=== PATIENT | male | born 1950 | race American Indian/Alaskan Native ===

== ENCOUNTER 2017-09-11 07:57 | Inpatient (IN) | payer MEDICARE ==
--- NOTE | 2017-09-11 09:02 | Emergency Department Report ---
HPI - General Chief Complaint: Extremity Problem,Nontraumatic Time Seen by Provider: 09/11/17 08:41 - HPI HPI: This is a 66-year-old -Nepalese male presents to the emergency department with complaint of swelling to the right leg for the past day or so. The patient is noted to have a blackened and necrotic appearing right great toe. He says that it is been like this for the past couple weeks. He says he has been talking about seeing a physician regarding these symptoms but has not yet done so. He has a past medical history of prostate cancer and some chronic back pains. He has not taken anything for his symptoms prior presentation. He has a primary care physician to [facility]. No recent travel or sick contacts at home. ED Past Medical Hx - Past Medical History Previous Medical History?: Yes Hx of Cancer: Yes (prostate) Additional medical history: chronic back pain - Surgical History Past Surgical History?: No - Social History Smoking Status: Current Every Day Smoker Substance Use Type: Alcohol, Cocaine, Marijuana ED Review of Systems ROS: Stated complaint: RT LEG PAIN/SWOLLEN Other details as noted in HPI Comment: All other systems reviewed and negative Constitutional: denies: chills, fever Eyes: denies: eye pain, eye discharge, vision change ENT: denies: ear pain, throat pain Respiratory: denies: cough, shortness of breath, wheezing Cardiovascular: edema. denies: chest pain, palpitations Gastrointestinal: denies: abdominal pain, nausea, diarrhea Genitourinary: denies: urgency, dysuria Musculoskeletal: joint swelling, myalgia Skin: lesions, change in color Neurological: denies: headache, weakness, paresthesias Physical Exam - Physical Exam Vital Signs: Vital Signs 09/11/17 08:17 Temperature 98.4 F Pulse Rate 74 Respiratory 16 Rate Blood Pressure 110/58 Blood Pressure 110/58 [Left] O2 Sat by Pulse 100 Oximetry Physical Exam: GENERAL: The patient is well-developed well-nourished. HENT: Normocephalic. Atraumatic. Patient has moist mucous membranes. EYES: Extraocular motions are intact. Pupils equal reactive to light bilaterally. NECK: Supple. Trachea is midline. CHEST/LUNGS: Clear to auscultation. There is no respiratory distress noted. HEART/CARDIOVASCULAR: Regular. There is no tachycardia. There is no murmur. ABDOMEN: Abdomen is soft, nontender. Patient has normal bowel sounds. There is no abdominal distention. SKIN: The right lower extremity has some nonpitting edema from the mid tib-fib distally. It is slightly erythematous and warm to touch concerning for a cellulitis. The right great toe appears necrotic. There is a palpable dorsalis pedis pulse on this affected right leg. NEURO: The patient is awake, alert, and oriented. The patient is cooperative. The patient has no focal neurologic deficits. The patient has normal speech and gait. MUSCULOSKELETAL: There is some tenderness palpation to the distal right tib-fib and the foot. There is no evidence of acute injury. ED Course Vital Signs 09/11/17 08:17 Temperature 98.4 F Pulse Rate 74 Respiratory 16 Rate Blood Pressure 110/58 Blood Pressure 110/58 [Left] O2 Sat by Pulse 100 Oximetry ED Medical Decision Making - Lab Data Result diagrams: 09/11/17 09:29 09/11/17 09:29 - Radiology Data Radiology results: report reviewed RIGHT GREAT TOE THREE VIEWS: 09/11/17 07:57:00 CLINICAL: Right great toe necrosis. FINDINGS: Mild osteopenia. However, the great toe has a more coarse trabecular pattern than the rest of the bones. Soft tissue swelling of the great toe and mild soft tissue air in the distal great toe but no erosive changes in the bone. No periosteal reaction. No foreign body. No fracture or dislocation. The rest of the bones and joints are unremarkable. No soft tissue air or foreign body. IMPRESSION: Soft tissue edema and soft tissue air of the great toe. The trabecular changes in the great toe and the first metatarsal suggests possible chronic osteomyelitis. However, no findings of acute osteomyelitis. Transcribed By: REF Dictated By: BEKA OWENS MD Electronically Authenticated By: BEKA OWENS MD Signed Date/Time: 09/11/17 0959 Right lower extremity venous Doppler is negative for DVT. - Medical Decision Making Patient presents with complaint of some swelling to the right leg for a few days but was found to have a necrotic appearing right great toe as well. X-ray of the toe does not show any fracture and it was read by radiology as showing signs of chronic osteomyelitis. However the patient will be covered with some vancomycin for this and what appears to be a cellulitic right leg. The area is swollen, erythematous. Venous Doppler negative for DVT. Patient's labs show a hemoglobin of 6.7 and some thrombocytopenia. No signs of bleeding at this time. He was transfused with 2 units of packed red blood cells and will be admitted to the hospital for further evaluation and treatment. Accepted for admission by the hospitalist, Dr ram. - Differential Diagnosis osteomyelitis, cellulitis, iron deficitency, venous stasis Critical Care Time: No Critical care attestation.: If time is entered above; I have spent that time in minutes in the direct care of this critically ill patient, excluding procedure time. ED Disposition Clinical Impression: Osteomyelitis of toe of right foot, Thrombocytopenia Anemia Qualifiers: Anemia type: unspecified type Qualified Code(s): D64.9 - Anemia, unspecified Cellulitis of leg Qualifiers: Laterality: right Qualified Code(s): L03.115 - Cellulitis of right lower limb Disposition: OP ADMIT IP TO THIS HOSP Is pt being admited?: Yes Condition: Stable Time of Disposition: 15:05
[2017-09-11 09:44] LABS: Hematocrit 21.3 % (35.5-45.6); Hemoglobin 6.7 gm/dl (11.8-15.2); Mean Corpuscular HGB Conc 32 % (32-34); Mean Corpuscular Hemoglobin 30 pg (28-32); Mean Corpuscular Volume 96 fl (84-94); Red Blood Count 2.23 M/mm3 (3.65-5.03)
[2017-09-11 09:51] LABS: Platelet Count 83 K/mm3 (140-440); Red Cell Distribution Width 20.2 % (13.2-15.2)
--- NOTE | 2017-09-11 09:57 | XRay Report ---
RIGHT GREAT TOE THREE VIEWS: 09/11/17 07:57:00 CLINICAL: Right great toe necrosis. FINDINGS: Mild osteopenia. However, the great toe has a more coarse trabecular pattern than the rest of the bones. Soft tissue swelling of the great toe and mild soft tissue air in the distal great toe but no erosive changes in the bone. No periosteal reaction. No foreign body. No fracture or dislocation. The rest of the bones and joints are unremarkable. No soft tissue air or foreign body. IMPRESSION: Soft tissue edema and soft tissue air of the great toe. The trabecular changes in the great toe and the first metatarsal suggests possible chronic osteomyelitis. However, no findings of acute osteomyelitis.
[2017-09-11 09:59] LABS: BUN/Creatinine Ratio 26; Blood Urea Nitrogen 18 mg/dL (9-20); Calcium 8.7 mg/dL (8.4-10.2); Hemolysis Index 1
[2017-09-11] MEDS ORDERED: VANCOMYCIN/NS 1 GM/250 ML 1 GM/250 ML BAG IV SCH (10:00)
[2017-09-11 10:29] LABS: Basophils % (Manual) 0 % (0.0-1.8); Eosinophils % (Manual) 0 % (0.0-4.3); Total Cells Counted 100
[2017-09-11 10:32] LABS: Band Neutrophils # (Manual) 0.2 K/mm3; Myelocytes # (Manual) 0.1 K/mm3
[2017-09-11 10:33] LABS: Anisocytosis 2+; Tear Drop Cells 1+
[2017-09-11 10:34] LABS: Hypochromasia 2+; Macrocytosis 1+
[2017-09-11 10:35] LABS: Platelet Estimate Consistent w Auto
[2017-09-11] MEDS ORDERED: NACL 0.9% 500 ML 500 ML IV ONE (10:48)
[2017-09-11] MEDS ORDERED: NACL 0.9% 500 ML 500 ML IV NR (15:00)
--- NOTE | 2017-09-11 17:14 | History and Physical Report ---
History of Present Illness Date of examination: 09/11/17 Date of admission: 09/11/17 11:27 Chief complaint: Rt foot pain and blackened Great toe for 1 week History of present illness: HPI 66-year-old -Hungarian male with pmh of Prostate Cancer LBP and BPH presents to the emergency department with complaint of swelling to the right foot for the past week. The patient is noted to have a blackened and necrotic appearing right great toe. Dry eschar on Rt great Toe.No drainage. He says that it is been like this for the past couple weeks. He says he has been talking about seeing a physician regarding these symptoms but has not yet done so. He has a past medical history of prostate cancer and some chronic back pains. He has not taken anything for his symptoms prior presentation. He has a primary care physician at [facility]. No recent travel or sick contacts at home. Past Medical History Previous Medical History?: Yes Hx of Cancer: Yes (prostate) And BPH Additional medical history: chronic back pain Surgical History Past Surgical History?: No Social History Smoking Status: Current Every Day Smoker Substance Use Type: Alcohol, Cocaine, Marijuana Family History: Htn Review of Systems ROS: Stated complaint: RT LEG PAIN/SWOLLEN Other details as noted in HPI Comment: All other systems reviewed and negative Constitutional: denies: chills, fever Eyes: denies: eye pain, eye discharge, vision change ENT: denies: ear pain, throat pain Respiratory: denies: cough, shortness of breath, wheezing Cardiovascular: edema. denies: chest pain, palpitations Gastrointestinal: denies: abdominal pain, nausea, diarrhea Genitourinary: denies: urgency, dysuria Musculoskeletal: joint swelling, myalgia Skin: lesions, change in color Neurological: denies: headache, weakness, paresthesias Medications and Allergies Allergies Allergy/AdvReac Type Severity Reaction Status Date / Time No Known Allergies Allergy Unverified 09/11/17 08:29 Active Meds: Active Medications Vancomycin HCl (Vancomycin/Ns 1 Gm/250 Ml) 1 gm in 250 mls @ 167.007 mls/hr IV ONCE PIERCE PRN Reason: Protocol Sodium Chloride (Nacl 0.9% 500 Ml) 500 mls @ 0 mls/hr IV ONCE NR PRN Reason: As Directed Stop: 09/11/17 23:59 Last Admin: 09/11/17 14:45 Dose: 50 mls/hr Exam - Constitutional Vitals: Temp Pulse Resp BP Pulse Ox 99.4 F 72 18 137/70 99 09/11/17 16:57 09/11/17 16:57 09/11/17 16:57 09/11/17 16:57 09/11/17 16:57 General appearance: Present: no acute distress, well-nourished - EENT Eyes: Present: PERRL ENT: hearing intact, clear oral mucosa - Neck Neck: Present: supple, normal ROM - Respiratory Respiratory effort: normal Respiratory: bilateral: CTA - Cardiovascular Heart rate: 80 Rhythm: regular Heart Sounds: Present: S1 & S2. Absent: rub, click - Extremities Extremities: pulses intact, pulses symmetrical, No edema, abnormal (Rt Great toe Black in color especially around the nail bed) Extremity abnormal: edema, erythema, black (Great toe ), pulses diminished Peripheral Pulses: abnormal (Decreased dorsalis pedis) - Abdominal General gastrointestinal: Present: soft, non-tender, non-distended, normal bowel sounds Male genitourinary: Present: normal - Integumentary Integumentary: Present: clear, warm, dry - Musculoskeletal Musculoskeletal: gait normal, strength equal bilaterally - Psychiatric Psychiatric: appropriate mood/affect, intact judgment & insight - Neurologic Neurologic: CNII-XII intact, moves all extremities Results - Labs CBC & Chem 7: 09/11/17 09:29 09/11/17 09:29 Labs: Laboratory Last Values WBC 5.7 K/mm3 (4.5-11.0) 09/11/17 09:29 RBC 2.23 M/mm3 (3.65-5.03) L 09/11/17 09:29 Hgb 6.7 gm/dl (11.8-15.2) L 09/11/17 09:29 Hct 21.3 % (35.5-45.6) L 09/11/17 09:29 MCV 96 fl (84-94) H 09/11/17 09:29 MCH 30 pg (28-32) 09/11/17 09:29 MCHC 32 % (32-34) 09/11/17 09:29 RDW 20.2 % (13.2-15.2) H 09/11/17 09:29 Plt Count 83 K/mm3 (140-440) L 09/11/17 09:29 Add Manual Diff Complete 09/11/17 09:29 Total Counted 100 09/11/17 09:29 Seg Neuts % (Manual) 45.0 % (40.0-70.0) 09/11/17 09:29 Band Neutrophils % 3.0 % 09/11/17 09:29 Lymphocytes % (Manual) 44.0 % (13.4-35.0) H 09/11/17 09:29 Reactive Lymphs % (Man) 0 % 09/11/17 09:29 Monocytes % (Manual) 4.0 % (0.0-7.3) 09/11/17 09:29 Eosinophils % (Manual) 0 % (0.0-4.3) 09/11/17 09:29 Basophils % (Manual) 0 % (0.0-1.8) 09/11/17 09:29 Metamyelocytes % 3.0 % 09/11/17 09:29 Myelocytes % 1.0 % 09/11/17 09: Promyelocytes % 0 % 09/11/17 09:29 Blast Cells % 0 % 09/11/17 09:29 Nucleated RBC % 34.0 % (0.0-0.9) H 09/11/17 09:29 Seg Neutrophils # Man 2.6 K/mm3 (1.8-7.7) 09/11/17 09:29 Band Neutrophils # 0.2 K/mm3 09/11/17 09:29 Lymphocytes # (Manual) 2.5 K/mm3 (1.2-5.4) 09/11/17 09:29 Abs React Lymphs (Man) 0.0 K/mm3 09/11/17 09:29 Monocytes # (Manual) 0.2 K/mm3 (0.0-0.8) 09/11/17 09:29 Eosinophils # (Manual) 0.0 K/mm3 (0.0-0.4) 09/11/17 09:29 Basophils # (Manual) 0.0 K/mm3 (0.0-0.1) 09/11/17 09:29 Metamyelocytes # 0.2 K/mm3 09/11/17 09:29 Myelocytes # 0.1 K/mm3 09/11/17 09:29 Promyelocytes # 0.0 K/mm3 09/11/17 09:29 Blast Cells # 0.0 K/mm3 09/11/17 09:29 Pathologist Review Not Reportable 09/11/17 09:29 WBC Morphology Not Reportable 09/11/17 09:29 Hypersegmented Neuts Not Reportable 09/11/17 09:29 Hyposegmented Neuts Not Reportable 09/11/17 09:29 Hypogranular Neuts Not Reportable 09/11/17 09:29 Smudge Cells Not Reportable 09/11/17 09:29 Toxic Granulation Not Reportable 09/11/17 09:29 Toxic Vacuolation Not Reportable 09/11/17 09:29 Dohle Bodies Not Reportable 09/11/17 09:29 Pelger-Huet Anomaly Not Reportable 09/11/17 09:29 Jose Rods Not Reportable 09/11/17 09:29 Platelet Estimate Consistent w auto 09/11/17 09:29 Clumped Platelets Not Reportable 09/11/17 09:29 Plt Clumps, EDTA Not Reportable 09/11/17 09:29 Large Platelets Not Reportable 09/11/17 09:29 Giant Platelets Not Reportable 09/11/17 09:29 Platelet Satelliting Not Reportable 09/11/17 09:29 Plt Morphology Comment Not Reportable 09/11/17 09:29 RBC Morphology Not Reportable 09/11/17 09:29 Dimorphic RBCs Not Reportable 09/11/17 09:29 Polychromasia Few 09/11/17 09:29 Hypochromasia 2+ 09/11/17 09:29 Poikilocytosis Not Reportable 09/11/17 09:29 Anisocytosis 2+ 09/11/17 09:29 Microcytosis Not Reportable 09/11/17 09:29 Macrocytosis 1+ 09/11/17 09:29 Spherocytes Not Reportable 09/11/17 09:29 Pappenheimer Bodies Not Reportable 09/11/17 09:29 Sickle Cells Not Reportable 09/11/17 09:29 Target Cells Not Reportable 09/11/17 09:29 Tear Drop Cells 1+ 09/11/17 09:29 Ovalocytes Not Reportable 09/11/17 09:29 Helmet Cells Not Reportable 09/11/17 09:29 Li-Cucumber Bodies Not Reportable 09/11/17 09:29 [place] Rings Not Reportable 09/11/17 09:29 Jenae Cells Not Reportable 09/11/17 09:29 Bite Cells Not Reportable 09/11/17 09:29 Crenated Cell Not Reportable 09/11/17 09:29 Elliptocytes Not Reportable 09/11/17 09:29 Acanthocytes (Spur) Not Reportable 09/11/17 09:29 Rouleaux Not Reportable 09/11/17 09:29 Hemoglobin C Crystals Not Reportable 09/11/17 09:29 Schistocytes Not Reportable 09/11/17 09:29 Malaria parasites Not Reportable 09/11/17 09:29 Collins Bodies Not Reportable 09/11/17 09:29 Hem Pathologist Commnt No 09/11/17 09:29 Sodium 142 mmol/L (137-145) 09/11/17 09:29 Potassium 4.9 mmol/L (3.6-5.0) 09/11/17 09:29 Chloride 103.0 mmol/L (98-107) 09/11/17 09:29 Carbon Dioxide 25 mmol/L (22-30) 09/11/17 09:29 Anion Gap 19 mmol/L 09/11/17 09:29 BUN 18 mg/dL (9-20) 09/11/17 09:29 Creatinine 0.7 mg/dL (0.8-1.5) L 09/11/17 09:29 Estimated GFR > 60 ml/min 09/11/17 09:29 BUN/Creatinine Ratio 26 % 09/11/17 09:29 Glucose 90 mg/dL (75-100) 09/11/17 09:29 Lactic Acid 1.50 mmol/L (0.7-2.0) 09/11/17 09:29 Calcium 8.7 mg/dL (8.4-10.2) 09/11/17 09:29 Total Creatine Kinase 136 units/L (55-170) 09/11/17 09:29 Blood Type B POSITIVE 09/11/17 10:13 Antibody Screen Negative 09/11/17 10:13 Crossmatch See Detail 09/11/17 10:13 - Imaging and Cardiology Imaging and Cardiology: Rt great toe x ray -soft tissue edema of great toe.The trabecular changes in g\ reat toe and first metatarsal suggests possible chronic osteomyelitis.No acute osteomyelitis Assessment and Plan Advance Directives: Yes (Full code) VTE prophylaxis?: Chemical Plan of care discussed with patient/family: Yes - Patient Problems (1) Osteomyelitis of toe of right foot Current Visit: Yes Status: Chronic Plan to address problem: IV abx for now-Unasyn and vancomycin. w/u to r/o PAD Vascular and ID consult (2) Acute pure red cell anemia Current Visit: Yes Status: Acute Plan to address problem: probably secondary to prostate cancer. Transfuse 2 units of packed red blood cells. (3) BPH (benign prostatic hyperplasia) Current Visit: Yes Status: Chronic Qualifiers: Lower urinary tract symptom presence: symptoms present Plan to address problem: Continue Tamsulosin. (4) Chronic pain due to neoplasm Current Visit: Yes Status: Chronic Plan to address problem: continue his home medications. (5) PAD (peripheral artery disease) Current Visit: Yes Status: Chronic Plan to address problem: Strong possibility in view of his smoking.Arterial duplex scan ordered (6) Nicotine dependence Current Visit: Yes Status: Chronic Qualifiers: Nicotine product type: cigarettes Plan to address problem: Nicoderm patch ordered (7) DVT prophylaxis Current Visit: Yes Status: Acute Plan to address problem: Lovenox 30 mg subcutaneous daily
[2017-09-11] MEDS ORDERED: MORPHINE IV PRN (18:06)
[2017-09-11] MEDS ORDERED: TYLENOL PO PRN (18:12)
[2017-09-11] MEDS ORDERED: MILK OF MAGNESIA PO PRN (18:12)
[2017-09-11] MEDS ORDERED: DULCOLAX PR PRN (18:12)
[2017-09-11] MEDS ORDERED: ZOFRAN IV PRN (18:12)
[2017-09-11] MEDS ORDERED: UNASYN/NS 3 GM/100 ML 3 GM/100 ML BAG IV SCH (19:00)
[2017-09-11] MEDS ORDERED: D5NS 1,000 ML IV SCH (19:00)
[2017-09-11] MEDS ORDERED: VANCOMYCIN PHARMACY TO DOSE IV SCH (19:00)
[2017-09-11] MEDS: PERCOCET 5/325 PO PRN (19:03)
[2017-09-11] MEDS: HABITROL TD SCH (23:04)
[2017-09-11] MEDS: PEPCID PO SCH (23:04)
[2017-09-12] MEDS: DILAUDID IV PRN ×6 (00:11→23:28)
[2017-09-12] MEDS: UNASYN/NS 3 GM/100 ML 3 GM/100 ML BAG IV SCH ×3 (00:11→18:01)
[2017-09-12] MEDS ORDERED: VANCOMYCIN 1,500 MG in NACL 0.9% 500 ML 500 ML IV ONE (01:00)
[2017-09-12 01:51] LABS: % Iron Saturation 20.6 %
[2017-09-12 08:45] LABS: Mean Corpuscular HGB Conc 31 % (32-34); Mean Corpuscular Hemoglobin 29 pg (28-32); Mean Corpuscular Volume 94 fl (84-94); Red Blood Count 3.42 M/mm3 (3.65-5.03); Red Cell Distribution Width 18.7 % (13.2-15.2)
[2017-09-12 08:46] LABS: Platelet Count 65 K/mm3 (140-440)
[2017-09-12 08:50] LABS: Hematocrit 32.1 % (35.5-45.6)
[2017-09-12 09:05] LABS: Alanine Aminotransferase 8 units/L (7-56); Albumin 3.9 g/dL (3.9-5); BUN/Creatinine Ratio 18; Blood Urea Nitrogen 11 mg/dL (9-20); Calcium 8.7 mg/dL (8.4-10.2); Hemolysis Index 20
--- NOTE | 2017-09-12 09:35 | Consultation ---
History of Present Illness - Reason for Consult Consult date: 09/12/17 - History of Present Illness 66 year old male presenting with right great toe black discoloration for two weeks. He states that this has never occurred before, and prior to that he had never had issues with leg pain, PAD, or ambulation. He denies fever or chills. He also denies any cardiac history - specifically no atrial fibrillation or endocarditis. He also denies a history or hypercoagulability. He is not on blood thinners at home, per him. Medications and Allergies Allergies Allergy/AdvReac Type Severity Reaction Status Date / Time No Known Allergies Allergy Unverified 09/11/17 08:29 Active Meds: Active Medications Acetaminophen (Tylenol) 650 mg PO Q4H PRN PRN Reason: Pain MILD(1-3)/Fever >100.5/GARCIA Bisacodyl (Dulcolax) 10 mg RI QDAY PRN PRN Reason: Constipation unrelieved by [facility] Famotidine (Pepcid) 20 mg PO BID [facility] Last Admin: 09/11/17 23:04 Dose: 20 mg Hydromorphone HCl (Dilaudid) 1 mg IV Q3H PRN PRN Reason: Pain , Severe (7-10) Last Admin: 09/12/17 06:36 Dose: 1 mg Dextrose/Sodium Chloride (D5ns) 1,000 mls @ 100 mls/hr IV DIRECT [facility] Stop: 09/12/17 11:00 Last Admin: 09/12/17 07:06 Dose: 100 mls/hr Ampicillin Sodium/Sulbactam Sodium (Unasyn/Ns 3 Gm/100 Ml) 3 gm in 100 mls @ 100 mls/hr IV Q6HR [facility] PRN Reason: Protocol Last Admin: 09/12/17 06:31 Dose: 100 mls/hr Influenza Virus Vaccine Quadrival (Fluarix Quad [id number](36 Mos+) 0.5 ml IM .ONCE ONE Stop: 09/12/17 12:01 Magnesium Hydroxide (Milk Of Magnesia) 30 ml PO Q4H PRN PRN Reason: Constipation Nicotine (Habitrol) 21 mg TD QDAY [facility] Last Admin: 09/11/17 23:04 Dose: 21 mg Ondansetron HCl (Zofran) 4 mg IV Q8H PRN PRN Reason: N/V unrelieved by Reglan Oxycodone/Acetaminophen (Percocet 5/325) 1 tab PO Q6H PRN PRN Reason: Pain, Moderate (4-6) Last Admin: 09/11/17 19:03 Dose: 1 tab Pneumococcal Polyvalent Vaccine (Pneumovax 23) 0.5 ml IM .ONCE ONE Stop: 09/12/17 12:01 Vancomycin HCl (Vancomycin Pharmacy To Dose) 1 each IV PKCONSULT PIERCE PRN Reason: Protocol Zolpidem Tartrate (Ambien) 5 mg PO QHS PRN PRN Reason: Insomnia Exam - Constitutional Vitals: Temp Pulse Resp BP Pulse Ox 98.3 F 80 14 165/99 95 09/12/17 07:55 09/12/17 07:55 09/12/17 07:55 09/12/17 07:55 09/12/17 07:55 General appearance: Present: other (moderate distress) - EENT Eyes: Present: PERRL ENT: hearing intact, clear oral mucosa - Neck Neck: Present: supple, normal ROM - Respiratory Respiratory effort: normal - Extremities Extremities: abnormal (blackened, dry gangrene of rt great toe. cannot palpate right pulses due to severe tenderness. Left pedal pulses palpable) Results - Labs CBC & Chem 7: 09/12/17 08:32 09/12/17 08:32 Labs: Abnormal lab results 09/11/17 09/11/17 09/11/17 Range/Units 09:29 09:29 10:13 RBC 2.23 L (3.65-5.03) M/mm3 Hgb 6.7 L (11.8-15.2) gm/dl Hct 21.3 L (35.5-45.6) % MCV 96 H (84-94) fl MCHC (32-34) % RDW 20.2 H (13.2-15.2) % Plt Count 83 L (140-440) K/mm3 Lymphocytes % (Manual) 44.0 H (13.4-35.0) % Nucleated RBC % 34.0 H (0.0-0.9) % Creatinine 0.7 L (0.8-1.5) mg/dL Iron (49-181) ug/dL TIBC (250-450) mcg/dL Alkaline Phosphatase (35-129) units/L Crossmatch See Detail 09/11/17 09/12/17 09/12/17 Range/Units 23:47 08:32 08:32 RBC 3.42 L (3.65-5.03) M/mm3 Hgb 10.0 L D (11.8-15.2) gm/dl Hct 32.1 L D (35.5-45.6) % MCV (84-94) fl MCHC 31 L (32-34) % RDW 18.7 H (13.2-15.2) % Plt Count 65 L (140-440) K/mm3 Lymphocytes % (Manual) (13.4-35.0) % Nucleated RBC % (0.0-0.9) % Creatinine 0.6 L (0.8-1.5) mg/dL Iron 48 L (49-181) ug/dL TIBC 233 L (250-450) mcg/dL Alkaline Phosphatase 684 H (35-129) units/L Crossmatch - Imaging and Cardiology Venous US: pending Assessment and Plan Given the lack of cardiac history and relatively acute onset of symptoms, this could be an embolic/clotting event. However, the dry appearance of the toe along with a smoking history suggests a more chronic underlying process as well. I will have him get an arterial duplex this morning. However, it is almost certain that he will need an intervention given his level of pain. Depending on today's findings, further workup for an embolic source such as echo or CTA may be necessary. I will also recheck his coags.
[2017-09-12] MEDS: HABITROL TD SCH (09:41)
[2017-09-12] MEDS: PEPCID PO SCH ×2 (09:41→23:11)
[2017-09-12] MEDS ORDERED: LOVENOX SUB-Q SCH ×2 (10:00)
[2017-09-12 10:22] LABS: INR 0.94 (0.87-1.13)
[2017-09-12 11:04] LABS: Band Neutrophils # (Manual) 0.6 K/mm3; Basophils % (Manual) 0 % (0.0-1.8); Total Cells Counted 100
[2017-09-12 11:06] LABS: Anisocytosis 1+
[2017-09-12] MEDS ORDERED: PNEUMOVAX 23 IM ONE (12:00)
[2017-09-12] MEDS ORDERED: Fluarix Quad 2017-2018(36 MOS+ IM ONE (12:00)
[2017-09-12] MEDS ORDERED: HEPARIN/NS 5000 UNIT/500ML(CATH LAB) 500 ML IR ONE (12:03)
[2017-09-12] MEDS ORDERED: HEPARIN 10,000 UNITS/10 ML ONE (12:03)
[2017-09-12] MEDS ORDERED: NACL 0.9% 500 ML 500 ML ONE (12:04)
[2017-09-12] MEDS ORDERED: XYLOCAINE 2% INFILTRATI ONE (12:04)
[2017-09-12] MEDS ORDERED: ANCEF/STERILE WATER 2 GM/20 ML 0 GM/0 ML SYRINGE IV ONE (12:04)
[2017-09-12] MEDS: VERSED ONE ×2 (12:19→12:22)
[2017-09-12] MEDS: SUBLIMAZE ONE ×3 (12:19→13:42)
[2017-09-12] MEDS ORDERED: HEPARIN/NS 5000 UNIT/500ML(CATH LAB) 1,000 ML IR ONE (12:36)
[2017-09-12] MEDS ORDERED: VERSED ONE (12:52)
[2017-09-12] MEDS ORDERED: SUBLIMAZE ONE (12:52)
[2017-09-12] MEDS ORDERED: ANCEF/STERILE WATER 2 GM/20 ML 2 GM/20 ML SYRINGE IV ONE (13:07)
--- NOTE | 2017-09-12 14:40 | Consultation ---
History of Present Illness - Reason for Consult Consult date: 09/12/17 Right toe gangrene Requesting physician: INDIO ATKINSON - History of Present Illness 66-year-old -Sammarinese male with PHX of Prostate Cancer LBP and BPH presents to the emergency department with complaint of swelling to the right foot for the past week. The patient is noted to have a blackened and necrotic appearing right great toe. Dry eschar on Rt great toe with no drainage. He says that it is been like this for the past couple weeks. He has a past medical history of prostate cancer and some chronic back pains. He has not taken anything for his symptoms prior presentation. Initial temperature was 98.4, HR 74,, respiration 16, blood pressure 110/58, WBC 5.7, Hgb 6.7, Plt 83, Cr 0.7. Microbiology: Blood cultures: 09/11 ngtd Urine cultures: none Respiratory cultures: Current Antimicrobials: unasyn 08/16/ vacomycin 09/12 Previous Antimicrobials: ceftriaxone Medications and Allergies Allergies Allergy/AdvReac Type Severity Reaction Status Date / Time No Known Allergies Allergy Unverified 09/11/17 08:29 Active Meds: Active Medications Acetaminophen (Tylenol) 650 mg PO Q4H PRN PRN Reason: Pain MILD(1-3)/Fever >100.5/GARCIA Bisacodyl (Dulcolax) 10 mg PA QDAY PRN PRN Reason: Constipation unrelieved by MOM Famotidine (Pepcid) 20 mg PO BID [facility] Last Admin: 09/12/17 09:41 Dose: 20 mg Hydromorphone HCl (Dilaudid) 1 mg IV Q3H PRN PRN Reason: Pain , Severe (7-10) Last Admin: 09/12/17 09:41 Dose: 1 mg Ampicillin Sodium/Sulbactam Sodium (Unasyn/Ns 3 Gm/100 Ml) 3 gm in 100 mls @ 100 mls/hr IV Q6HR [facility] PRN Reason: Protocol Last Admin: 09/12/17 06:31 Dose: 100 mls/hr Vancomycin HCl (Vancomycin/Ns 1 Gm/250 Ml) 1 gm in 250 mls @ 166.667 mls/hr IV Q18H [facility] Magnesium Hydroxide (Milk Of Magnesia) 30 ml PO Q4H PRN PRN Reason: Constipation Nicotine (Habitrol) 21 mg TD QDAY [facility] Last Admin: 09/12/17 09:41 Dose: 21 mg Ondansetron HCl (Zofran) 4 mg IV Q8H PRN PRN Reason: N/V unrelieved by Reglan Oxycodone/Acetaminophen (Percocet 5/325) 1 tab PO Q6H PRN PRN Reason: Pain, Moderate (4-6) Last Admin: 09/11/17 19:03 Dose: 1 tab Vancomycin HCl (Vancomycin Pharmacy To Dose) 1 each IV PKCONSULT [facility] PRN Reason: Protocol Zolpidem Tartrate (Ambien) 5 mg PO QHS PRN PRN Reason: Insomnia Physical Examination - Physical Exam Narrative exam: General appearance: Alert in NAD, conversant Eyes: anicteric sclerae, moist conjunctivae; no lid-lag; PERRLA HENT: Atraumatic; oropharynx clear with moist mucous membranes and no mucosal ulcerations/no oral thrush; normal hard and soft palate. Normal external ears. Neck: Trachea midline; supple, no thyromegaly or lymphadenopathy Lungs: breath sounds diminished bilaterally CV: RRR, no murmurs Abdomen: Soft, non-tender; +BS x 4 Extremities: right great toe gangrene, right 2nd toe gangrene Skin: Normal temperature, warm dry and intact Psych: Appropriate affect, calm and cooperative Neuro: alert and oriented x 3. Moving all extermities Lines: No CVL / PICC - Constitutional Vitals: Vital Signs Temp Pulse Resp BP Pulse Ox 98.3 F 80 14 165/99 95 09/12/17 07:55 09/12/17 07:55 09/12/17 07:55 09/12/17 07:55 09/12/17 07:55 Temperature -Last 24 Hours Temperature 98.3 F Temperature 99.1 F Temperature 98.8 F Temperature 98.5 F Temperature 99.6 F Temperature 100.1 F Temperature 100.1 F Temperature 98.2 F Temperature 98.7 F Temperature 98.9 F Temperature 99.0 F Temperature 98.2 F Temperature 99.8 F Temperature 99.0 F Temperature 99.6 F Temperature 99.0 F Temperature 99.4 F Temperature 99.0 F Temperature 98.3 F Temperature 98.3 F Results - Labs CBC & Chem 7: 09/12/17 08:32 09/12/17 08:32 Labs: Abnormal lab results 09/11/17 09/11/17 09/12/17 Range/Units 10:13 23:47 08:32 RBC 3.42 L (3.65-5.03) M/mm3 Hgb 10.0 L D (11.8-15.2) gm/dl Hct 32.1 L D (35.5-45.6) % MCHC 31 L (32-34) % RDW 18.7 H (13.2-15.2) % Plt Count 65 L (140-440) K/mm3 Nucleated RBC % 4.0 H (0.0-0.9) % Creatinine (0.8-1.5) mg/dL Iron 48 L (49-181) ug/dL TIBC 233 L (250-450) mcg/dL Alkaline Phosphatase (35-129) units/L Crossmatch See Detail 09/12/17 Range/Units 08:32 RBC (3.65-5.03) M/mm3 Hgb (11.8-15.2) gm/dl Hct (35.5-45.6) % MCHC (32-34) % RDW (13.2-15.2) % Plt Count (140-440) K/mm3 Nucleated RBC % (0.0-0.9) % Creatinine 0.6 L (0.8-1.5) mg/dL Iron (49-181) ug/dL TIBC (250-450) mcg/dL Alkaline Phosphatase 684 H (35-129) units/L Crossmatch Assessment and Plan Assessment: 1) Sepsis not present on admission: manifested by fever, tachycardia, thrombocytopenia, and anemia. Etiology most likely gangrene of right toe 2) Right great toe ulcer/gangrene. Possible osteomyelitis 2) BPH Plan: -follow-up blood cultures -culture right great toe -obtain CRP -continue unasyn and vancomycin -f/u arterial doppler -obtain TTE, and CTI -vascular following Thank you Dr. Atkinson for your consult, will follow up Asael Ling NP-C for Dr. Hannah Ventura MD Infectious Diseases Specialist [facility] ([facility] M [phone] O [phone]
--- NOTE | 2017-09-12 15:33 | Progress Note ---
<MARILU RIVERA - Last Filed: 09/12/17 15:41> Assessment and Plan Assessment and plan: 66-year-old -[place] male with pmh of Prostate Cancer LBP and BPH presents to the emergency department with complaint of swelling to the right foot for the past week. The patient is noted to have a blackened and necrotic appearing right great toe. Dry eschar on Rt great Toe.No drainage. He says that it is been like this for the past couple weeks. He says he has been talking about seeing a physician regarding these symptoms but has not yet done so. He has a past medical history of prostate cancer and some chronic back pains. He has not taken anything for his symptoms prior presentation. Osteomyelitis of toe of right foot Continue IV abx for now-Unasyn and vancomycin. w/u to r/o PAD Duplex doppler LE showed OCCLUDED RT.POP ARTERY AND RT.DPA WITH THROMBUS NOTED.MULTIPHASIC WAVEFORMS THROUGHOUT VESSELS INTERROGATED EXCEPT FOR MONOPHASIC WAVEFORMS OBTAINED IN THE RT.[employer] AND RT.BRISA.BLE ARTERIAL DUPLEX Heparin Drip initiated Vascular and ID following Anemia Hgb 10.0 today probably secondary to prostate cancer. s/p Transfusion 2 units of packed red blood cells on 09/11. BPH (benign prostatic hyperplasia) Continue Tamsulosin. Chronic pain due to neoplasm continue his home medications. PAD (peripheral artery disease) Strong possibility in view of his smoking. Occluded R POP artery vascular following Nicotine dependence Pt counselled on cessation Nicoderm patch ordered DVT prophylaxis pt on Heparin History Interval history: Patient seen and examined. No new issues. Pt denies CP, SOB, NV. Labs and nursing notes reviewed. Hospitalist Physical - Constitutional Vitals: Temp Pulse Resp BP Pulse Ox 98.3 F 80 14 165/99 95 09/12/17 07:55 09/12/17 07:55 09/12/17 07:55 09/12/17 07:55 09/12/17 07:55 General appearance: Present: no acute distress, other - EENT Eyes: Present: PERRL, EOM intact ENT: hearing intact, clear oral mucosa - Neck Neck: Present: supple, normal ROM - Respiratory Respiratory effort: normal Respiratory: bilateral: diminished - Cardiovascular Rhythm: regular Heart Sounds: Present: S1 & S2 - Extremities Extremity abnormal: other (right great toe gangrene, right 2nd toe gangrene) - Abdominal General gastrointestinal: soft, non-tender, non-distended, normal bowel sounds - Integumentary Integumentary: Present: clear, warm, dry - Psychiatric Psychiatric: appropriate mood/affect, cooperative - Neurologic Neurologic: CNII-XII intact, moves all extremities - Allied Health Allied health notes reviewed: nursing Results - Labs CBC & Chem 7: 09/12/17 08:32 09/12/17 08:32 Labs: Laboratory Last Values WBC 6.2 K/mm3 (4.5-11.0) 09/12/17 08:32 RBC 3.42 M/mm3 (3.65-5.03) L 09/12/17 08:32 Hgb 10.0 gm/dl (11.8-15.2) L D 09/12/17 08:32 Hct 32.1 % (35.5-45.6) L D 09/12/17 08:32 MCV 94 fl (84-94) 09/12/17 08:32 MCH 29 pg (28-32) 09/12/17 08:32 MCHC 31 % (32-34) L 09/12/17 08:32 RDW 18.7 % (13.2-15.2) H 09/12/17 08:32 Plt Count 65 K/mm3 (140-440) L 09/12/17 08:32 Add Manual Diff Complete 09/12/17 08:32 Total Counted 100 09/12/17 08:32 Seg Neuts % (Manual) 50.0 % (40.0-70.0) 09/12/17 08:32 Band Neutrophils % 10.0 % 09/12/17 08:32 Lymphocytes % (Manual) 32.0 % (13.4-35.0) 09/12/17 08:32 Reactive Lymphs % (Man) 0 % 09/12/17 08:32 Monocytes % (Manual) 6.0 % (0.0-7.3) 09/12/17 08:32 Eosinophils % (Manual) 2.0 % (0.0-4.3) 09/12/17 08:32 Basophils % (Manual) 0 % (0.0-1.8) 09/12/17 08:32 Metamyelocytes % 0 % 09/12/17 08:32 Myelocytes % 0 % 09/12/17 08:32 Promyelocytes % 0 % 09/12/17 08:32 Blast Cells % 0 % 09/12/17 08:32 Nucleated RBC % 4.0 % (0.0-0.9) H 09/12/17 08:32 Seg Neutrophils # Man 3.1 K/mm3 (1.8-7.7) 09/12/17 08:32 Band Neutrophils # 0.6 K/mm3 09/12/17 08:32 Lymphocytes # (Manual) 2.0 K/mm3 (1.2-5.4) 09/12/17 08:32 Abs React Lymphs (Man) 0.0 K/mm3 09/12/17 08:32 Monocytes # (Manual) 0.4 K/mm3 (0.0-0.8) 09/12/17 08:32 Eosinophils # (Manual) 0.1 K/mm3 (0.0-0.4) 09/12/17 08:32 Basophils # (Manual) 0.0 K/mm3 (0.0-0.1) 09/12/17 08:32 Metamyelocytes # 0.0 K/mm3 09/12/17 08:32 Myelocytes # 0.0 K/mm3 09/12/17 08:32 Promyelocytes # 0.0 K/mm3 09/12/17 08:32 Blast Cells # 0.0 K/mm3 09/12/17 08:32 Pathologist Review Not Reportable 09/11/17 09:29 WBC Morphology Not Reportable 09/12/17 08:32 Hypersegmented Neuts Not Reportable 09/12/17 08:32 Hyposegmented Neuts Not Reportable 09/12/17 08:32 Hypogranular Neuts Not Reportable 09/12/17 08:32 Smudge Cells Not Reportable 09/12/17 08:32 Toxic Granulation Not Reportable 09/12/17 08:32 Toxic Vacuolation Not Reportable 09/12/17 08:32 Dohle Bodies Not Reportable 09/12/17 08:32 Pelger-Huet Anomaly Not Reportable 09/12/17 08:32 Jose Rods Not Reportable 09/12/17 08:32 Platelet Estimate Not Reportable 09/12/17 08:32 Clumped Platelets Not Reportable 09/12/17 08:32 Plt Clumps, EDTA Not Reportable 09/12/17 08:32 Large Platelets Not Reportable 09/12/17 08:32 Giant Platelets Not Reportable 09/12/17 08:32 Platelet Satelliting Not Reportable 09/12/17 08:32 Plt Morphology Comment Not Reportable 09/12/17 08:32 RBC Morphology Not Reportable 09/12/17 08:32 Dimorphic RBCs Not Reportable 09/12/17 08:32 Polychromasia Few 09/12/17 08:32 Hypochromasia Not Reportable 09/12/17 08:32 Poikilocytosis Not Reportable 09/12/17 08:32 Anisocytosis 1+ 09/12/17 08:32 Microcytosis Not Reportable 09/12/17 08:32 Macrocytosis Not Reportable 09/12/17 08:32 Spherocytes Not Reportable 09/12/17 08:32 Pappenheimer Bodies Not Reportable 09/12/17 08:32 Sickle Cells Not Reportable 09/12/17 08:32 Target Cells Not Reportable 09/12/17 08:32 Tear Drop Cells Not Reportable 09/12/17 08:32 Ovalocytes Not Reportable 09/12/17 08:32 Helmet Cells Not Reportable 09/12/17 08:32 Li-[place]isco[place] Bodies Not Reportable 09/12/17 08:32 [place] Rings Not Reportable 09/12/17 08:32 Jenae Cells Not Reportable 09/12/17 08:32 Bite Cells Not Reportable 09/12/17 08:32 Crenated Cell Not Reportable 09/12/17 08:32 Elliptocytes Not Reportable 09/12/17 08:32 Acanthocytes (Spur) Not Reportable 09/12/17 08:32 Rouleaux Not Reportable 09/12/17 08:32 Hemoglobin C Crystals Not Reportable 09/12/17 08:32 Schistocytes Not Reportable 09/12/17 08:32 Malaria parasites Not Reportable 09/12/17 08:32 Collins Bodies Not Reportable 09/12/17 08:32 Hem Pathologist Commnt No 09/12/17 08:32 PT 13.0 Sec. (12.2-14.9) 09/12/17 09:52 INR 0.94 (0.87-1.13) 09/12/17 09:52 Sodium 137 mmol/L (137-145) 09/12/17 08:32 Potassium 4.5 mmol/L (3.6-5.0) 09/12/17 08:32 Chloride 99.9 mmol/L (98-107) 09/12/17 08:32 Carbon Dioxide 23 mmol/L (22-30) 09/12/17 08:32 Anion Gap 19 mmol/L 09/12/17 08:32 BUN 11 mg/dL (9-20) 09/12/17 08:32 Creatinine 0.6 mg/dL (0.8-1.5) L 09/12/17 08:32 Estimated GFR > 60 ml/min 09/12/17 08:32 BUN/Creatinine Ratio 18 % 09/12/17 08:32 Glucose 77 mg/dL (75-100) 09/12/17 08:32 Hemoglobin A1c 5.4 % (4-6) 09/12/17 08:32 Lactic Acid 1.50 mmol/L (0.7-2.0) 09/11/17 09:29 Calcium 8.7 mg/dL (8.4-10.2) 09/12/17 08:32 Iron 48 ug/dL (49-181) L 09/11/17 23:47 TIBC 233 mcg/dL (250-450) L 09/11/17 23:47 % Saturation 20.60 % 09/11/17 23:47 Transferrin 194 mg/dl (180-329) 09/11/17 23:47 Total Bilirubin 0.60 mg/dL (0.1-1.2) 09/12/17 08:32 AST 17 units/L (5-40) 09/12/17 08:32 ALT 8 units/L (7-56) 09/12/17 08:32 Alkaline Phosphatase 684 units/L (35-129) H 09/12/17 08:32 Total Creatine Kinase 136 units/L (55-170) 09/11/17 09:29 Total Protein 7.2 g/dL (6.3-8.2) 09/12/17 08:32 Albumin 3.9 g/dL (3.9-5) 09/12/17 08:32 Albumin/Globulin Ratio 1.2 % 09/12/17 08:32 Blood Type B POSITIVE 01/28/18 10:13 Antibody Screen Negative 09/11/17 10:13 Crossmatch See Detail 09/11/17 10:13 <GERBER GAN E - Last Filed: 09/12/17 16:31> Assessment and Plan Assessment and plan: I saw and evaluated the patient. I agree with the findings and the plan of care as documented in the PA's~note, with the following corrections and additions. Hospitalist Physical - Constitutional Vitals: Temp Pulse Resp BP Pulse Ox 98.2 F 88 14 133/82 98 09/12/17 15:49 09/12/17 15:49 09/12/17 15:49 09/12/17 15:49 09/12/17 15:49 Results - Labs CBC & Chem 7: 09/12/17 08:32 09/12/17 08:32 Labs: Laboratory Last Values WBC 6.2 K/mm3 (4.5-11.0) 09/12/17 08:32 RBC 3.42 M/mm3 (3.65-5.03) L 09/12/17 08:32 Hgb 10.0 gm/dl (11.8-15.2) L D 09/12/17 08:32 Hct 32.1 % (35.5-45.6) L D 09/12/17 08:32 MCV 94 fl (84-94) 09/12/17 08:32 MCH 29 pg (28-32) 09/12/17 08:32 MCHC 31 % (32-34) L 09/12/17 08:32 RDW 18.7 % (13.2-15.2) H 09/12/17 08:32 Plt Count 65 K/mm3 (140-440) L 09/12/17 08:32 Add Manual Diff Complete 09/12/17 08:32 Total Counted 100 09/12/17 08:32 Seg Neuts % (Manual) 50.0 % (40.0-70.0) 09/12/17 08:32 Band Neutrophils % 10.0 % 09/12/17 08:32 Lymphocytes % (Manual) 32.0 % (13.4-35.0) 09/12/17 08:32 Reactive Lymphs % (Man) 0 % 09/12/17 08:32 Monocytes % (Manual) 6.0 % (0.0-7.3) 09/12/17 08:32 Eosinophils % (Manual) 2.0 % (0.0-4.3) 09/12/17 08:32 Basophils % (Manual) 0 % (0.0-1.8) 09/12/17 08:32 Metamyelocytes % 0 % 09/12/17 08:32 Myelocytes % 0 % 09/12/17 08:32 Promyelocytes % 0 % 09/12/17 08:32 Blast Cells % 0 % 09/12/17 08:32 Nucleated RBC % 4.0 % (0.0-0.9) H 09/12/17 08:32 Seg Neutrophils # Man 3.1 K/mm3 (1.8-7.7) 09/12/17 08:32 Band Neutrophils # 0.6 K/mm3 09/12/17 08:32 Lymphocytes # (Manual) 2.0 K/mm3 (1.2-5.4) 09/12/17 08:32 Abs React Lymphs (Man) 0.0 K/mm3 09/12/17 08:32 Monocytes # (Manual) 0.4 K/mm3 (0.0-0.8) 09/12/17 08:32 Eosinophils # (Manual) 0.1 K/mm3 (0.0-0.4) 09/12/17 08:32 Basophils # (Manual) 0.0 K/mm3 (0.0-0.1) 09/12/17 08:32 Metamyelocytes # 0.0 K/mm3 09/12/17 08:32 Myelocytes # 0.0 K/mm3 09/12/17 08:32 Promyelocytes # 0.0 K/mm3 09/12/17 08:32 Blast Cells # 0.0 K/mm3 09/12/17 08:32 Pathologist Review Not Reportable 09/11/17 09:29 WBC Morphology Not Reportable 09/12/17 08:32 Hypersegmented Neuts Not Reportable 09/12/17 08:32 Hyposegmented Neuts Not Reportable 09/12/17 08:32 Hypogranular Neuts Not Reportable 09/12/17 08:32 Smudge Cells Not Reportable 09/12/17 08:32 Toxic Granulation Not Reportable 09/12/17 08:32 Toxic Vacuolation Not Reportable 09/12/17 08:32 Dohle Bodies Not Reportable 09/12/17 08:32 Pelger-Huet Anomaly Not Reportable 09/12/17 08:32 Jose Rods Not Reportable 09/12/17 08:32 Platelet Estimate Not Reportable 09/12/17 08:32 Clumped Platelets Not Reportable 09/12/17 08:32 Plt Clumps, EDTA Not Reportable 09/12/17 08:32 Large Platelets Not Reportable 09/12/17 08:32 Giant Platelets Not Reportable 09/12/17 08:32 Platelet Satelliting Not Reportable 09/12/17 08:32 Plt Morphology Comment Not Reportable 09/12/17 08:32 RBC Morphology Not Reportable 09/12/17 08:32 Dimorphic RBCs Not Reportable 09/12/17 08:32 Polychromasia Few 09/12/17 08:32 Hypochromasia Not Reportable 09/12/17 08:32 Poikilocytosis Not Reportable 09/12/17 08:32 Anisocytosis 1+ 09/12/17 08:32 Microcytosis Not Reportable 09/12/17 08:32 Macrocytosis Not Reportable 09/12/17 08:32 Spherocytes Not Reportable 09/12/17 08:32 Pappenheimer Bodies Not Reportable 09/12/17 08:32 Sickle Cells Not Reportable 09/12/17 08:32 Target Cells Not Reportable 09/12/17 08:32 Tear Drop Cells Not Reportable 09/12/17 08:32 Ovalocytes Not Reportable 09/12/17 08:32 Helmet Cells Not Reportable 09/12/17 08:32 Li-Biscoe Bodies Not Reportable 09/12/17 08:32 [place] Rings Not Reportable 09/12/17 08:32 [place] Cells Not Reportable 09/12/17 08:32 Bite Cells Not Reportable 09/12/17 08:32 Crenated Cell Not Reportable 09/12/17 08:32 Elliptocytes Not Reportable 09/12/17 08:32 Acanthocytes (Spur) Not Reportable 09/12/17 08:32 Rouleaux Not Reportable 09/12/17 08:32 Hemoglobin C Crystals Not Reportable 09/12/17 08:32 Schistocytes Not Reportable 09/12/17 08:32 Malaria parasites Not Reportable 09/12/17 08:32 Collins Bodies Not Reportable 09/12/17 08:32 Hem Pathologist Commnt No 09/12/17 08:32 PT 13.0 Sec. (12.2-14.9) 09/12/17 09:52 INR 0.94 (0.87-1.13) 09/12/17 09:52 Sodium 137 mmol/L (137-145) 09/12/17 08:32 Potassium 4.5 mmol/L (3.6-5.0) 09/12/17 08:32 Chloride 99.9 mmol/L (98-107) 09/12/17 08:32 Carbon Dioxide 23 mmol/L (22-30) 09/12/17 08:32 Anion Gap 19 mmol/L 09/12/17 08:32 BUN 11 mg/dL (9-20) 09/12/17 08:32 Creatinine 0.6 mg/dL (0.8-1.5) L 09/12/17 08:32 Estimated GFR > 60 ml/min 09/12/17 08:32 BUN/Creatinine Ratio 18 % 09/12/17 08:32 Glucose 77 mg/dL (75-100) 09/12/17 08:32 Hemoglobin A1c 5.4 % (4-6) 09/12/17 08:32 Lactic Acid 1.50 mmol/L (0.7-2.0) 09/11/17 09:29 Calcium 8.7 mg/dL (8.4-10.2) 09/12/17 08:32 Iron 48 ug/dL (49-181) L 09/11/17 23:47 TIBC 233 mcg/dL (250-450) L 09/11/17 23:47 % Saturation 20.60 % 09/11/17 23:47 Transferrin 194 mg/dl (180-329) 09/11/17 23:47 Total Bilirubin 0.60 mg/dL (0.1-1.2) 09/12/17 08:32 AST 17 units/L (5-40) 09/12/17 08:32 ALT 8 units/L (7-56) 09/12/17 08:32 Alkaline Phosphatase 684 units/L (35-129) H 09/12/17 08:32 Total Creatine Kinase 136 units/L (55-170) 09/11/17 09:29 Total Protein 7.2 g/dL (6.3-8.2) 09/12/17 08:32 Albumin 3.9 g/dL (3.9-5) 09/12/17 08:32 Albumin/Globulin Ratio 1.2 % 09/12/17 08:32 Blood Type B POSITIVE 09/11/17 10:13 Antibody Screen Negative 09/11/17 10:13 Crossmatch See Detail 09/11/17 10:13
--- NOTE | 2017-09-12 15:46 | Operative Report ---
Operative Report Operative Report: Procedure: 1. Ultrasound-guided access of the left common femoral artery 2. Ultrasound-guided access of the right common femoral artery 3. Distal aortography and bilateral common iliac arteriography 4. Sequential right lower extremity arteriography, including infrapopliteal runoff and pedal vessels. Date of Procedure: 09/12/2017 History/Indication: This 66-year-old male with gangrene of the right great toe and pain. Arterial duplex demonstrated an occluded popliteal artery. Physician: Toribio Stark MD Technique/Procedural Details: The patient was placed in the supine position and prepped and draped in the usual sterile fashion. A timeout was performed. Local anesthetic was administered. Under direct ultrasound guidance, a 21-gauge needle was advanced into the right common femoral artery. The needle was exchanged over a mandrel wire for a 4 Sami exchange dilator. Through this, a J-wire was advanced, and a 5 Sami vascular sheath was placed. An Omni flush catheter was advanced over the J-wire to the aortic bifurcation and bilateral common iliac arteriography and aortography was performed. Due to significant tortuosity of the aortic bifurcation, retrograde access could not be achieved. The right groin was then prepped and draped in the usual sterile fashion. Local anesthetic was administered. Under continuous ultrasound guidance, the right common femoral artery was accessed in an antegrade fashion. Via a micropuncture technique, a short 6 Sami vascular sheath was placed. A vertebral catheter was advanced into the superficial femoral artery, and arteriography was performed. Arteriography was sequentially performed to the level of the pedal vessels. In anticipation of intervention, a 45 cm, 7 Sami Center Line destination sheath was placed, replacing the short 6 Sami sheath. However, after further discussion and review of the acquired images, the decision was made to conclude the procedure. Both sheaths were withdrawn and hemostasis was achieved with manual pressure. Discussion: The distal aorta and bilateral common iliac arteries, although tortuous, are normal. There is a complete occlusion of the level of the popliteal arteries with reconstitution of the posterior tibial artery. The peroneal artery reconstitutes as well, and eventually gives rise to the dorsalis pedis. 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 As such, before further intervention, cross-sectional imaging must be acquired to determine further management. A CT angiogram with runoff was ordered, and the primary physician was notified. Specimen: None EBL: <5 cc
[2017-09-12] MEDS ORDERED: HEPARIN 25,000 UNIT in D5W 497.5 ML IV SCH (17:00)
[2017-09-12] MEDS ORDERED: HEPARIN/ 0.45% NACL-25,000 UNIT/500 ML 25,000 UNIT/500 ML BAG IV SCH (17:00)
[2017-09-12 18:32] LABS: Hemoglobin 9.7 gm/dl (11.8-15.2)
[2017-09-12 18:47] LABS: INR 0.96 (0.87-1.13)
[2017-09-12 18:48] LABS: Partial Thromboplastin Time 26.4 Sec. (24.2-36.6)
--- NOTE | 2017-09-12 22:12 | Cat Scan Report ---
FINAL REPORT PROCEDURE: CT ANGIO ABD/FEMORAL ABD AORTA TECHNIQUE: Computerized axial tomographic angiography of the chest, abdomen, pelvis and aortoiliac system with bilateral lower extremity runoff was performed after the IV injection of nonionic iodinated contrast including image processing.The image data was postprocessed using 2-dimensional multiplanar reformatted (MPR) and 3-dimensional (MIP and/or volume rendered) techniques. HISTORY: arteriomegaly - concern for pop aneurysm COMPARISON: No prior studies are available for comparison. FINDINGS: Heart/pericardium: Normal. Aorta: Normal. Pulmonary vessels: Normal. Lungs: Normal. Abdominal and pelvic viscera: Normal. Hypervascular masses: None. Abdominal aorta: Atherosclerotic calcification is noted without significant stenosis Celiac artery: There is narrowing of the proximal celiac artery secondary to what appears to be diaphragmatic crux impression. Superior mesenteric artery: Normal. LEFT renal artery: Normal. RIGHT renal artery: Normal. Inferior mesenteric artery:Normal. Common iliac arteries: Bilateral common iliac arteries are dilated measuring 13 millimeters in diameter. External iliac arteries: Normal. RIGHT lower extremity: Femoral arteries: Normal. Popliteal arteries: There is complete occlusion of the right popliteal artery just above the knee joint with reconstitution anterior and posterior tibial arteries and peroneal artery in the proximal 3rd. There is no evidence of popliteal arterial aneurysm. Anterior tibial artery is demonstrate multiple closes segments throughout.. Posterior tibial and peroneal arteries are patent. Posterior tibial artery is extending into the foot. LEFT lower extremity: Femoral arteries: Normal. Popliteal arteries: Normal. Trifurcation vessels: Posterior and anterior tibial arteries are patent throughout. Peroneal artery demonstrates multiple moderate degree stenoses. Other: Gallbladder is not visualized consistent with cholecystectomy. Moderate degree residual stool is noted. Appendix is normal. There is diffusely increased density of the bony skeleton. IMPRESSION: Bilateral common iliac arteries are dilated and measure 13 millimeters in diameter. 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 Embolic occlusion cannot be excluded. Reconstitution of proximal tibial and peroneal arteries. Diffuse severe disease of the anterior tibial artery with multiple occlusions. Multiple moderate degree stenotic lesions of left peroneal artery.
[2017-09-12] MEDS: VANCOMYCIN/NS 1 GM/250 ML 1 GM/250 ML BAG IV SCH (23:11)
[2017-09-13] MEDS: UNASYN/NS 3 GM/100 ML 3 GM/100 ML BAG IV SCH ×6 (00:08→23:46)
[2017-09-13] MEDS: DILAUDID IV PRN ×2 (06:36→12:59)
[2017-09-13 10:00] LABS: BUN/Creatinine Ratio 17; Blood Urea Nitrogen 10 mg/dL (9-20); Calcium 9.3 mg/dL (8.4-10.2); Hemolysis Index 4
--- NOTE | 2017-09-13 10:41 | Progress Note ---
Assessment and Plan Assessment: 1) Sepsis not present on admission: Better, still thrombocytopenia and anemia. Etiology most likely gangrene of right toe -CRP = 15.70 -blood cultures 09/11 ngtd -CTA showed bilateral common iliac arteries are dilated and measure 133 mm in diameter 2) Right great toe ulcer/gangrene. Possible osteomyelitis 2) BPH Plan: -f/u right great toe culture -continue unasyn day 2 and vancomycin day 3 -f/u arterial doppler -f/u TTE, and CTI -vascular following Thank you Dr. Saavedra for your consult, will follow up SARAH Figueroa for Dr. Hannah Ventura MD Infectious Diseases Specialist [facility] [phone] O [phone] Subjective Date of service: 09/13/17 Principal diagnosis: right toe gangrene Interval history: I have not had anything to eat since midnight and I am hungry, no fever Microbiology: Blood cultures: 09/11 ngtd Urine cultures: none Respiratory cultures: Current Antimicrobials: unasyn 09/12 vacomycin 09/11 Previous Antimicrobials: ceftriaxone Objective - Exam Narrative Exam: General appearance: Alert in NAD, conversant Eyes: anicteric sclerae, moist conjunctivae; no lid-lag; PERRLA HENT: Atraumatic; oropharynx clear with moist mucous membranes and no mucosal ulcerations/no oral thrush; Neck: Trachea midline; supple, no thyromegaly or lymphadenopathy Lungs: breath sounds diminished bilaterally CV: RRR, no murmurs Abdomen: Soft, non-tender; +BS x 4 Extremities: right great toe gangrene, right 2nd toe gangrene Skin: Normal temperature, warm and dry Psych: Appropriate affect, calm and cooperative Neuro: alert and oriented x 3. Moving all extermities Lines: No CVL / PICC - Constitutional Vitals: Vital Signs Temp Pulse Resp BP Pulse Ox 98.1 F 87 18 149/81 99 09/13/17 07:48 09/13/17 07:48 09/13/17 10:00 09/13/17 07:48 09/13/17 07:48 Temperature -Last 24 Hours Temperature 98.1 F Temperature 98.7 F Temperature 98.2 F - Labs CBC & Chem 7: 09/12/17 18:07 09/13/17 09:29 Labs: Abnormal lab results 09/12/17 09/12/17 09/13/17 Range/Units 08:32 18:07 06:18 Hgb 9.7 L (11.8-15.2) gm/dl Hct 30.0 L (35.5-45.6) % Plt Count 62 L (140-440) K/mm3 Nucleated RBC % 4.0 H (0.0-0.9) % Heparin Anti-Xa Level < 0.10 L (0.3-0.7) U.I./ml Sodium (137-145) mmol/L Chloride (98-107) mmol/L Creatinine (0.8-1.5) mg/dL Glucose (75-100) mg/dL 09/13/17 Range/Units 09:29 Hgb (11.8-15.2) gm/dl Hct (35.5-45.6) % Plt Count (140-440) K/mm3 Nucleated RBC % (0.0-0.9) % Heparin Anti-Xa Level (0.3-0.7) U.I./ml Sodium 133 L (137-145) mmol/L Chloride 97.0 L (98-107) mmol/L Creatinine 0.6 L (0.8-1.5) mg/dL Glucose 103 H (75-100) mg/dL
[2017-09-13 12:00] LABS: Hematocrit 31.6 % (35.5-45.6); Hemoglobin 10.1 gm/dl (11.8-15.2); Mean Corpuscular HGB Conc 32 % (32-34); Mean Corpuscular Hemoglobin 30 pg (28-32); Mean Corpuscular Volume 93 fl (84-94); Red Cell Distribution Width 18.5 % (13.2-15.2)
[2017-09-13 12:10] LABS: Platelet Count 55 K/mm3 (140-440)
--- NOTE | 2017-09-13 12:32 | Progress Note ---
<MARILU RIVERA - Last Filed: 09/13/17 12:30> Assessment and Plan Assessment and plan: 66-year-old -[place] male with pmh of Prostate Cancer LBP and BPH presents to the emergency department with complaint of swelling to the right foot for the past week. The patient is noted to have a blackened and necrotic appearing right great toe. Dry eschar on Rt great Toe.No drainage. He says that it is been like this for the past couple weeks. He says he has been talking about seeing a physician regarding these symptoms but has not yet done so. He has a past medical history of prostate cancer and some chronic back pains. He has not taken anything for his symptoms prior presentation. Osteomyelitis of toe of right foot Continue IV abx for now-Unasyn and vancomycin. w/u to r/o PAD Duplex doppler LE showed OCCLUDED RT.POP ARTERY AND RT.DPA WITH THROMBUS NOTED.MULTIPHASIC WAVEFORMS THROUGHOUT VESSELS INTERROGATED EXCEPT FOR MONOPHASIC WAVEFORMS OBTAINED IN THE RT.WELCOME HOSTESS AND RT.BRISA.BLE ARTERIAL DUPLEX Heparin Drip initiated Vascular and ID following Anemia Hgb 10.0 today probably secondary to prostate cancer. s/p Transfusion 2 units of packed red blood cells on 09/11. BPH (benign prostatic hyperplasia) Continue Tamsulosin. Chronic pain due to neoplasm continue his home medications. PAD (peripheral artery disease) Strong possibility in view of his smoking. Occluded R POP artery vascular following Nicotine dependence Pt counselled on cessation Nicoderm patch ordered DVT prophylaxis pt on Heparin History Interval history: Patient seen and examined. No new issues. Pt denies CP, SOB, NV. Labs and nursing notes reviewed. Hospitalist Physical - Constitutional Vitals: Temp Pulse Resp BP Pulse Ox 98.6 F 87 18 153/89 100 09/13/17 10:54 09/13/17 10:54 09/13/17 10:54 09/13/17 10:54 09/13/17 10:54 General appearance: Present: no acute distress, other - EENT Eyes: Present: PERRL, EOM intact ENT: hearing intact, clear oral mucosa - Neck Neck: Present: supple, normal ROM - Respiratory Respiratory effort: normal Results - Labs CBC & Chem 7: 09/13/17 11:41 09/13/17 09:29 Labs: Laboratory Last Values WBC 5.0 K/mm3 (4.5-11.0) 09/13/17 11:41 RBC 3.40 M/mm3 (3.65-5.03) L 09/13/17 11:41 Hgb 10.1 gm/dl (11.8-15.2) L 09/13/17 11:41 Hct 31.6 % (35.5-45.6) L 09/13/17 11:41 MCV 93 fl (84-94) 09/13/17 11:41 MCH 30 pg (28-32) 09/13/17 11:41 MCHC 32 % (32-34) 09/13/17 11:41 RDW 18.5 % (13.2-15.2) H 09/13/17 11:41 Plt Count 55 K/mm3 (140-440) L 09/13/17 11:41 Add Manual Diff Complete 09/12/17 08:32 Total Counted 100 09/12/17 08:32 Seg Neuts % (Manual) 50.0 % (40.0-70.0) 09/12/17 08:32 Band Neutrophils % 10.0 % 09/12/17 08:32 Lymphocytes % (Manual) 32.0 % (13.4-35.0) 09/12/17 08:32 Reactive Lymphs % (Man) 0 % 09/12/17 08:32 Monocytes % (Manual) 6.0 % (0.0-7.3) 09/12/17 08:32 Eosinophils % (Manual) 2.0 % (0.0-4.3) 09/12/17 08:32 Basophils % (Manual) 0 % (0.0-1.8) 09/12/17 08:32 Metamyelocytes % 0 % 09/12/17 08:32 Myelocytes % 0 % 09/12/17 08:32 Promyelocytes % 0 % 09/12/17 08:32 Blast Cells % 0 % 09/12/17 08:32 Nucleated RBC % 4.0 % (0.0-0.9) H 09/12/17 08:32 Seg Neutrophils # Man 3.1 K/mm3 (1.8-7.7) 09/12/17 08:32 Band Neutrophils # 0.6 K/mm3 09/12/17 08:32 Lymphocytes # (Manual) 2.0 K/mm3 (1.2-5.4) 09/12/17 08:32 Abs React Lymphs (Man) 0.0 K/mm3 09/12/17 08:32 Monocytes # (Manual) 0.4 K/mm3 (0.0-0.8) 09/12/17 08:32 Eosinophils # (Manual) 0.1 K/mm3 (0.0-0.4) 09/12/17 08:32 Basophils # (Manual) 0.0 K/mm3 (0.0-0.1) 09/12/17 08:32 Metamyelocytes # 0.0 K/mm3 09/12/17 08:32 Myelocytes # 0.0 K/mm3 09/12/17 08:32 Promyelocytes # 0.0 K/mm3 09/12/17 08:32 Blast Cells # 0.0 K/mm3 09/12/17 08:32 Pathologist Review Not Reportable 09/11/17 09:29 WBC Morphology Not Reportable 09/12/17 08:32 Hypersegmented Neuts Not Reportable 09/12/17 08:32 Hyposegmented Neuts Not Reportable 09/12/17 08:32 Hypogranular Neuts Not Reportable 09/12/17 08:32 Smudge Cells Not Reportable 09/12/17 08:32 Toxic Granulation Not Reportable 09/12/17 08:32 Toxic Vacuolation Not Reportable 09/12/17 08:32 Dohle Bodies Not Reportable 09/12/17 08:32 Pelger-Huet Anomaly Not Reportable 09/12/17 08:32 Jose Rods Not Reportable 09/12/17 08:32 Platelet Estimate Not Reportable 09/12/17 08:32 Clumped Platelets Not Reportable 09/12/17 08:32 Plt Clumps, EDTA Not Reportable 09/12/17 08:32 Large Platelets Not Reportable 09/12/17 08:32 Giant Platelets Not Reportable 09/12/17 08:32 Platelet Satelliting Not Reportable 09/12/17 08:32 Plt Morphology Comment Not Reportable 09/12/17 08:32 RBC Morphology Not Reportable 09/12/17 08:32 Dimorphic RBCs Not Reportable 09/12/17 08:32 Polychromasia Few 09/12/17 08:32 Hypochromasia Not Reportable 09/12/17 08:32 Poikilocytosis Not Reportable 09/12/17 08:32 Anisocytosis 1+ 09/12/17 08:32 Microcytosis Not Reportable 09/12/17 08:32 Macrocytosis Not Reportable 09/12/17 08:32 Spherocytes Not Reportable 09/12/17 08:32 Pappenheimer Bodies Not Reportable 09/12/17 08:32 Sickle Cells Not Reportable 09/12/17 08:32 Target Cells Not Reportable 09/12/17 08:32 Tear Drop Cells Not Reportable 09/12/17 08:32 Ovalocytes Not Reportable 09/12/17 08:32 Helmet Cells Not Reportable 09/12/17 08:32 Li-Belva Bodies Not Reportable 09/12/17 08:32 [place] Rings Not Reportable 09/12/17 08:32 Jenae Cells Not Reportable 09/12/17 08:32 Bite Cells Not Reportable 09/12/17 08:32 Crenated Cell Not Reportable 09/12/17 08:32 Elliptocytes Not Reportable 09/12/17 08:32 Acanthocytes (Spur) Not Reportable 09/12/17 08:32 Rouleaux Not Reportable 09/12/17 08:32 Hemoglobin C Crystals Not Reportable 09/12/17 08:32 Schistocytes Not Reportable 09/12/17 08:32 Malaria parasites Not Reportable 09/12/17 08:32 Collins Bodies Not Reportable 09/12/17 08:32 Hem Pathologist Commnt No 09/12/17 08:32 PT 13.3 Sec. (12.2-14.9) 09/12/17 18:07 INR 0.96 (0.87-1.13) 09/12/17 18:07 APTT 26.4 Sec. (24.2-36.6) 09/12/17 18:07 Heparin Anti-Xa Level < 0.10 U.I./ml (0.3-0.7) L 09/13/17 06:18 Sodium 133 mmol/L (137-145) L 09/13/17 09:29 Potassium 4.4 mmol/L (3.6-5.0) 09/13/17 09:29 Chloride 97.0 mmol/L (98-107) L 09/13/17 09:29 Carbon Dioxide 22 mmol/L (22-30) 09/13/17 09:29 Anion Gap 18 mmol/L 09/13/17 09:29 BUN 10 mg/dL (9-20) 09/13/17 09:29 Creatinine 0.6 mg/dL (0.8-1.5) L 09/13/17 09:29 Estimated GFR > 60 ml/min 09/13/17 09:29 BUN/Creatinine Ratio 17 % 09/13/17 09:29 Glucose 103 mg/dL (75-100) H 09/13/17 09:29 Hemoglobin A1c 5.4 % (4-6) 09/12/17 08:32 Lactic Acid 1.50 mmol/L (0.7-2.0) 09/11/17 09:29 Calcium 9.3 mg/dL (8.4-10.2) 09/13/17 09:29 Iron 48 ug/dL (49-181) L 09/11/17 23:47 TIBC 233 mcg/dL (250-450) L 09/11/17 23:47 % Saturation 20.60 % 09/11/17 23:47 Transferrin 194 mg/dl (180-329) 09/11/17 23:47 Total Bilirubin 0.60 mg/dL (0.1-1.2) 09/12/17 08:32 AST 17 units/L (5-40) 09/12/17 08:32 ALT 8 units/L (7-56) 09/12/17 08:32 Alkaline Phosphatase 684 units/L (35-129) H 09/12/17 08:32 Total Creatine Kinase 136 units/L (55-170) 09/11/17 09:29 C-Reactive Protein 15.70 mg/dL (0.00-1.30) H 09/13/17 09:29 Total Protein 7.2 g/dL (6.3-8.2) 09/12/17 08:32 Albumin 3.9 g/dL (3.9-5) 09/12/17 08:32 Albumin/Globulin Ratio 1.2 % 09/12/17 08:32 Blood Type B POSITIVE 09/11/17 10:13 Antibody Screen Negative 09/11/17 10:13 Crossmatch See Detail 09/11/17 10:13 <GERBER GAN - Last Filed: 09/13/17 14:08> Assessment and Plan Assessment and plan: I saw and evaluated the patient. I agree with the findings and the plan of care as documented in the PA's~note, with the following corrections and additions. Hematology consult Thrombocytopenia-EVAL FOR HIT Hospitalist Physical - Constitutional Vitals: Temp Pulse Resp BP Pulse Ox 98.6 F 87 18 153/89 100 09/13/17 10:54 09/13/17 10:54 09/13/17 10:54 09/13/17 10:54 09/13/17 10:54 Results - Labs CBC & Chem 7: 09/13/17 11:41 09/13/17 09:29 Labs: Laboratory Last Values WBC 5.0 K/mm3 (4.5-11.0) 09/13/17 11:41 RBC 3.40 M/mm3 (3.65-5.03) L 09/13/17 11:41 Hgb 10.1 gm/dl (11.8-15.2) L 09/13/17 11:41 Hct 31.6 % (35.5-45.6) L 09/13/17 11:41 MCV 93 fl (84-94) 09/13/17 11:41 MCH 30 pg (28-32) 09/13/17 11:41 MCHC 32 % (32-34) 09/13/17 11:41 RDW 18.5 % (13.2-15.2) H 09/13/17 11:41 Plt Count 55 K/mm3 (140-440) L 09/13/17 11:41 Add Manual Diff Complete 09/12/17 08:32 Total Counted 100 09/12/17 08:32 Seg Neuts % (Manual) 50.0 % (40.0-70.0) 09/12/17 08:32 Band Neutrophils % 10.0 % 09/12/17 08:32 Lymphocytes % (Manual) 32.0 % (13.4-35.0) 09/12/17 08:32 Reactive Lymphs % (Man) 0 % 09/12/17 08:32 Monocytes % (Manual) 6.0 % (0.0-7.3) 09/12/17 08:32 Eosinophils % (Manual) 2.0 % (0.0-4.3) 09/12/17 08:32 Basophils % (Manual) 0 % (0.0-1.8) 09/12/17 08:32 Metamyelocytes % 0 % 09/12/17 08:32 Myelocytes % 0 % 09/12/17 08:32 Promyelocytes % 0 % 09/12/17 08:32 Blast Cells % 0 % 09/12/17 08:32 Nucleated RBC % 4.0 % (0.0-0.9) H 09/12/17 08:32 Seg Neutrophils # Man 3.1 K/mm3 (1.8-7.7) 09/12/17 08:32 Band Neutrophils # 0.6 K/mm3 09/12/17 08:32 Lymphocytes # (Manual) 2.0 K/mm3 (1.2-5.4) 09/12/17 08:32 Abs React Lymphs (Man) 0.0 K/mm3 09/12/17 08:32 Monocytes # (Manual) 0.4 K/mm3 (0.0-0.8) 09/12/17 08:32 Eosinophils # (Manual) 0.1 K/mm3 (0.0-0.4) 09/12/17 08:32 Basophils # (Manual) 0.0 K/mm3 (0.0-0.1) 09/12/17 08:32 Metamyelocytes # 0.0 K/mm3 09/12/17 08:32 Myelocytes # 0.0 K/mm3 09/12/17 08:32 Promyelocytes # 0.0 K/mm3 09/12/17 08:32 Blast Cells # 0.0 K/mm3 09/12/17 08:32 Pathologist Review Not Reportable 09/11/17 09:29 WBC Morphology Not Reportable 09/12/17 08:32 Hypersegmented Neuts Not Reportable 09/12/17 08:32 Hyposegmented Neuts Not Reportable 09/12/17 08:32 Hypogranular Neuts Not Reportable 09/12/17 08:32 Smudge Cells Not Reportable 09/12/17 08:32 Toxic Granulation Not Reportable 09/12/17 08:32 Toxic Vacuolation Not Reportable 09/12/17 08:32 Dohle Bodies Not Reportable 09/12/17 08:32 Pelger-Huet Anomaly Not Reportable 09/12/17 08:32 Jose Rods Not Reportable 09/12/17 08:32 Platelet Estimate Not Reportable 09/12/17 08:32 Clumped Platelets Not Reportable 09/12/17 08:32 Plt Clumps, EDTA Not Reportable 09/12/17 08:32 Large Platelets Not Reportable 09/12/17 08:32 Giant Platelets Not Reportable 09/12/17 08:32 Platelet Satelliting Not Reportable 09/12/17 08:32 Plt Morphology Comment Not Reportable 09/12/17 08:32 RBC Morphology Not Reportable 09/12/17 08:32 Dimorphic RBCs Not Reportable 09/12/17 08:32 Polychromasia Few 09/12/17 08:32 Hypochromasia Not Reportable 09/12/17 08:32 Poikilocytosis Not Reportable 09/12/17 08:32 Anisocytosis 1+ 09/12/17 08:32 Microcytosis Not Reportable 09/12/17 08:32 Macrocytosis Not Reportable 09/12/17 08:32 Spherocytes Not Reportable 09/12/17 08:32 Pappenheimer Bodies Not Reportable 09/12/17 08:32 Sickle Cells Not Reportable 09/12/17 08:32 Target Cells Not Reportable 09/12/17 08:32 Tear Drop Cells Not Reportable 09/12/17 08:32 Ovalocytes Not Reportable 09/12/17 08:32 Helmet Cells Not Reportable 09/12/17 08:32 Li-Belva Bodies Not Reportable 09/12/17 08:32 [place] Rings Not Reportable 09/12/17 08:32 [place] Cells Not Reportable 09/12/17 08:32 Bite Cells Not Reportable 09/12/17 08:32 Crenated Cell Not Reportable 09/12/17 08:32 Elliptocytes Not Reportable 09/12/17 08:32 Acanthocytes (Spur) Not Reportable 09/12/17 08:32 Rouleaux Not Reportable 09/12/17 08:32 Hemoglobin C Crystals Not Reportable 09/12/17 08:32 Schistocytes Not Reportable 09/12/17 08:32 Malaria parasites Not Reportable 09/12/17 08:32 Collins Bodies Not Reportable 09/12/17 08:32 Hem Pathologist Commnt No 09/12/17 08:32 PT 13.3 Sec. (12.2-14.9) 09/12/17 18:07 INR 0.96 (0.87-1.13) 09/12/17 18:07 APTT 26.4 Sec. (24.2-36.6) 09/12/17 18:07 Heparin Anti-Xa Level < 0.10 U.I./ml (0.3-0.7) L 09/13/17 06:18 Sodium 133 mmol/L (137-145) L 09/13/17 09:29 Potassium 4.4 mmol/L (3.6-5.0) 09/13/17 09:29 Chloride 97.0 mmol/L (98-107) L 09/13/17 09:29 Carbon Dioxide 22 mmol/L (22-30) 09/13/17 09:29 Anion Gap 18 mmol/L 09/13/17 09:29 BUN 10 mg/dL (9-20) 09/13/17 09:29 Creatinine 0.6 mg/dL (0.8-1.5) L 09/13/17 09:29 Estimated GFR > 60 ml/min 09/13/17 09:29 BUN/Creatinine Ratio 17 % 09/13/17 09:29 Glucose 103 mg/dL (75-100) H 09/13/17 09:29 Hemoglobin A1c 5.4 % (4-6) 09/12/17 08:32 Lactic Acid 1.50 mmol/L (0.7-2.0) 09/11/17 09:29 Calcium 9.3 mg/dL (8.4-10.2) 09/13/17 09:29 Iron 48 ug/dL (49-181) L 09/11/17 23:47 TIBC 233 mcg/dL (250-450) L 09/11/17 23:47 % Saturation 20.60 % 09/11/17 23:47 Transferrin 194 mg/dl (180-329) 09/11/17 23:47 Total Bilirubin 0.60 mg/dL (0.1-1.2) 09/12/17 08:32 AST 17 units/L (5-40) 09/12/17 08:32 ALT 8 units/L (7-56) 09/12/17 08:32 Alkaline Phosphatase 684 units/L (35-129) H 09/12/17 08:32 Total Creatine Kinase 136 units/L (55-170) 09/11/17 09:29 C-Reactive Protein 15.70 mg/dL (0.00-1.30) H 09/13/17 09:29 Total Protein 7.2 g/dL (6.3-8.2) 09/12/17 08:32 Albumin 3.9 g/dL (3.9-5) 09/12/17 08:32 Albumin/Globulin Ratio 1.2 % 09/12/17 08:32 Blood Type B POSITIVE 09/11/17 10:13 Antibody Screen Negative 09/11/17 10:13 Crossmatch See Detail 09/11/17 10:13
[2017-09-13] MEDS ORDERED: DILAUDID IV ONE (12:43)
[2017-09-13] MEDS ORDERED: DILAUDID ONE (12:46)
--- NOTE | 2017-09-13 12:47 | Event Note ---
Date: 09/13/17 The patient's platelets are 55 today, falling from 62 yesterday, and 80 the day before. In light of his thrombotic occlusion, low hemoglobin on presentation, and current heparin drip, today's procedure needs to be postponed. I would recommend at least acquiring a HIT panel and a hematology consult. Performing pharmacologic catheter directed thrombolysis with mechanical thrombectomy without first assessing any underlying coagulation/platelet disorders could result in severe complications. This was conveyed to both the patient and the primary physician.
--- NOTE | 2017-09-13 14:39 | Progress Note ---
History Interval history: Patient seen and examined. No new issues. Pt denies CP, SOB, NV. Labs and nursing notes reviewed. Hospitalist Physical - Constitutional Vitals: Temp Pulse Resp BP Pulse Ox 98.6 F 87 18 153/89 100 09/13/17 10:54 09/13/17 10:54 09/13/17 10:54 09/13/17 10:54 09/13/17 10:54 General appearance: Present: no acute distress, other - EENT Eyes: Present: PERRL, EOM intact ENT: hearing intact, clear oral mucosa - Neck Neck: Present: supple, normal ROM - Respiratory Respiratory effort: normal Respiratory: bilateral: CTA - Cardiovascular Rhythm: regular Heart Sounds: Present: S1 & S2 - Extremities Extremities: No edema, Full ROM - Abdominal General gastrointestinal: soft, non-tender (canceled procedure but today and Dr. GOMEZ for him to stop the heparin drip) Results - Labs CBC & Chem 7: 09/13/17 11:41 09/13/17 09:29 Labs: Laboratory Last Values WBC 5.0 K/mm3 (4.5-11.0) 09/13/17 11:41 RBC 3.40 M/mm3 (3.65-5.03) L 09/13/17 11:41 Hgb 10.1 gm/dl (11.8-15.2) L 09/13/17 11:41 Hct 31.6 % (35.5-45.6) L 09/13/17 11:41 MCV 93 fl (84-94) 09/13/17 11:41 MCH 30 pg (28-32) 09/13/17 11:41 MCHC 32 % (32-34) 09/13/17 11:41 RDW 18.5 % (13.2-15.2) H 09/13/17 11:41 Plt Count 55 K/mm3 (140-440) L 09/13/17 11:41 Add Manual Diff Complete 09/12/17 08:32 Total Counted 100 09/12/17 08:32 Seg Neuts % (Manual) 50.0 % (40.0-70.0) 09/12/17 08:32 Band Neutrophils % 10.0 % 09/12/17 08:32 Lymphocytes % (Manual) 32.0 % (13.4-35.0) 09/12/17 08:32 Reactive Lymphs % (Man) 0 % 09/12/17 08:32 Monocytes % (Manual) 6.0 % (0.0-7.3) 09/12/17 08:32 Eosinophils % (Manual) 2.0 % (0.0-4.3) 09/12/17 08:32 Basophils % (Manual) 0 % (0.0-1.8) 09/12/17 08:32 Metamyelocytes % 0 % 09/12/17 08:32 Myelocytes % 0 % 09/12/17 08:32 Promyelocytes % 0 % 09/12/17 08:32 Blast Cells % 0 % 09/12/17 08:32 Nucleated RBC % 4.0 % (0.0-0.9) H 09/12/17 08:32 Seg Neutrophils # Man 3.1 K/mm3 (1.8-7.7) 09/12/17 08:32 Band Neutrophils # 0.6 K/mm3 09/12/17 08:32 Lymphocytes # (Manual) 2.0 K/mm3 (1.2-5.4) 09/12/17 08:32 Abs React Lymphs (Man) 0.0 K/mm3 09/12/17 08:32 Monocytes # (Manual) 0.4 K/mm3 (0.0-0.8) 09/12/17 08:32 Eosinophils # (Manual) 0.1 K/mm3 (0.0-0.4) 09/12/17 08:32 Basophils # (Manual) 0.0 K/mm3 (0.0-0.1) 09/12/17 08:32 Metamyelocytes # 0.0 K/mm3 09/12/17 08:32 Myelocytes # 0.0 K/mm3 09/12/17 08:32 Promyelocytes # 0.0 K/mm3 09/12/17 08:32 Blast Cells # 0.0 K/mm3 09/12/17 08:32 Pathologist Review Not Reportable 09/11/17 09:29 WBC Morphology Not Reportable 09/12/17 08:32 Hypersegmented Neuts Not Reportable 09/12/17 08:32 Hyposegmented Neuts Not Reportable 09/12/17 08:32 Hypogranular Neuts Not Reportable 09/12/17 08:32 Smudge Cells Not Reportable 09/12/17 08:32 Toxic Granulation Not Reportable 09/12/17 08:32 Toxic Vacuolation Not Reportable 09/12/17 08:32 Dohle Bodies Not Reportable 09/12/17 08:32 Pelger-Huet Anomaly Not Reportable 09/12/17 08:32 Jose Rods Not Reportable 09/12/17 08:32 Platelet Estimate Not Reportable 09/12/17 08:32 Clumped Platelets Not Reportable 09/12/17 08:32 Plt Clumps, EDTA Not Reportable 09/12/17 08:32 Large Platelets Not Reportable 09/12/17 08:32 Giant Platelets Not Reportable 09/12/17 08:32 Platelet Satelliting Not Reportable 09/12/17 08:32 Plt Morphology Comment Not Reportable 09/12/17 08:32 RBC Morphology Not Reportable 09/12/17 08:32 Dimorphic RBCs Not Reportable 09/12/17 08:32 Polychromasia Few 09/12/17 08:32 Hypochromasia Not Reportable 09/12/17 08:32 Poikilocytosis Not Reportable 09/12/17 08:32 Anisocytosis 1+ 09/12/17 08:32 Microcytosis Not Reportable 09/12/17 08:32 Macrocytosis Not Reportable 09/12/17 08:32 Spherocytes Not Reportable 09/12/17 08:32 Pappenheimer Bodies Not Reportable 09/12/17 08:32 Sickle Cells Not Reportable 09/12/17 08:32 Target Cells Not Reportable 09/12/17 08:32 Tear Drop Cells Not Reportable 09/12/17 08:32 Ovalocytes Not Reportable 09/12/17 08:32 Helmet Cells Not Reportable 09/12/17 08:32 Li-[place] Bodies Not Reportable 09/12/17 08:32 [place] Rings Not Reportable 09/12/17 08:32 Jenae Cells Not Reportable 09/12/17 08:32 Bite Cells Not Reportable 09/12/17 08:32 Crenated Cell Not Reportable 09/12/17 08:32 Elliptocytes Not Reportable 09/12/17 08:32 Acanthocytes (Spur) Not Reportable 09/12/17 08:32 Rouleaux Not Reportable 09/12/17 08:32 Hemoglobin C Crystals Not Reportable 09/12/17 08:32 Schistocytes Not Reportable 09/12/17 08:32 Malaria parasites Not Reportable 09/12/17 08:32 Collins Bodies Not Reportable 09/12/17 08:32 Hem Pathologist Commnt No 09/12/17 08:32 PT 13.3 Sec. (12.2-14.9) 09/12/17 18:07 INR 0.96 (0.87-1.13) 09/12/17 18:07 APTT 26.4 Sec. (24.2-36.6) 09/12/17 18:07 Heparin Anti-Xa Level < 0.10 U.I./ml (0.3-0.7) L 09/13/17 06:18 Sodium 133 mmol/L (137-145) L 09/13/17 09:29 Potassium 4.4 mmol/L (3.6-5.0) 09/13/17 09:29 Chloride 97.0 mmol/L (98-107) L 09/13/17 09:29 Carbon Dioxide 22 mmol/L (22-30) 09/13/17 09:29 Anion Gap 18 mmol/L 09/13/17 09:29 BUN 10 mg/dL (9-20) 09/13/17 09:29 Creatinine 0.6 mg/dL (0.8-1.5) L 09/13/17 09:29 Estimated GFR > 60 ml/min 09/13/17 09:29 BUN/Creatinine Ratio 17 % 09/13/17 09:29 Glucose 103 mg/dL (75-100) H 09/13/17 09:29 Hemoglobin A1c 5.4 % (4-6) 09/12/17 08:32 Lactic Acid 1.50 mmol/L (0.7-2.0) 09/11/17 09:29 Calcium 9.3 mg/dL (8.4-10.2) 09/13/17 09:29 Iron 48 ug/dL (49-181) L 09/11/17 23:47 TIBC 233 mcg/dL (250-450) L 09/11/17 23:47 % Saturation 20.60 % 09/11/17 23:47 Transferrin 194 mg/dl (180-329) 09/11/17 23:47 Total Bilirubin 0.60 mg/dL (0.1-1.2) 09/12/17 08:32 AST 17 units/L (5-40) 09/12/17 08:32 ALT 8 units/L (7-56) 09/12/17 08:32 Alkaline Phosphatase 684 units/L (35-129) H 09/12/17 08:32 Total Creatine Kinase 136 units/L (55-170) 09/11/17 09:29 C-Reactive Protein 15.70 mg/dL (0.00-1.30) H 09/13/17 09:29 Total Protein 7.2 g/dL (6.3-8.2) 09/12/17 08:32 Albumin 3.9 g/dL (3.9-5) 09/12/17 08:32 Albumin/Globulin Ratio 1.2 % 09/12/17 08:32 Blood Type B POSITIVE 09/11/17 10:13 Antibody Screen Negative 09/11/17 10:13 Crossmatch See Detail 09/11/17 10:13
[2017-09-13] MEDS: PEPCID PO SCH ×2 (15:00→22:49)
[2017-09-13] MEDS: HABITROL TD SCH (15:00)
[2017-09-13] MEDS: PERCOCET 5/325 PO PRN ×2 (16:35→22:49)
[2017-09-13] MEDS: VANCOMYCIN/NS 1 GM/250 ML 1 GM/250 ML BAG IV SCH (16:37)
[2017-09-13] MEDS: ARGATROBAN 250 MG in NACL 0.9% 250ML 247.5 ML IV SCH (22:10)
[2017-09-13] MEDS: AMBIEN PO PRN (22:49)
[2017-09-13 23:59] LABS: Heparin anti-factor XA 0.1 U.I./ml (0.3-0.7)
[2017-09-14 01:15] LABS: Partial Thromboplastin Time 81.5 Sec. (24.2-36.6)
[2017-09-14] MEDS: UNASYN/NS 3 GM/100 ML 3 GM/100 ML BAG IV SCH ×3 (06:11→12:01)
[2017-09-14 06:29] LABS: Hematocrit 29.2 % (35.5-45.6); Hemoglobin 9.8 gm/dl (11.8-15.2); Mean Corpuscular HGB Conc 34 % (32-34); Mean Corpuscular Hemoglobin 31 pg (28-32); Mean Corpuscular Volume 91 fl (84-94); Red Cell Distribution Width 17.6 % (13.2-15.2)
[2017-09-14 06:33] LABS: Platelet Count 61 K/mm3 (140-440)
[2017-09-14 08:56] LABS: Basophils % (Manual) 0 % (0.0-1.8); Eosinophils % (Manual) 0 % (0.0-4.3); Total Cells Counted 100
[2017-09-14 08:57] LABS: Anisocytosis 1+; Platelet Estimate Consistent w Auto; Poikilocytosis Few
[2017-09-14] MEDS: HABITROL TD SCH (09:29)
[2017-09-14] MEDS: PEPCID PO SCH ×2 (09:30→21:57)
[2017-09-14] MEDS: VANCOMYCIN/NS 1 GM/250 ML 1 GM/250 ML BAG IV SCH (09:43)
--- NOTE | 2017-09-14 09:44 | Hem/Onc Consultation ---
History of Present Illness - Reason for Consult Consult date: 09/14/17 thrombocytopenia - History of Present Illness Patient is a 66-year-old male with multiple medical problems including metastatic prostate cancer for which he is on treatment at [facility]. He does not know the names of the medications that he is taking for prostate cancer. He also has history of tobacco abuse, drug abuse, alcohol abuse and presented to the hospital with discoloration off his right big toe. He was found to have thrombocytopenia. His platelet count dropped from 80,000-55,000 in 2 days. Patient also had been started on heparin for the ischemic right big toe which has been stopped yesterday. Heparin-induced thrombocytopenia assay has also been sent. Patient has been started on argatroban. Past History Past Medical History: cancer (state cancer) Social history: smoking, alcohol abuse, other (marijuana and cocaine) Medications and Allergies Allergies Allergy/AdvReac Type Severity Reaction Status Date / Time No Known Allergies Allergy Unverified 09/11/17 08:29 Active Meds: Active Medications Acetaminophen (Tylenol) 650 mg PO Q4H PRN PRN Reason: Pain MILD(1-3)/Fever >100.5/GARCIA Bisacodyl (Dulcolax) 10 mg ID QDAY PRN PRN Reason: Constipation unrelieved by MOM Famotidine (Pepcid) 20 mg PO BID [facility] Last Admin: 09/14/17 09:30 Dose: 20 mg Hydromorphone HCl (Dilaudid) 1 mg IV Q3H PRN PRN Reason: Pain , Severe (7-10) Last Admin: 09/13/17 12:59 Dose: 1 mg Ampicillin Sodium/Sulbactam Sodium (Unasyn/Ns 3 Gm/100 Ml) 3 gm in 100 mls @ 100 mls/hr IV Q6HR PIERCE PRN Reason: Protocol Last Admin: 09/14/17 06:11 Dose: 100 mls/hr Vancomycin HCl (Vancomycin/Ns 1 Gm/250 Ml) 1 gm in 250 mls @ 166.667 mls/hr IV Q18H PIERCE Last Admin: 09/13/17 16:37 Dose: 166.667 mls/hr Argatroban 250 mg/ Sodium (Chloride) 250 mls @ 6.25 mls/hr IV TITR PIERCE; 2 MCG/ KG/MIN PRN Reason: Protocol Last Admin: 09/13/17 22:10 Dose: 2 mcg/kg/min, 6.25 mls/hr Magnesium Hydroxide (Milk Of Magnesia) 30 ml PO Q4H PRN PRN Reason: Constipation Nicotine (Habitrol) 21 mg TD QDAY [facility] Last Admin: 09/14/17 09:29 Dose: 21 mg Ondansetron HCl (Zofran) 4 mg IV Q8H PRN PRN Reason: N/V unrelieved by Reglan Oxycodone/Acetaminophen (Percocet 5/325) 1 tab PO Q6H PRN PRN Reason: Pain, Moderate (4-6) Last Admin: 09/13/17 22:49 Dose: 1 tab Vancomycin HCl (Vancomycin Pharmacy To Dose) 1 each IV PKCONSULT [facility] PRN Reason: Protocol Zolpidem Tartrate (Ambien) 5 mg PO QHS PRN PRN Reason: Insomnia Last Admin: 09/13/17 22:49 Dose: 5 mg Review of Systems Constitutional: weight loss, fatigue, weakness Exam - Constitutional Vitals: Last Vital Signs Temp 98.4 F 09/14/17 07:51 Pulse 84 09/14/17 07:51 Resp 18 09/14/17 07:51 BP 144/87 09/14/17 07:51 Pulse Ox 100 09/14/17 07:51 General appearance: mild distress Performance status: 3-limited selfcare - Neck Neck: supple - Respiratory Respiratory effort: Positive: normal Respiratory: bilateral: diminished - Cardiovascular Rhythm: regular Extremities: abnormal (ischemic right big toe) - Gastrointestinal General gastrointestinal: Present: soft Results - Labs lab Results: Laboratory Results - last 24 hr 09/13/17 09/13/17 09/13/17 09:29 09:29 11:41 WBC 5.0 RBC 3.40 L Hgb 10.1 L Hct 31.6 L MCV 93 MCH 30 MCHC 32 RDW 18.5 H Plt Count 55 L Add Manual Diff Total Counted Seg Neuts % (Manual) Band Neutrophils % Lymphocytes % (Manual) Reactive Lymphs % (Man) Monocytes % (Manual) Eosinophils % (Manual) Basophils % (Manual) Metamyelocytes % Myelocytes % Promyelocytes % Blast Cells % Nucleated RBC % Seg Neutrophils # Man Band Neutrophils # Lymphocytes # (Manual) Abs React Lymphs (Man) Monocytes # (Manual) Eosinophils # (Manual) Basophils # (Manual) Metamyelocytes # Myelocytes # Promyelocytes # Blast Cells # WBC Morphology Hypersegmented Neuts Hyposegmented Neuts Hypogranular Neuts Smudge Cells Toxic Granulation Toxic Vacuolation Dohle Bodies Pelger-Huet Anomaly Jose Rods Platelet Estimate Clumped Platelets Plt Clumps, EDTA Large Platelets Giant Platelets Platelet Satelliting Plt Morphology Comment RBC Morphology Dimorphic RBCs Polychromasia Hypochromasia Poikilocytosis Anisocytosis Microcytosis Macrocytosis Spherocytes Pappenheimer Bodies Sickle Cells Target Cells Tear Drop Cells Ovalocytes Helmet Cells Li-Kress Bodies [place] Jenae Cells Bite Cells Crenated Cell Elliptocytes Acanthocytes (Spur) Rouleaux Hemoglobin C Crystals Schistocytes Malaria parasites Collins Bodies Hem Pathologist Commnt APTT Heparin Anti-Xa Level Sodium 133 L Potassium 4.4 Chloride 97.0 L Carbon Dioxide 22 Anion Gap 18 BUN 10 Creatinine 0.6 L Estimated GFR > 60 BUN/Creatinine Ratio 17 Glucose 103 H POC Glucose Calcium 9.3 C-Reactive Protein 15.70 H 09/13/17 09/13/17 09/14/17 19:34 23:25 05:24 WBC 4.6 RBC 3.20 L Hgb 9.8 L Hct 29.2 L MCV 91 MCH 31 MCHC 34 RDW 17.6 H Plt Count 61 L Add Manual Diff Complete Total Counted 100 Seg Neuts % (Manual) 80.0 H Band Neutrophils % 1.0 Lymphocytes % (Manual) 14.0 Reactive Lymphs % (Man) 1.0 Monocytes % (Manual) 4.0 Eosinophils % (Manual) 0 Basophils % (Manual) 0 Metamyelocytes % 0 Myelocytes % 0 Promyelocytes % 0 Blast Cells % 0 Nucleated RBC % 1.0 H Seg Neutrophils # Man 3.7 Band Neutrophils # 0.0 Lymphocytes # (Manual) 0.6 L Abs React Lymphs (Man) 0.0 Monocytes # (Manual) 0.2 Eosinophils # (Manual) 0.0 Basophils # (Manual) 0.0 Metamyelocytes # 0.0 Myelocytes # 0.0 Promyelocytes # 0.0 Blast Cells # 0.0 WBC Morphology Not Reportable Hypersegmented Neuts Not Reportable Hyposegmented Neuts Not Reportable Hypogranular Neuts Not Reportable Smudge Cells Not Reportable Toxic Granulation Not Reportable Toxic Vacuolation Not Reportable Dohle Bodies Not Reportable Pelger-Huet Anomaly Not Reportable Jose Rods Not Reportable Platelet Estimate Consistent w auto Clumped Platelets Not Reportable Plt Clumps, EDTA Not Reportable Large Platelets Not Reportable Giant Platelets Not Reportable Platelet Satelliting Not Reportable Plt Morphology Comment Not Reportable RBC Morphology Not Reportable Dimorphic RBCs Not Reportable Polychromasia 1+ Hypochromasia Not Reportable Poikilocytosis Few Anisocytosis 1+ Microcytosis Not Reportable Macrocytosis Not Reportable Spherocytes Not Reportable Pappenheimer Bodies Not Reportable Sickle Cells Not Reportable Target Cells Not Reportable Tear Drop Cells Not Reportable Ovalocytes Not Reportable Helmet Cells Not Reportable Li-Kress Bodies Not Reportable [place] Rings Not Reportable Jenae Cells Not Reportable Bite Cells Not Reportable Crenated Cell Not Reportable Elliptocytes Not Reportable Acanthocytes (Spur) Not Reportable Rouleaux Not Reportable Hemoglobin C Crystals Not Reportable Schistocytes Not Reportable Malaria parasites Not Reportable Collins Bodies Not Reportable Hem Pathologist Commnt No APTT 34.3 81.5 H* Heparin Anti-Xa Level 0.10 L Sodium Potassium Chloride Carbon Dioxide Anion Gap BUN Creatinine Estimated GFR BUN/Creatinine Ratio Glucose POC Glucose Calcium C-Reactive Protein 09/14/17 09/14/17 05:24 06:43 WBC RBC Hgb Hct MCV MCH MCHC RDW Plt Count Add Manual Diff Total Counted Seg Neuts % (Manual) Band Neutrophils % Lymphocytes % (Manual) Reactive Lymphs % (Man) Monocytes % (Manual) Eosinophils % (Manual) Basophils % (Manual) Metamyelocytes % Myelocytes % Promyelocytes % Blast Cells % Nucleated RBC % Seg Neutrophils # Man Band Neutrophils # Lymphocytes # (Manual) Abs React Lymphs (Man) Monocytes # (Manual) Eosinophils # (Manual) Basophils # (Manual) Metamyelocytes # Myelocytes # Promyelocytes # Blast Cells # WBC Morphology Hypersegmented Neuts Hyposegmented Neuts Hypogranular Neuts Smudge Cells Toxic Granulation Toxic Vacuolation Dohle Bodies Pelger-Huet Anomaly Jose Rods Platelet Estimate Clumped Platelets Plt Clumps, EDTA Large Platelets Giant Platelets Platelet Satelliting Plt Morphology Comment RBC Morphology Dimorphic RBCs Polychromasia Hypochromasia Poikilocytosis Anisocytosis Microcytosis Macrocytosis Spherocytes Pappenheimer Bodies Sickle Cells Target Cells Tear Drop Cells Ovalocytes Helmet Cells Li-Kress Bodies [place] Cells Bite Cells Crenated Cell Elliptocytes Acanthocytes (Spur) Rouleaux Hemoglobin C Crystals Schistocytes Malaria parasites Collins Bodies Hem Pathologist Commnt APTT 58.5 H Heparin Anti-Xa Level Sodium Potassium Chloride Carbon Dioxide Anion Gap BUN Creatinine Estimated GFR BUN/Creatinine Ratio Glucose POC Glucose 102 Calcium C-Reactive Protein Assessment and Plan - Patient Problems (1) Prostate CA Current Visit: Yes Status: Acute Plan to address problem: Patient has active metastatic prostate cancer. He has an elevated alkaline phosphatase. This could was him to have thrombocytopenia and anemia. We will check his PSA. (2) Anemia Current Visit: Yes Status: Acute Qualifiers: Anemia type: unspecified type Qualified Code(s): D64.9 - Anemia, unspecified Plan to address problem: Will do anemia workup. This also could be related to active infection along with metastatic prostate cancer. (3) Thrombocytopenia Current Visit: Yes Status: Acute Plan to address problem: Heparin-induced thrombus cytopenia assay has been sent. Because of the patient' s history of drug abuse, we will also order hepatitis panel. Agree with argatroban and monitor platelets. May need to transfuse if platelets go below 20,000 or if he starts having bleeding. Would also like to see old records to see if his thrombocytopenia is chronic.
--- NOTE | 2017-09-14 11:27 | Progress Note ---
Assessment and Plan Assessment: 1) Sepsis: Better. Etiology most likely gangrene of right toe? prostate cancer with metastasis? -CRP = 15.70 -blood cultures 09/11 ngtd -CTA showed bilateral common iliac arteries are dilated and measure 133 mm in diameter -Duplex doppler LE showed OCCLUDED RT.POP ARTERY AND RT.DPA WITH THROMBUS NOTED.MULTIPHASIC WAVEFORMS THROUGHOUT VESSELS INTERROGATED EXCEPT FOR MONOPHASIC WAVEFORMS OBTAINED IN THE RT.PAPIER MACHE' MOLDER AND RT.BRISA.BLE ARTERIAL DUPLEX 2) Right great toe ulcer/gangrene. Possible osteomyelitis right great toe culture negative 3) Prostate CA with metastasis 4) BPH 5) Thrombocytopenia and anemia Plan: -continue unasyn day 3 and vancomycin day 4 -vascular following planning pharmacologic catheter directed thrombolysis with mechanical thrombectomy when platelets are better -Hem/onc following Thank you Dr. Saavedra for your consult, will follow up SARAH Figueroa for Dr. Hannah Ventura MD Infectious Diseases Specialist [facility], [place], [facility] ([facility]) M [phone] O [phone] Subjective Date of service: 09/14/17 Principal diagnosis: right toe gangrene Interval history: I feel fine today, no fever Microbiology: Blood cultures: 09/11 ngtd Urine cultures: none Respiratory cultures: Current Antimicrobials: unasyn 09/12 vacomycin 09/11 Previous Antimicrobials: ceftriaxone Objective - Exam Narrative Exam: General appearance: Alert in NAD, conversant Eyes: anicteric sclerae, moist conjunctivae; no lid-lag; PERRLA HENT: Atraumatic; oropharynx clear with moist mucous membranes and no mucosal ulcerations/no oral thrush; Neck: Trachea midline; supple, no thyromegaly or lymphadenopathy Lungs: breath sounds diminished bilaterally CV: RRR, no murmurs Abdomen: Soft, non-tender; +BS x 4 Extremities: right great toe gangrene, right 2nd toe gangrene Skin: Normal temperature, warm and dry Psych: Appropriate affect, calm and cooperative Neuro: alert and oriented x 3. Moving all extermities Lines: No CVL / PICC - Constitutional Vitals: Vital Signs Temp Pulse Resp BP Pulse Ox 98.4 F 84 18 144/87 100 09/14/17 07:51 09/14/17 07:51 09/14/17 07:51 09/14/17 07:51 09/14/17 07:51 Temperature -Last 24 Hours Temperature 98.4 F Temperature 97.8 F Temperature 97.9 F - Labs CBC & Chem 7: 09/14/17 05:24 09/13/17 09:29 Labs: Abnormal lab results 09/13/17 09/13/17 09/14/17 Range/Units 11:41 23:25 05:24 RBC 3.40 L 3.20 L (3.65-5.03) M/mm3 Hgb 10.1 L 9.8 L (11.8-15.2) gm/dl Hct 31.6 L 29.2 L (35.5-45.6) % RDW 18.5 H 17.6 H (13.2-15.2) % Plt Count 55 L 61 L (140-440) K/mm3 Seg Neuts % (Manual) 80.0 H (40.0-70.0) % Nucleated RBC % 1.0 H (0.0-0.9) % Lymphocytes # (Manual) 0.6 L (1.2-5.4) K/mm3 APTT 81.5 H* (24.2-36.6) Sec. Heparin Anti-Xa Level 0.10 L (0.3-0.7) U.I./ml 09/14/17 Range/Units 05:24 RBC (3.65-5.03) M/mm3 Hgb (11.8-15.2) gm/dl Hct (35.5-45.6) % RDW (13.2-15.2) % Plt Count (140-440) K/mm3 Seg Neuts % (Manual) (40.0-70.0) % Nucleated RBC % (0.0-0.9) % Lymphocytes # (Manual) (1.2-5.4) K/mm3 APTT 58.5 H (24.2-36.6) Sec. Heparin Anti-Xa Level (0.3-0.7) U.I./ml
[2017-09-14] MEDS: DILAUDID IV PRN (11:36)
[2017-09-14 12:07] LABS: Hepatitis C Virus Antibody Non-Reactive (NonReactive)
[2017-09-14] MEDS: PERCOCET 5/325 PO PRN ×2 (15:25→21:56)
--- NOTE | 2017-09-14 16:52 | Progress Note ---
Assessment and Plan Assessment and plan: 66-year-old -Ivorian male with pmh of Prostate Cancer LBP and BPH presents to the emergency department with complaint of swelling to the right foot for the past week. The patient is noted to have a blackened and necrotic appearing right great toe. Dry eschar on Rt great Toe.No drainage. He says that it is been like this for the past couple weeks. He says he has been talking about seeing a physician regarding these symptoms but has not yet done so. He has a past medical history of prostate cancer and some chronic back pains. He has not taken anything for his symptoms prior presentation. Osteomyelitis of toe of right foot Continue IV abx for now-Unasyn and vancomycin. w/u to r/o PAD Duplex doppler LE showed OCCLUDED RT.POP ARTERY AND RT.DPA WITH THROMBUS NOTED. 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 Anemia Hgb 10.0 today probably secondary to prostate cancer. s/p Transfusion 2 units of packed red blood cells on 09/11. BPH (benign prostatic hyperplasia) Continue Tamsulosin. Chronic pain due to neoplasm continue his home medications. PAD (peripheral artery disease) Strong possibility in view of his smoking. Occluded R POP artery vascular following Nicotine dependence Pt counselled on cessation Nicoderm patch ordered DVT/GI prophy History Interval history: Patient seen and examined in no acute distress. Reports improvement in the leg. Hospitalist Physical - Physical exam Narrative exam: - EENT Eyes: Present: PERRL, EOM intact ENT: hearing intact, clear oral mucosa - Neck Neck: Present: supple, normal ROM - Respiratory Respiratory effort: normal Respiratory: bilateral: diminished - Cardiovascular Rhythm: regular Heart Sounds: Present: S1 & S2 - Extremities Extremity abnormal: other (right great toe gangrene, right 2nd toe gangrene) - Abdominal General gastrointestinal: soft, non-tender, non-distended, normal bowel sounds - Integumentary Integumentary: Present: clear, warm, dry - Psychiatric Psychiatric: appropriate mood/affect, cooperative - Neurologic Neurologic: CNII-XII intact, moves all extremities - Allied Health Allied health notes reviewed: nursing - Constitutional Vitals: Temp Pulse Resp BP Pulse Ox 98.4 F 84 18 144/87 100 09/14/17 07:51 09/14/17 07:51 09/14/17 15:25 09/14/17 07:51 09/14/17 07:51 General appearance: Present: no acute distress, other Results - Labs CBC & Chem 7: 09/14/17 05:24 09/13/17 09:29 Labs: Laboratory Last Values WBC 4.6 K/mm3 (4.5-11.0) 09/14/17 05:24 RBC 3.20 M/mm3 (3.65-5.03) L 09/14/17 05:24 Hgb 9.8 gm/dl (11.8-15.2) L 09/14/17 05:24 Hct 29.2 % (35.5-45.6) L 09/14/17 05:24 MCV 91 fl (84-94) 09/14/17 05:24 MCH 31 pg (28-32) 09/14/17 05:24 MCHC 34 % (32-34) 09/14/17 05:24 RDW 17.6 % (13.2-15.2) H 09/14/17 05:24 Plt Count 61 K/mm3 (140-440) L 09/14/17 05:24 Add Manual Diff Complete 09/14/17 05:24 Total Counted 100 09/14/17 05:24 Seg Neuts % (Manual) 80.0 % (40.0-70.0) H 09/14/17 05:24 Band Neutrophils % 1.0 % 09/14/17 05:24 Lymphocytes % (Manual) 14.0 % (13.4-35.0) 09/14/17 05:24 Reactive Lymphs % (Man) 1.0 % 09/14/17 05:24 Monocytes % (Manual) 4.0 % (0.0-7.3) 09/14/17 05:24 Eosinophils % (Manual) 0 % (0.0-4.3) 09/14/17 05:24 Basophils % (Manual) 0 % (0.0-1.8) 09/14/17 05:24 Metamyelocytes % 0 % 09/14/17 05:24 Myelocytes % 0 % 09/14/17 05:24 Promyelocytes % 0 % 09/14/17 05:24 Blast Cells % 0 % 09/14/17 05:24 Nucleated RBC % 1.0 % (0.0-0.9) H 09/14/17 05:24 Seg Neutrophils # Man 3.7 K/mm3 (1.8-7.7) 09/14/17 05:24 Band Neutrophils # 0.0 K/mm3 09/14/17 05:24 Lymphocytes # (Manual) 0.6 K/mm3 (1.2-5.4) L 09/14/17 05:24 Abs React Lymphs (Man) 0.0 K/mm3 09/14/17 05:24 Monocytes # (Manual) 0.2 K/mm3 (0.0-0.8) 09/14/17 05:24 Eosinophils # (Manual) 0.0 K/mm3 (0.0-0.4) 09/14/17 05:24 Basophils # (Manual) 0.0 K/mm3 (0.0-0.1) 09/14/17 05:24 Metamyelocytes # 0.0 K/mm3 09/14/17 05:24 Myelocytes # 0.0 K/mm3 09/14/17 05:24 Promyelocytes # 0.0 K/mm3 09/14/17 05:24 Blast Cells # 0.0 K/mm3 09/14/17 05:24 Pathologist Review Not Reportable 09/11/17 09:29 WBC Morphology Not Reportable 09/14/17 05:24 Hypersegmented Neuts Not Reportable 09/14/17 05:24 Hyposegmented Neuts Not Reportable 09/14/17 05:24 Hypogranular Neuts Not Reportable 09/14/17 05:24 Smudge Cells Not Reportable 09/14/17 05:24 Toxic Granulation Not Reportable 09/14/17 05:24 Toxic Vacuolation Not Reportable 09/14/17 05:24 Dohle Bodies Not Reportable 09/14/17 05:24 Pelger-Huet Anomaly Not Reportable 09/14/17 05:24 Jose Rods Not Reportable 09/14/17 05:24 Platelet Estimate Consistent w auto 09/14/17 05:24 Clumped Platelets Not Reportable 09/14/17 05:24 Plt Clumps, EDTA Not Reportable 09/14/17 05:24 Large Platelets Not Reportable 09/14/17 05:24 Giant Platelets Not Reportable 09/14/17 05:24 Platelet Satelliting Not Reportable 09/14/17 05:24 Plt Morphology Comment Not Reportable 09/14/17 05:24 RBC Morphology Not Reportable 09/14/17 05:24 Dimorphic RBCs Not Reportable 09/14/17 05:24 Polychromasia 1+ 09/14/17 05:24 Hypochromasia Not Reportable 09/14/17 05:24 Poikilocytosis Few 09/14/17 05:24 Anisocytosis 1+ 09/14/17 05:24 Microcytosis Not Reportable 09/14/17 05:24 Macrocytosis Not Reportable 09/14/17 05:24 Spherocytes Not Reportable 09/14/17 05:24 Pappenheimer Bodies Not Reportable 09/14/17 05:24 Sickle Cells Not Reportable 09/14/17 05:24 Target Cells Not Reportable 09/14/17 05:24 Tear Drop Cells Not Reportable 09/14/17 05:24 Ovalocytes Not Reportable 09/14/17 05:24 Helmet Cells Not Reportable 09/14/17 05:24 Li-Armstrong Bodies Not Reportable 09/14/17 05:24 [place] Rings Not Reportable 09/14/17 05:24 [place] Cells Not Reportable 09/14/17 05:24 Bite Cells Not Reportable 09/14/17 05:24 Crenated Cell Not Reportable 09/14/17 05:24 Elliptocytes Not Reportable 09/14/17 05:24 Acanthocytes (Spur) Not Reportable 09/14/17 05:24 Rouleaux Not Reportable 09/14/17 05:24 Hemoglobin C Crystals Not Reportable 09/14/17 05:24 Schistocytes Not Reportable 09/14/17 05:24 Malaria parasites Not Reportable 09/14/17 05:24 Percent Retic 3.68 % (0.78-2.58) H 09/14/17 10:46 Collins Bodies Not Reportable 09/14/17 05:24 Hem Pathologist Commnt No 09/14/17 05:24 PT 13.3 Sec. (12.2-14.9) 09/12/17 18:07 INR 0.96 (0.87-1.13) 09/12/17 18:07 APTT 56.0 Sec. (24.2-36.6) H 09/14/17 10:46 Heparin Anti-Xa Level 0.10 U.I./ml (0.3-0.7) L 09/13/17 23:25 Sodium 133 mmol/L (137-145) L 09/13/17 09:29 Potassium 4.4 mmol/L (3.6-5.0) 09/13/17 09:29 Chloride 97.0 mmol/L (98-107) L 09/13/17 09:29 Carbon Dioxide 22 mmol/L (22-30) 09/13/17 09:29 Anion Gap 18 mmol/L 09/13/17 09:29 BUN 10 mg/dL (9-20) 09/13/17 09:29 Creatinine 0.6 mg/dL (0.8-1.5) L 09/13/17 09:29 Estimated GFR > 60 ml/min 09/13/17 09:29 BUN/Creatinine Ratio 17 % 09/13/17 09:29 Glucose 103 mg/dL (75-100) H 09/13/17 09:29 POC Glucose 102 (70-105) 09/14/17 06:43 Hemoglobin A1c 5.4 % (4-6) 09/12/17 08:32 Lactic Acid 1.50 mmol/L (0.7-2.0) 09/11/17 09:29 Calcium 9.3 mg/dL (8.4-10.2) 09/13/17 09:29 Iron 48 ug/dL (49-181) L 09/11/17 23:47 TIBC 233 mcg/dL (250-450) L 09/11/17 23:47 % Saturation 20.60 % 09/11/17 23:47 Transferrin 194 mg/dl (180-329) 09/11/17 23:47 Ferritin 1023.0 ng/mL (13.0-400.0) H 09/14/17 10:46 Total Bilirubin 0.60 mg/dL (0.1-1.2) 09/12/17 08:32 AST 17 units/L (5-40) 09/12/17 08:32 ALT 8 units/L (7-56) 09/12/17 08:32 Alkaline Phosphatase 684 units/L (35-129) H 09/12/17 08:32 Total Creatine Kinase 136 units/L (55-170) 09/11/17 09:29 C-Reactive Protein 15.70 mg/dL (0.00-1.30) H 09/13/17 09:29 Total Protein 7.2 g/dL (6.3-8.2) 09/12/17 08:32 Albumin 3.9 g/dL (3.9-5) 09/12/17 08:32 Albumin/Globulin Ratio 1.2 % 09/12/17 08:32 Prostate Specific Ag 1721.00 ng/mL (0.00-4.00) H 09/14/17 10:46 Vitamin B12 206.4 pg/mL (211-911) L 09/14/17 10:46 Folate 19.92 ng/mL (7.3-26.0) 09/14/17 10:46 Vancomycin Trough 7.5 ug/mL (5.0-20.0) 09/14/17 08:46 Hep Bs Antigen Non-reactive (Negative) 09/14/17 10:46 Hepatitis C Antibody Non-reactive (NonReactive) 09/14/17 10:46 Blood Type B POSITIVE 09/11/17 10:13 Antibody Screen Negative 09/11/17 10:13 Crossmatch See Detail 09/11/17 10:13
[2017-09-14] MEDS: AMBIEN PO PRN (21:57)
[2017-09-14] MEDS: VANCOMYCIN 1,250 MG in NACL 0.9% 250ML 250 ML IV SCH (22:09)
[2017-09-15] MEDS: UNASYN/NS 3 GM/100 ML 3 GM/100 ML BAG IV SCH ×5 (00:30→20:28)
[2017-09-15] MEDS: DILAUDID IV PRN ×4 (02:00→21:58)
[2017-09-15 03:54] LABS: Hematocrit 27.3 % (35.5-45.6); Hemoglobin 8.9 gm/dl (11.8-15.2); Mean Corpuscular HGB Conc 33 % (32-34); Mean Corpuscular Hemoglobin 30 pg (28-32); Mean Corpuscular Volume 92 fl (84-94); Red Blood Count 2.97 M/mm3 (3.65-5.03); Red Cell Distribution Width 17.6 % (13.2-15.2)
[2017-09-15 04:00] LABS: Platelet Count 50 K/mm3 (140-440)
[2017-09-15 04:59] LABS: BUN/Creatinine Ratio 23; Blood Urea Nitrogen 14 mg/dL (9-20); Calcium 8.7 mg/dL (8.4-10.2); Hemolysis Index 7
[2017-09-15 06:52] LABS: Acanthocytes Rare; Anisocytosis 1+; Band Neutrophils # (Manual) 0.4 K/mm3; Basophils % (Manual) 0 % (0.0-1.8); Eosinophils % (Manual) 0 % (0.0-4.3); Hypochromasia 1+; Platelet Estimate Consistent w Auto; Total Cells Counted 100
--- NOTE | 2017-09-15 08:27 | Progress Note ---
Assessment and Plan Assessment and plan: 66-year-old -[place] male with pmh of Prostate Cancer LBP and BPH presents to the emergency department with complaint of swelling to the right foot for the past week. The patient is noted to have a blackened and necrotic appearing right great toe. Dry eschar on Rt great Toe.No drainage. He says that it is been like this for the past couple weeks. He says he has been talking about seeing a physician regarding these symptoms but has not yet done so. He has a past medical history of prostate cancer and some chronic back pains. He has not taken anything for his symptoms prior presentation. Osteomyelitis of toe of right foot Continue IV abx for now-Unasyn and vancomycin. w/u to r/o PAD Duplex doppler LE showed OCCLUDED RT.POP ARTERY AND RT.DPA WITH THROMBUS NOTED. 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 Hem onc input noted Thrombocytopenia- Monitor for any bleeding and transfuse if plt below 20,000 per Hematology recommendation Anemia-Monitor. likely secondary to to prostate cancer. s/p Transfusion 2 units of packed red blood cells on 09/11. BPH (benign prostatic hyperplasia) Continue Tamsulosin. Chronic pain due to neoplasm continue his home medications. PAD (peripheral artery disease) Strong possibility in view of his smoking. Occluded R POP artery vascular following Nicotine dependence Pt counselled on cessation Nicoderm patch ordered DVT/GI prophy History Interval history: Patient seen and examined in no acute distress. Reports improvement in the leg. Hospitalist Physical - Physical exam Narrative exam: - EENT Eyes: Present: PERRL, EOM intact ENT: hearing intact, clear oral mucosa - Neck Neck: Present: supple, normal ROM - Respiratory Respiratory effort: normal Respiratory: bilateral: diminished - Cardiovascular Rhythm: regular Heart Sounds: Present: S1 & S2 - Extremities Extremity abnormal: other (right great toe gangrene, right 2nd toe gangrene) - Abdominal General gastrointestinal: soft, non-tender, non-distended, normal bowel sounds - Integumentary Integumentary: Present: clear, warm, dry - Psychiatric Psychiatric: appropriate mood/affect, cooperative - Neurologic Neurologic: CNII-XII intact, moves all extremities - Allied Health Allied health notes reviewed: nursing - Constitutional Vitals: Temp Pulse Resp BP Pulse Ox 99.4 F 91 H 20 151/94 98 09/15/17 07:51 09/15/17 07:51 09/15/17 07:51 09/15/17 07:51 09/15/17 07:51 General appearance: Present: no acute distress, other Results - Labs CBC & Chem 7: 09/15/17 02:53 09/15/17 02:53 Labs: Laboratory Last Values WBC 4.8 K/mm3 (4.5-11.0) 09/15/17 02:53 RBC 2.97 M/mm3 (3.65-5.03) L 09/15/17 02:53 Hgb 8.9 gm/dl (11.8-15.2) L 09/15/17 02:53 Hct 27.3 % (35.5-45.6) L 09/15/17 02:53 MCV 92 fl (84-94) 09/15/17 02:53 MCH 30 pg (28-32) 09/15/17 02:53 MCHC 33 % (32-34) 09/15/17 02:53 RDW 17.6 % (13.2-15.2) H 09/15/17 02:53 Plt Count 50 K/mm3 (140-440) L 09/15/17 02:53 Add Manual Diff Complete 09/15/17 02:53 Total Counted 100 09/15/17 02:53 Seg Neuts % (Manual) 71.0 % (40.0-70.0) H 09/15/17 02:53 Band Neutrophils % 9.0 % 09/15/17 02:53 Lymphocytes % (Manual) 12.0 % (13.4-35.0) L 09/15/17 02:53 Reactive Lymphs % (Man) 0 % 09/15/17 02:53 Monocytes % (Manual) 6.0 % (0.0-7.3) 09/15/17 02:53 Eosinophils % (Manual) 0 % (0.0-4.3) 09/15/17 02:53 Basophils % (Manual) 0 % (0.0-1.8) 09/15/17 02:53 Metamyelocytes % 2.0 % 09/15/17 02:53 Myelocytes % 0 % 09/15/17 02:53 Promyelocytes % 0 % 09/15/17 02:53 Blast Cells % 0 % 09/15/17 02:53 Nucleated RBC % 2.0 % (0.0-0.9) H 09/15/17 02:53 Seg Neutrophils # Man 3.4 K/mm3 (1.8-7.7) 09/15/17 02:53 Band Neutrophils # 0.4 K/mm3 09/15/17 02:53 Lymphocytes # (Manual) 0.6 K/mm3 (1.2-5.4) L 09/15/17 02:53 Abs React Lymphs (Man) 0.0 K/mm3 09/15/17 02:53 Monocytes # (Manual) 0.3 K/mm3 (0.0-0.8) 09/15/17 02:53 Eosinophils # (Manual) 0.0 K/mm3 (0.0-0.4) 09/15/17 02:53 Basophils # (Manual) 0.0 K/mm3 (0.0-0.1) 09/15/17 02:53 Metamyelocytes # 0.1 K/mm3 09/15/17 02:53 Myelocytes # 0.0 K/mm3 09/15/17 02:53 Promyelocytes # 0.0 K/mm3 09/15/17 02:53 Blast Cells # 0.0 K/mm3 09/15/17 02:53 Pathologist Review Not Reportable 09/11/17 09:29 WBC Morphology Not Reportable 09/15/17 02:53 Hypersegmented Neuts Not Reportable 09/15/17 02:53 Hyposegmented Neuts Not Reportable 09/15/17 02:53 Hypogranular Neuts Not Reportable 09/15/17 02:53 Smudge Cells Not Reportable 09/15/17 02:53 Toxic Granulation Not Reportable 09/15/17 02:53 Toxic Vacuolation Not Reportable 09/15/17 02:53 Dohle Bodies Not Reportable 09/15/17 02:53 Pelger-Huet Anomaly Not Reportable 09/15/17 02:53 Jose Rods Not Reportable 09/15/17 02:53 Platelet Estimate Consistent w auto 09/15/17 02:53 Clumped Platelets Not Reportable 09/15/17 02:53 Plt Clumps, EDTA Not Reportable 09/15/17 02:53 Large Platelets Not Reportable 09/15/17 02:53 Giant Platelets Not Reportable 09/15/17 02:53 Platelet Satelliting Not Reportable 09/15/17 02:53 Plt Morphology Comment Not Reportable 09/15/17 02:53 RBC Morphology Not Reportable 09/15/17 02:53 Dimorphic RBCs Not Reportable 09/15/17 02:53 Polychromasia Few 09/15/17 02:53 Hypochromasia 1+ 09/15/17 02:53 Poikilocytosis Not Reportable 09/15/17 02:53 Anisocytosis 1+ 09/15/17 02:53 Microcytosis Not Reportable 09/15/17 02:53 Macrocytosis Not Reportable 09/15/17 02:53 Spherocytes Not Reportable 09/15/17 02:53 Pappenheimer Bodies Not Reportable 09/15/17 02:53 Sickle Cells Not Reportable 09/15/17 02:53 Target Cells Not Reportable 09/15/17 02:53 Tear Drop Cells Not Reportable 09/15/17 02:53 Ovalocytes Not Reportable 09/15/17 02:53 Helmet Cells Not Reportable 09/15/17 02:53 Li-[place] Bodies Not Reportable 09/15/17 02:53 [place] Rings Not Reportable 09/15/17 02:53 [place] Cells Not Reportable 09/15/17 02:53 Bite Cells Not Reportable 09/15/17 02:53 Crenated Cell Not Reportable 09/15/17 02:53 Elliptocytes Not Reportable 09/15/17 02:53 Acanthocytes (Spur) Rare 09/15/17 02:53 Rouleaux Not Reportable 09/15/17 02:53 Hemoglobin C Crystals Not Reportable 09/15/17 02:53 Schistocytes Not Reportable 09/15/17 02:53 Malaria parasites Not Reportable 09/15/17 02:53 Percent Retic 3.68 % (0.78-2.58) H 09/14/17 10:46 Collins Bodies Not Reportable 09/15/17 02:53 Hem Pathologist Commnt No 09/15/17 02:53 PT 13.3 Sec. (12.2-14.9) 09/12/17 18:07 INR 0.96 (0.87-1.13) 09/12/17 18:07 APTT 87.0 Sec. (24.2-36.6) H* 09/15/17 05:22 Heparin Anti-Xa Level 0.10 U.I./ml (0.3-0.7) L 09/13/17 23:25 Sodium 132 mmol/L (137-145) L 09/15/17 02:53 Potassium 3.8 mmol/L (3.6-5.0) 09/15/17 02:53 Chloride 95.2 mmol/L (98-107) L 09/15/17 02:53 Carbon Dioxide 20 mmol/L (22-30) L 09/15/17 02:53 Anion Gap 21 mmol/L 09/15/17 02:53 BUN 14 mg/dL (9-20) 09/15/17 02:53 Creatinine 0.6 mg/dL (0.8-1.5) L 09/15/17 02:53 Estimated GFR > 60 ml/min 09/15/17 02:53 BUN/Creatinine Ratio 23 % 09/15/17 02:53 Glucose 102 mg/dL (75-100) H 09/15/17 02:53 POC Glucose 102 (70-105) 09/14/17 06:43 Hemoglobin A1c 5.4 % (4-6) 09/12/17 08:32 Lactic Acid 1.50 mmol/L (0.7-2.0) 09/11/17 09:29 Calcium 8.7 mg/dL (8.4-10.2) 09/15/17 02:53 Iron 48 ug/dL (49-181) L 09/11/17 23:47 TIBC 233 mcg/dL (250-450) L 09/11/17 23:47 % Saturation 20.60 % 09/11/17 23:47 Transferrin 194 mg/dl (180-329) 09/11/17 23:47 Ferritin 1023.0 ng/mL (13.0-400.0) H 09/14/17 10:46 Total Bilirubin 0.60 mg/dL (0.1-1.2) 09/12/17 08:32 AST 17 units/L (5-40) 09/12/17 08:32 ALT 8 units/L (7-56) 09/12/17 08:32 Alkaline Phosphatase 684 units/L (35-129) H 09/12/17 08:32 Total Creatine Kinase 136 units/L (55-170) 09/11/17 09:29 C-Reactive Protein 15.70 mg/dL (0.00-1.30) H 09/13/17 09:29 Total Protein 7.2 g/dL (6.3-8.2) 09/12/17 08:32 Albumin 3.9 g/dL (3.9-5) 09/12/17 08:32 Albumin/Globulin Ratio 1.2 % 09/12/17 08:32 Prostate Specific Ag 1721.00 ng/mL (0.00-4.00) H 09/14/17 10:46 Vitamin B12 206.4 pg/mL (211-911) L 09/14/17 10:46 Folate 19.92 ng/mL (7.3-26.0) 09/14/17 10:46 Vancomycin Trough 7.5 ug/mL (5.0-20.0) 09/14/17 08:46 Hep Bs Antigen Non-reactive (Negative) 09/14/17 10:46 Hepatitis C Antibody Non-reactive (NonReactive) 09/14/17 10:46 Blood Type B POSITIVE 09/11/17 10:13 Antibody Screen Negative 09/11/17 10:13 Crossmatch See Detail 09/11/17 10:13
--- NOTE | 2017-09-15 11:13 | Progress Note ---
Assessment and Plan Assessment: 1) Sepsis: Better. Etiology most likely gangrene of right toe? prostate cancer with metastasis? -CRP = 15.70 -blood cultures 09/11 ngtd -CTA showed bilateral common iliac arteries are dilated and measure 133 mm in diameter -Duplex doppler LE showed OCCLUDED RT.POP ARTERY AND RT.DPA WITH THROMBUS NOTED.MULTIPHASIC WAVEFORMS THROUGHOUT VESSELS INTERROGATED EXCEPT FOR MONOPHASIC WAVEFORMS OBTAINED IN THE RT.TOLL OPERATOR AND RT.BRISA.BLE ARTERIAL DUPLEX 2) Right great toe ulcer/gangrene. Possible osteomyelitis right great toe culture negative 3) Prostate CA with metastasis 4) BPH 5) Thrombocytopenia and anemia Plan: -continue unasyn day 4 and vancomycin day 5 -vascular following planning pharmacologic catheter directed thrombolysis with mechanical thrombectomy when platelets are better -Hem/onc following Thank you Dr. Saavedra for your consult, will follow up SARAH Figueroa for Dr. Hannah Ventura MD Infectious Diseases Specialist [facility] ([facility]) M [phone] O [phone] Subjective Date of service: 09/15/17 Principal diagnosis: right toe gangrene Interval history: I feel fine today, no fever Microbiology: Blood cultures: 09/11 ngtd Urine cultures: none Respiratory cultures: Current Antimicrobials: unasyn 09/12 vacomycin 09/11 Previous Antimicrobials: ceftriaxone Objective - Exam Narrative Exam: General appearance: Alert in NAD, conversant Eyes: anicteric sclerae, moist conjunctivae; no lid-lag; PERRLA HENT: Atraumatic; oropharynx clear with moist mucous membranes and no mucosal ulcerations/no oral thrush; Neck: Trachea midline; supple, no thyromegaly or lymphadenopathy Lungs: breath sounds diminished bilaterally, c/o chest pain CV: RRR, no murmurs Abdomen: Soft, non-tender; +BS x 4 Extremities: right great toe gangrene, right 2nd toe gangrene Skin: Normal temperature, warm and dry Psych: Appropriate affect, calm and cooperative Neuro: alert and oriented x 3. Moving all extermities Lines: No CVL / PICC - Constitutional Vitals: Vital Signs Temp Pulse Resp BP Pulse Ox 99.4 F 91 H 20 151/94 98 09/15/17 07:51 09/15/17 07:51 09/15/17 07:51 09/15/17 07:51 09/15/17 07:51 Temperature -Last 24 Hours Temperature 99.4 F Temperature 97.8 F Temperature 98.3 F - Labs CBC & Chem 7: 09/15/17 02:53 09/15/17 02:53 Labs: Abnormal lab results 09/14/17 09/14/17 09/14/17 Range/Units 10:46 10:46 10:46 RBC (3.65-5.03) M/mm3 Hgb (11.8-15.2) gm/dl Hct (35.5-45.6) % RDW (13.2-15.2) % Plt Count (140-440) K/mm3 Seg Neuts % (Manual) (40.0-70.0) % Lymphocytes % (Manual) (13.4-35.0) % Nucleated RBC % (0.0-0.9) % Lymphocytes # (Manual) (1.2-5.4) K/mm3 Percent Retic 3.68 H (0.78-2.58) % APTT 56.0 H (24.2-36.6) Sec. Sodium (137-145) mmol/L Chloride (98-107) mmol/L Carbon Dioxide (22-30) mmol/L Creatinine (0.8-1.5) mg/dL Glucose (75-100) mg/dL Ferritin 1023.0 H (13.0-400.0) ng/mL Prostate Specific Ag (0.00-4.00) ng/mL Vitamin B12 (211-911) pg/mL 09/14/17 09/14/17 09/14/17 Range/Units 10:46 10:46 23:04 RBC (3.65-5.03) M/mm3 Hgb (11.8-15.2) gm/dl Hct (35.5-45.6) % RDW (13.2-15.2) % Plt Count (140-440) K/mm3 Seg Neuts % (Manual) (40.0-70.0) % Lymphocytes % (Manual) (13.4-35.0) % Nucleated RBC % (0.0-0.9) % Lymphocytes # (Manual) (1.2-5.4) K/mm3 Percent Retic (0.78-2.58) % APTT 89.4 H* (24.2-36.6) Sec. Sodium (137-145) mmol/L Chloride (98-107) mmol/L Carbon Dioxide (22-30) mmol/L Creatinine (0.8-1.5) mg/dL Glucose (75-100) mg/dL Ferritin (13.0-400.0) ng/mL Prostate Specific Ag 1721.00 H (0.00-4.00) ng/mL Vitamin B12 206.4 L (211-911) pg/mL 09/15/17 09/15/17 09/15/17 Range/Units 02:53 02:53 05:22 RBC 2.97 L (3.65-5.03) M/mm3 Hgb 8.9 L (11.8-15.2) gm/dl Hct 27.3 L (35.5-45.6) % RDW 17.6 H (13.2-15.2) % Plt Count 50 L (140-440) K/mm3 Seg Neuts % (Manual) 71.0 H (40.0-70.0) % Lymphocytes % (Manual) 12.0 L (13.4-35.0) % Nucleated RBC % 2.0 H (0.0-0.9) % Lymphocytes # (Manual) 0.6 L (1.2-5.4) K/mm3 Percent Retic (0.78-2.58) % APTT 87.0 H* (24.2-36.6) Sec. Sodium 132 L (137-145) mmol/L Chloride 95.2 L (98-107) mmol/L Carbon Dioxide 20 L (22-30) mmol/L Creatinine 0.6 L (0.8-1.5) mg/dL Glucose 102 H (75-100) mg/dL Ferritin (13.0-400.0) ng/mL Prostate Specific Ag (0.00-4.00) ng/mL Vitamin B12 (211-911) pg/mL
[2017-09-15] MEDS: ARGATROBAN 250 MG in NACL 0.9% 250ML 247.5 ML IV SCH (11:21)
[2017-09-15] MEDS: PEPCID PO SCH ×2 (11:22→21:59)
[2017-09-15] MEDS: HABITROL TD SCH (11:22)
[2017-09-15] MEDS: VANCOMYCIN 1,250 MG in NACL 0.9% 250ML 250 ML IV SCH ×2 (11:23→21:59)
--- NOTE | 2017-09-15 12:40 | Hem/Onc Progress Note ---
Assessment and Plan - Patient Problems (1) Prostate CA Current Visit: Yes Status: Acute Plan to address problem: Patient has active metastatic prostate cancer. He has an elevated alkaline phosphatase. This could was him to have thrombocytopenia and anemia. PSA extremely high consistent with metastatic disease. He will follow-up with his oncologist at [place] for that upon discharge (2) Anemia Current Visit: Yes Status: Acute Qualifiers: Anemia type: unspecified type Qualified Code(s): D64.9 - Anemia, unspecified Plan to address problem: B12 low. We will start him on B12 and folic acid. (3) Thrombocytopenia Current Visit: Yes Status: Acute Plan to address problem: Heparin-induced thrombus cytopenia assay has been sent. Agree with argatroban and monitor platelets. May need to transfuse if platelets go below 20,000 or if he starts having bleeding. Would also like to see old records to see if his thrombocytopenia is chronic. Subjective Date of service: 09/15/17 Interval history: Patient states he feels a little better. Lab work shows his PSA to be >1000. Patient also has a low B12 level. Objective - Constitutional Vitals: Last Vital Signs Temp 99.4 F 09/15/17 07:51 Pulse 91 H 09/15/17 07:51 Resp 20 09/15/17 07:51 BP 151/94 09/15/17 07:51 Pulse Ox 98 09/15/17 07:51 General appearance: mild distress Performance status: 3-limited selfcare - Neck Neck: supple - Respiratory Respiratory effort: Positive: normal Respiratory: bilateral: diminished - Cardiovascular Rhythm: regular Extremities: abnormal (right toe ischemia) - Gastrointestinal General gastrointestinal: Present: soft - Labs Lab Results: Laboratory Results - last 24 hr 09/14/17 09/14/17 09/14/17 10:46 10:46 23:04 WBC RBC Hgb Hct MCV MCH MCHC RDW Plt Count Add Manual Diff Total Counted Seg Neuts % (Manual) Band Neutrophils % Lymphocytes % (Manual) Reactive Lymphs % (Man) Monocytes % (Manual) Eosinophils % (Manual) Basophils % (Manual) Metamyelocytes % Myelocytes % Promyelocytes % Blast Cells % Nucleated RBC % Seg Neutrophils # Man Band Neutrophils # Lymphocytes # (Manual) Abs React Lymphs (Man) Monocytes # (Manual) Eosinophils # (Manual) Basophils # (Manual) Metamyelocytes # Myelocytes # Promyelocytes # Blast Cells # WBC Morphology Hypersegmented Neuts Hyposegmented Neuts Hypogranular Neuts Smudge Cells Toxic Granulation Toxic Vacuolation Dohle Bodies Pelger-Huet Anomaly Jose Rods Platelet Estimate Clumped Platelets Plt Clumps, EDTA Large Platelets Giant Platelets Platelet Satelliting Plt Morphology Comment RBC Morphology Dimorphic RBCs Polychromasia Hypochromasia Poikilocytosis Anisocytosis Microcytosis Macrocytosis Spherocytes Pappenheimer Bodies Sickle Cells Target Cells Tear Drop Cells Ovalocytes Helmet Cells Li-Dubach Bodies [place] Rings [place] Cells Bite Cells Crenated Cell Elliptocytes Acanthocytes (Spur) Rouleaux Hemoglobin C Crystals Schistocytes Malaria parasites Collins Bodies Hem Pathologist Commnt APTT 89.4 H* Sodium Potassium Chloride Carbon Dioxide Anion Gap BUN Creatinine Estimated GFR BUN/Creatinine Ratio Glucose Calcium Troponin T Prostate Specific Ag 1721.00 H Folate 19.92 09/15/17 09/15/17 09/15/17 02:53 02:53 05:22 WBC 4.8 RBC 2.97 L Hgb 8.9 L Hct 27.3 L MCV 92 MCH 30 MCHC 33 RDW 17.6 H Plt Count 50 L Add Manual Diff Complete Total Counted 100 Seg Neuts % (Manual) 71.0 H Band Neutrophils % 9.0 Lymphocytes % (Manual) 12.0 L Reactive Lymphs % (Man) 0 Monocytes % (Manual) 6.0 Eosinophils % (Manual) 0 Basophils % (Manual) 0 Metamyelocytes % 2.0 Myelocytes % 0 Promyelocytes % 0 Blast Cells % 0 Nucleated RBC % 2.0 H Seg Neutrophils # Man 3.4 Band Neutrophils # 0.4 Lymphocytes # (Manual) 0.6 L Abs React Lymphs (Man) 0.0 Monocytes # (Manual) 0.3 Eosinophils # (Manual) 0.0 Basophils # (Manual) 0.0 Metamyelocytes # 0.1 Myelocytes # 0.0 Promyelocytes # 0.0 Blast Cells # 0.0 WBC Morphology Not Reportable Hypersegmented Neuts Not Reportable Hyposegmented Neuts Not Reportable Hypogranular Neuts Not Reportable Smudge Cells Not Reportable Toxic Granulation Not Reportable Toxic Vacuolation Not Reportable Dohle Bodies Not Reportable Pelger-Huet Anomaly Not Reportable Jose Rods Not Reportable Platelet Estimate Consistent w auto Clumped Platelets Not Reportable Plt Clumps, EDTA Not Reportable Large Platelets Not Reportable Giant Platelets Not Reportable Platelet Satelliting Not Reportable Plt Morphology Comment Not Reportable RBC Morphology Not Reportable Dimorphic RBCs Not Reportable Polychromasia Few Hypochromasia 1+ Poikilocytosis Not Reportable Anisocytosis 1+ Microcytosis Not Reportable Macrocytosis Not Reportable Spherocytes Not Reportable Pappenheimer Bodies Not Reportable Sickle Cells Not Reportable Target Cells Not Reportable Tear Drop Cells Not Reportable Ovalocytes Not Reportable Helmet Cells Not Reportable Li-[place] Bodies Not Reportable [place] Rings Not Reportable Jenae Cells Not Reportable Bite Cells Not Reportable Crenated Cell Not Reportable Elliptocytes Not Reportable Acanthocytes (Spur) Rare Rouleaux Not Reportable Hemoglobin C Crystals Not Reportable Schistocytes Not Reportable Malaria parasites Not Reportable Collins Bodies Not Reportable Hem Pathologist Commnt No APTT 87.0 H* Sodium 132 L Potassium 3.8 Chloride 95.2 L Carbon Dioxide 20 L Anion Gap 21 BUN 14 Creatinine 0.6 L Estimated GFR > 60 BUN/Creatinine Ratio 23 Glucose 102 H Calcium 8.7 Troponin T Prostate Specific Ag Folate 09/15/17 09/15/17 10:43 11:33 WBC RBC Hgb Hct MCV MCH MCHC RDW Plt Count Add Manual Diff Total Counted Seg Neuts % (Manual) Band Neutrophils % Lymphocytes % (Manual) Reactive Lymphs % (Man) Monocytes % (Manual) Eosinophils % (Manual) Basophils % (Manual) Metamyelocytes % Myelocytes % Promyelocytes % Blast Cells % Nucleated RBC % Seg Neutrophils # Man Band Neutrophils # Lymphocytes # (Manual) Abs React Lymphs (Man) Monocytes # (Manual) Eosinophils # (Manual) Basophils # (Manual) Metamyelocytes # Myelocytes # Promyelocytes # Blast Cells # WBC Morphology Hypersegmented Neuts Hyposegmented Neuts Hypogranular Neuts Smudge Cells Toxic Granulation Toxic Vacuolation Dohle Bodies Pelger-Huet Anomaly Jose Rods Platelet Estimate Clumped Platelets Plt Clumps, EDTA Large Platelets Giant Platelets Platelet Satelliting Plt Morphology Comment RBC Morphology Dimorphic RBCs Polychromasia Hypochromasia Poikilocytosis Anisocytosis Microcytosis Macrocytosis Spherocytes Pappenheimer Bodies Sickle Cells Target Cells Tear Drop Cells Ovalocytes Helmet Cells Li-Dubach Bodies [place] Rings [place] Cells Bite Cells Crenated Cell Elliptocytes Acanthocytes (Spur) Rouleaux Hemoglobin C Crystals Schistocytes Malaria parasites Collins Bodies Hem Pathologist Commnt APTT 80.0 H* Sodium Potassium Chloride Carbon Dioxide Anion Gap BUN Creatinine Estimated GFR BUN/Creatinine Ratio Glucose Calcium Troponin T < 0.010 Prostate Specific Ag Folate
[2017-09-15] MEDS ORDERED: VITAMIN B-12 IM ONE (14:00)
[2017-09-15] MEDS: FOLVITE PO SCH (14:01)
[2017-09-15] MEDS ORDERED: NON-FORMULARY (Flomax 0.4 MG) PO SCH (17:45)
--- NOTE | 2017-09-15 18:37 | Progress Note ---
Assessment and Plan Pt presented with gangrene to E. Arteriogram complicated anatomy with pop arterial thrombosis. Unfortunately, he is thrombocytopenic. Heme consulted. Restarted Flomax, due to complaints of difficulty with urination. If this does not improve, consider consult. Will make the pt npo for possible intervention tomorrow. 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 C/o difficulty urinating. Objective - Constitutional Vitals: Vital Signs - 12hr 09/15/17 09/15/17 09/15/17 07:51 09:51 15:32 Temperature 99.4 F 99.4 F 99.3 F Pulse Rate 91 H 98 H Respiratory 20 20 20 Rate Blood Pressure 151/94 156/96 164/98 O2 Sat by Pulse 98 100 99 Oximetry General appearance: Present: mild distress - EENT Eyes: EOM intact ENT: hearing intact - Respiratory Respiratory effort: normal Extremities: normal temperature Extremity abnormal: black (right great toe), pulses diminished - Neurologic Neurologic: no focal deficits - Psychiatric Psychiatric: appropriate mood/affect, intact judgment & insight, cooperative - Labs CBC & Chem 7: 09/15/17 02:53 09/15/17 02:53 Labs: Abnormal lab results 09/14/17 09/15/17 09/15/17 Range/Units 23:04 02:53 02:53 RBC 2.97 L (3.65-5.03) M/mm3 Hgb 8.9 L (11.8-15.2) gm/dl Hct 27.3 L (35.5-45.6) % RDW 17.6 H (13.2-15.2) % Plt Count 50 L (140-440) K/mm3 Seg Neuts % (Manual) 71.0 H (40.0-70.0) % Lymphocytes % (Manual) 12.0 L (13.4-35.0) % Nucleated RBC % 2.0 H (0.0-0.9) % Lymphocytes # (Manual) 0.6 L (1.2-5.4) K/mm3 APTT 89.4 H* (24.2-36.6) Sec. Sodium 132 L (137-145) mmol/L Chloride 95.2 L (98-107) mmol/L Carbon Dioxide 20 L (22-30) mmol/L Creatinine 0.6 L (0.8-1.5) mg/dL Glucose 102 H (75-100) mg/dL 09/15/17 09/15/17 Range/Units 05:22 11:33 RBC (3.65-5.03) M/mm3 Hgb (11.8-15.2) gm/dl Hct (35.5-45.6) % RDW (13.2-15.2) % Plt Count (140-440) K/mm3 Seg Neuts % (Manual) (40.0-70.0) % Lymphocytes % (Manual) (13.4-35.0) % Nucleated RBC % (0.0-0.9) % Lymphocytes # (Manual) (1.2-5.4) K/mm3 APTT 87.0 H* 80.0 H* (24.2-36.6) Sec. Sodium (137-145) mmol/L Chloride (98-107) mmol/L Carbon Dioxide (22-30) mmol/L Creatinine (0.8-1.5) mg/dL Glucose (75-100) mg/dL
[2017-09-15] MEDS: FLOMAX PO SCH (19:02)
[2017-09-15] MEDS: AMBIEN PO PRN (21:58)
[2017-09-16] MEDS: ARGATROBAN 250 MG in NACL 0.9% 250ML 247.5 ML IV SCH (00:31)
[2017-09-16] MEDS: PERCOCET 5/325 PO PRN ×2 (00:46→22:34)
[2017-09-16] MEDS: UNASYN/NS 3 GM/100 ML 3 GM/100 ML BAG IV SCH ×4 (00:54→17:52)
[2017-09-16] MEDS: DILAUDID IV PRN ×2 (06:35→20:02)
[2017-09-16 07:40] LABS: Hematocrit 27.1 % (35.5-45.6); Hemoglobin 8.9 gm/dl (11.8-15.2); Mean Corpuscular HGB Conc 33 % (32-34); Mean Corpuscular Hemoglobin 30 pg (28-32); Mean Corpuscular Volume 91 fl (84-94); Red Blood Count 2.97 M/mm3 (3.65-5.03); Red Cell Distribution Width 17.4 % (13.2-15.2)
[2017-09-16 07:50] LABS: Platelet Count 53 K/mm3 (140-440)
[2017-09-16 08:52] LABS: Anisocytosis 1+; Band Neutrophils # (Manual) 0.1 K/mm3; Eosinophils % (Manual) 0 % (0.0-4.3); Macrocytosis 1+; Platelet Estimate Consistent w Auto; Tear Drop Cells Few; Total Cells Counted 100
[2017-09-16] MEDS: VANCOMYCIN 1,250 MG in NACL 0.9% 250ML 250 ML IV SCH ×3 (09:13→22:36)
--- NOTE | 2017-09-16 09:42 | Vascular Lab Report ---
LOWER EXTREMITY ARTERIAL DUPLEX: REASON FOR EXAM: Gangrene of the right toe. COMMENTS ON THE RIGHT: Triphasic waveforms are seen proximally. Monophasic waveforms are seen distally. The popliteal artery appears to be completely occluded. Scattered plaque is seen throughout. Findings are consistent with abnormal perfusion. Findings are not consistent with the ability to heal distal wounds. COMMENTS ON THE LEFT: Triphasic waveforms are seen proximally. Biphasic waveforms are seen distally. No significant velocity gradients are identified. Eccentric calcified plaque is seen in the common femoral artery and scattered plaque is seen throughout. Findings are consistent with normal perfusion. Findings are consistent with the ability to heal distal wounds. IMPRESSION: RIGHT: The popliteal artery appears to be completely occluded. Flow is inadequate distally for healing of wounds.. LEFT:Adequate perfusion is maintained distally by a highly calcified eccentric plaque is noted in the common femoral artery.
--- NOTE | 2017-09-16 09:44 | Hem/Onc Progress Note ---
Assessment and Plan - Patient Problems (1) Prostate CA Current Visit: Yes Status: Acute Plan to address problem: Patient has active metastatic prostate cancer. He has an elevated alkaline phosphatase. This could was him to have thrombocytopenia and anemia. PSA extremely high consistent with metastatic disease. He will follow-up with his oncologist at [facility] for that upon discharge (2) Anemia Current Visit: Yes Status: Acute Qualifiers: Anemia type: unspecified type Qualified Code(s): D64.9 - Anemia, unspecified Plan to address problem: B12 low. We will continue B12 and give him another dose today (3) Thrombocytopenia Current Visit: Yes Status: Acute Plan to address problem: Heparin-induced thrombus cytopenia assay has been sent. Results are not back. May need to transfuse if platelets go below 20,000 or if he starts having bleeding. Would also like to see old records to see if his thrombocytopenia is chronic. Subjective Date of service: 09/16/17 Interval history: Patient states he feels a little better. Sleepy today. No active bleeding Objective - Constitutional Vitals: Last Vital Signs Temp 98.1 F 09/16/17 05:17 Pulse 100 H 09/16/17 05:17 Resp 16 09/16/17 05:17 BP 121/76 09/16/17 05:17 Pulse Ox 100 09/16/17 05:17 Pain Intensity (0-10): denies any pain General appearance: no acute distress Performance status: 4-completely disabled - Neck Neck: supple - Respiratory Respiratory effort: Positive: normal Respiratory: bilateral: CTA - Cardiovascular Rhythm: regular Extremities: abnormal - Gastrointestinal General gastrointestinal: Present: soft - Labs Lab Results: Laboratory Results - last 24 hr 09/15/17 09/15/17 09/15/17 10:43 11:33 23:15 WBC RBC Hgb Hct MCV MCH MCHC RDW Plt Count Add Manual Diff Total Counted Seg Neuts % (Manual) Band Neutrophils % Lymphocytes % (Manual) Reactive Lymphs % (Man) Monocytes % (Manual) Eosinophils % (Manual) Basophils % (Manual) Metamyelocytes % Myelocytes % Promyelocytes % Blast Cells % Nucleated RBC % Seg Neutrophils # Man Band Neutrophils # Lymphocytes # (Manual) Abs React Lymphs (Man) Monocytes # (Manual) Eosinophils # (Manual) Basophils # (Manual) Metamyelocytes # Myelocytes # Promyelocytes # Blast Cells # WBC Morphology Hypersegmented Neuts Hyposegmented Neuts Hypogranular Neuts Smudge Cells Toxic Granulation Toxic Vacuolation Dohle Bodies Pelger-Huet Anomaly Jose Rods Platelet Estimate Clumped Platelets Plt Clumps, EDTA Large Platelets Giant Platelets Platelet Satelliting Plt Morphology Comment RBC Morphology Dimorphic RBCs Polychromasia Hypochromasia Poikilocytosis Anisocytosis Microcytosis Macrocytosis Spherocytes Pappenheimer Bodies Sickle Cells Target Cells Tear Drop Cells Ovalocytes Helmet Cells Li-[place] Bodies Curtiss Rings [place] Cells Bite Cells Crenated Cell Elliptocytes Acanthocytes (Spur) Rouleaux Hemoglobin C Crystals Schistocytes Malaria parasites Collins Bodies Hem Pathologist Commnt APTT 80.0 H* Troponin T < 0.010 < 0.010 09/15/17 09/16/17 09/16/17 23:15 07:11 07:12 WBC 4.0 L RBC 2.97 L Hgb 8.9 L Hct 27.1 L MCV 91 MCH 30 MCHC 33 RDW 17.4 H Plt Count 53 L Add Manual Diff Complete Total Counted 100 Seg Neuts % (Manual) 64.0 Band Neutrophils % 2.0 Lymphocytes % (Manual) 25.0 Reactive Lymphs % (Man) 0 Monocytes % (Manual) 7.0 Eosinophils % (Manual) 0 Basophils % (Manual) 1.0 Metamyelocytes % 1.0 Myelocytes % 0 Promyelocytes % 0 Blast Cells % 0 Nucleated RBC % Not Reportable Seg Neutrophils # Man 2.6 Band Neutrophils # 0.1 Lymphocytes # (Manual) 1.0 L Abs React Lymphs (Man) 0.0 Monocytes # (Manual) 0.3 Eosinophils # (Manual) 0.0 Basophils # (Manual) 0.0 Metamyelocytes # 0.0 Myelocytes # 0.0 Promyelocytes # 0.0 Blast Cells # 0.0 WBC Morphology Not Reportable Hypersegmented Neuts Not Reportable Hyposegmented Neuts Not Reportable Hypogranular Neuts Not Reportable Smudge Cells Not Reportable Toxic Granulation Not Reportable Toxic Vacuolation Not Reportable Dohle Bodies Not Reportable Pelger-Huet Anomaly Not Reportable Jose Rods Not Reportable Platelet Estimate Consistent w auto Clumped Platelets Not Reportable Plt Clumps, EDTA Not Reportable Large Platelets Not Reportable Giant Platelets Not Reportable Platelet Satelliting Not Reportable Plt Morphology Comment Not Reportable RBC Morphology Not Reportable Dimorphic RBCs Not Reportable Polychromasia Not Reportable Hypochromasia Not Reportable Poikilocytosis Not Reportable Anisocytosis 1+ Microcytosis Not Reportable Macrocytosis 1+ Spherocytes Not Reportable Pappenheimer Bodies Not Reportable Sickle Cells Not Reportable Target Cells Not Reportable Tear Drop Cells Few Ovalocytes Not Reportable Helmet Cells Not Reportable Li-[place] Bodies Not Reportable Curtiss Rings Not Reportable Jenae Cells Not Reportable Bite Cells Not Reportable Crenated Cell Not Reportable Elliptocytes Not Reportable Acanthocytes (Spur) Not Reportable Rouleaux Not Reportable Hemoglobin C Crystals Not Reportable Schistocytes Not Reportable Malaria parasites Not Reportable Collins Bodies Not Reportable Hem Pathologist Commnt No APTT 101.0 H* 48.7 H Troponin T
--- NOTE | 2017-09-16 10:57 | Progress Note ---
Assessment and Plan Assessment: 1) Sepsis: Better. Etiology most likely gangrene of right toe? prostate cancer with metastasis? -CRP = 15.70 -blood cultures 09/11 ngtd -CTA showed bilateral common iliac arteries are dilated and measure 133 mm in diameter -Duplex doppler LE showed OCCLUDED RT.POP ARTERY AND RT.DPA WITH THROMBUS NOTED.MULTIPHASIC WAVEFORMS THROUGHOUT VESSELS INTERROGATED EXCEPT FOR MONOPHASIC WAVEFORMS OBTAINED IN THE RT.SUPERVISOR DRAWING AND RT.BRISA.BLE ARTERIAL DUPLEX 2) Right great toe ulcer/gangrene. Possible osteomyelitis right great toe culture negative 3) Prostate CA with metastasis 4) BPH 5) Thrombocytopenia and anemia, stable Plan: -continue unasyn day 5 -stop vancomycin -Per vascular, NPO for possible pharmacologic catheter directed thrombolysis with mechanical thrombectomy -Hem/onc following Will see patient on Tuesday Thank you Dr. Saavedra for your consult, will follow up Asael Ling NP-C for Dr. Hannah Ventura MD Infectious Diseases Specialist [facility] ([facility]) M [phone] O [phone] Subjective Date of service: 09/16/17 Principal diagnosis: right toe gangrene Interval history: I have not eaten since last night and I am hungry, no fever Microbiology: Blood cultures: 09/11 ngtd Urine cultures: none Respiratory cultures: Current Antimicrobials: unasyn 09/12 vacomycin 09/11 Previous Antimicrobials: ceftriaxone Objective - Exam Narrative Exam: General appearance: Alert in NAD, conversant Eyes: anicteric sclerae, moist conjunctivae; no lid-lag; PERRLA HENT: Atraumatic; oropharynx clear with moist mucous membranes and no mucosal ulcerations/no oral thrush; Neck: Trachea midline; supple, no thyromegaly or lymphadenopathy Lungs: breath sounds diminished bilaterally, c/o chest pain CV: RRR, no murmurs Abdomen: Soft, non-tender; +BS x 4 Extremities: right great toe gangrene, right 2nd toe gangrene Skin: Normal temperature, warm and dry Psych: Appropriate affect, calm and cooperative Neuro: alert and oriented x 3. Moving all extermities Lines: No CVL / PICC - Constitutional Vitals: Vital Signs Temp Pulse Resp BP Pulse Ox 98.1 F 100 H 16 121/76 100 09/16/17 05:17 09/16/17 05:17 09/16/17 05:17 09/16/17 05:17 09/16/17 05:17 Temperature -Last 24 Hours Temperature 98.1 F Temperature 98.5 F Temperature 99.3 F - Labs CBC & Chem 7: 09/16/17 07:12 09/15/17 02:53 Labs: Abnormal lab results 09/15/17 09/15/17 09/16/17 Range/Units 11:33 23:15 07:11 WBC (4.5-11.0) K/mm3 RBC (3.65-5.03) M/mm3 Hgb (11.8-15.2) gm/dl Hct (35.5-45.6) % RDW (13.2-15.2) % Plt Count (140-440) K/mm3 Lymphocytes # (Manual) (1.2-5.4) K/mm3 APTT 80.0 H* 101.0 H* 48.7 H (24.2-36.6) Sec. 09/16/17 Range/Units 07:12 WBC 4.0 L (4.5-11.0) K/mm3 RBC 2.97 L (3.65-5.03) M/mm3 Hgb 8.9 L (11.8-15.2) gm/dl Hct 27.1 L (35.5-45.6) % RDW 17.4 H (13.2-15.2) % Plt Count 53 L (140-440) K/mm3 Lymphocytes # (Manual) 1.0 L (1.2-5.4) K/mm3 APTT (24.2-36.6) Sec.
[2017-09-16] MEDS ORDERED: VITAMIN B-12 SUB-Q ONE (11:00)
[2017-09-16] MEDS: PEPCID PO SCH ×2 (15:35→22:36)
[2017-09-16] MEDS: FLOMAX PO SCH (15:35)
[2017-09-16] MEDS: HABITROL TD SCH (15:35)
[2017-09-16] MEDS: FOLVITE PO SCH (15:36)
--- NOTE | 2017-09-16 15:53 | Progress Note ---
Assessment and Plan We'll plan on revascularization on Tuesday. Subjective Date of service: 09/16/17 Principal diagnosis: right toe gangrene Interval history: Appreciate consultants input. The patient will need revascularization of his right popliteal artery and proximal tibial arteries. This will be scheduled for Tuesday. Patient currently is not complaining of any pain. He has been ambulating with assistance. Objective - Constitutional Vitals: Vital Signs - 12hr 09/16/17 09/16/17 05:17 07:40 Temperature 98.1 F 99.5 F Pulse Rate 100 H 93 H Respiratory 16 20 Rate Blood Pressure 121/76 115/75 O2 Sat by Pulse 100 99 Oximetry General appearance: Present: no acute distress - EENT Eyes: PERRL ENT: hearing intact - Neck Neck: supple - Respiratory Respiratory effort: normal - Breasts Breasts: deferred Extremities: abnormal - Gastrointestinal General gastrointestinal: Present: deferred - Genitourinary Male genitourinary: deferred - Psychiatric Psychiatric: appropriate mood/affect, cooperative - Labs CBC & Chem 7: 09/16/17 07:12 09/15/17 02:53 Labs: Abnormal lab results 09/15/17 09/16/17 09/16/17 Range/Units 23:15 07:11 07:12 WBC 4.0 L (4.5-11.0) K/mm3 RBC 2.97 L (3.65-5.03) M/mm3 Hgb 8.9 L (11.8-15.2) gm/dl Hct 27.1 L (35.5-45.6) % RDW 17.4 H (13.2-15.2) % Plt Count 53 L (140-440) K/mm3 Lymphocytes # (Manual) 1.0 L (1.2-5.4) K/mm3 APTT 101.0 H* 48.7 H (24.2-36.6) Sec. 09/16/17 Range/Units 13:07 WBC (4.5-11.0) K/mm3 RBC (3.65-5.03) M/mm3 Hgb (11.8-15.2) gm/dl Hct (35.5-45.6) % RDW (13.2-15.2) % Plt Count (140-440) K/mm3 Lymphocytes # (Manual) (1.2-5.4) K/mm3 APTT 61.7 H* (24.2-36.6) Sec.
[2017-09-16 15:55] LABS: Heparin-Induced Platelet Antib Negative (Negative); Unfractionated Heparin Negative (Negative)
--- NOTE | 2017-09-16 17:11 | Progress Note ---
Assessment and Plan Assessment and Plan Assessment and plan: 66-year-old -[place] male with pmh of Prostate Cancer LBP and BPH presents to the emergency department with complaint of swelling to the right foot for the past week. The patient is noted to have a blackened and necrotic appearing right great toe. Dry eschar on Rt great Toe.No drainage. He says that it is been like this for the past couple weeks. He says he has been talking about seeing a physician regarding these symptoms but has not yet done so. He has a past medical history of prostate cancer and some chronic back pains. He has not taken anything for his symptoms prior presentation. Osteomyelitis of toe of right foot Continue IV abx for now-Unasyn and vancomycin. w/u to r/o PAD Duplex doppler LE showed OCCLUDED RT.POP ARTERY AND RT.DPA WITH THROMBUS NOTED. 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 Hem onc input noted Thrombocytopenia- Monitor for any bleeding and transfuse if plt below 20,000 per Hematology recommendation Anemia-Monitor. likely secondary to to prostate cancer. s/p Transfusion 2 units of packed red blood cells on 09/11. BPH (benign prostatic hyperplasia) Continue Tamsulosin. Chronic pain due to neoplasm continue his home medications. PAD (peripheral artery disease) Strong possibility in view of his smoking. Occluded R POP artery vascular following Nicotine dependence Pt counselled on cessation Nicoderm patch ordered DVT/GI prophy Subjective Date of service: 09/16/17 Principal diagnosis: right toe gangrene Interval history: No complaints Objective - Constitutional Vitals: Vital Signs - 12hr 09/16/17 09/16/17 05:17 07:40 Temperature 98.1 F 99.5 F Pulse Rate 100 H 93 H Respiratory 16 20 Rate Blood Pressure 121/76 115/75 O2 Sat by Pulse 100 99 Oximetry General appearance: Present: no acute distress, well-nourished - EENT Eyes: PERRL, EOM intact ENT: hearing intact, clear oral mucosa Ears: bilateral: normal - Neck Neck: supple, normal ROM - Respiratory Respiratory effort: normal Respiratory: bilateral: CTA - Breasts Breasts: normal - Cardiovascular Rhythm: regular Heart Sounds: Present: S1 & S2. Absent: gallop, rub Extremities: pulses intact, No edema, normal color, Full ROM - Gastrointestinal General gastrointestinal: Present: soft, non-tender, non-distended, normal bowel sounds - Genitourinary Male genitourinary: normal - Integumentary Integumentary: clear, warm, dry - Musculoskeletal Musculoskeletal: 1, strength equal bilaterally - Neurologic Neurologic: moves all extremities - Psychiatric Psychiatric: memory intact, appropriate mood/affect, intact judgment & insight - Labs CBC & Chem 7: 09/18/17 05:31 09/18/17 05:31 Labs: Abnormal lab results 09/15/17 09/16/17 09/16/17 Range/Units 23:15 07:11 07:12 WBC 4.0 L (4.5-11.0) K/mm3 RBC 2.97 L (3.65-5.03) M/mm3 Hgb 8.9 L (11.8-15.2) gm/dl Hct 27.1 L (35.5-45.6) % RDW 17.4 H (13.2-15.2) % Plt Count 53 L (140-440) K/mm3 Lymphocytes # (Manual) 1.0 L (1.2-5.4) K/mm3 APTT 101.0 H* 48.7 H (24.2-36.6) Sec. 09/16/17 Range/Units 13:07 WBC (4.5-11.0) K/mm3 RBC (3.65-5.03) M/mm3 Hgb (11.8-15.2) gm/dl Hct (35.5-45.6) % RDW (13.2-15.2) % Plt Count (140-440) K/mm3 Lymphocytes # (Manual) (1.2-5.4) K/mm3 APTT 61.7 H* (24.2-36.6) Sec.
[2017-09-16] MEDS: AMBIEN PO PRN (22:35)
[2017-09-17] MEDS: UNASYN/NS 3 GM/100 ML 3 GM/100 ML BAG IV SCH ×4 (00:32→19:14)
[2017-09-17] MEDS: DILAUDID IV PRN ×5 (05:38→20:08)
[2017-09-17] MEDS: FLOMAX PO SCH (09:58)
[2017-09-17] MEDS: HABITROL TD SCH (09:58)
[2017-09-17] MEDS: PEPCID PO SCH ×2 (09:59→22:11)
[2017-09-17] MEDS: FOLVITE PO SCH (09:59)
--- NOTE | 2017-09-17 10:26 | Hem/Onc Progress Note ---
Assessment and Plan - Patient Problems (1) Prostate CA Current Visit: Yes Status: Acute Plan to address problem: Will follow clinically. (2) Thrombocytopenia Current Visit: Yes Status: Acute Plan to address problem: Is chronic and longstanding. HIT results pending. Subjective Date of service: 09/17/17 Interval history: No new complains. No bleeding. Objective - Constitutional Vitals: Last Vital Signs Temp 98.5 F 09/17/17 07:31 Pulse 93 H 09/17/17 07:31 Resp 18 09/17/17 07:31 BP 109/72 09/17/17 07:31 Pulse Ox 98 09/17/17 07:31 - EENT ENT: hearing intact Lymph node exam: negative cervical - Neck Neck: supple - Labs Lab Results: Laboratory Results - last 24 hr 09/14/17 09/16/17 09/17/17 08:46 13:07 04:23 APTT 61.7 H* 60.3 H* Heparin Anti-Xa, Unfract Negative Heparin-induced Plt Ab Negative UF Heparin High Dose 0 ELENA UFH Low Dose 0.1 0 ELENA UFH Low Dose 0.5 0
--- NOTE | 2017-09-17 16:08 | Progress Note ---
Assessment and Plan Assessment and Plan Assessment and plan: 66-year-old -Fil[place] male with pmh of Prostate Cancer LBP and BPH presents to the emergency department with complaint of swelling to the right foot for the past week. The patient is noted to have a blackened and necrotic appearing right great toe. Dry eschar on Rt great Toe.No drainage. He says that it is been like this for the past couple weeks. He says he has been talking about seeing a physician regarding these symptoms but has not yet done so. He has a past medical history of prostate cancer and some chronic back pains. He has not taken anything for his symptoms prior presentation. Osteomyelitis of toe of right foot Continue IV abx for now-Unasyn and vancomycin. w/u to r/o PAD Duplex doppler LE showed OCCLUDED RT.POP ARTERY AND RT.DPA WITH THROMBUS NOTED. MULTIPHASIC WAVEFORMS THROUGHOUT VESSELS INTERROGATED EXCEPT FOR MONOPHASIC WAVEFORMS OBTAINED IN THE RT.HEADSTART TEACHER AND RT.BRISA.BLE ARTERIAL DUPLEX Vascular and ID following Patient will be scheduled for revascularization of his right lower extremity Tuesday. Nothing to eat or drink after midnight of Tuesday. 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 Hem onc input noted Thrombocytopenia- Monitor for any bleeding and transfuse if plt below 20,000 per Hematology recommendation Anemia-Monitor. likely secondary to to prostate cancer. s/p Transfusion 2 units of packed red blood cells on 09/11. BPH (benign prostatic hyperplasia) Continue Tamsulosin. Chronic pain due to neoplasm continue his home medications. PAD (peripheral artery disease) Strong possibility in view of his smoking. Occluded R POP artery vascular following Nicotine dependence Pt counselled on cessation Nicoderm patch ordered DVT/GI prophy Subjective Date of service: 09/17/17 Principal diagnosis: right toe gangrene Interval history: No complaints Objective - Constitutional Vitals: Vital Signs - 12hr 09/17/17 07:31 Temperature 98.5 F Pulse Rate 93 H Respiratory 18 Rate Blood Pressure 109/72 O2 Sat by Pulse 98 Oximetry General appearance: Present: no acute distress, well-nourished - EENT Eyes: PERRL, EOM intact ENT: hearing intact, clear oral mucosa Ears: bilateral: normal - Neck Neck: supple, normal ROM - Respiratory Respiratory effort: normal Respiratory: bilateral: CTA - Breasts Breasts: normal - Cardiovascular Rhythm: regular Heart Sounds: Present: S1 & S2. Absent: gallop, rub Extremities: pulses intact, No edema, normal color, Full ROM - Gastrointestinal General gastrointestinal: Present: soft, non-tender, non-distended, normal bowel sounds - Genitourinary Male genitourinary: normal - Integumentary Integumentary: clear, warm, dry - Musculoskeletal Musculoskeletal: 1, strength equal bilaterally - Neurologic Neurologic: moves all extremities - Psychiatric Psychiatric: memory intact, appropriate mood/affect, intact judgment & insight - Labs CBC & Chem 7: 09/18/17 05:31 09/18/17 05:31 Labs: Abnormal lab results 09/17/17 Range/Units 04:23 APTT 60.3 H* (24.2-36.6) Sec.
[2017-09-17] MEDS: PERCOCET 5/325 PO PRN (22:10)
[2017-09-17] MEDS: AMBIEN PO PRN (22:11)
[2017-09-18] MEDS: UNASYN/NS 3 GM/100 ML 3 GM/100 ML BAG IV SCH ×4 (00:36→17:07)
[2017-09-18] MEDS: DILAUDID IV PRN ×5 (06:19→20:50)
[2017-09-18 06:25] LABS: Basophils % (Auto) 0.8 % (0.0-1.8); Eosinophils # (Auto) 0.1 K/mm3 (0.0-0.4); Eosinophils % (Auto) 1.4 % (0.0-4.3); Hematocrit 23.9 % (35.5-45.6); Hemoglobin 7.9 gm/dl (11.8-15.2); Lymphocytes # (Auto) 0.9 K/mm3 (1.2-5.4); Lymphocytes % (Auto) 22.4 % (13.4-35.0); Mean Corpuscular HGB Conc 33 % (32-34); Mean Corpuscular Hemoglobin 30 pg (28-32); Mean Corpuscular Volume 90 fl (84-94); Monocytes # (Auto) 0.3 K/mm3 (0.0-0.8); Monocytes % (Auto) 7.7 % (0.0-7.3); Red Blood Count 2.66 M/mm3 (3.65-5.03); Red Cell Distribution Width 17.3 % (13.2-15.2)
[2017-09-18 06:31] LABS: Platelet Count 75 K/mm3 (140-440)
[2017-09-18 06:45] LABS: BUN/Creatinine Ratio 16; Blood Urea Nitrogen 8 mg/dL (9-20); Calcium 8.4 mg/dL (8.4-10.2); Hemolysis Index 2
[2017-09-18] MEDS: HABITROL TD SCH (09:37)
[2017-09-18] MEDS: FLOMAX PO SCH (09:38)
[2017-09-18] MEDS: PEPCID PO SCH ×2 (09:38→22:55)
[2017-09-18] MEDS: FOLVITE PO SCH (09:38)
--- NOTE | 2017-09-18 10:15 | Progress Note ---
Assessment and Plan Patient will be scheduled for revascularization of his right lower extremity tomorrow. Nothing to eat or drink after midnight. Subjective Date of service: 09/18/17 Principal diagnosis: right toe gangrene Interval history: Patient doing well. No complaints of significant pain. Right digital gangrene. Objective - Constitutional Vitals: Vital Signs - 12hr 09/17/17 09/17/17 09/18/17 22:17 22:21 08:31 Temperature 97.8 F 98.0 F Pulse Rate 93 H 104 H Respiratory 18 20 Rate Blood Pressure 132/79 86/65 O2 Sat by Pulse 85 Oximetry 09/18/17 08:52 Temperature Pulse Rate Respiratory Rate Blood Pressure 114/76 O2 Sat by Pulse Oximetry General appearance: Present: no acute distress - EENT Eyes: PERRL ENT: hearing intact - Neck Neck: supple, normal ROM - Respiratory Respiratory effort: normal - Breasts Breasts: deferred Extremities: abnormal Extremity abnormal: pulses diminished - Gastrointestinal General gastrointestinal: Present: deferred Rectal Exam: deferred - Genitourinary Male genitourinary: deferred - Integumentary Integumentary: clear - Neurologic Neurologic: no focal deficits - Psychiatric Psychiatric: appropriate mood/affect, cooperative - Labs CBC & Chem 7: 09/18/17 05:31 09/18/17 05:31 Labs: Abnormal lab results 09/17/17 09/18/17 09/18/17 Range/Units 17:23 05:31 05:31 WBC 4.2 L (4.5-11.0) K/mm3 RBC 2.66 L (3.65-5.03) M/mm3 Hgb 7.9 L (11.8-15.2) gm/dl Hct 23.9 L (35.5-45.6) % RDW 17.3 H (13.2-15.2) % Plt Count 75 L (140-440) K/mm3 [place] % (Auto) 7.7 H (0.0-7.3) % Lymph # 0.9 L (1.2-5.4) K/mm3 APTT 57.9 H (24.2-36.6) Sec. Sodium 132 L (137-145) mmol/L Potassium 3.1 L (3.6-5.0) mmol/L Chloride 94.4 L (98-107) mmol/L BUN 8 L (9-20) mg/dL Creatinine 0.5 L (0.8-1.5) mg/dL Glucose 127 H (75-100) mg/dL 09/18/17 Range/Units 05:31 WBC (4.5-11.0) K/mm3 RBC (3.65-5.03) M/mm3 Hgb (11.8-15.2) gm/dl Hct (35.5-45.6) % RDW (13.2-15.2) % Plt Count (140-440) K/mm3 [place] % (Auto) (0.0-7.3) % Lymph # (1.2-5.4) K/mm3 APTT 61.5 H* (24.2-36.6) Sec. Sodium (137-145) mmol/L Potassium (3.6-5.0) mmol/L Chloride (98-107) mmol/L BUN (9-20) mg/dL Creatinine (0.8-1.5) mg/dL Glucose (75-100) mg/dL
[2017-09-18] MEDS: PERCOCET 5/325 PO PRN (12:25)
--- NOTE | 2017-09-18 12:32 | Hem/Onc Progress Note ---
Assessment and Plan - Patient Problems (1) Prostate CA Current Visit: Yes Status: Acute Plan to address problem: Monitor PSA, outpatient follow up (2) Thrombocytopenia Current Visit: Yes Status: Acute Plan to address problem: Improved. Secondary to infection, gangrene, prostate cancer. Subjective Date of service: 09/18/17 Interval history: No new complains. Pain stable Objective - Constitutional Vitals: Last Vital Signs Temp 98.0 F 09/18/17 08:31 Pulse 104 H 09/18/17 08:31 Resp 20 09/18/17 08:31 BP 114/76 09/18/17 08:52 Pulse Ox 85 09/18/17 08:31 - EENT ENT: hearing intact Lymph node exam: negative cervical - Neck Neck: supple - Respiratory Respiratory effort: Positive: normal - Labs Lab Results: Laboratory Results - last 24 hr 09/17/17 09/18/17 09/18/17 17:23 05:31 05:31 WBC 4.2 L RBC 2.66 L Hgb 7.9 L Hct 23.9 L MCV 90 MCH 30 MCHC 33 RDW 17.3 H Plt Count 75 L Lymph % (Auto) 22.4 [place] % (Auto) 7.7 H Eos % (Auto) 1.4 Baso % (Auto) 0.8 Lymph # 0.9 L [place] # 0.3 Eos # 0.1 Baso # 0.0 Seg Neutrophils % 67.7 Seg Neutrophils # 2.8 APTT 57.9 H Sodium 132 L Potassium 3.1 L Chloride 94.4 L Carbon Dioxide 22 Anion Gap 19 BUN 8 L Creatinine 0.5 L Estimated GFR > 60 BUN/Creatinine Ratio 16 Glucose 127 H Calcium 8.4 09/18/17 05:31 WBC RBC Hgb Hct MCV MCH MCHC RDW Plt Count Lymph % (Auto) [place] % (Auto) Eos % (Auto) Baso % (Auto) Lymph # [place] # Eos # Baso # Seg Neutrophils % Seg Neutrophils # APTT 61.5 H* Sodium Potassium Chloride Carbon Dioxide Anion Gap BUN Creatinine Estimated GFR BUN/Creatinine Ratio Glucose Calcium
[2017-09-18] MEDS: ARGATROBAN 250 MG in NACL 0.9% 250ML 247.5 ML IV SCH (15:03)
--- NOTE | 2017-09-18 18:18 | Progress Note ---
Assessment and Plan Assessment and Plan Assessment and plan: 66-year-old -[place] Islander male with pmh of Prostate Cancer LBP and BPH presents to the emergency department with complaint of swelling to the right foot for the past week. The patient is noted to have a blackened and necrotic appearing right great toe. Dry eschar on Rt great Toe.No drainage. He says that it is been like this for the past couple weeks. He says he has been talking about seeing a physician regarding these symptoms but has not yet done so. He has a past medical history of prostate cancer and some chronic back pains. He has not taken anything for his symptoms prior presentation. Osteomyelitis of toe of right foot Continue IV abx for now-Unasyn and vancomycin. w/u to r/o PAD Duplex doppler LE showed OCCLUDED RT.POP ARTERY AND RT.DPA WITH THROMBUS NOTED. MULTIPHASIC WAVEFORMS THROUGHOUT VESSELS INTERROGATED EXCEPT FOR MONOPHASIC WAVEFORMS OBTAINED IN THE RT.EXPORT MANAGER AND RT.BRISA.BLE ARTERIAL DUPLEX Vascular and ID following Patient will be scheduled for revascularization of his right lower extremity tomorrow. Nothing to eat or drink after midnight. 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 Hem onc input noted Thrombocytopenia- Monitor for any bleeding and transfuse if plt below 20,000 per Hematology recommendation Anemia-Monitor. likely secondary to to prostate cancer. s/p Transfusion 2 units of packed red blood cells on 09/11. BPH (benign prostatic hyperplasia) Continue Tamsulosin. Chronic pain due to neoplasm continue his home medications. PAD (peripheral artery disease) Strong possibility in view of his smoking. Occluded R POP artery vascular following Nicotine dependence Pt counselled on cessation Nicoderm patch ordered DVT/GI prophy Subjective Date of service: 09/18/17 Principal diagnosis: right toe gangrene Interval history: No complaints Objective - Constitutional Vitals: Vital Signs - 12hr 09/18/17 09/18/17 09/18/17 08:31 08:52 16:15 Temperature 98.0 F 99.0 F Pulse Rate 104 H Respiratory 20 18 Rate Blood Pressure 86/65 114/76 102/56 O2 Sat by Pulse 85 Oximetry - Labs CBC & Chem 7: 09/18/17 05:31 09/18/17 05:31 Labs: Abnormal lab results 09/17/17 09/18/17 09/18/17 Range/Units 17:23 05:31 05:31 WBC 4.2 L (4.5-11.0) K/mm3 RBC 2.66 L (3.65-5.03) M/mm3 Hgb 7.9 L (11.8-15.2) gm/dl Hct 23.9 L (35.5-45.6) % RDW 17.3 H (13.2-15.2) % Plt Count 75 L (140-440) K/mm3 [place] % (Auto) 7.7 H (0.0-7.3) % Lymph # 0.9 L (1.2-5.4) K/mm3 APTT 57.9 H (24.2-36.6) Sec. Sodium 132 L (137-145) mmol/L Potassium 3.1 L (3.6-5.0) mmol/L Chloride 94.4 L (98-107) mmol/L BUN 8 L (9-20) mg/dL Creatinine 0.5 L (0.8-1.5) mg/dL Glucose 127 H (75-100) mg/dL 09/18/17 09/18/17 Range/Units 05:31 17:35 WBC (4.5-11.0) K/mm3 RBC (3.65-5.03) M/mm3 Hgb (11.8-15.2) gm/dl Hct (35.5-45.6) % RDW (13.2-15.2) % Plt Count (140-440) K/mm3 [place] % (Auto) (0.0-7.3) % Lymph # (1.2-5.4) K/mm3 APTT 61.5 H* 60.1 H* (24.2-36.6) Sec. Sodium (137-145) mmol/L Potassium (3.6-5.0) mmol/L Chloride (98-107) mmol/L BUN (9-20) mg/dL Creatinine (0.8-1.5) mg/dL Glucose (75-100) mg/dL
[2017-09-19] MEDS: PERCOCET 5/325 PO PRN (00:06)
[2017-09-19] MEDS: AMBIEN PO PRN (00:06)
[2017-09-19] MEDS: UNASYN/NS 3 GM/100 ML 3 GM/100 ML BAG IV SCH ×5 (01:30→23:35)
[2017-09-19] MEDS: DILAUDID IV PRN ×4 (07:17→23:38)
--- NOTE | 2017-09-19 08:16 | Progress Note ---
Assessment and Plan 66-year-old -[place] male with pmh of Prostate Cancer LBP and BPH presents to the emergency department with complaint of swelling to the right foot for the past week. The patient is noted to have a blackened and necrotic appearing right great toe. Dry eschar on Rt great Toe.No drainage. He says that it is been like this for the past couple weeks. He says he has been talking about seeing a physician regarding these symptoms but has not yet done so. He has a past medical history of prostate cancer and some chronic back pains. He has not taken anything for his symptoms prior presentation. Osteomyelitis of toe of right foot Continue IV abx for now-Unasyn and vancomycin. CRP 15.7 w/u to r/o PAD Duplex doppler LE showed OCCLUDED RT.POP ARTERY AND RT.DPA WITH THROMBUS NOTED. MULTIPHASIC WAVEFORMS THROUGHOUT VESSELS INTERROGATED EXCEPT FOR MONOPHASIC WAVEFORMS OBTAINED IN THE RT.CHIMNEY CONSTRUCTION SUPERVISOR AND RT.BRISA.BLE ARTERIAL DUPLEX Vascular and ID following Sepsis - imporving continue with Unasyn. ID following PAD Patient will be scheduled for revascularization of his right Popliteal artery per Vascular. 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 Hem onc input noted Thrombocytopenia- Monitor for any bleeding and transfuse if plt below 20,000 per Hematology recommendation Anemia-Monitor. likely secondary to to prostate cancer. s/p Transfusion 2 units of packed red blood cells on 09/11. BPH (benign prostatic hyperplasia) Continue Tamsulosin. Chronic pain due to neoplasm continue his home medications. Prostate cancer with mets Hermatologist following Nicotine dependence Pt counselled on cessation Nicoderm patch ordered DVT/GI prophy Subjective Date of service: 09/19/17 Principal diagnosis: right toe gangrene,prostate cnacer Interval history: No new complaint. still having right leg pain. No fever Objective - Constitutional Vitals: Vital Signs - 12hr 09/18/17 23:37 Temperature 99.9 F H Pulse Rate 96 H Respiratory 18 Rate Blood Pressure 106/56 O2 Sat by Pulse 96 Oximetry General appearance: Present: no acute distress, well-nourished - EENT Eyes: PERRL, EOM intact - Neck Neck: supple, normal ROM - Respiratory Respiratory effort: normal Respiratory: bilateral: diminished - Cardiovascular Rhythm: regular Heart Sounds: Present: S1 & S2. Absent: gallop, rub Extremities: pulses intact, No edema, normal color, Full ROM - Gastrointestinal General gastrointestinal: Present: soft, non-tender, normal bowel sounds - Integumentary Integumentary: clear, warm, dry - Musculoskeletal Musculoskeletal: 1, strength equal bilaterally - Neurologic Neurologic: moves all extremities - Psychiatric Psychiatric: memory intact, appropriate mood/affect, intact judgment & insight - Labs CBC & Chem 7: 09/18/17 05:31 09/18/17 05:31 Labs: Abnormal lab results 09/18/17 09/19/17 Range/Units 17:35 06:30 APTT 60.1 H* 67.8 H* (24.2-36.6) Sec.
--- NOTE | 2017-09-19 09:24 | Hem/Onc Progress Note ---
Assessment and Plan awaiting labs continue supportive care f/u with aidee onc upon d/c - Patient Problems (1) Prostate CA Current Visit: Yes Status: Acute (2) Anemia Current Visit: Yes Status: Acute Qualifiers: Anemia type: unspecified type Qualified Code(s): D64.9 - Anemia, unspecified (3) Thrombocytopenia Current Visit: Yes Status: Acute Subjective Date of service: 09/19/17 Interval history: Patient states he feels a little better. Sleepy today. No active bleeding. for revascularization today Objective - Constitutional Vitals: Last Vital Signs Temp 98.6 F 09/19/17 08:04 Pulse 95 H 09/19/17 08:04 Resp 20 09/19/17 08:04 BP 111/71 09/19/17 08:04 Pulse Ox 98 09/19/17 08:04 General appearance: no acute distress - Neck Neck: supple - Respiratory Respiratory effort: Positive: normal Respiratory: bilateral: CTA - Cardiovascular Rhythm: regular Extremities: abnormal (R foot ischemic changes) - Gastrointestinal General gastrointestinal: Present: soft - Labs Lab Results: Laboratory Results - last 24 hr 09/18/17 09/19/17 17:35 06:30 APTT 60.1 H* 67.8 H*
[2017-09-19] MEDS: FLOMAX PO SCH (10:37)
[2017-09-19] MEDS: FOLVITE PO SCH (10:38)
[2017-09-19] MEDS: PEPCID PO SCH ×2 (10:38→22:28)
[2017-09-19] MEDS: HABITROL TD SCH (10:38)
--- NOTE | 2017-09-19 11:05 | Progress Note ---
<ASAEL LING - Last Filed: 09/19/17 13:53> Assessment and Plan Assessment: 1) Sepsis: Better. Etiology most likely gangrene of right toe? prostate cancer with metastasis? -CRP = 15.70 -blood cultures 09/11 ngtd -CTA showed bilateral common iliac arteries are dilated and measure 133 mm in diameter -Duplex doppler LE showed OCCLUDED RT.POP ARTERY AND RT.DPA WITH THROMBUS NOTED.MULTIPHASIC WAVEFORMS THROUGHOUT VESSELS INTERROGATED EXCEPT FOR MONOPHASIC WAVEFORMS OBTAINED IN THE RT.DIRECTOR CALL CENTER SALES AND RT.BRISA.BLE ARTERIAL DUPLEX 2) Right great toe ulcer/gangrene. Possible osteomyelitis right great toe culture negative -BLE VEIN MAPPING PRELIMINARY REPORT showed LT.GSV APPEARS THROMBOSED FROM TAKE-OFF UP TO THE MEDIAL MALLEOLUS AND BOTH LSV'S APPEAR THROMBOSED TOO 3) Prostate CA with metastasis 4) BPH 5) Thrombocytopenia and anemia, stable Plan: -continue unasyn day 8 -Hem/onc following Thank you Dr. Saavedra for your consult, will follow up Asael Ling NP-C for Dr. Hnanah Ventura MD Infectious Diseases Specialist [facility] ([facility]) M [phone] O [phone] Subjective Date of service: 09/19/17 Principal diagnosis: right toe gangrene Interval history: I feel fine today, no fever Microbiology: Blood cultures: 09/11 ngtd Urine cultures: none Respiratory cultures: Current Antimicrobials: unasyn 09/12 vacomycin 09/11 Previous Antimicrobials: ceftriaxone Objective - Exam Narrative Exam: General appearance: Alert in NAD, conversant Eyes: anicteric sclerae, moist conjunctivae; no lid-lag; PERRLA HENT: Atraumatic; oropharynx clear with moist mucous membranes and no mucosal ulcerations/no oral thrush; Neck: Trachea midline; supple, no thyromegaly or lymphadenopathy Lungs: breath sounds diminished bilaterally, c/o chest pain CV: RRR, no murmurs Abdomen: Soft, non-tender; +BS x 4 Extremities: right great toe gangrene, right 2nd toe gangrene Skin: Normal temperature, warm and dry Psych: Appropriate affect, calm and cooperative Neuro: alert and oriented x 3. Moving all extermities Lines: No CVL / PICC - Constitutional Vitals: Vital Signs Temp Pulse Resp BP Pulse Ox 98.6 F 95 H 20 111/71 98 09/19/17 08:04 09/19/17 08:04 09/19/17 08:04 09/19/17 08:04 09/19/17 08:04 Temperature -Last 24 Hours Temperature 98.6 F Temperature 99.9 F Temperature 99.0 F - Labs CBC & Chem 7: 09/18/17 05:31 09/18/17 05:31 Labs: Abnormal lab results 09/18/17 09/19/17 Range/Units 17:35 06:30 APTT 60.1 H* 67.8 H* (24.2-36.6) Sec. <HANNAH JACKSON - Last Filed: 09/19/17 16:26> Assessment and Plan I have personally interviewed and examined patient and agree with HISTORICAL RECORDS ADMINISTRATOR Nballu report. Scheduled for revascularization today. Hannah Meeks MD Objective - Constitutional Vitals: Vital Signs Temp Pulse Resp BP Pulse Ox 98.6 F 95 H 20 111/71 98 09/19/17 08:04 09/19/17 08:04 09/19/17 08:04 09/19/17 08:04 09/19/17 08:04 Temperature -Last 24 Hours Temperature 98.6 F Temperature 99.9 F - Labs CBC & Chem 7: 09/18/17 05:31 09/18/17 05:31 Labs: Abnormal lab results 09/18/17 09/19/17 Range/Units 17:35 06:30 APTT 60.1 H* 67.8 H* (24.2-36.6) Sec.
[2017-09-20] MEDS: UNASYN/NS 3 GM/100 ML 3 GM/100 ML BAG IV SCH ×3 (05:33→19:38)
[2017-09-20] MEDS: ARGATROBAN 250 MG in NACL 0.9% 250ML 247.5 ML IV SCH (05:33)
[2017-09-20] MEDS: DILAUDID IV PRN ×4 (05:41→19:07)
[2017-09-20 05:48] LABS: Hematocrit 23.4 % (35.5-45.6); Hemoglobin 7.7 gm/dl (11.8-15.2)
[2017-09-20 06:26] LABS: Albumin 3.4 g/dL (3.9-5); BUN/Creatinine Ratio 18; Blood Urea Nitrogen 9 mg/dL (9-20); Calcium 8.4 mg/dL (8.4-10.2); Hemolysis Index 2
[2017-09-20 06:27] LABS: Alanine Aminotransferase < 5 units/L (7-56)
--- NOTE | 2017-09-20 09:23 | Hem/Onc Progress Note ---
Assessment and Plan Hemoglobin and platelets stable. continue supportive care f/u with aidee onc upon d/c for his prostate cancer. - Patient Problems (1) Prostate CA Current Visit: Yes Status: Acute (2) Anemia Current Visit: Yes Status: Acute Qualifiers: Anemia type: unspecified type Qualified Code(s): D64.9 - Anemia, unspecified (3) Thrombocytopenia Current Visit: Yes Status: Acute Subjective Date of service: 09/20/17 Interval history: Patient states he feels a little better. Sleepy today. No active bleeding. Wants to go home. Objective - Constitutional Vitals: Last Vital Signs Temp 98.8 F 09/20/17 08:03 Pulse 94 H 09/20/17 08:03 Resp 20 09/20/17 08:50 BP 121/79 09/20/17 08:03 Pulse Ox 98 09/20/17 08:50 Pain Intensity (0-10): denies any pain General appearance: no acute distress Performance status: 2- selfcare, ambulatory - Neck Neck: supple - Respiratory Respiratory effort: Positive: normal - Cardiovascular Rhythm: regular - Gastrointestinal General gastrointestinal: Present: soft - Labs Lab Results: Laboratory Results - last 24 hr 09/19/17 09/20/17 09/20/17 17:43 05:23 05:23 Hgb 7.7 L Hct 23.4 L Plt Count 98 L APTT 60.9 H* Sodium 134 L Potassium 3.4 L Chloride 97.3 L Carbon Dioxide 22 Anion Gap 18 BUN 9 Creatinine 0.5 L Estimated GFR > 60 BUN/Creatinine Ratio 18 Glucose 107 H Calcium 8.4 Total Bilirubin 0.40 AST 18 ALT < 5 L Alkaline Phosphatase 542 H Total Protein 5.7 L Albumin 3.4 L Albumin/Globulin Ratio 1.5 09/20/17 05:23 Hgb Hct Plt Count APTT 63.2 H* Sodium Potassium Chloride Carbon Dioxide Anion Gap BUN Creatinine Estimated GFR BUN/Creatinine Ratio Glucose Calcium Total Bilirubin AST ALT Alkaline Phosphatase Total Protein Albumin Albumin/Globulin Ratio
[2017-09-20] MEDS: HABITROL TD SCH (10:00)
[2017-09-20] MEDS: FLOMAX PO SCH (10:00)
[2017-09-20] MEDS: PEPCID PO SCH ×2 (10:00→21:41)
[2017-09-20] MEDS: FOLVITE PO SCH (10:00)
[2017-09-20] MEDS ORDERED: HEPARIN/NS 5000 UNIT/500ML(CATH LAB) 1,000 ML IR ONE (10:33)
[2017-09-20] MEDS ORDERED: NACL 0.9% 500 ML 500 ML ONE (10:33)
[2017-09-20] MEDS ORDERED: XYLOCAINE 2% INFILTRATI ONE (10:33)
[2017-09-20] MEDS ORDERED: ANCEF/STERILE WATER 2 GM/20 ML 0 GM/0 ML SYRINGE IV ONE (10:34)
[2017-09-20] MEDS: SUBLIMAZE ONE ×4 (10:48→12:01)
[2017-09-20] MEDS: VERSED ONE ×4 (10:48→12:01)
[2017-09-20] MEDS: HEPARIN 10,000 UNITS/10 ML ONE ×2 (11:17→12:00)
[2017-09-20] MEDS ORDERED: CATHFLO ONE ×2 (11:25→12:52)
--- NOTE | 2017-09-20 11:29 | Progress Note ---
Assessment and Plan Assessment: 1) Sepsis: Better. Etiology most likely gangrene of right toe? prostate cancer with metastasis? -CRP = 15.70 -blood cultures 09/11 ngtd -CTA showed bilateral common iliac arteries are dilated and measure 133 mm in diameter -Duplex doppler LE showed OCCLUDED RT.POP ARTERY AND RT.DPA WITH THROMBUS NOTED.MULTIPHASIC WAVEFORMS THROUGHOUT VESSELS INTERROGATED EXCEPT FOR MONOPHASIC WAVEFORMS OBTAINED IN THE RT.VIDEO GAME SCRIPT WRITER AND RT.BRISA.BLE ARTERIAL DUPLEX 2) Right great toe ulcer/gangrene. Possible osteomyelitis right great toe culture negative -BLE VEIN MAPPING PRELIMINARY REPORT showed LT.GSV APPEARS THROMBOSED FROM TAKE-OFF UP TO THE MEDIAL MALLEOLUS AND BOTH LSV'S APPEAR THROMBOSED TOO 3) Prostate CA with metastasis 4) BPH 5) Thrombocytopenia and anemia, stable Plan: -continue unasyn day 9 -Hem/onc following -vascular to do procedure tomorrow will see patient back on 09/[address] Saavedra for your consult, will follow up SARAH Figueroa for Dr. Hannah Ventura MD Infectious Diseases Specialist [facility] ([facility]) M [phone] O [phone] Subjective Date of service: 09/20/17 Principal diagnosis: right toe gangrene,prostate cnacer Interval history: I feel fine today, no fever Microbiology: Blood cultures: 09/11 ngtd Urine cultures: none Respiratory cultures: Current Antimicrobials: unasyn 09/12 vacomycin 09/11 Previous Antimicrobials: ceftriaxone Objective - Exam Narrative Exam: General appearance: Alert in NAD, conversant Eyes: anicteric sclerae, moist conjunctivae; no lid-lag; PERRLA HENT: Atraumatic; oropharynx clear with moist mucous membranes and no mucosal ulcerations/no oral thrush; Neck: Trachea midline; supple, no thyromegaly or lymphadenopathy Lungs: breath sounds diminished bilaterally, c/o chest pain CV: RRR, no murmurs Abdomen: Soft, non-tender; +BS x 4 Extremities: right great toe gangrene, right 2nd toe gangrene Skin: Normal temperature, warm and dry Psych: Appropriate affect, calm and cooperative Neuro: alert and oriented x 3. Moving all extermities Lines: No CVL / PICC - Constitutional Vitals: Vital Signs Temp Pulse Resp BP Pulse Ox 98.8 F 94 H 20 121/79 98 09/20/17 08:03 09/20/17 08:03 09/20/17 08:50 09/20/17 08:03 09/20/17 08:50 Temperature -Last 24 Hours Temperature 98.8 F Temperature 98.5 F Temperature 97.4 F - Labs CBC & Chem 7: 09/20/17 05:23 09/20/17 05:23 Labs: Abnormal lab results 09/19/17 09/20/17 09/20/17 Range/Units 17:43 05:23 05:23 Hgb 7.7 L (11.8-15.2) gm/dl Hct 23.4 L (35.5-45.6) % Plt Count 98 L (140-440) K/mm3 APTT 60.9 H* (24.2-36.6) Sec. Sodium 134 L (137-145) mmol/L Potassium 3.4 L (3.6-5.0) mmol/L Chloride 97.3 L (98-107) mmol/L Creatinine 0.5 L (0.8-1.5) mg/dL Glucose 107 H (75-100) mg/dL ALT < 5 L (7-56) units/L Alkaline Phosphatase 542 H (35-129) units/L Total Protein 5.7 L (6.3-8.2) g/dL Albumin 3.4 L (3.9-5) g/dL 09/20/17 Range/Units 05:23 Hgb (11.8-15.2) gm/dl Hct (35.5-45.6) % Plt Count (140-440) K/mm3 APTT 63.2 H* (24.2-36.6) Sec. Sodium (137-145) mmol/L Potassium (3.6-5.0) mmol/L Chloride (98-107) mmol/L Creatinine (0.8-1.5) mg/dL Glucose (75-100) mg/dL ALT (7-56) units/L Alkaline Phosphatase (35-129) units/L Total Protein (6.3-8.2) g/dL Albumin (3.9-5) g/dL
[2017-09-20] MEDS ORDERED: NACL 0.9% 1000 ML 1,000 ML ONE ×3 (11:45→16:05)
[2017-09-20] MEDS ORDERED: VITAMIN B-12 SUB-Q ONE (12:00)
[2017-09-20] MEDS ORDERED: DILAUDID ONE ×3 (12:09→19:05)
[2017-09-20] MEDS ORDERED: BENADRYL ONE (12:16)
[2017-09-20] MEDS ORDERED: VERSED ONE (12:20)
[2017-09-20] MEDS ORDERED: SUBLIMAZE ONE (12:21)
[2017-09-20] MEDS ORDERED: HEPARIN/ 0.45% NACL-25,000 UNIT/500 ML 25,000 UNIT/500 ML BAG ONE (13:14)
[2017-09-20] MEDS ORDERED: NACL 0.9% 1000 ML 1,000 ML EKOSCLUMEN SCH (14:00)
[2017-09-20] MEDS ORDERED: NACL 0.9% 1000 ML 1,000 ML IV SCH (14:00)
[2017-09-20] MEDS ORDERED: NACL 0.9% 1000 ML 1,000 ML SHEATH SCH (14:00)
[2017-09-20] MEDS ORDERED: CATHFLO 20 MG in NACL 0.9% 500 ML 500 ML EKOSDLUMEN SCH (14:00)
[2017-09-20 14:14] LABS: BUN/Creatinine Ratio 16; Blood Urea Nitrogen 8 mg/dL (9-20); Calcium 8.5 mg/dL (8.4-10.2); Hemolysis Index 1
[2017-09-20 14:20] LABS: Hematocrit 22.2 % (35.5-45.6); Hemoglobin 7.2 gm/dl (11.8-15.2); Mean Corpuscular HGB Conc 33 % (32-34); Mean Corpuscular Hemoglobin 30 pg (28-32); Mean Corpuscular Volume 91 fl (84-94); Red Blood Count 2.43 M/mm3 (3.65-5.03); Red Cell Distribution Width 17.3 % (13.2-15.2)
[2017-09-20 14:22] LABS: Platelet Count 93 K/mm3 (140-440)
[2017-09-20 14:27] LABS: INR 1.38 (0.87-1.13)
[2017-09-20 14:39] LABS: Partial Thromboplastin Time 130.6 Sec. (24.2-36.6)
--- NOTE | 2017-09-20 15:01 | Operative Report ---
Operative Report Operative Report: Procedure: 1. Ultrasound-guided access of the right common femoral artery in an antegrade direction 2. Right common and superficial femoral arteriography. 3. Right popliteal arteriography 4. Selective arteriography of the right peroneal artery 5. Selective arteriography of the right posterior tibial artery 6. Pharmacologic thrombectomy of the right popliteal artery 7. Suction thrombectomy of the right popliteal artery 8. Orbital atherectomy of the popliteal artery with a Jetstream orbital atherectomy device 9. Placement of an Ekos catheter and the popliteal and right posterior tibial arteries. Date of Procedure: 09/20/2017 History/Indication: 66-year-old male with distal right lower extremity gangrene and an occluded popliteal artery Physician: Toribio Stark MD Technique/Procedural Details: The patient was placed in the supine position and prepped and draped in the usual sterile fashion. A timeout was performed. Local anesthetic was administered. Under continuous ultrasound guidance, a 21-gauge needle was advanced in an antegrade fashion into the right common femoral artery. Via a micropuncture technique, the needle was exchanged for a 5 [place] vascular sheath. Arteriography of the common and superficial femoral arteries was performed. A 4 [place] vertebral catheter and a V18 wire were used to traverse the popliteal artery occlusion and carefully maneuver into the patent portion of the right peroneal artery. A Touhy adapter was placed on the vertebral catheter , and 12 mg of TPA was infused throughout the occluded portion of the right popliteal artery and tibial peroneal trunk. This was allowed to dwell for approximately 10 minutes. A 45 cm, 7 [place] destination sheath was advanced to the distal superficial femoral artery. Thereafter, a 6 [place] guide catheter was introduced, and vigorous suction thrombectomy was performed. Repeat arteriography was then performed. The V18 wire was removed via the 4 [place]ese vertebral catheter, and a spider wire embolic protection device was placed at the expected level of the tibioperoneal trunk. From this position orbital/suction atherectomy with a JetStream 2.1/3.0 from the occluded portion of the popliteal artery to the distal tibial peroneal trunk. After re-imaging, the best course of action was thought to be placement of an Ekos lytic catheter. This catheter was placed through the 7 [place] sheath, spanning the distal superficial femoral artery to the mid posterior tibial artery. The appropriate amounts of TPA and heparin were infused into the catheters. The catheters were secured to the skin with 2-0 Ethibond suture and Steri-Strips. Pressure dressings were applied to both groins due to common femoral access one week ago. Discussion: As seen previously, there is complete occlusion of the popliteal artery on the right. The anterior tibial artery is occluded approximately at its midpoint. The peroneal artery and posterior tibial artery are reconstituted via collateral vessels. The peroneal artery provides an anterior communicating branch to the dorsalis pedis. Despite mechanical and suction thrombectomy and orbital atherectomy, there was not a significant difference in appearance of the popliteal/tibioperoneal trunk occlusion. As such the decision was made to place a lytic catheter and reimage the patient tomorrow. Specimen: None EBL: <5 cc
[2017-09-20 15:22] LABS: Basophils % (Manual) 0 % (0.0-1.8); Myelocytes # (Manual) 0.2 K/mm3; Total Cells Counted 100
[2017-09-20 15:24] LABS: Anisocytosis 1+; Platelet Estimate Appears Decreased; Poikilocytosis Few; Tear Drop Cells Few
--- NOTE | 2017-09-20 16:35 | Progress Note ---
Assessment and Plan Assessment and plan: 66-year-old -German male with pmh of Prostate Cancer LBP and BPH presents to the emergency department with complaint of swelling to the right foot for the past week. The patient is noted to have a blackened and necrotic appearing right great toe. Dry eschar on Rt great Toe.No drainage. He says that it is been like this for the past couple weeks. He says he has been talking about seeing a physician regarding these symptoms but has not yet done so. He has a past medical history of prostate cancer and some chronic back pains. He has not taken anything for his symptoms prior presentation. Osteomyelitis of toe of right foot Continue IV abx for now-Unasyn w/u to r/o PAD Duplex doppler LE showed OCCLUDED RT.POP ARTERY AND RT.DPA WITH THROMBUS NOTED. 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 Hem onc input noted Thrombocytopenia- Monitor for any bleeding and transfuse if plt below 20,000 per Hematology recommendation Anemia-Monitor. likely secondary to to prostate cancer. s/p Transfusion 2 units of packed red blood cells on 09/11. monitor BPH (benign prostatic hyperplasia) Continue Tamsulosin. Chronic pain due to neoplasm continue his home medications. PAD (peripheral artery disease) Strong possibility in view of his smoking. Occluded R POP artery vascular following Nicotine dependence Pt counselled on cessation Nicoderm patch ordered DVT/GI prophy History Interval history: Patient seen and examined in no acute distress. PATIENT HAD THROMBECTOMY ATTEMPT TODAY Hospitalist Physical - Physical exam Narrative exam: - EENT Eyes: Present: PERRL, EOM intact ENT: hearing intact, clear oral mucosa - Neck Neck: Present: supple, normal ROM - Respiratory Respiratory effort: normal Respiratory: bilateral: diminished - Cardiovascular Rhythm: regular Heart Sounds: Present: S1 & S2 - Extremities Extremity abnormal: other (right great toe gangrene, right 2nd toe gangrene) - Abdominal General gastrointestinal: soft, non-tender, non-distended, normal bowel sounds - Integumentary Integumentary: Present: clear, warm, edema right - Psychiatric Psychiatric: appropriate mood/affect, cooperative - Neurologic Neurologic: CNII-XII intact, moves all extremities, although limited in lower ext - Constitutional Vitals: Temp Pulse Resp BP Pulse Ox 97.6 F 96 H 14 119/73 99 09/20/17 14:15 09/20/17 16:00 09/20/17 16:00 09/20/17 16:00 09/20/17 16:00 General appearance: Present: no acute distress, well-nourished Results - Labs CBC & Chem 7: 09/21/17 06:49 09/21/17 03:59 Labs: Laboratory Last Values WBC 5.0 K/mm3 (4.5-11.0) 09/20/17 13:40 RBC 2.43 M/mm3 (3.65-5.03) L 09/20/17 13:40 Hgb 7.2 gm/dl (11.8-15.2) L 09/20/17 13:40 Hct 22.2 % (35.5-45.6) L 09/20/17 13:40 MCV 91 fl (84-94) 09/20/17 13:40 MCH 30 pg (28-32) 09/20/17 13:40 MCHC 33 % (32-34) 09/20/17 13:40 RDW 17.3 % (13.2-15.2) H 09/20/17 13:40 Plt Count 93 K/mm3 (140-440) L 09/20/17 13:40 Lymph % (Auto) 22.4 % (13.4-35.0) 09/18/17 05:31 Wheeler % (Auto) 7.7 % (0.0-7.3) H 09/18/17 05:31 Eos % (Auto) 1.4 % (0.0-4.3) 09/18/17 05:31 Baso % (Auto) 0.8 % (0.0-1.8) 09/18/17 05:31 Lymph # 0.9 K/mm3 (1.2-5.4) L 09/18/17 05:31 Wheeler # 0.3 K/mm3 (0.0-0.8) 09/18/17 05:31 Eos # 0.1 K/mm3 (0.0-0.4) 09/18/17 05:31 Baso # 0.0 K/mm3 (0.0-0.1) 09/18/17 05:31 Add Manual Diff Complete 09/20/17 13:40 Total Counted 100 09/20/17 13:40 Seg Neutrophils % 67.7 % (40.0-70.0) 09/18/17 05:31 Seg Neuts % (Manual) 67.0 % (40.0-70.0) 09/20/17 13:40 Band Neutrophils % 0 % 09/20/17 13:40 Lymphocytes % (Manual) 23.0 % (13.4-35.0) 09/20/17 13:40 Reactive Lymphs % (Man) 0 % 09/20/17 13:40 Monocytes % (Manual) 4.0 % (0.0-7.3) 09/20/17 13:40 Eosinophils % (Manual) 2.0 % (0.0-4.3) 09/20/17 13:40 Basophils % (Manual) 0 % (0.0-1.8) 09/20/17 13:40 Metamyelocytes % 1.0 % 09/20/17 13:40 Myelocytes % 3.0 % 09/20/17 13:40 Promyelocytes % 0 % 09/20/17 13:40 Blast Cells % 0 % 09/20/17 13:40 Nucleated RBC % 2.0 % (0.0-0.9) H 09/20/17 13:40 Seg Neutrophils # 2.8 K/mm3 (1.8-7.7) 09/18/17 05:31 Seg Neutrophils # Man 3.4 K/mm3 (1.8-7.7) 09/20/17 13:40 Band Neutrophils # 0.0 K/mm3 09/20/17 13:40 Lymphocytes # (Manual) 1.2 K/mm3 (1.2-5.4) 09/20/17 13:40 Abs React Lymphs (Man) 0.0 K/mm3 09/20/17 13:40 Monocytes # (Manual) 0.2 K/mm3 (0.0-0.8) 09/20/17 13:40 Eosinophils # (Manual) 0.1 K/mm3 (0.0-0.4) 09/20/17 13:40 Basophils # (Manual) 0.0 K/mm3 (0.0-0.1) 09/20/17 13:40 Metamyelocytes # 0.1 K/mm3 09/20/17 13:40 Myelocytes # 0.2 K/mm3 09/20/17 13:40 Promyelocytes # 0.0 K/mm3 09/20/17 13:40 Blast Cells # 0.0 K/mm3 09/20/17 13:40 Pathologist Review Not Reportable 09/11/17 09:29 WBC Morphology Not Reportable 09/20/17 13:40 Hypersegmented Neuts Not Reportable 09/20/17 13:40 Hyposegmented Neuts Not Reportable 09/20/17 13:40 Hypogranular Neuts Not Reportable 09/20/17 13:40 Smudge Cells Not Reportable 09/20/17 13:40 Toxic Granulation Not Reportable 09/20/17 13:40 Toxic Vacuolation Not Reportable 09/20/17 13:40 Dohle Bodies Not Reportable 09/20/17 13:40 Pelger-Huet Anomaly Not Reportable 09/20/17 13:40 Jose Rods Not Reportable 09/20/17 13:40 Platelet Estimate Appears decreased 09/20/17 13:40 Clumped Platelets Not Reportable 09/20/17 13:40 Plt Clumps, EDTA Not Reportable 09/20/17 13:40 Large Platelets Not Reportable 09/20/17 13:40 Giant Platelets Not Reportable 09/20/17 13:40 Platelet Satelliting Not Reportable 09/20/17 13:40 Plt Morphology Comment Not Reportable 09/20/17 13:40 RBC Morphology Not Reportable 09/20/17 13:40 Dimorphic RBCs Not Reportable 09/20/17 13:40 Polychromasia Not Reportable 09/20/17 13:40 Hypochromasia Not Reportable 09/20/17 13:40 Poikilocytosis Few 09/20/17 13:40 Anisocytosis 1+ 09/20/17 13:40 Microcytosis Not Reportable 09/20/17 13:40 Macrocytosis Not Reportable 09/20/17 13:40 Spherocytes Not Reportable 09/20/17 13:40 Pappenheimer Bodies Not Reportable 09/20/17 13:40 Sickle Cells Not Reportable 09/20/17 13:40 Target Cells Not Reportable 09/20/17 13:40 Tear Drop Cells Few 09/20/17 13:40 Ovalocytes Not Reportable 09/20/17 13:40 Helmet Cells Not Reportable 09/20/17 13:40 Li-[place] Bodies Not Reportable 09/20/17 13:40 [place] Rings Not Reportable 09/20/17 13:40 Jenae Cells Not Reportable 09/20/17 13:40 Bite Cells Not Reportable 09/20/17 13:40 Crenated Cell Not Reportable 09/20/17 13:40 Elliptocytes Few 09/20/17 13:40 Acanthocytes (Spur) Not Reportable 09/20/17 13:40 Rouleaux Not Reportable 09/20/17 13:40 Hemoglobin C Crystals Not Reportable 09/20/17 13:40 Schistocytes Not Reportable 09/20/17 13:40 Malaria parasites Not Reportable 09/20/17 13:40 Percent Retic 3.68 % (0.78-2.58) H 09/14/17 10:46 Collins Bodies Not Reportable 09/20/17 13:40 Hem Pathologist Commnt No 09/20/17 13:40 PT 17.7 Sec. (12.2-14.9) H 09/20/17 13:40 INR 1.38 (0.87-1.13) H 09/20/17 13:40 APTT 130.6 Sec. (24.2-36.6) H* 09/20/17 13:40 Fibrinogen 969 mg/dl (211-480) H 09/20/17 13:40 Heparin Anti-Xa Level 0.10 U.I./ml (0.3-0.7) L 09/13/17 23:25 Heparin Anti-Xa, Unfract Negative (Negative) 09/14/17 08:46 Sodium 134 mmol/L (137-145) L 09/20/17 13:40 Potassium 3.6 mmol/L (3.6-5.0) 09/20/17 13:40 Chloride 98.2 mmol/L (98-107) 09/20/17 13:40 Carbon Dioxide 25 mmol/L (22-30) 09/20/17 13:40 Anion Gap 14 mmol/L 09/20/17 13:40 BUN 8 mg/dL (9-20) L 09/20/17 13:40 Creatinine 0.5 mg/dL (0.8-1.5) L 09/20/17 13:40 Estimated GFR > 60 ml/min 09/20/17 13:40 BUN/Creatinine Ratio 16 % 09/20/17 13:40 Glucose 99 mg/dL (75-100) 09/20/17 13:40 POC Glucose 102 (70-105) 09/14/17 06:43 Hemoglobin A1c 5.4 % (4-6) 09/12/17 08:32 Lactic Acid 1.50 mmol/L (0.7-2.0) 09/11/17 09:29 Calcium 8.5 mg/dL (8.4-10.2) 09/20/17 13:40 Iron 48 ug/dL (49-181) L 09/11/17 23:47 TIBC 233 mcg/dL (250-450) L 09/11/17 23:47 % Saturation 20.60 % 09/11/17 23:47 Transferrin 194 mg/dl (180-329) 09/11/17 23:47 Ferritin 1023.0 ng/mL (13.0-400.0) H 09/14/17 10:46 Total Bilirubin 0.40 mg/dL (0.1-1.2) 09/20/17 05:23 AST 18 units/L (5-40) 09/20/17 05:23 ALT < 5 units/L (7-56) L 09/20/17 05:23 Alkaline Phosphatase 542 units/L (35-129) H 09/20/17 05:23 Total Creatine Kinase 136 units/L (55-170) 09/11/17 09:29 Troponin T < 0.010 ng/mL (0.00-0.029) 09/15/17 23:15 C-Reactive Protein 15.70 mg/dL (0.00-1.30) H 09/13/17 09:29 Total Protein 5.7 g/dL (6.3-8.2) L 09/20/17 05:23 Albumin 3.4 g/dL (3.9-5) L 09/20/17 05:23 Albumin/Globulin Ratio 1.5 % 09/20/17 05:23 Prostate Specific Ag 1721.00 ng/mL (0.00-4.00) H 09/14/17 10:46 Serotonin Release Assay See scanned report 09/14/17 08:46 Vitamin B12 206.4 pg/mL (211-911) L 09/14/17 10:46 Folate 19.92 ng/mL (7.3-26.0) 09/14/17 10:46 Vancomycin Trough 12.8 ug/mL (5.0-20.0) 09/16/17 09:25 Heparin-induced Plt Ab Negative (Negative) 09/14/17 08:46 UF Heparin High Dose 0 % Release 09/14/17 08:46 ELENA UFH Low Dose 0.1 0 % Release 09/14/17 08:46 ELENA UFH Low Dose 0.5 0 % Release 09/14/17 08:46 Hep Bs Antigen Non-reactive (Negative) 09/14/17 10:46 Hepatitis C Antibody Non-reactive (NonReactive) 09/14/17 10:46 Blood Type B POSITIVE 09/11/17 10:13 Antibody Screen Negative 09/11/17 10:13 Crossmatch See Detail 09/11/17 10:13
--- NOTE | 2017-09-20 17:35 | Event Note ---
Date: 09/20/17 Checked both groins at 5:35 pm - soft with no evidence of hematoma.
[2017-09-20] MEDS ORDERED: HEPARIN/ 0.45% NACL-25,000 UNIT/500 ML 25,000 UNIT/500 ML BAG SHEATH SCH (18:00)
--- NOTE | 2017-09-20 18:54 | Consultation ---
History of Present Illness Consult date: 09/20/17 Requesting physician: GERBER GAN Reason for consult: other (66-year-old male with distal right lower extremity gangrene and an occluded popliteal artery s/p EKOS for ICU admission) History of present illness: 66-year-old -[place] male with pmh of Prostate Cancer LBP and BPH presents to the emergency department with complaint of swelling to the right foot for the past week. The patient is noted to have a blackened and necrotic appearing right great toe. Dry eschar on Rt great Toe.No drainage. He says that it is been like this for the past couple weeks. He says he has been talking about seeing a physician regarding these symptoms but has not yet done so. He has a past medical history of prostate cancer and some chronic back pains. He had gangrene of the right great toe and had arterial doppler done. Was taken to cathlab and had vascular interventions-- s/p -Pharmacologic thrombectomy of the right popliteal artery - Suction thrombectomy of the right popliteal artery -Orbital atherectomy of the popliteal artery with a [employer] orbital atherectomy device - Placement of an Ekos catheter and the popliteal and right posterior tibial arteries. He is being admitted to the ICU for monitoring. I have been consulted to facilitate the admission and the care Past History Past Medical History: cancer (prostate cancer) Social history: smoking, alcohol abuse, other (marijuana and cocaine) Medications and Allergies Allergies Allergy/AdvReac Type Severity Reaction Status Date / Time No Known Allergies Allergy Unverified 09/11/17 08:29 Home Medications Medication Instructions Recorded Confirmed Last Taken Type Colace CAP 100 mg PO BID 09/14/17 09/14/17 Unknown History Enoxaparin Sodium 60 mg IM Q12H 09/14/17 09/14/17 09/10/17 History Flomax 0.4 mg PO DAILY 09/14/17 09/14/17 Unknown History Folic Acid [Folvite] 1 mg PO DAILY 09/14/17 09/14/17 Unknown History Gabapentin [Neurontin] 300 mg PO Q8H 09/14/17 09/14/17 09/10/17 History Miralax 3350 17 gm PO DAILY 09/14/17 09/14/17 Unknown History Oxycodone HCl 30 mg PO Q6H PRN 09/14/17 09/14/17 Unknown History Senna 8.6 mg PO QHS 09/14/17 09/14/17 Unknown History Thiamine [Vitamin B-1] 100 mg PO QDAY 09/14/17 09/14/17 Unknown History Active Meds: Active Medications Acetaminophen (Tylenol) 650 mg PO Q4H PRN PRN Reason: Pain MILD(1-3)/Fever >100.5/GARCIA Acetaminophen/Hydrocodone Bitart ([place] 5/325) 2 each PO Q6H PRN PRN Reason: Pain, Moderate (4-6) Bisacodyl (Dulcolax) 10 mg ID QDAY PRN PRN Reason: Constipation unrelieved by MOM Famotidine (Pepcid) 20 mg PO BID [facility] Last Admin: 09/20/17 10:00 Dose: Not Given Folic Acid (Folvite) 1 mg PO QDAY [facility] Last Admin: 09/20/17 10:00 Dose: Not Given Hydromorphone HCl (Dilaudid) 1 mg IV Q3H PRN PRN Reason: Pain , Severe (7-10) Last Admin: 09/20/17 15:08 Dose: 1 mg Ampicillin Sodium/Sulbactam Sodium (Unasyn/Ns 3 Gm/100 Ml) 3 gm in 100 mls @ 100 mls/hr IV Q6HR PIERCE PRN Reason: Protocol Last Admin: 09/20/17 12:00 Dose: Not Given Alteplase, Recombinant 20 mg/ (Sodium Chloride) 500 mls @ 25 mls/hr EKOSDLUMEN DIRECT PIERCE Last Admin: 09/20/17 14:00 Dose: 25 mls/hr Sodium Chloride (Nacl 0.9% 1000 Ml) 1,000 mls @ 30 mls/hr SHEATH DIRECT PIERCE Sodium Chloride (Nacl 0.9% 1000 Ml) 1,000 mls @ 35 mls/hr EKOSCLUMEN DIRECT PIERCE Last Admin: 09/20/17 14:00 Dose: 35 mls/hr Sodium Chloride (Nacl 0.9% 1000 Ml) 1,000 mls @ 30 mls/hr IV DIRECT PIERCE Last Admin: 09/20/17 16:15 Dose: 30 mls/hr Heparin Sodium/Sodium Chloride (Heparin/ 0.45% Nacl-25,000 Unit/500 Ml) 25,000 unit in 500 mls @ 10 mls/hr SHEATH DIRECT PIERCE; 500 UNITS/HR PRN Reason: Protocol Magnesium Hydroxide (Milk Of Magnesia) 30 ml PO Q4H PRN PRN Reason: Constipation Nicotine (Habitrol) 21 mg TD QDAY [facility] Last Admin: 09/20/17 10:00 Dose: Not Given Ondansetron HCl (Zofran) 4 mg IV Q8H PRN PRN Reason: N/V unrelieved by Reglan Oxycodone/Acetaminophen (Percocet 5/325) 1 tab PO Q6H PRN PRN Reason: Pain, Moderate (4-6) Last Admin: 09/19/17 00:06 Dose: 1 tab Tamsulosin HCl (Flomax) 0.4 mg PO QDAY [facility] Last Admin: 09/20/17 10:00 Dose: Not Given Zolpidem Tartrate (Ambien) 5 mg PO QHS PRN PRN Reason: Insomnia Last Admin: 09/19/17 00:06 Dose: 5 mg Review of Systems Constitutional: chronic pain Ears, nose, mouth and throat: deferred Cardiovascular: no chest pain, no orthopnea, no palpitations, no rapid/ irregular heart beat, no edema, no lightheadedness Respiratory: no cough, no hemoptysis, no shortness of breath, no dyspnea on exertion, no wheezing, no pain on inspiration Gastrointestinal: no abdominal pain, no vomiting, no diarrhea, no constipation, no melena, no heartburn, no dyspepsia/bloating, no lactose intolerance Genitourinary Male: no dysuria, no flank pain, no discharge, no urinary frequency, no urinary hesitancy Rectal: no pain, no incontinence Musculoskeletal: no neck stiffness, no shooting arm pain, no low back pain Integumentary: no rash Neurological: no head injury, no paralysis, no weakness, no parathesias, no convulsions, no aphasia, no double vision, no loss of vision Psychiatric: no hallucinations Endocrine: no cold intolerance, no heat intolerance, no excessive thirst Allergic/Immunologic: anaphylaxis, no urticaria, no allergic rhinitis, no wheezing Physical Examination Vital signs: Vital Signs Temp Pulse Resp BP Pulse Ox 98.4 F 74 16 110/58 100 09/11/17 08:17 09/11/17 08:17 09/11/17 08:17 09/11/17 08:17 09/11/17 08:17 General appearance: Alert in NAD, conversant, chronically ill looking Eyes: anicteric sclerae, moist conjunctivae; no lid-lag; PERRLA HENT: Atraumatic; oropharynx clear with moist mucous membranes and no mucosal ulcerations/no oral thrush; normal hard and soft palate. Normal external ears. Neck: Trachea midline; supple, no thyromegaly or lymphadenopathy Lungs: breath sounds diminished bilaterally CV: RRR, no murmurs, no Abdomen: Soft, non-tender; +BS x 4 Extremities: right great toe gangrene, right 2nd toe gangrene, dorsalis pedis pulse on the right via doppler EKOS in place Skin: Normal temperature, warm dry and intact Psych: Appropriate affect, calm and cooperative Neuro: alert and oriented x 3. Moving all extermities Lines: No CVL / PICC Results - Laboratory Findings CBC and BMP: 09/21/17 06:49 09/21/17 03:59 PT/INR, D-dimer PT 17.7 Sec. (12.2-14.9) H 09/20/17 13:40 INR 1.38 (0.87-1.13) H 09/20/17 13:40 Abnormal lab findings: Abnormal Labs 09/11/17 09/11/17 09/11/17 09:29 09:29 10:13 WBC RBC 2.23 L Hgb 6.7 L Hct 21.3 L MCV 96 H MCHC RDW 20.2 H Plt Count 83 L [place] % (Auto) Lymph # Seg Neuts % (Manual) Lymphocytes % (Manual) 44.0 H Nucleated RBC % 34.0 H Lymphocytes # (Manual) Percent Retic PT INR APTT Fibrinogen Heparin Anti-Xa Level Sodium Potassium Chloride Carbon Dioxide BUN Creatinine 0.7 L Glucose Iron TIBC Ferritin ALT Alkaline Phosphatase C-Reactive Protein Total Protein Albumin Prostate Specific Ag Vitamin B12 Crossmatch See Detail 09/11/17 09/12/17 09/12/17 23:47 08:32 08:32 WBC RBC 3.42 L Hgb 10.0 L D Hct 32.1 L D MCV MCHC 31 L RDW 18.7 H Plt Count 65 L [place] % (Auto) Lymph # Seg Neuts % (Manual) Lymphocytes % (Manual) Nucleated RBC % 4.0 H Lymphocytes # (Manual) Percent Retic PT INR APTT Fibrinogen Heparin Anti-Xa Level Sodium Potassium Chloride Carbon Dioxide BUN Creatinine 0.6 L Glucose Iron 48 L TIBC 233 L Ferritin ALT Alkaline Phosphatase 684 H C-Reactive Protein Total Protein Albumin Prostate Specific Ag Vitamin B12 Crossmatch 09/12/17 09/13/17 09/13/17 18:07 06:18 09:29 WBC RBC Hgb 9.7 L Hct 30.0 L MCV MCHC RDW Plt Count 62 L [place] % (Auto) Lymph # Seg Neuts % (Manual) Lymphocytes % (Manual) Nucleated RBC % Lymphocytes # (Manual) Percent Retic PT INR APTT Fibrinogen Heparin Anti-Xa Level < 0.10 L Sodium Potassium Chloride Carbon Dioxide BUN Creatinine Glucose Iron TIBC Ferritin ALT Alkaline Phosphatase C-Reactive Protein 15.70 H Total Protein Albumin Prostate Specific Ag Vitamin B12 Crossmatch 09/13/17 09/13/17 09/13/17 09:29 11:41 23:25 WBC RBC 3.40 L Hgb 10.1 L Hct 31.6 L MCV MCHC RDW 18.5 H Plt Count 55 L [place] % (Auto) Lymph # Seg Neuts % (Manual) Lymphocytes % (Manual) Nucleated RBC % Lymphocytes # (Manual) Percent Retic PT INR APTT 81.5 H* Fibrinogen Heparin Anti-Xa Level 0.10 L Sodium 133 L Potassium Chloride 97.0 L Carbon Dioxide BUN Creatinine 0.6 L Glucose 103 H Iron TIBC Ferritin ALT Alkaline Phosphatase C-Reactive Protein Total Protein Albumin Prostate Specific Ag Vitamin B12 Crossmatch 09/14/17 09/14/17 09/14/17 05:24 05:24 10:46 WBC RBC 3.20 L Hgb 9.8 L Hct 29.2 L MCV MCHC RDW 17.6 H Plt Count 61 L [place] % (Auto) Lymph # Seg Neuts % (Manual) 80.0 H Lymphocytes % (Manual) Nucleated RBC % 1.0 H Lymphocytes # (Manual) 0.6 L Percent Retic PT INR APTT 58.5 H 56.0 H Fibrinogen Heparin Anti-Xa Level Sodium Potassium Chloride Carbon Dioxide BUN Creatinine Glucose Iron TIBC Ferritin ALT Alkaline Phosphatase C-Reactive Protein Total Protein Albumin Prostate Specific Ag Vitamin B12 Crossmatch 09/14/17 09/14/17 09/14/17 10:46 10:46 10:46 WBC RBC Hgb Hct MCV MCHC RDW Plt Count [place] % (Auto) Lymph # Seg Neuts % (Manual) Lymphocytes % (Manual) Nucleated RBC % Lymphocytes # (Manual) Percent Retic 3.68 H PT INR APTT Fibrinogen Heparin Anti-Xa Level Sodium Potassium Chloride Carbon Dioxide BUN Creatinine Glucose Iron TIBC Ferritin 1023.0 H ALT Alkaline Phosphatase C-Reactive Protein Total Protein Albumin Prostate Specific Ag 1721.00 H Vitamin B12 Crossmatch 09/14/17 09/14/17 09/15/17 10:46 23:04 02:53 WBC RBC 2.97 L Hgb 8.9 L Hct 27.3 L MCV MCHC RDW 17.6 H Plt Count 50 L [place] % (Auto) Lymph # Seg Neuts % (Manual) 71.0 H Lymphocytes % (Manual) 12.0 L Nucleated RBC % 2.0 H Lymphocytes # (Manual) 0.6 L Percent Retic PT INR APTT 89.4 H* Fibrinogen Heparin Anti-Xa Level Sodium Potassium Chloride Carbon Dioxide BUN Creatinine Glucose Iron TIBC Ferritin ALT Alkaline Phosphatase C-Reactive Protein Total Protein Albumin Prostate Specific Ag Vitamin B12 206.4 L Crossmatch 09/15/17 09/15/17 09/15/17 02:53 05:22 11:33 WBC RBC Hgb Hct MCV MCHC RDW Plt Count [place] % (Auto) Lymph # Seg Neuts % (Manual) Lymphocytes % (Manual) Nucleated RBC % Lymphocytes # (Manual) Percent Retic PT INR APTT 87.0 H* 80.0 H* Fibrinogen Heparin Anti-Xa Level Sodium 132 L Potassium Chloride 95.2 L Carbon Dioxide 20 L BUN Creatinine 0.6 L Glucose 102 H Iron TIBC Ferritin ALT Alkaline Phosphatase C-Reactive Protein Total Protein Albumin Prostate Specific Ag Vitamin B12 Crossmatch 09/15/17 09/16/17 09/16/17 23:15 07:11 07:12 WBC 4.0 L RBC 2.97 L Hgb 8.9 L Hct 27.1 L MCV MCHC RDW 17.4 H Plt Count 53 L [place] % (Auto) Lymph # Seg Neuts % (Manual) Lymphocytes % (Manual) Nucleated RBC % Lymphocytes # (Manual) 1.0 L Percent Retic PT INR APTT 101.0 H* 48.7 H Fibrinogen Heparin Anti-Xa Level Sodium Potassium Chloride Carbon Dioxide BUN Creatinine Glucose Iron TIBC Ferritin ALT Alkaline Phosphatase C-Reactive Protein Total Protein Albumin Prostate Specific Ag Vitamin B12 Crossmatch 09/16/17 09/17/17 09/17/17 13:07 04:23 17:23 WBC RBC Hgb Hct MCV MCHC RDW Plt Count [place] % (Auto) Lymph # Seg Neuts % (Manual) Lymphocytes % (Manual) Nucleated RBC % Lymphocytes # (Manual) Percent Retic PT INR APTT 61.7 H* 60.3 H* 57.9 H Fibrinogen Heparin Anti-Xa Level Sodium Potassium Chloride Carbon Dioxide BUN Creatinine Glucose Iron TIBC Ferritin ALT Alkaline Phosphatase C-Reactive Protein Total Protein Albumin Prostate Specific Ag Vitamin B12 Crossmatch 09/18/17 09/18/17 09/18/17 05:31 05:31 05:31 WBC 4.2 L RBC 2.66 L Hgb 7.9 L Hct 23.9 L MCV MCHC RDW 17.3 H Plt Count 75 L [place] % (Auto) 7.7 H Lymph # 0.9 L Seg Neuts % (Manual) Lymphocytes % (Manual) Nucleated RBC % Lymphocytes # (Manual) Percent Retic PT INR APTT 61.5 H* Fibrinogen Heparin Anti-Xa Level Sodium 132 L Potassium 3.1 L Chloride 94.4 L Carbon Dioxide BUN 8 L Creatinine 0.5 L Glucose 127 H Iron TIBC Ferritin ALT Alkaline Phosphatase C-Reactive Protein Total Protein Albumin Prostate Specific Ag Vitamin B12 Crossmatch 09/18/17 09/19/17 09/19/17 17:35 06:30 17:43 WBC RBC Hgb Hct MCV MCHC RDW Plt Count [place] % (Auto) Lymph # Seg Neuts % (Manual) Lymphocytes % (Manual) Nucleated RBC % Lymphocytes # (Manual) Percent Retic PT INR APTT 60.1 H* 67.8 H* 60.9 H* Fibrinogen Heparin Anti-Xa Level Sodium Potassium Chloride Carbon Dioxide BUN Creatinine Glucose Iron TIBC Ferritin ALT Alkaline Phosphatase C-Reactive Protein Total Protein Albumin Prostate Specific Ag Vitamin B12 Crossmatch 09/20/17 09/20/17 09/20/17 05:23 05:23 05:23 WBC RBC Hgb 7.7 L Hct 23.4 L MCV MCHC RDW Plt Count 98 L [place] % (Auto) Lymph # Seg Neuts % (Manual) Lymphocytes % (Manual) Nucleated RBC % Lymphocytes # (Manual) Percent Retic PT INR APTT 63.2 H* Fibrinogen Heparin Anti-Xa Level Sodium 134 L Potassium 3.4 L Chloride 97.3 L Carbon Dioxide BUN Creatinine 0.5 L Glucose 107 H Iron TIBC Ferritin ALT < 5 L Alkaline Phosphatase 542 H C-Reactive Protein Total Protein 5.7 L Albumin 3.4 L Prostate Specific Ag Vitamin B12 Crossmatch 09/20/17 09/20/17 09/20/17 13:40 13:40 13:40 WBC RBC 2.43 L Hgb 7.2 L Hct 22.2 L MCV MCHC RDW 17.3 H Plt Count 93 L [place] % (Auto) Lymph # Seg Neuts % (Manual) Lymphocytes % (Manual) Nucleated RBC % 2.0 H Lymphocytes # (Manual) Percent Retic PT 17.7 H INR 1.38 H APTT 130.6 H* Fibrinogen 969 H Heparin Anti-Xa Level Sodium 134 L Potassium Chloride Carbon Dioxide BUN 8 L Creatinine 0.5 L Glucose Iron TIBC Ferritin ALT Alkaline Phosphatase C-Reactive Protein Total Protein Albumin Prostate Specific Ag Vitamin B12 Crossmatch Assessment and Plan Sepsis Osteomyelitis of toe of right foot PAD s/p -Pharmacologic thrombectomy of the right popliteal artery - Suction thrombectomy of the right popliteal artery -Orbital atherectomy of the popliteal artery with a [employer] orbital atherectomy device - Placement of an Ekos catheter and the popliteal and right posterior tibial arteries. Patient will be scheduled for revascularization of his right Popliteal artery per Vascular. HIT, Suspected Thrombocytopenia- Monitor for any bleeding and transfuse if plt below 20,000 per Hematology recommendation Anemia-Monitor BPH (benign prostatic hyperplasia) Chronic pain due to neoplasm Prostate cancer with metastatic disease Nicotine dependence with tobacco abuse disorder - Continue with antibiotics -Pain management -Follow up on HIT antibodies -Transfuse for HgB<7g/dl, as needed -Supportive care
[2017-09-20 19:18] LABS: Basophils % (Auto) 0.7 % (0.0-1.8); Eosinophils # (Auto) 0.1 K/mm3 (0.0-0.4); Eosinophils % (Auto) 1.9 % (0.0-4.3); Hematocrit 20.9 % (35.5-45.6); Hemoglobin 6.9 gm/dl (11.8-15.2); Lymphocytes # (Auto) 1.2 K/mm3 (1.2-5.4); Lymphocytes % (Auto) 25.9 % (13.4-35.0); Mean Corpuscular HGB Conc 33 % (32-34); Mean Corpuscular Hemoglobin 30 pg (28-32); Mean Corpuscular Volume 90 fl (84-94); Monocytes # (Auto) 0.3 K/mm3 (0.0-0.8); Monocytes % (Auto) 7.1 % (0.0-7.3); Red Blood Count 2.33 M/mm3 (3.65-5.03)
[2017-09-20 19:23] LABS: Platelet Count 92 K/mm3 (140-440)
[2017-09-20 19:29] LABS: Partial Thromboplastin Time 37.1 Sec. (24.2-36.6)
[2017-09-20 19:33] LABS: Heparin anti-factor XA < 0.10 U.I./ml (0.3-0.7)
[2017-09-20 19:34] LABS: Fibrinogen 907 mg/dl (211-480)
[2017-09-20] MEDS: NORCO 5/325 PO PRN (21:40)
[2017-09-21] MEDS: AMBIEN PO PRN (00:27)
[2017-09-21] MEDS: UNASYN/NS 3 GM/100 ML 3 GM/100 ML BAG IV SCH ×5 (00:28→23:59)
[2017-09-21] MEDS: DILAUDID IV PRN ×6 (00:28→19:24)
[2017-09-21 00:54] LABS: Hemoglobin 6.9 gm/dl (11.8-15.2); Mean Corpuscular HGB Conc 33 % (32-34); Mean Corpuscular Hemoglobin 30 pg (28-32); Mean Corpuscular Volume 91 fl (84-94); Red Cell Distribution Width 17.5 % (13.2-15.2)
[2017-09-21 00:55] LABS: Platelet Count 89 K/mm3 (140-440)
[2017-09-21 01:16] LABS: Heparin anti-factor XA 0.1 U.I./ml (0.3-0.7)
[2017-09-21 02:27] LABS: Basophils % (Manual) 0 % (0.0-1.8); Myelocytes # (Manual) 0.1 K/mm3; Tear Drop Cells Few; Total Cells Counted 100
[2017-09-21 02:28] LABS: Platelet Estimate Appears Decreased
[2017-09-21 04:51] LABS: Albumin 2.8 g/dL (3.9-5); BUN/Creatinine Ratio 18; Blood Urea Nitrogen 7 mg/dL (9-20); Calcium 7.7 mg/dL (8.4-10.2); Hemolysis Index 3
[2017-09-21 04:52] LABS: Alanine Aminotransferase < 5 units/L (7-56)
[2017-09-21 07:05] LABS: Hemoglobin 6.4 gm/dl (11.8-15.2); Mean Corpuscular HGB Conc 32 % (32-34); Mean Corpuscular Hemoglobin 29 pg (28-32); Mean Corpuscular Volume 90 fl (84-94); Red Blood Count 2.19 M/mm3 (3.65-5.03); Red Cell Distribution Width 17.1 % (13.2-15.2)
[2017-09-21 07:07] LABS: Platelet Count 89 K/mm3 (140-440)
[2017-09-21 07:09] LABS: Hematocrit 19.7 % (35.5-45.6)
[2017-09-21 07:19] LABS: Fibrinogen 824 mg/dl (211-480); Heparin anti-factor XA < 0.10 U.I./ml (0.3-0.7)
[2017-09-21] MEDS ORDERED: NACL 0.9% 500 ML 500 ML IV ONE (07:38)
[2017-09-21 07:57] LABS: Anisocytosis 1+; Band Neutrophils # (Manual) 0.3 K/mm3; Platelet Estimate Consistent w Auto; Total Cells Counted 100
--- NOTE | 2017-09-21 09:42 | Hem/Onc Progress Note ---
Assessment and Plan - Patient Problems (1) Prostate CA Current Visit: Yes Status: Acute Plan to address problem: Patient has active metastatic prostate cancer. He has an elevated alkaline phosphatase. This could was him to have thrombocytopenia and anemia. PSA extremely high consistent with metastatic disease. He will follow-up with his oncologist at [place] for that upon discharge (2) Anemia Current Visit: Yes Status: Acute Qualifiers: Anemia type: unspecified type Qualified Code(s): D64.9 - Anemia, unspecified Plan to address problem: B12 low. We will continue B12 and give him another dose today. Packed rbc's have been ordered (3) Thrombocytopenia Current Visit: Yes Status: Acute Plan to address problem: May need to transfuse if platelets go below 20,000 or if he starts having bleeding. Would also like to see old records to see if his thrombocytopenia is chronic. Subjective Date of service: 09/21/17 Interval history: Patient underwent revascularization. Complains of pain in the right foot. Objective - Constitutional Vitals: Last Vital Signs Temp 98.1 F 09/21/17 07:00 Pulse 99 H 09/21/17 08:00 Resp 23 09/21/17 08:00 BP 119/72 09/21/17 08:00 Pulse Ox 97 09/21/17 08:00 General appearance: mild distress (in pain) - Neck Neck: supple - Respiratory Respiratory: bilateral: diminished - Cardiovascular Rhythm: regular - Gastrointestinal General gastrointestinal: Present: soft - Labs Lab Results: Laboratory Results - last 24 hr 09/14/17 09/20/17 09/20/17 08:46 13:40 13:40 WBC 5.0 RBC 2.43 L Hgb 7.2 L Hct 22.2 L MCV 91 MCH 30 MCHC 33 RDW 17.3 H Plt Count 93 L Lymph % (Auto) [place] % (Auto) Eos % (Auto) Baso % (Auto) Lymph # [place] # Eos # Baso # Add Manual Diff Complete Total Counted 100 Seg Neutrophils % Seg Neuts % (Manual) 67.0 Band Neutrophils % 0 Lymphocytes % (Manual) 23.0 Reactive Lymphs % (Man) 0 Monocytes % (Manual) 4.0 Eosinophils % (Manual) 2.0 Basophils % (Manual) 0 Metamyelocytes % 1.0 Myelocytes % 3.0 Promyelocytes % 0 Blast Cells % 0 Nucleated RBC % 2.0 H Seg Neutrophils # Seg Neutrophils # Man 3.4 Band Neutrophils # 0.0 Lymphocytes # (Manual) 1.2 Abs React Lymphs (Man) 0.0 Monocytes # (Manual) 0.2 Eosinophils # (Manual) 0.1 Basophils # (Manual) 0.0 Metamyelocytes # 0.1 Myelocytes # 0.2 Promyelocytes # 0.0 Blast Cells # 0.0 WBC Morphology Not Reportable Hypersegmented Neuts Not Reportable Hyposegmented Neuts Not Reportable Hypogranular Neuts Not Reportable Smudge Cells Not Reportable Toxic Granulation Not Reportable Toxic Vacuolation Not Reportable Dohle Bodies Not Reportable Pelger-Huet Anomaly Not Reportable Jose Rods Not Reportable Platelet Estimate Appears decreased Clumped Platelets Not Reportable Plt Clumps, EDTA Not Reportable Large Platelets Not Reportable Giant Platelets Not Reportable Platelet Satelliting Not Reportable Plt Morphology Comment Not Reportable RBC Morphology Not Reportable Dimorphic RBCs Not Reportable Polychromasia Not Reportable Hypochromasia Not Reportable Poikilocytosis Few Anisocytosis 1+ Microcytosis Not Reportable Macrocytosis Not Reportable Spherocytes Not Reportable Pappenheimer Bodies Not Reportable Sickle Cells Not Reportable Target Cells Not Reportable Tear Drop Cells Few Ovalocytes Not Reportable Helmet Cells Not Reportable [place] Bodies Not Reportable [place] Rings Not Reportable [place] Cells Not Reportable Bite Cells Not Reportable Crenated Cell Not Reportable Elliptocytes Few Acanthocytes (Spur) Not Reportable Rouleaux Not Reportable Hemoglobin C Crystals Not Reportable Schistocytes Not Reportable Malaria parasites Not Reportable Collins Bodies Not Reportable Hem Pathologist Commnt No PT 17.7 H INR 1.38 H APTT 130.6 H* Fibrinogen 969 H Heparin Anti-Xa Level Sodium Potassium Chloride Carbon Dioxide Anion Gap BUN Creatinine Estimated GFR BUN/Creatinine Ratio Glucose Calcium Total Bilirubin AST ALT Alkaline Phosphatase Total Protein Albumin Albumin/Globulin Ratio Serotonin Release Assay See scanned report Blood Type Antibody Screen Crossmatch 09/20/17 09/20/17 09/20/17 13:40 18:53 18:53 WBC 4.6 RBC 2.33 L Hgb 6.9 L Hct 20.9 L MCV 90 MCH 30 MCHC 33 RDW 17.0 H Plt Count 92 L Lymph % (Auto) 25.9 [place] % (Auto) 7.1 Eos % (Auto) 1.9 Baso % (Auto) 0.7 Lymph # 1.2 [place] # 0.3 Eos # 0.1 Baso # 0.0 Add Manual Diff Total Counted Seg Neutrophils % 64.4 Seg Neuts % (Manual) Band Neutrophils % Lymphocytes % (Manual) Reactive Lymphs % (Man) Monocytes % (Manual) Eosinophils % (Manual) Basophils % (Manual) Metamyelocytes % Myelocytes % Promyelocytes % Blast Cells % Nucleated RBC % Seg Neutrophils # 2.9 Seg Neutrophils # Man Band Neutrophils # Lymphocytes # (Manual) Abs React Lymphs (Man) Monocytes # (Manual) Eosinophils # (Manual) Basophils # (Manual) Metamyelocytes # Myelocytes # Promyelocytes # Blast Cells # WBC Morphology Hypersegmented Neuts Hyposegmented Neuts Hypogranular Neuts Smudge Cells Toxic Granulation Toxic Vacuolation Dohle Bodies Pelger-Huet Anomaly Jose Rods Platelet Estimate Clumped Platelets Plt Clumps, EDTA Large Platelets Giant Platelets Platelet Satelliting Plt Morphology Comment RBC Morphology Dimorphic RBCs Polychromasia Hypochromasia Poikilocytosis Anisocytosis Microcytosis Macrocytosis Spherocytes Pappenheimer Bodies Sickle Cells Target Cells Tear Drop Cells Ovalocytes Helmet Cells [place] Bodies [place] Rings Jenae Cells Bite Cells Crenated Cell Elliptocytes Acanthocytes (Spur) Rouleaux Hemoglobin C Crystals Schistocytes Malaria parasites Collins Bodies Hem Pathologist Commnt PT INR APTT 37.1 H Fibrinogen 907 H Heparin Anti-Xa Level < 0.10 L Sodium 134 L Potassium 3.6 Chloride 98.2 Carbon Dioxide 25 Anion Gap 14 BUN 8 L Creatinine 0.5 L Estimated GFR > 60 BUN/Creatinine Ratio 16 Glucose 99 Calcium 8.5 Total Bilirubin AST ALT Alkaline Phosphatase Total Protein Albumin Albumin/Globulin Ratio Serotonin Release Assay Blood Type Antibody Screen Crossmatch 09/21/17 09/21/17 09/21/17 00:13 00:13 03:59 WBC 4.9 RBC 2.30 L Hgb 6.9 L Hct 21.0 L MCV 91 MCH 30 MCHC 33 RDW 17.5 H Plt Count 89 L Lymph % (Auto) [place] % (Auto) Eos % (Auto) Baso % (Auto) Lymph # [place] # Eos # Baso # Add Manual Diff Complete Total Counted 100 Seg Neutrophils % Seg Neuts % (Manual) 76.0 H Band Neutrophils % 0 Lymphocytes % (Manual) 19.0 Reactive Lymphs % (Man) 0 Monocytes % (Manual) 2.0 Eosinophils % (Manual) 1.0 Basophils % (Manual) 0 Metamyelocytes % 0 Myelocytes % 2.0 Promyelocytes % 0 Blast Cells % 0 Nucleated RBC % Not Reportable Seg Neutrophils # Seg Neutrophils # Man 3.7 Band Neutrophils # 0.0 Lymphocytes # (Manual) 0.9 L Abs React Lymphs (Man) 0.0 Monocytes # (Manual) 0.1 Eosinophils # (Manual) 0.0 Basophils # (Manual) 0.0 Metamyelocytes # 0.0 Myelocytes # 0.1 Promyelocytes # 0.0 Blast Cells # 0.0 WBC Morphology Not Reportable Hypersegmented Neuts Not Reportable Hyposegmented Neuts Not Reportable Hypogranular Neuts Not Reportable Smudge Cells Not Reportable Toxic Granulation Not Reportable Toxic Vacuolation Not Reportable Dohle Bodies Not Reportable Pelger-Huet Anomaly Not Reportable Jose Rods Not Reportable Platelet Estimate Appears decreased Clumped Platelets Not Reportable Plt Clumps, EDTA Not Reportable Large Platelets Not Reportable Giant Platelets Not Reportable Platelet Satelliting Not Reportable Plt Morphology Comment Not Reportable RBC Morphology Not Reportable Dimorphic RBCs Not Reportable Polychromasia Not Reportable Hypochromasia Not Reportable Poikilocytosis Not Reportable Anisocytosis Not Reportable Microcytosis 1+ Macrocytosis Not Reportable Spherocytes Not Reportable Pappenheimer Bodies Not Reportable Sickle Cells Not Reportable Target Cells Not Reportable Tear Drop Cells Few Ovalocytes Not Reportable Helmet Cells Not Reportable Li-[place] Bodies Not Reportable [place] Rings Not Reportable [place] Cells Not Reportable Bite Cells Not Reportable Crenated Cell Not Reportable Elliptocytes Not Reportable Acanthocytes (Spur) Not Reportable Rouleaux Not Reportable Hemoglobin C Crystals Not Reportable Schistocytes Not Reportable Malaria parasites Not Reportable Collins Bodies Not Reportable Hem Pathologist Commnt No PT INR APTT Fibrinogen 899 H Heparin Anti-Xa Level 0.10 L Sodium 136 L Potassium 3.7 Chloride 99.0 Carbon Dioxide 23 Anion Gap 18 BUN 7 L Creatinine 0.4 L Estimated GFR > 60 BUN/Creatinine Ratio 18 Glucose 102 H Calcium 7.7 L Total Bilirubin 0.40 AST 15 ALT < 5 L Alkaline Phosphatase 473 H Total Protein 5.2 L Albumin 2.8 L Albumin/Globulin Ratio 1.2 Serotonin Release Assay Blood Type Antibody Screen Crossmatch 09/21/17 09/21/17 09/21/17 06:49 06:49 07:52 WBC 4.7 RBC 2.19 L Hgb 6.4 L Hct 19.7 L* MCV 90 MCH 29 MCHC 32 RDW 17.1 H Plt Count 89 L Lymph % (Auto) [place] % (Auto) Eos % (Auto) Baso % (Auto) Lymph # [place] # Eos # Baso # Add Manual Diff Complete Total Counted 100 Seg Neutrophils % Seg Neuts % (Manual) 57.0 Band Neutrophils % 7.0 Lymphocytes % (Manual) 26.0 Reactive Lymphs % (Man) 0 Monocytes % (Manual) 7.0 Eosinophils % (Manual) 2.0 Basophils % (Manual) 1.0 Metamyelocytes % 0 Myelocytes % 0 Promyelocytes % 0 Blast Cells % 0 Nucleated RBC % Not Reportable Seg Neutrophils # Seg Neutrophils # Man 2.7 Band Neutrophils # 0.3 Lymphocytes # (Manual) 1.2 Abs React Lymphs (Man) 0.0 Monocytes # (Manual) 0.3 Eosinophils # (Manual) 0.1 Basophils # (Manual) 0.0 Metamyelocytes # 0.0 Myelocytes # 0.0 Promyelocytes # 0.0 Blast Cells # 0.0 WBC Morphology Not Reportable Hypersegmented Neuts Not Reportable Hyposegmented Neuts Not Reportable Hypogranular Neuts Not Reportable Smudge Cells Not Reportable Toxic Granulation Not Reportable Toxic Vacuolation Not Reportable Dohle Bodies Not Reportable Pelger-Huet Anomaly Not Reportable Jose Rods Not Reportable Platelet Estimate Consistent w auto Clumped Platelets Not Reportable Plt Clumps, EDTA Not Reportable Large Platelets Not Reportable Giant Platelets Not Reportable Platelet Satelliting Not Reportable Plt Morphology Comment Not Reportable RBC Morphology Not Reportable Dimorphic RBCs Not Reportable Polychromasia Rare Hypochromasia Not Reportable Poikilocytosis Not Reportable Anisocytosis 1+ Microcytosis Not Reportable Macrocytosis Not Reportable Spherocytes Not Reportable Pappenheimer Bodies Not Reportable Sickle Cells Not Reportable Target Cells Not Reportable Tear Drop Cells Not Reportable Ovalocytes Not Reportable Helmet Cells Not Reportable Li-[place] Bodies Not Reportable [place] Rings Not Reportable [place] Cells Not Reportable Bite Cells Not Reportable Crenated Cell Not Reportable Elliptocytes Not Reportable Acanthocytes (Spur) Not Reportable Rouleaux Not Reportable Hemoglobin C Crystals Not Reportable Schistocytes Not Reportable Malaria parasites Not Reportable Collins Bodies Not Reportable Hem Pathologist Commnt No PT INR APTT Fibrinogen 824 H Heparin Anti-Xa Level < 0.10 L Sodium Potassium Chloride Carbon Dioxide Anion Gap BUN Creatinine Estimated GFR BUN/Creatinine Ratio Glucose Calcium Total Bilirubin AST ALT Alkaline Phosphatase Total Protein Albumin Albumin/Globulin Ratio Serotonin Release Assay Blood Type B POSITIVE Antibody Screen Negative Crossmatch See Detail
[2017-09-21] MEDS: PERCOCET 5/325 PO PRN (10:02)
[2017-09-21] MEDS: FOLVITE PO SCH (10:03)
[2017-09-21] MEDS: HABITROL TD SCH (10:03)
[2017-09-21] MEDS: PEPCID PO SCH ×2 (10:03→21:14)
[2017-09-21] MEDS ORDERED: VITAMIN B-12 SUB-Q ONE (10:30)
[2017-09-21] MEDS: FLOMAX PO SCH (10:52)
[2017-09-21] MEDS ORDERED: VASELINE LIP THERAPY TP PRN (12:40)
--- NOTE | 2017-09-21 12:50 | Progress Note ---
Assessment and Plan Sepsis Osteomyelitis of toe of right foot PAD s/p -Pharmacologic thrombectomy of the right popliteal artery - Suction thrombectomy of the right popliteal artery -Orbital atherectomy of the popliteal artery with a Jetstream orbital atherectomy device - Placement of an Ekos catheter and the popliteal and right posterior tibial arteries. Patient will be scheduled for revascularization of his right Popliteal artery per Vascular. HIT, Suspected Thrombocytopenia- Monitor for any bleeding and transfuse if plt below 20,000 per Hematology recommendation Anemia-Monitor BPH (benign prostatic hyperplasia) Chronic pain due to neoplasm Prostate cancer with metastatic disease Nicotine dependence with tobacco abuse disorder - Continue with antibiotics -Pain management -HIT negative -Transfuse for HgB<7g/dl, as needed -Supportive care Subjective Date of service: 09/21/17 Principal diagnosis: right toe gangrene,prostate cnacer Objective - Exam Narrative Exam: - EENT Eyes: Present: PERRL, EOM intact ENT: hearing intact, clear oral mucosa - Neck Neck: Present: supple, normal ROM - Respiratory Respiratory effort: normal Respiratory: bilateral: diminished - Cardiovascular Rhythm: regular Heart Sounds: Present: S1 & S2 - Extremities Extremity abnormal: other (right great toe gangrene, right 2nd toe gangrene) EKos - Abdominal General gastrointestinal: soft, non-tender, non-distended, normal bowel sounds - Integumentary Integumentary: Present: clear, warm, edema right - Psychiatric Psychiatric: appropriate mood/affect, cooperative - Neurologic Neurologic: CNII-XII intact, moves all extremities, although limited in lower ext Vital Signs - 12hr 09/21/17 09/21/17 09/21/17 00:51 01:00 01:11 Temperature Pulse Rate 91 H 92 H 95 H Pulse Rate [ Apical] Respiratory 15 16 15 Rate Blood Pressure 117/77 119/68 119/68 O2 Sat by Pulse 98 98 97 Oximetry 09/21/17 09/21/17 09/21/17 01:21 01:30 01:41 Temperature Pulse Rate 95 H 97 H 95 H Pulse Rate [ Apical] Respiratory 19 15 15 Rate Blood Pressure 119/68 120/72 120/72 O2 Sat by Pulse 96 97 97 Oximetry 09/21/17 09/21/17 09/21/17 01:51 02:00 02:11 Temperature Pulse Rate 95 H 92 H 94 H Pulse Rate [ Apical] Respiratory 19 18 15 Rate Blood Pressure 120/72 120/72 114/77 O2 Sat by Pulse 98 98 98 Oximetry 09/21/17 09/21/17 09/21/17 02:18 02:21 02:30 Temperature Pulse Rate 92 H 96 H Pulse Rate [ 91 H Apical] Respiratory 16 14 16 Rate Blood Pressure 114/77 123/76 O2 Sat by Pulse 98 97 97 Oximetry 09/21/17 09/21/17 09/21/17 02:41 02:51 03:00 Temperature 98.1 F Pulse Rate 95 H 91 H 89 Pulse Rate [ Apical] Respiratory 20 18 14 Rate Blood Pressure 125/74 125/74 122/73 O2 Sat by Pulse 97 96 98 Oximetry 09/21/17 09/21/17 09/21/17 03:11 03:20 03:31 Temperature Pulse Rate 92 H 100 H 91 H Pulse Rate [ Apical] Respiratory 19 16 19 Rate Blood Pressure 122/73 122/73 125/74 O2 Sat by Pulse 96 98 98 Oximetry 09/21/17 09/21/17 09/21/17 03:36 03:41 03:51 Temperature 98.1 F Pulse Rate 98 H 93 H Pulse Rate [ Apical] Respiratory 20 17 Rate Blood Pressure 125/74 125/74 O2 Sat by Pulse 97 93 Oximetry 09/21/17 09/21/17 09/21/17 04:01 04:11 04:21 Temperature Pulse Rate 95 H 94 H 94 H Pulse Rate [ Apical] Respiratory 19 17 16 Rate Blood Pressure 116/72 116/72 116/72 O2 Sat by Pulse 97 98 97 Oximetry 09/21/17 09/21/17 09/21/17 04:31 04:41 04:51 Temperature Pulse Rate 88 95 H 94 H Pulse Rate [ Apical] Respiratory 17 17 16 Rate Blood Pressure 116/72 116/72 116/72 O2 Sat by Pulse 97 96 97 Oximetry 09/21/17 09/21/17 09/21/17 05:00 05:11 05:21 Temperature Pulse Rate 95 H 93 H 96 H Pulse Rate [ Apical] Respiratory 15 12 16 Rate Blood Pressure 114/72 114/72 114/72 O2 Sat by Pulse 97 96 96 Oximetry 09/21/1718 09/21/17 05:31 05:41 05:51 Temperature Pulse Rate 95 H 100 H 99 H Pulse Rate [ Apical] Respiratory 14 17 16 Rate Blood Pressure 116/72 116/72 116/72 O2 Sat by Pulse 97 96 96 Oximetry 09/21/1718 09/21/17 06:00 06:11 06:21 Temperature Pulse Rate 99 H 96 H 101 H Pulse Rate [ Apical] Respiratory 16 15 20 Rate Blood Pressure 117/73 117/73 117/73 O2 Sat by Pulse 95 96 96 Oximetry 09/21/1718 09/21/17 06:31 06:41 06:51 Temperature Pulse Rate 96 H 96 H 95 H Pulse Rate [ Apical] Respiratory 21 21 18 Rate Blood Pressure 117/73 117/73 117/73 O2 Sat by Pulse 97 97 96 Oximetry 09/21/17 09/21/17 09/21/17 07:00 07:11 07:21 Temperature 98.1 F Pulse Rate 94 H 98 H 104 H Pulse Rate [ Apical] Respiratory 16 15 18 Rate Blood Pressure 114/67 114/67 114/67 O2 Sat by Pulse 96 98 97 Oximetry 09/21/17 09/21/17 09/21/17 07:31 07:40 07:51 Temperature Pulse Rate 104 H 101 H 106 H Pulse Rate [ Apical] Respiratory 21 12 25 H Rate Blood Pressure 117/73 114/67 117/73 O2 Sat by Pulse 99 97 96 Oximetry 09/21/17 09/21/17 09/21/17 08:00 08:11 08:21 Temperature Pulse Rate 99 H 102 H 98 H Pulse Rate [ Apical] Respiratory 23 16 16 Rate Blood Pressure 119/72 119/72 119/72 O2 Sat by Pulse 97 97 98 Oximetry 09/21/17 09/21/17 09/21/17 08:31 08:41 08:51 Temperature Pulse Rate 97 H 96 H 99 H Pulse Rate [ Apical] Respiratory 15 14 14 Rate Blood Pressure 119/72 119/72 119/72 O2 Sat by Pulse 97 97 96 Oximetry 09/21/17 09/21/17 09/21/17 09:00 09:11 09:21 Temperature Pulse Rate 95 H 106 H 99 H Pulse Rate [ Apical] Respiratory 14 19 17 Rate Blood Pressure 114/70 119/72 119/72 O2 Sat by Pulse 98 98 97 Oximetry 09/21/1718 09/21/17 09:31 09:41 09:51 Temperature Pulse Rate 94 H 97 H 99 H Pulse Rate [ Apical] Respiratory 14 14 20 Rate Blood Pressure 119/72 119/72 119/72 O2 Sat by Pulse 98 99 99 Oximetry 09/21/17 09/21/17 09/21/17 10:00 10:11 10:21 Temperature Pulse Rate 98 H 101 H 99 H Pulse Rate [ Apical] Respiratory 22 25 H 22 Rate Blood Pressure 115/72 114/70 114/70 O2 Sat by Pulse 98 98 96 Oximetry 09/21/17 09/21/17 09/21/17 10:31 10:41 10:51 Temperature Pulse Rate 100 H 98 H 90 Pulse Rate [ Apical] Respiratory 23 21 19 Rate Blood Pressure 114/70 114/70 114/70 O2 Sat by Pulse 99 96 96 Oximetry 09/21/17 09/21/17 09/21/17 11:00 11:05 11:11 Temperature 98.2 F Pulse Rate 88 88 88 Pulse Rate [ Apical] Respiratory 15 20 15 Rate Blood Pressure 97/66 105/62 97/66 O2 Sat by Pulse 96 99 97 Oximetry 09/21/17 09/21/17 09/21/17 11:20 11:21 11:26 Temperature 97.6 F 98.2 F Pulse Rate 89 90 Pulse Rate [ Apical] Respiratory 16 13 Rate Blood Pressure 106/65 105/62 O2 Sat by Pulse 98 98 Oximetry 09/21/17 09/21/17 09/21/17 11:30 11:41 11:45 Temperature 98.2 F Pulse Rate 85 83 88 Pulse Rate [ Apical] Respiratory 16 14 Rate Blood Pressure 108/57 108/57 O2 Sat by Pulse 98 98 Oximetry 09/21/17 09/21/17 09/21/17 11:50 11:51 12:00 Temperature 97.3 F L Pulse Rate 88 92 H 91 H Pulse Rate [ Apical] Respiratory 15 15 14 Rate Blood Pressure 113/71 106/65 108/71 O2 Sat by Pulse 98 98 98 Oximetry 09/21/17 09/21/17 09/21/17 12:11 12:20 12:21 Temperature 98.2 F Pulse Rate 90 94 H 91 H Pulse Rate [ Apical] Respiratory 23 24 23 Rate Blood Pressure 105/62 118/74 113/71 O2 Sat by Pulse 97 99 99 Oximetry 09/21/17 09/21/17 12:30 12:41 Temperature Pulse Rate 90 91 H Pulse Rate [ Apical] Respiratory 21 21 Rate Blood Pressure 118/74 118/74 O2 Sat by Pulse 98 99 Oximetry CBC and BMP: 09/21/17 06:49 09/21/17 03:59 ABG, PT/INR, D-dimer: PT/INR, D-dimer PT 17.7 Sec. (12.2-14.9) H 09/20/17 13:40 INR 1.38 (0.87-1.13) H 09/20/17 13:40 Abnormal lab findings: Abnormal Labs 09/11/17 09/11/17 09/11/17 09:29 09:29 10:13 WBC RBC 2.23 L Hgb 6.7 L Hct 21.3 L MCV 96 H MCHC RDW 20.2 H Plt Count 83 L [place] % (Auto) Lymph # Seg Neuts % (Manual) Lymphocytes % (Manual) 44.0 H Nucleated RBC % 34.0 H Lymphocytes # (Manual) Percent Retic PT INR APTT Fibrinogen Heparin Anti-Xa Level Sodium Potassium Chloride Carbon Dioxide BUN Creatinine 0.7 L Glucose Calcium Iron TIBC Ferritin ALT Alkaline Phosphatase C-Reactive Protein Total Protein Albumin Prostate Specific Ag Vitamin B12 Crossmatch See Detail 09/11/17 09/12/17 09/12/17 23:47 08:32 08:32 WBC RBC 3.42 L Hgb 10.0 L D Hct 32.1 L D MCV MCHC 31 L RDW 18.7 H Plt Count 65 L [place] % (Auto) Lymph # Seg Neuts % (Manual) Lymphocytes % (Manual) Nucleated RBC % 4.0 H Lymphocytes # (Manual) Percent Retic PT INR APTT Fibrinogen Heparin Anti-Xa Level Sodium Potassium Chloride Carbon Dioxide BUN Creatinine 0.6 L Glucose Calcium Iron 48 L TIBC 233 L Ferritin ALT Alkaline Phosphatase 684 H C-Reactive Protein Total Protein Albumin Prostate Specific Ag Vitamin B12 Crossmatch 09/12/17 09/13/17 09/13/17 18:07 06:18 09:29 WBC RBC Hgb 9.7 L Hct 30.0 L MCV MCHC RDW Plt Count 62 L [place] % (Auto) Lymph # Seg Neuts % (Manual) Lymphocytes % (Manual) Nucleated RBC % Lymphocytes # (Manual) Percent Retic PT INR APTT Fibrinogen Heparin Anti-Xa Level < 0.10 L Sodium Potassium Chloride Carbon Dioxide BUN Creatinine Glucose Calcium Iron TIBC Ferritin ALT Alkaline Phosphatase C-Reactive Protein 15.70 H Total Protein Albumin Prostate Specific Ag Vitamin B12 Crossmatch 09/13/17 09/13/17 09/13/17 09:29 11:41 23:25 WBC RBC 3.40 L Hgb 10.1 L Hct 31.6 L MCV MCHC RDW 18.5 H Plt Count 55 L [place] % (Auto) Lymph # Seg Neuts % (Manual) Lymphocytes % (Manual) Nucleated RBC % Lymphocytes # (Manual) Percent Retic PT INR APTT 81.5 H* Fibrinogen Heparin Anti-Xa Level 0.10 L Sodium 133 L Potassium Chloride 97.0 L Carbon Dioxide BUN Creatinine 0.6 L Glucose 103 H Calcium Iron TIBC Ferritin ALT Alkaline Phosphatase C-Reactive Protein Total Protein Albumin Prostate Specific Ag Vitamin B12 Crossmatch 09/14/17 09/14/17 09/14/17 05:24 05:24 10:46 WBC RBC 3.20 L Hgb 9.8 L Hct 29.2 L MCV MCHC RDW 17.6 H Plt Count 61 L [place] % (Auto) Lymph # Seg Neuts % (Manual) 80.0 H Lymphocytes % (Manual) Nucleated RBC % 1.0 H Lymphocytes # (Manual) 0.6 L Percent Retic PT INR APTT 58.5 H 56.0 H Fibrinogen Heparin Anti-Xa Level Sodium Potassium Chloride Carbon Dioxide BUN Creatinine Glucose Calcium Iron TIBC Ferritin ALT Alkaline Phosphatase C-Reactive Protein Total Protein Albumin Prostate Specific Ag Vitamin B12 Crossmatch 09/14/17 09/14/17 09/14/17 10:46 10:46 10:46 WBC RBC Hgb Hct MCV MCHC RDW Plt Count [place] % (Auto) Lymph # Seg Neuts % (Manual) Lymphocytes % (Manual) Nucleated RBC % Lymphocytes # (Manual) Percent Retic 3.68 H PT INR APTT Fibrinogen Heparin Anti-Xa Level Sodium Potassium Chloride Carbon Dioxide BUN Creatinine Glucose Calcium Iron TIBC Ferritin 1023.0 H ALT Alkaline Phosphatase C-Reactive Protein Total Protein Albumin Prostate Specific Ag 1721.00 H Vitamin B12 Crossmatch 09/14/17 09/14/17 09/15/17 10:46 23:04 02:53 WBC RBC 2.97 L Hgb 8.9 L Hct 27.3 L MCV MCHC RDW 17.6 H Plt Count 50 L [place] % (Auto) Lymph # Seg Neuts % (Manual) 71.0 H Lymphocytes % (Manual) 12.0 L Nucleated RBC % 2.0 H Lymphocytes # (Manual) 0.6 L Percent Retic PT INR APTT 89.4 H* Fibrinogen Heparin Anti-Xa Level Sodium Potassium Chloride Carbon Dioxide BUN Creatinine Glucose Calcium Iron TIBC Ferritin ALT Alkaline Phosphatase C-Reactive Protein Total Protein Albumin Prostate Specific Ag Vitamin B12 206.4 L Crossmatch 09/15/17 09/15/17 09/15/17 02:53 05:22 11:33 WBC RBC Hgb Hct MCV MCHC RDW Plt Count [place] % (Auto) Lymph # Seg Neuts % (Manual) Lymphocytes % (Manual) Nucleated RBC % Lymphocytes # (Manual) Percent Retic PT INR APTT 87.0 H* 80.0 H* Fibrinogen Heparin Anti-Xa Level Sodium 132 L Potassium Chloride 95.2 L Carbon Dioxide 20 L BUN Creatinine 0.6 L Glucose 102 H Calcium Iron TIBC Ferritin ALT Alkaline Phosphatase C-Reactive Protein Total Protein Albumin Prostate Specific Ag Vitamin B12 Crossmatch 09/15/17 09/16/17 09/16/17 23:15 07:11 07:12 WBC 4.0 L RBC 2.97 L Hgb 8.9 L Hct 27.1 L MCV MCHC RDW 17.4 H Plt Count 53 L [place] % (Auto) Lymph # Seg Neuts % (Manual) Lymphocytes % (Manual) Nucleated RBC % Lymphocytes # (Manual) 1.0 L Percent Retic PT INR APTT 101.0 H* 48.7 H Fibrinogen Heparin Anti-Xa Level Sodium Potassium Chloride Carbon Dioxide BUN Creatinine Glucose Calcium Iron TIBC Ferritin ALT Alkaline Phosphatase C-Reactive Protein Total Protein Albumin Prostate Specific Ag Vitamin B12 Crossmatch 09/16/17 09/17/17 09/17/17 13:07 04:23 17:23 WBC RBC Hgb Hct MCV MCHC RDW Plt Count [place] % (Auto) Lymph # Seg Neuts % (Manual) Lymphocytes % (Manual) Nucleated RBC % Lymphocytes # (Manual) Percent Retic PT INR APTT 61.7 H* 60.3 H* 57.9 H Fibrinogen Heparin Anti-Xa Level Sodium Potassium Chloride Carbon Dioxide BUN Creatinine Glucose Calcium Iron TIBC Ferritin ALT Alkaline Phosphatase C-Reactive Protein Total Protein Albumin Prostate Specific Ag Vitamin B12 Crossmatch 09/18/17 09/18/17 09/18/17 05:31 05:31 05:31 WBC 4.2 L RBC 2.66 L Hgb 7.9 L Hct 23.9 L MCV MCHC RDW 17.3 H Plt Count 75 L [place] % (Auto) 7.7 H Lymph # 0.9 L Seg Neuts % (Manual) Lymphocytes % (Manual) Nucleated RBC % Lymphocytes # (Manual) Percent Retic PT INR APTT 61.5 H* Fibrinogen Heparin Anti-Xa Level Sodium 132 L Potassium 3.1 L Chloride 94.4 L Carbon Dioxide BUN 8 L Creatinine 0.5 L Glucose 127 H Calcium Iron TIBC Ferritin ALT Alkaline Phosphatase C-Reactive Protein Total Protein Albumin Prostate Specific Ag Vitamin B12 Crossmatch 09/18/17 09/19/17 09/19/17 17:35 06:30 17:43 WBC RBC Hgb Hct MCV MCHC RDW Plt Count [place] % (Auto) Lymph # Seg Neuts % (Manual) Lymphocytes % (Manual) Nucleated RBC % Lymphocytes # (Manual) Percent Retic PT INR APTT 60.1 H* 67.8 H* 60.9 H* Fibrinogen Heparin Anti-Xa Level Sodium Potassium Chloride Carbon Dioxide BUN Creatinine Glucose Calcium Iron TIBC Ferritin ALT Alkaline Phosphatase C-Reactive Protein Total Protein Albumin Prostate Specific Ag Vitamin B12 Crossmatch 09/20/17 09/20/17 09/20/17 05:23 05:23 05:23 WBC RBC Hgb 7.7 L Hct 23.4 L MCV MCHC RDW Plt Count 98 L [place] % (Auto) Lymph # Seg Neuts % (Manual) Lymphocytes % (Manual) Nucleated RBC % Lymphocytes # (Manual) Percent Retic PT INR APTT 63.2 H* Fibrinogen Heparin Anti-Xa Level Sodium 134 L Potassium 3.4 L Chloride 97.3 L Carbon Dioxide BUN Creatinine 0.5 L Glucose 107 H Calcium Iron TIBC Ferritin ALT < 5 L Alkaline Phosphatase 542 H C-Reactive Protein Total Protein 5.7 L Albumin 3.4 L Prostate Specific Ag Vitamin B12 Crossmatch 09/20/17 09/20/17 09/20/17 13:40 13:40 13:40 WBC RBC 2.43 L Hgb 7.2 L Hct 22.2 L MCV MCHC RDW 17.3 H Plt Count 93 L [place] % (Auto) Lymph # Seg Neuts % (Manual) Lymphocytes % (Manual) Nucleated RBC % 2.0 H Lymphocytes # (Manual) Percent Retic PT 17.7 H INR 1.38 H APTT 130.6 H* Fibrinogen 969 H Heparin Anti-Xa Level Sodium 134 L Potassium Chloride Carbon Dioxide BUN 8 L Creatinine 0.5 L Glucose Calcium Iron TIBC Ferritin ALT Alkaline Phosphatase C-Reactive Protein Total Protein Albumin Prostate Specific Ag Vitamin B12 Crossmatch 09/20/17 09/20/17 09/21/17 18:53 18:53 00:13 WBC RBC 2.33 L 2.30 L Hgb 6.9 L 6.9 L Hct 20.9 L 21.0 L MCV MCHC RDW 17.0 H 17.5 H Plt Count 92 L 89 L [place] % (Auto) Lymph # Seg Neuts % (Manual) 76.0 H Lymphocytes % (Manual) Nucleated RBC % Lymphocytes # (Manual) 0.9 L Percent Retic PT INR APTT 37.1 H Fibrinogen 907 H Heparin Anti-Xa Level < 0.10 L Sodium Potassium Chloride Carbon Dioxide BUN Creatinine Glucose Calcium Iron TIBC Ferritin ALT Alkaline Phosphatase C-Reactive Protein Total Protein Albumin Prostate Specific Ag Vitamin B12 Crossmatch 09/21/17 09/21/17 09/21/17 00:13 03:59 06:49 WBC RBC 2.19 L Hgb 6.4 L Hct 19.7 L* MCV MCHC RDW 17.1 H Plt Count 89 L [place] % (Auto) Lymph # Seg Neuts % (Manual) Lymphocytes % (Manual) Nucleated RBC % Lymphocytes # (Manual) Percent Retic PT INR APTT Fibrinogen 899 H Heparin Anti-Xa Level 0.10 L Sodium 136 L Potassium Chloride Carbon Dioxide BUN 7 L Creatinine 0.4 L Glucose 102 H Calcium 7.7 L Iron TIBC Ferritin ALT < 5 L Alkaline Phosphatase 473 H C-Reactive Protein Total Protein 5.2 L Albumin 2.8 L Prostate Specific Ag Vitamin B12 Crossmatch 09/21/17 09/21/17 06:49 07:52 WBC RBC Hgb Hct MCV MCHC RDW Plt Count [place] % (Auto) Lymph # Seg Neuts % (Manual) Lymphocytes % (Manual) Nucleated RBC % Lymphocytes # (Manual) Percent Retic PT INR APTT Fibrinogen 824 H Heparin Anti-Xa Level < 0.10 L Sodium Potassium Chloride Carbon Dioxide BUN Creatinine Glucose Calcium Iron TIBC Ferritin ALT Alkaline Phosphatase C-Reactive Protein Total Protein Albumin Prostate Specific Ag Vitamin B12 Crossmatch See Detail
--- NOTE | 2017-09-21 12:54 | Progress Note ---
Assessment and Plan Assessment: 1) Sepsis: Better. Etiology most likely gangrene of right toe? prostate cancer with metastasis? -CRP = 15.70 -blood cultures 09/11 ngtd -CTA showed bilateral common iliac arteries are dilated and measure 133 mm in diameter -Duplex doppler LE showed OCCLUDED RT.POP ARTERY AND RT.DPA WITH THROMBUS NOTED.MULTIPHASIC WAVEFORMS THROUGHOUT VESSELS INTERROGATED EXCEPT FOR MONOPHASIC WAVEFORMS OBTAINED IN THE RT.HEALTH AND SAFETY INSPECTOR AND RT.BRISA.BLE ARTERIAL DUPLEX 2) Right great toe ulcer/gangrene. Possible osteomyelitis right great toe culture negative -BLE VEIN MAPPING PRELIMINARY REPORT showed LT.GSV APPEARS THROMBOSED FROM TAKE-OFF UP TO THE MEDIAL MALLEOLUS AND BOTH LSV'S APPEAR THROMBOSED TOO -s/p Pharmacologic thrombectomy of the right popliteal artery, Suction thrombectomy of the right popliteal artery, Orbital atherectomy of the popliteal artery with a [employer] (SMB) Limited orbital atherectomy device and Placement of an Ekos catheter and the popliteal and right posterior tibial arteries on 09/20 3) Prostate CA with metastasis 4) BPH 5) Thrombocytopenia and anemia, stable Plan: -continue unasyn day 10 -monitor flow recovery and need for amputution -if amputation, will stop IV abx and start po abx for 7 days -if not amputation then IV abx 4-6 weeks if flow is patent Hannah Meeks Subjective Date of service: 09/21/17 Principal diagnosis: right toe gangrene,prostate cnacer Interval history: Feels ok, sleepy, no fever. Transferred to ICU for monitoring Microbiology: Blood cultures: 09/11 ngtd Urine cultures: none Respiratory cultures: Current Antimicrobials: unasyn 09/12 Previous Antimicrobials: ceftriaxone vacomycin 09/11 Objective - Exam Narrative Exam: General appearance: Alert in NAD, conversant Eyes: anicteric sclerae, moist conjunctivae; no lid-lag; PERRLA HENT: Atraumatic; oropharynx clear with moist mucous membranes and no mucosal ulcerations/no oral thrush; Neck: Trachea midline; supple, no thyromegaly or lymphadenopathy Lungs: breath sounds diminished bilaterally, c/o chest pain CV: RRR, no murmurs Abdomen: Soft, non-tender; +BS x 4 Extremities: right great toe gangrene, right 2nd toe gangrene Skin: pasha groin surg wound no bleeding or hematoma Psych: Appropriate affect, calm and cooperative Neuro: alert and oriented x 3. Moving all extermities Lines: No CVL / PICC - Constitutional Vitals: Vital Signs Temp Pulse Resp BP Pulse Ox 98.2 F 91 H 21 118/74 99 09/21/17 12:20 09/21/17 12:41 09/21/17 12:41 09/21/17 12:41 09/21/17 12:41 Temperature -Last 24 Hours Temperature 98.2 F Temperature 97.3 F Temperature 98.2 F Temperature 98.2 F Temperature 97.6 F Temperature 98.2 F Temperature 98.1 F Temperature 98.1 F Temperature 98.1 F Temperature 97.6 F Temperature 100.1 F Temperature 98.8 F Temperature 97.6 F - Labs CBC & Chem 7: 09/21/17 06:49 09/21/17 03:59 Labs: Abnormal lab results 09/11/17 09/20/17 09/20/17 Range/Units 10:13 13:40 13:40 RBC 2.43 L (3.65-5.03) M/mm3 Hgb 7.2 L (11.8-15.2) gm/dl Hct 22.2 L (35.5-45.6) % RDW 17.3 H (13.2-15.2) % Plt Count 93 L (140-440) K/mm3 Seg Neuts % (Manual) (40.0-70.0) % Nucleated RBC % 2.0 H (0.0-0.9) % Lymphocytes # (Manual) (1.2-5.4) K/mm3 PT 17.7 H (12.2-14.9) Sec. INR 1.38 H (0.87-1.13) APTT 130.6 H* (24.2-36.6) Sec. Fibrinogen 969 H (211-480) mg/dl Heparin Anti-Xa Level (0.3-0.7) U.I./ml Sodium (137-145) mmol/L BUN (9-20) mg/dL Creatinine (0.8-1.5) mg/dL Glucose (75-100) mg/dL Calcium (8.4-10.2) mg/dL ALT (7-56) units/L Alkaline Phosphatase (35-129) units/L Total Protein (6.3-8.2) g/dL Albumin (3.9-5) g/dL Crossmatch See Detail 09/20/17 09/20/17 09/20/17 Range/Units 13:40 18:53 18:53 RBC 2.33 L (3.65-5.03) M/mm3 Hgb 6.9 L (11.8-15.2) gm/dl Hct 20.9 L (35.5-45.6) % RDW 17.0 H (13.2-15.2) % Plt Count 92 L (140-440) K/mm3 Seg Neuts % (Manual) (40.0-70.0) % Nucleated RBC % (0.0-0.9) % Lymphocytes # (Manual) (1.2-5.4) K/mm3 PT (12.2-14.9) Sec. INR (0.87-1.13) APTT 37.1 H (24.2-36.6) Sec. Fibrinogen 907 H (211-480) mg/dl Heparin Anti-Xa Level < 0.10 L (0.3-0.7) U.I./ml Sodium 134 L (137-145) mmol/L BUN 8 L (9-20) mg/dL Creatinine 0.5 L (0.8-1.5) mg/dL Glucose (75-100) mg/dL Calcium (8.4-10.2) mg/dL ALT (7-56) units/L Alkaline Phosphatase (35-129) units/L Total Protein (6.3-8.2) g/dL Albumin (3.9-5) g/dL Crossmatch 09/21/17 09/21/17 09/21/17 Range/Units 00:13 00:13 03:59 RBC 2.30 L (3.65-5.03) M/mm3 Hgb 6.9 L (11.8-15.2) gm/dl Hct 21.0 L (35.5-45.6) % RDW 17.5 H (13.2-15.2) % Plt Count 89 L (140-440) K/mm3 Seg Neuts % (Manual) 76.0 H (40.0-70.0) % Nucleated RBC % (0.0-0.9) % Lymphocytes # (Manual) 0.9 L (1.2-5.4) K/mm3 PT (12.2-14.9) Sec. INR (0.87-1.13) APTT (24.2-36.6) Sec. Fibrinogen 899 H (211-480) mg/dl Heparin Anti-Xa Level 0.10 L (0.3-0.7) U.I./ml Sodium 136 L (137-145) mmol/L BUN 7 L (9-20) mg/dL Creatinine 0.4 L (0.8-1.5) mg/dL Glucose 102 H (75-100) mg/dL Calcium 7.7 L (8.4-10.2) mg/dL ALT < 5 L (7-56) units/L Alkaline Phosphatase 473 H (35-129) units/L Total Protein 5.2 L (6.3-8.2) g/dL Albumin 2.8 L (3.9-5) g/dL Crossmatch 09/21/17 09/21/17 09/21/17 Range/Units 06:49 06:49 07:52 RBC 2.19 L (3.65-5.03) M/mm3 Hgb 6.4 L (11.8-15.2) gm/dl Hct 19.7 L* (35.5-45.6) % RDW 17.1 H (13.2-15.2) % Plt Count 89 L (140-440) K/mm3 Seg Neuts % (Manual) (40.0-70.0) % Nucleated RBC % (0.0-0.9) % Lymphocytes # (Manual) (1.2-5.4) K/mm3 PT (12.2-14.9) Sec. INR (0.87-1.13) APTT (24.2-36.6) Sec. Fibrinogen 824 H (211-480) mg/dl Heparin Anti-Xa Level < 0.10 L (0.3-0.7) U.I./ml Sodium (137-145) mmol/L BUN (9-20) mg/dL Creatinine (0.8-1.5) mg/dL Glucose (75-100) mg/dL Calcium (8.4-10.2) mg/dL ALT (7-56) units/L Alkaline Phosphatase (35-129) units/L Total Protein (6.3-8.2) g/dL Albumin (3.9-5) g/dL Crossmatch See Detail
--- NOTE | 2017-09-21 13:29 | Vascular Lab Report ---
Lower extremity saphenous vein mapping: Comments on the right: The right greater saphenous vein is patent throughout. Diameters range from 4.6 mm to 5.3 mm in the thigh and then the vein becomes less than 3 mm in diameter below the level of the knee. No thrombosis is seen in the greater saphenous vein. The lesser saphenous vein is thrombosed. Comments on the left: The greater saphenous vein is thrombosed throughout its course. The lesser saphenous vein is thrombosed throughout its course. Impression: Right greater saphenous vein is patent and is of better quality above the mean and is below the knee. 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 The left greater saphenous vein is thrombosed throughout its course. The left lesser saphenous vein is completely thrombosed as well.
[2017-09-21] MEDS ORDERED: NACL 0.9% 250ML 250 ML ONE (14:22)
[2017-09-21] MEDS ORDERED: HEPARIN/NS 5000 UNIT/500ML(CATH LAB) 1,000 ML IR ONE (14:27)
[2017-09-21] MEDS ORDERED: HEPARIN 10,000 UNITS/10 ML ONE (14:28)
[2017-09-21] MEDS: VERSED ONE ×3 (14:34→15:12)
[2017-09-21] MEDS: XYLOCAINE 2% INFILTRATI ONE ×2 (14:34→14:42)
[2017-09-21] MEDS: SUBLIMAZE ONE ×4 (14:34→15:39)
--- NOTE | 2017-09-21 16:02 | Progress Note ---
Assessment and Plan Assessment and plan: 66-year-old -Indian male with pmh of Prostate Cancer LBP and BPH presents to the emergency department with complaint of swelling to the right foot for the past week. The patient is noted to have a blackened and necrotic appearing right great toe. Dry eschar on Rt great Toe.No drainage. He says that it is been like this for the past couple weeks. He says he has been talking about seeing a physician regarding these symptoms but has not yet done so. He has a past medical history of prostate cancer and some chronic back pains. He has not taken anything for his symptoms prior presentation. Osteomyelitis of toe of right foot Continue IV abx for now-Unasyn w/u to r/o PAD Duplex doppler LE showed OCCLUDED RT.POP ARTERY AND RT.DPA WITH THROMBUS NOTED. MULTIPHASIC WAVEFORMS THROUGHOUT VESSELS INTERROGATED EXCEPT FOR MONOPHASIC WAVEFORMS OBTAINED IN THE RT.DATA GOVERNANCE ANALYST AND RT.BRISA.BLE ARTERIAL DUPLEX pt for thrombectomy today. Fenestrate catheter removed today Vascular and ID following. Per vascular IMPRESSION: 1) Removal of thrombolytic catheter. 2) Right lower extremity angiogram demonstrating reduction of thrombus burden within the popliteal artery , posterior tibial artery and tibioperoneal trunk and peroneal artery. There is persistent occlusion of the anterior tibial artery at its origin. 3) Aspiration thrombectomy of the popliteal artery, tibioperoneal trunk, ulcer tibial artery and hernial artery. 4) Angioplasty of the peroneal artery and posterior tibial artery 5) The patient will need to have additional arterial intervention of his anterior tibial artery in approximately 4 weeks. 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 likely secondary to to prostate cancer. s/p Transfusion 2 units of packed red blood cells on 09/11. Will transfuse 2 PRBC today BPH (benign prostatic hyperplasia) Continue Tamsulosin. Chronic pain due to neoplasm continue his home medications. PAD (peripheral artery disease) Strong possibility in view of his smoking. Occluded R POP artery vascular following Nicotine dependence Pt counseled on cessation Nicoderm patch ordered DVT/GI prophy History Interval history: Patient seen and examined in no acute distress. requesting comfortably, planned removal of thrombolysis catheter today. Hospitalist Physical - Physical exam Narrative exam: - EENT Eyes: Present: PERRL, EOM intact ENT: hearing intact, clear oral mucosa - Neck Neck: Present: supple, normal ROM - Respiratory Respiratory effort: normal Respiratory: bilateral: diminished - Cardiovascular Rhythm: regular Heart Sounds: Present: S1 & S2 - Extremities Extremity abnormal: other (right great toe gangrene, right 2nd toe gangrene), deminished pulses to right lower ext - Abdominal General gastrointestinal: soft, non-tender, non-distended, normal bowel sounds - Integumentary Integumentary: Present: clear, warm, edema right - Psychiatric Psychiatric: appropriate mood/affect, cooperative - Neurologic Neurologic: CNII-XII intact, moves all extremities, although limited in lower ext - Constitutional Vitals: Temp Pulse Resp BP Pulse Ox 98.3 F 93 H 16 119/73 98 09/21/17 12:50 09/21/17 13:30 09/21/17 13:30 09/21/17 13:30 09/21/17 13:30 General appearance: Present: no acute distress, well-nourished Results - Labs CBC & Chem 7: 09/21/17 06:49 09/21/17 03:59 Labs: Laboratory Last Values WBC 4.7 K/mm3 (4.5-11.0) 09/21/17 06:49 RBC 2.19 M/mm3 (3.65-5.03) L 09/21/17 06:49 Hgb 6.4 gm/dl (11.8-15.2) L 09/21/17 06:49 Hct 19.7 % (35.5-45.6) L* 09/21/17 06:49 MCV 90 fl (84-94) 09/21/17 06:49 MCH 29 pg (28-32) 09/21/17 06:49 MCHC 32 % (32-34) 09/21/17 06:49 RDW 17.1 % (13.2-15.2) H 09/21/17 06:49 Plt Count 89 K/mm3 (140-440) L 09/21/17 06:49 Lymph % (Auto) 25.9 % (13.4-35.0) 09/20/17 18:53 [place] % (Auto) 7.1 % (0.0-7.3) 09/20/17 18:53 Eos % (Auto) 1.9 % (0.0-4.3) 09/20/17 18:53 Baso % (Auto) 0.7 % (0.0-1.8) 09/20/17 18:53 Lymph # 1.2 K/mm3 (1.2-5.4) 09/20/17 18:53 [place] # 0.3 K/mm3 (0.0-0.8) 09/20/17 18:53 Eos # 0.1 K/mm3 (0.0-0.4) 09/20/17 18:53 Baso # 0.0 K/mm3 (0.0-0.1) 09/20/17 18:53 Add Manual Diff Complete 09/21/17 06:49 Total Counted 100 09/21/17 06:49 Seg Neutrophils % 64.4 % (40.0-70.0) 09/20/17 18:53 Seg Neuts % (Manual) 57.0 % (40.0-70.0) 09/21/17 06:49 Band Neutrophils % 7.0 % 09/21/17 06:49 Lymphocytes % (Manual) 26.0 % (13.4-35.0) 09/21/17 06:49 Reactive Lymphs % (Man) 0 % 09/21/17 06:49 Monocytes % (Manual) 7.0 % (0.0-7.3) 09/21/17 06:49 Eosinophils % (Manual) 2.0 % (0.0-4.3) 09/21/17 06:49 Basophils % (Manual) 1.0 % (0.0-1.8) 09/21/17 06:49 Metamyelocytes % 0 % 09/21/17 06:49 Myelocytes % 0 % 09/21/17 06:49 Promyelocytes % 0 % 09/21/17 06:49 Blast Cells % 0 % 09/21/17 06:49 Nucleated RBC % Not Reportable 09/21/17 06:49 Seg Neutrophils # 2.9 K/mm3 (1.8-7.7) 09/20/17 18:53 Seg Neutrophils # Man 2.7 K/mm3 (1.8-7.7) 09/21/17 06:49 Band Neutrophils # 0.3 K/mm3 09/21/17 06:49 Lymphocytes # (Manual) 1.2 K/mm3 (1.2-5.4) 09/21/17 06:49 Abs React Lymphs (Man) 0.0 K/mm3 09/21/17 06:49 Monocytes # (Manual) 0.3 K/mm3 (0.0-0.8) 09/21/17 06:49 Eosinophils # (Manual) 0.1 K/mm3 (0.0-0.4) 09/21/17 06:49 Basophils # (Manual) 0.0 K/mm3 (0.0-0.1) 09/21/17 06:49 Metamyelocytes # 0.0 K/mm3 09/21/17 06:49 Myelocytes # 0.0 K/mm3 09/21/17 06:49 Promyelocytes # 0.0 K/mm3 09/21/17 06:49 Blast Cells # 0.0 K/mm3 09/21/17 06:49 Pathologist Review Not Reportable 09/11/17 09:29 WBC Morphology Not Reportable 09/21/17 06:49 Hypersegmented Neuts Not Reportable 09/21/17 06:49 Hyposegmented Neuts Not Reportable 09/21/17 06:49 Hypogranular Neuts Not Reportable 09/21/17 06:49 Smudge Cells Not Reportable 09/21/17 06:49 Toxic Granulation Not Reportable 09/21/17 06:49 Toxic Vacuolation Not Reportable 09/21/17 06:49 Dohle Bodies Not Reportable 09/21/17 06:49 Pelger-Huet Anomaly Not Reportable 09/21/17 06:49 Jose Rods Not Reportable 09/21/17 06:49 Platelet Estimate Consistent w auto 09/21/17 06:49 Clumped Platelets Not Reportable 09/21/17 06:49 Plt Clumps, EDTA Not Reportable 09/21/17 06:49 Large Platelets Not Reportable 09/21/17 06:49 Giant Platelets Not Reportable 09/21/17 06:49 Platelet Satelliting Not Reportable 09/21/17 06:49 Plt Morphology Comment Not Reportable 09/21/17 06:49 RBC Morphology Not Reportable 09/21/17 06:49 Dimorphic RBCs Not Reportable 09/21/17 06:49 Polychromasia Rare 09/21/17 06:49 Hypochromasia Not Reportable 09/21/17 06:49 Poikilocytosis Not Reportable 09/21/17 06:49 Anisocytosis 1+ 09/21/17 06:49 Microcytosis Not Reportable 09/21/17 06:49 Macrocytosis Not Reportable 09/21/17 06:49 Spherocytes Not Reportable 09/21/17 06:49 Pappenheimer Bodies Not Reportable 09/21/17 06:49 Sickle Cells Not Reportable 09/21/17 06:49 Target Cells Not Reportable 09/21/17 06:49 Tear Drop Cells Not Reportable 09/21/17 06:49 Ovalocytes Not Reportable 09/21/17 06:49 Helmet Cells Not Reportable 09/21/17 06:49 Li-[place] Bodies Not Reportable 09/21/17 06:49 [place] Rings Not Reportable 09/21/17 06:49 [place] Cells Not Reportable 09/21/17 06:49 Bite Cells Not Reportable 09/21/17 06:49 Crenated Cell Not Reportable 09/21/17 06:49 Elliptocytes Not Reportable 09/21/17 06:49 Acanthocytes (Spur) Not Reportable 09/21/17 06:49 Rouleaux Not Reportable 09/21/17 06:49 Hemoglobin C Crystals Not Reportable 09/21/17 06:49 Schistocytes Not Reportable 09/21/17 06:49 Malaria parasites Not Reportable 09/21/17 06:49 Percent Retic 3.68 % (0.78-2.58) H 09/14/17 10:46 Collins Bodies Not Reportable 09/21/17 06:49 Hem Pathologist Commnt No 09/21/17 06:49 PT 17.7 Sec. (12.2-14.9) H 09/20/17 13:40 INR 1.38 (0.87-1.13) H 09/20/17 13:40 APTT 37.1 Sec. (24.2-36.6) H 09/20/17 18:53 Fibrinogen 824 mg/dl (211-480) H 09/21/17 06:49 Heparin Anti-Xa Level < 0.10 U.I./ml (0.3-0.7) L 09/21/17 06:49 Heparin Anti-Xa, Unfract Negative (Negative) 09/14/17 08:46 Sodium 136 mmol/L (137-145) L 09/21/17 03:59 Potassium 3.7 mmol/L (3.6-5.0) 09/21/17 03:59 Chloride 99.0 mmol/L (98-107) 09/21/17 03:59 Carbon Dioxide 23 mmol/L (22-30) 09/21/17 03:59 Anion Gap 18 mmol/L 09/21/17 03:59 BUN 7 mg/dL (9-20) L 09/21/17 03:59 Creatinine 0.4 mg/dL (0.8-1.5) L 09/21/17 03:59 Estimated GFR > 60 ml/min 09/21/17 03:59 BUN/Creatinine Ratio 18 % 09/21/17 03:59 Glucose 102 mg/dL (75-100) H 09/21/17 03:59 POC Glucose 102 (70-105) 09/14/17 06:43 Hemoglobin A1c 5.4 % (4-6) 09/12/17 08:32 Lactic Acid 1.50 mmol/L (0.7-2.0) 09/11/17 09:29 Calcium 7.7 mg/dL (8.4-10.2) L 09/21/17 03:59 Iron 48 ug/dL (49-181) L 09/11/17 23:47 TIBC 233 mcg/dL (250-450) L 09/11/17 23:47 % Saturation 20.60 % 09/11/17 23:47 Transferrin 194 mg/dl (180-329) 09/11/17 23:47 Ferritin 1023.0 ng/mL (13.0-400.0) H 09/14/17 10:46 Total Bilirubin 0.40 mg/dL (0.1-1.2) 09/21/17 03:59 AST 15 units/L (5-40) 09/21/17 03:59 ALT < 5 units/L (7-56) L 09/21/17 03:59 Alkaline Phosphatase 473 units/L (35-129) H 09/21/17 03:59 Total Creatine Kinase 136 units/L (55-170) 09/11/17 09:29 Troponin T < 0.010 ng/mL (0.00-0.029) 09/15/17 23:15 C-Reactive Protein 21.40 mg/dL (0.00-1.30) H 09/21/17 13:01 Total Protein 5.2 g/dL (6.3-8.2) L 09/21/17 03:59 Albumin 2.8 g/dL (3.9-5) L 09/21/17 03:59 Albumin/Globulin Ratio 1.2 % 09/21/17 03:59 Prostate Specific Ag 1721.00 ng/mL (0.00-4.00) H 09/14/17 10:46 Serotonin Release Assay See scanned report 09/14/17 08:46 Vitamin B12 206.4 pg/mL (211-911) L 09/14/17 10:46 Folate 19.92 ng/mL (7.3-26.0) 09/14/17 10:46 Vancomycin Trough 12.8 ug/mL (5.0-20.0) 09/16/17 09:25 Heparin-induced Plt Ab Negative (Negative) 09/14/17 08:46 UF Heparin High Dose 0 % Release 09/14/17 08:46 ELENA UFH Low Dose 0.1 0 % Release 09/14/17 08:46 ELENA UFH Low Dose 0.5 0 % Release 09/14/17 08:46 Hep Bs Antigen Non-reactive (Negative) 09/14/17 10:46 Hepatitis C Antibody Non-reactive (NonReactive) 09/14/17 10:46 Blood Type B POSITIVE 09/21/17 07:52 Antibody Screen Negative 09/21/17 07:52 Crossmatch See Detail 09/21/17 07:52
--- NOTE | 2017-09-21 16:40 | Operative Report ---
Operative Report Operative Report: EXAM: LYTICS CATHETER REMOVAL, RIGHT LOWER EXTREMITY THROMBECTOMY, ANGIOPLASTY CLINICAL INDICATION: PATIENT WITH A HISTORY OF OCCLUDED RIGHT POPLITEAL ARTERY EXTENDING INTO THE TIBIAL VESSELS DATE: 09/21/2017 PROCEDURE: Following an excellent addition of the risks, benefits and alternatives; written informed consent was obtained. The patient was brought to the endoscopic suite and placed in supine position on the emanation table. Initial fluoroscopic imaging demonstrated appropriate positioning of the indwelling, lytics catheter. The patient's right groin and indwelling catheter were prepped and draped in the usual sterile fashion. One percent lidocaine was used for anesthesia. The infusion wire was removed. A 0.018 guidewire was then advanced down the posterior tibial artery and the infusion catheter removed. Contrast was then injected through the sheath antegrade which demonstrated significant reduction of the thrombus burden within the popliteal artery, posterior tibial artery and tibioperoneal trunk. There is however residual thrombus completely occluding the anterior tibial artery with significant thrombus burden just distal to the origin of the posterior tibial artery and peroneal artery. The guidewire and a vertebral catheter were then used to selectively cannulate the anterior tibial artery. Vertebral catheter was exchanged for no one a trailblazer catheter and together the catheter and guidewire advanced into the dorsalis pedis artery under fluoroscopy. Contrast was injected to document appropriate positioning. With the guidewire in the dorsalis pedis artery, aspiration thrombectomy was performed using a number from ectomy catheter from the origin of the anterior tibial artery to the dorsalis pedis artery. The guidewire was then manipulated sequentially into the posterior tibial artery and peroneal artery and additional mechanical thrombectomy performed. Lobectomy was also attempted and the popliteal artery as well. Post- thrombectomy angioplasty was performed using kissing 3 mm balloons in the posterior tibial artery extending from just distal to the origin into the popliteal artery through the tibioperoneal trunk. The balloons were insufflated to 6 suzy for 5 minutes. Post angioplasty imaging demonstrated improved in-line luminal flow extending from the popliteal artery to the foot. At this point, the catheters, guidewires and sheaths were removed and hemostasis achieved using a minx arterial closure device. A pressure dressing was then applied. The patient tolerated the procedure well. There were no immediate post procedure palpitations. Conscious sedation was performed under the guidance of radiologic nursing. Continuous cardiopulmonary monitoring was utilized. IMPRESSION: 1) Removal of thrombolytic catheter. 2) Right lower extremity angiogram demonstrating reduction of thrombus burden within the popliteal artery , posterior tibial artery and tibioperoneal trunk and peroneal artery. There is persistent occlusion of the anterior tibial artery at its origin. 3) Aspiration thrombectomy of the popliteal artery, tibioperoneal trunk, ulcer tibial artery and hernial artery. 4) Angioplasty of the peroneal artery and posterior tibial artery 5) The patient will need to have additional arterial intervention of his anterior tibial artery in approximately 4 weeks. He will need to remain on anticoagulation for at least 6 months
[2017-09-21] MEDS: ARGATROBAN 250 MG in NACL 0.9% 250ML 247.5 ML IV SCH ×2 (21:31→23:17)
[2017-09-21 22:47] LABS: Albumin 2.8 g/dL (3.9-5); BUN/Creatinine Ratio 15; Blood Urea Nitrogen 6 mg/dL (9-20); Calcium 8.2 mg/dL (8.4-10.2); Hemolysis Index 14; INR 1.58 (0.87-1.13)
[2017-09-21 22:52] LABS: Alanine Aminotransferase < 5 units/L (7-56)
[2017-09-22] MEDS: NORCO 5/325 PO PRN ×3 (04:21→17:39)
[2017-09-22] MEDS: UNASYN/NS 3 GM/100 ML 3 GM/100 ML BAG IV SCH ×4 (05:39→23:39)
[2017-09-22 07:23] LABS: BUN/Creatinine Ratio 14; Blood Urea Nitrogen 7 mg/dL (9-20); Calcium 7.7 mg/dL (8.4-10.2); Hemolysis Index 1
--- NOTE | 2017-09-22 07:39 | Progress Note ---
Assessment and Plan Assessment and plan: 66-year-old -[place] male with pmh of Prostate Cancer LBP and BPH presents to the emergency department with complaint of swelling to the right foot for the past week. The patient is noted to have a blackened and necrotic appearing right great toe. Dry eschar on Rt great Toe.No drainage. He says that it is been like this for the past couple weeks. He says he has been talking about seeing a physician regarding these symptoms but has not yet done so. He has a past medical history of prostate cancer and some chronic back pains. He has not taken anything for his symptoms prior presentation. Osteomyelitis of toe of right foot Continue IV abx for now-Unasyn w/u to r/o PAD Duplex doppler LE showed OCCLUDED RT.POP ARTERY AND RT.DPA WITH THROMBUS NOTED. 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 Will switch to heparin. stop AGATROBAN drip. Per vascular will need senior care abticoagulation. con Thrombocytopenia- Monitor for any bleeding and transfuse if plt below 20,000 per Hematology recommendation Anemia-Monitor. likely secondary to to prostate cancer. s/p Transfusion 2 units of packed red blood cells on 09/11. Will transfuse 2 PRBC today BPH (benign prostatic hyperplasia) Continue Tamsulosin. Chronic pain due to neoplasm * continue his home medications. * Opioid makes patient delirious SEVERE PAD (peripheral artery disease) S/P Thrombectomy. Occluded R POP artery vascular following pt for thrombectomy today. Fenestrate catheter removed today Vascular and ID following. Per vascular IMPRESSION: 1) Removal of thrombolytic catheter. 2) Right lower extremity angiogram demonstrating reduction of thrombus burden within the popliteal artery , posterior tibial artery and tibioperoneal trunk and peroneal artery. There is persistent occlusion of the anterior tibial artery at its origin. 3) Aspiration thrombectomy of the popliteal artery, tibioperoneal trunk, ulcer tibial artery and hernial artery. 4) Angioplasty of the peroneal artery and posterior tibial artery 5) The patient will need to have additional arterial intervention of his anterior tibial artery in approximately 4 weeks. He will need to remain on anticoagulation for at least 6 months Nicotine dependence Pt counseled on cessation Nicoderm patch ordered DVT/GI prophy Discuss with vascular/ID and heme about discharge History Interval history: Patient seen and examined in no acute distress. complains of leg pain. also chronic back pain. no shortness of breath Hospitalist Physical - Physical exam Narrative exam: - EENT Eyes: Present: PERRL, EOM intact ENT: hearing intact, clear oral mucosa - Neck Neck: Present: supple, normal ROM - Respiratory Respiratory effort: normal Respiratory: bilateral: diminished - Cardiovascular Rhythm: regular Heart Sounds: Present: S1 & S2 - Extremities Extremity abnormal: other (right great toe gangrene, right 2nd toe gangrene), diminished pulses to right lower ext - Abdominal General gastrointestinal: soft, non-tender, non-distended, normal bowel sounds - Integumentary Integumentary: Present: clear, warm, edema right - Psychiatric Psychiatric: appropriate mood/affect, cooperative - Neurologic Neurologic: CNII-XII intact, moves all extremities, although limited in lower ext - Constitutional Vitals: Temp Pulse Resp BP Pulse Ox 99.0 F 94 H 18 126/70 97 09/21/17 23:09 09/21/17 23:09 09/21/17 23:09 09/21/17 23:09 09/21/17 23:09 General appearance: Present: no acute distress, well-nourished Results - Labs CBC & Chem 7: 09/22/17 07:47 09/22/17 05:55 Labs: Laboratory Last Values WBC 4.7 K/mm3 (4.5-11.0) 09/21/17 06:49 RBC 2.19 M/mm3 (3.65-5.03) L 09/21/17 06:49 Hgb 6.4 gm/dl (11.8-15.2) L 09/21/17 06:49 Hct 19.7 % (35.5-45.6) L* 09/21/17 06:49 MCV 90 fl (84-94) 09/21/17 06:49 MCH 29 pg (28-32) 09/21/17 06:49 MCHC 32 % (32-34) 09/21/17 06:49 RDW 17.1 % (13.2-15.2) H 09/21/17 06:49 Plt Count 89 K/mm3 (140-440) L 09/21/17 06:49 Lymph % (Auto) 25.9 % (13.4-35.0) 09/20/17 18:53 [place] % (Auto) 7.1 % (0.0-7.3) 09/20/17 18:53 Eos % (Auto) 1.9 % (0.0-4.3) 09/20/17 18:53 Baso % (Auto) 0.7 % (0.0-1.8) 09/20/17 18:53 Lymph # 1.2 K/mm3 (1.2-5.4) 09/20/17 18:53 [place] # 0.3 K/mm3 (0.0-0.8) 09/20/17 18:53 Eos # 0.1 K/mm3 (0.0-0.4) 09/20/17 18:53 Baso # 0.0 K/mm3 (0.0-0.1) 09/20/17 18:53 Add Manual Diff Complete 09/21/17 06:49 Total Counted 100 09/21/17 06:49 Seg Neutrophils % 64.4 % (40.0-70.0) 09/20/17 18:53 Seg Neuts % (Manual) 57.0 % (40.0-70.0) 09/21/17 06:49 Band Neutrophils % 7.0 % 09/21/17 06:49 Lymphocytes % (Manual) 26.0 % (13.4-35.0) 09/21/17 06:49 Reactive Lymphs % (Man) 0 % 09/21/17 06:49 Monocytes % (Manual) 7.0 % (0.0-7.3) 09/21/17 06:49 Eosinophils % (Manual) 2.0 % (0.0-4.3) 09/21/17 06:49 Basophils % (Manual) 1.0 % (0.0-1.8) 09/21/17 06:49 Metamyelocytes % 0 % 09/21/17 06:49 Myelocytes % 0 % 09/21/17 06:49 Promyelocytes % 0 % 09/21/17 06:49 Blast Cells % 0 % 09/21/17 06:49 Nucleated RBC % Not Reportable 09/21/17 06:49 Seg Neutrophils # 2.9 K/mm3 (1.8-7.7) 09/20/17 18:53 Seg Neutrophils # Man 2.7 K/mm3 (1.8-7.7) 09/21/17 06:49 Band Neutrophils # 0.3 K/mm3 09/21/17 06:49 Lymphocytes # (Manual) 1.2 K/mm3 (1.2-5.4) 09/21/17 06:49 Abs React Lymphs (Man) 0.0 K/mm3 09/21/17 06:49 Monocytes # (Manual) 0.3 K/mm3 (0.0-0.8) 09/21/17 06:49 Eosinophils # (Manual) 0.1 K/mm3 (0.0-0.4) 09/21/17 06:49 Basophils # (Manual) 0.0 K/mm3 (0.0-0.1) 09/21/17 06:49 Metamyelocytes # 0.0 K/mm3 09/21/17 06:49 Myelocytes # 0.0 K/mm3 09/21/17 06:49 Promyelocytes # 0.0 K/mm3 09/21/17 06:49 Blast Cells # 0.0 K/mm3 09/21/17 06:49 Pathologist Review Not Reportable 09/11/17 09:29 WBC Morphology Not Reportable 09/21/17 06:49 Hypersegmented Neuts Not Reportable 09/21/17 06:49 Hyposegmented Neuts Not Reportable 09/21/17 06:49 Hypogranular Neuts Not Reportable 09/21/17 06:49 Smudge Cells Not Reportable 09/21/17 06:49 Toxic Granulation Not Reportable 09/21/17 06:49 Toxic Vacuolation Not Reportable 09/21/17 06:49 Dohle Bodies Not Reportable 09/21/17 06:49 Pelger-Huet Anomaly Not Reportable 09/21/17 06:49 Jose Rods Not Reportable 09/21/17 06:49 Platelet Estimate Consistent w auto 09/21/17 06:49 Clumped Platelets Not Reportable 09/21/17 06:49 Plt Clumps, EDTA Not Reportable 09/21/17 06:49 Large Platelets Not Reportable 09/21/17 06:49 Giant Platelets Not Reportable 09/21/17 06:49 Platelet Satelliting Not Reportable 09/21/17 06:49 Plt Morphology Comment Not Reportable 09/21/17 06:49 RBC Morphology Not Reportable 09/21/17 06:49 Dimorphic RBCs Not Reportable 09/21/17 06:49 Polychromasia Rare 09/21/17 06:49 Hypochromasia Not Reportable 09/21/17 06:49 Poikilocytosis Not Reportable 09/21/17 06:49 Anisocytosis 1+ 09/21/17 06:49 Microcytosis Not Reportable 09/21/17 06:49 Macrocytosis Not Reportable 09/21/17 06:49 Spherocytes Not Reportable 09/21/17 06:49 Pappenheimer Bodies Not Reportable 09/21/17 06:49 Sickle Cells Not Reportable 09/21/17 06:49 Target Cells Not Reportable 09/21/17 06:49 Tear Drop Cells Not Reportable 09/21/17 06:49 Ovalocytes Not Reportable 09/21/17 06:49 Helmet Cells Not Reportable 09/21/17 06:49 Li-[place] Bodies Not Reportable 09/21/17 06:49 [place] Rings Not Reportable 09/21/17 06:49 [place] Cells Not Reportable 09/21/17 06:49 Bite Cells Not Reportable 09/21/17 06:49 Crenated Cell Not Reportable 09/21/17 06:49 Elliptocytes Not Reportable 09/21/17 06:49 Acanthocytes (Spur) Not Reportable 09/21/17 06:49 Rouleaux Not Reportable 09/21/17 06:49 Hemoglobin C Crystals Not Reportable 09/21/17 06:49 Schistocytes Not Reportable 09/21/17 06:49 Malaria parasites Not Reportable 09/21/17 06:49 Percent Retic 3.68 % (0.78-2.58) H 09/14/17 10:46 Collins Bodies Not Reportable 09/21/17 06:49 Hem Pathologist Commnt No 09/21/17 06:49 PT 19.8 Sec. (12.2-14.9) H 09/21/17 21:53 INR 1.58 (0.87-1.13) H 09/21/17 21:53 APTT 56.5 Sec. (24.2-36.6) H 09/21/17 23:27 Fibrinogen 824 mg/dl (211-480) H 09/21/17 06:49 Heparin Anti-Xa Level < 0.10 U.I./ml (0.3-0.7) L 09/21/17 06:49 Heparin Anti-Xa, Unfract Negative (Negative) 09/14/17 08:46 Sodium 140 mmol/L (137-145) 09/22/17 05:55 Potassium 3.1 mmol/L (3.6-5.0) L 09/22/17 05:55 Chloride 100.7 mmol/L (98-107) 09/22/17 05:55 Carbon Dioxide 21 mmol/L (22-30) L 09/22/17 05:55 Anion Gap 21 mmol/L 09/22/17 05:55 BUN 7 mg/dL (9-20) L 09/22/17 05:55 Creatinine 0.5 mg/dL (0.8-1.5) L 09/22/17 05:55 Estimated GFR > 60 ml/min 09/22/17 05:55 BUN/Creatinine Ratio 14 % 09/22/17 05:55 Glucose 93 mg/dL (75-100) 09/22/17 05:55 POC Glucose 102 (70-105) 09/14/17 06:43 Hemoglobin A1c 5.4 % (4-6) 09/12/17 08:32 Lactic Acid 1.50 mmol/L (0.7-2.0) 09/11/17 09:29 Calcium 7.7 mg/dL (8.4-10.2) L 09/22/17 05:55 Iron 48 ug/dL (49-181) L 09/11/17 23:47 TIBC 233 mcg/dL (250-450) L 09/11/17 23:47 % Saturation 20.60 % 09/11/17 23:47 Transferrin 194 mg/dl (180-329) 09/11/17 23:47 Ferritin 1023.0 ng/mL (13.0-400.0) H 09/14/17 10:46 Total Bilirubin 0.50 mg/dL (0.1-1.2) 09/21/17 21:53 AST 13 units/L (5-40) 09/21/17 21:53 ALT < 5 units/L (7-56) L 09/21/17 21:53 Alkaline Phosphatase 414 units/L (35-129) H 09/21/17 21:53 Total Creatine Kinase 136 units/L (55-170) 09/11/17 09:29 Troponin T < 0.010 ng/mL (0.00-0.029) 09/15/17 23:15 C-Reactive Protein 21.40 mg/dL (0.00-1.30) H 09/21/17 13:01 Total Protein 5.8 g/dL (6.3-8.2) L 09/21/17 21:53 Albumin 2.8 g/dL (3.9-5) L 09/21/17 21:53 Albumin/Globulin Ratio 0.9 % 09/21/17 21:53 Prostate Specific Ag 1721.00 ng/mL (0.00-4.00) H 09/14/17 10:46 Serotonin Release Assay See scanned report 09/14/17 08:46 Vitamin B12 206.4 pg/mL (211-911) L 09/14/17 10:46 Folate 19.92 ng/mL (7.3-26.0) 09/14/17 10:46 Vancomycin Trough 12.8 ug/mL (5.0-20.0) 09/16/17 09:25 Heparin-induced Plt Ab Negative (Negative) 09/14/17 08:46 UF Heparin High Dose 0 % Release 09/14/17 08:46 ELENA UFH Low Dose 0.1 0 % Release 09/14/17 08:46 ELENA UFH Low Dose 0.5 0 % Release 09/14/17 08:46 Hep Bs Antigen Non-reactive (Negative) 09/14/17 10:46 Hepatitis C Antibody Non-reactive (NonReactive) 09/14/17 10:46 Blood Type B POSITIVE 09/21/17 07:52 Antibody Screen Negative 09/21/17 07:52 Crossmatch See Detail 09/21/17 07:52
[2017-09-22 08:19] LABS: Hemoglobin 8.7 gm/dl (11.8-15.2); Mean Corpuscular HGB Conc 33 % (32-34); Mean Corpuscular Hemoglobin 30 pg (28-32); Mean Corpuscular Volume 89 fl (84-94); Red Blood Count 2.91 M/mm3 (3.65-5.03); Red Cell Distribution Width 16.4 % (13.2-15.2)
[2017-09-22 08:20] LABS: Platelet Count 84 K/mm3 (140-440)
[2017-09-22 09:58] LABS: Band Neutrophils # (Manual) 0.4 K/mm3; Basophils % (Manual) 0 % (0.0-1.8); Total Cells Counted 100
[2017-09-22 09:59] LABS: Anisocytosis 1+; Platelet Estimate Consistent w Auto; Tear Drop Cells Rare
--- NOTE | 2017-09-22 10:22 | Progress Note ---
<ASHOK JOYCE - Last Filed: 09/22/17 13:05> Assessment and Plan Assessment: 1) Sepsis: Better. Etiology most likely gangrene of right toe? prostate cancer with metastasis? -CRP = 15.70 -blood cultures 09/11 ngtd -CTA showed bilateral common iliac arteries are dilated and measure 133 mm in diameter -Duplex doppler LE showed OCCLUDED RT.POP ARTERY AND RT.DPA WITH THROMBUS NOTED.MULTIPHASIC WAVEFORMS THROUGHOUT VESSELS INTERROGATED EXCEPT FOR MONOPHASIC WAVEFORMS OBTAINED IN THE RT.COMPUTER ENGINEERING TECHNOLOGIST AND RT.BRISA.BLE ARTERIAL DUPLEX 2) Right great toe ulcer/gangrene. Possible osteomyelitis right great toe culture negative -BLE VEIN MAPPING PRELIMINARY REPORT showed LT.GSV APPEARS THROMBOSED FROM TAKE-OFF UP TO THE MEDIAL MALLEOLUS AND BOTH LSV'S APPEAR THROMBOSED TOO -s/p Pharmacologic thrombectomy of the right popliteal artery, Suction thrombectomy of the right popliteal artery, Orbital atherectomy of the popliteal artery with a InboxFever orbital atherectomy device and Placement of an Ekos catheter and the popliteal and right posterior tibial arteries on 09/20 3) Prostate CA with metastasis 4) BPH 5) Thrombocytopenia and anemia, stable Plan: -continue unasyn day 11 -continue monitor flow recovery and need for amputation -if amputation, will stop IV abx and start po abx for 7 days -if not amputation then IV abx 4-6 weeks if flow is patent -f/u wtih Dr. Villafana if debrigement is needed Thank you Dr. Saavedra for your consult, will follow up SARAH Figueroa for Dr. Hannah Ventura MD Infectious Diseases Specialist [facility] ([facility] M [phone] O [phone] Subjective Date of service: 09/22/17 Principal diagnosis: right toe gangrene,prostate cnacer Interval history: I am sleepy, no fever Microbiology: Blood cultures: 09/11 ngtd Urine cultures: none Respiratory cultures: Current Antimicrobials: unasyn 09/12 Previous Antimicrobials: ceftriaxone vacomycin 09/11 Objective - Exam Narrative Exam: General appearance: Alert in NAD, conversant Eyes: anicteric sclerae, moist conjunctivae; no lid-lag; PERRLA HENT: Atraumatic; oropharynx clear with moist mucous membranes and no mucosal ulcerations/no oral thrush; Neck: Trachea midline; supple, no thyromegaly or lymphadenopathy Lungs: breath sounds diminished bilaterally CV: RRR, no murmurs Abdomen: Soft, non-tender; +BS x 4 Extremities: right great toe gangrene, right 2nd toe gangrene Skin: pasha groin surg wound no bleeding or hematoma Psych: Appropriate affect, calm and cooperative Neuro: alert and oriented x 3. Moving all extermities Lines: No CVL / PICC - Constitutional Vitals: Vital Signs Temp Pulse Resp BP Pulse Ox 98.7 F 85 18 113/70 97 09/22/17 08:00 09/22/17 08:00 09/22/17 08:00 09/22/17 08:00 09/22/17 08:00 Temperature -Last 24 Hours Temperature 98.7 F Temperature 99.0 F Temperature 98.2 F Temperature 98.4 F Temperature 98.2 F Temperature 98.2 F Temperature 98.3 F Temperature 98.4 F Temperature 98.3 F Temperature 98.4 F Temperature 98.4 F Temperature 98.3 F Temperature 98.4 F Temperature 98.4 F Temperature 98.4 F Temperature 98.3 F Temperature 98.2 F Temperature 97.3 F Temperature 98.2 F Temperature 98.2 F Temperature 97.6 F Temperature 98.2 F - Labs CBC & Chem 7: 09/22/17 07:47 09/22/17 05:55 Labs: Abnormal lab results 09/11/17 09/21/17 09/21/17 Range/Units 10:13 07:52 13:01 RBC (3.65-5.03) M/mm3 Hgb (11.8-15.2) gm/dl Hct (35.5-45.6) % RDW (13.2-15.2) % Plt Count (140-440) K/mm3 Lymphocytes # (Manual) (1.2-5.4) K/mm3 PT (12.2-14.9) Sec. INR (0.87-1.13) APTT (24.2-36.6) Sec. Sodium (137-145) mmol/L Potassium (3.6-5.0) mmol/L Chloride (98-107) mmol/L Carbon Dioxide (22-30) mmol/L BUN (9-20) mg/dL Creatinine (0.8-1.5) mg/dL Calcium (8.4-10.2) mg/dL ALT (7-56) units/L Alkaline Phosphatase (35-129) units/L C-Reactive Protein 21.40 H (0.00-1.30) mg/dL Total Protein (6.3-8.2) g/dL Albumin (3.9-5) g/dL Crossmatch See Detail See Detail 09/21/17 09/21/17 09/21/17 Range/Units 21:53 21:53 23:27 RBC (3.65-5.03) M/mm3 Hgb (11.8-15.2) gm/dl Hct (35.5-45.6) % RDW (13.2-15.2) % Plt Count (140-440) K/mm3 Lymphocytes # (Manual) (1.2-5.4) K/mm3 PT 19.8 H (12.2-14.9) Sec. INR 1.58 H (0.87-1.13) APTT 56.5 H (24.2-36.6) Sec. Sodium 134 L (137-145) mmol/L Potassium (3.6-5.0) mmol/L Chloride 97.2 L (98-107) mmol/L Carbon Dioxide (22-30) mmol/L BUN 6 L (9-20) mg/dL Creatinine 0.4 L (0.8-1.5) mg/dL Calcium 8.2 L (8.4-10.2) mg/dL ALT < 5 L (7-56) units/L Alkaline Phosphatase 414 H (35-129) units/L C-Reactive Protein (0.00-1.30) mg/dL Total Protein 5.8 L (6.3-8.2) g/dL Albumin 2.8 L (3.9-5) g/dL Crossmatch 09/22/17 09/22/17 Range/Units 05:55 07:47 RBC 2.91 L (3.65-5.03) M/mm3 Hgb 8.7 L (11.8-15.2) gm/dl Hct 26.0 L D (35.5-45.6) % RDW 16.4 H (13.2-15.2) % Plt Count 84 L (140-440) K/mm3 Lymphocytes # (Manual) 1.0 L (1.2-5.4) K/mm3 PT (12.2-14.9) Sec. INR (0.87-1.13) APTT (24.2-36.6) Sec. Sodium (137-145) mmol/L Potassium 3.1 L (3.6-5.0) mmol/L Chloride (98-107) mmol/L Carbon Dioxide 21 L (22-30) mmol/L BUN 7 L (9-20) mg/dL Creatinine 0.5 L (0.8-1.5) mg/dL Calcium 7.7 L (8.4-10.2) mg/dL ALT (7-56) units/L Alkaline Phosphatase (35-129) units/L C-Reactive Protein (0.00-1.30) mg/dL Total Protein (6.3-8.2) g/dL Albumin (3.9-5) g/dL Crossmatch <HANNAH JACKSON - Last Filed: 09/22/17 16:10> Assessment and Plan I have personally interviewed and examined patient. I personally discussed and directed assessment and management with FLEXIBLE SHAFT WINDER Nballu. Per Dr Villafana patient is refusing debridement. Will arrange IV abx for 6 weeks. Hannah Meeks MD Objective - Constitutional Vitals: Vital Signs Temp Pulse Resp BP Pulse Ox 98.7 F 85 18 113/70 97 09/22/17 08:00 09/22/17 08:00 09/22/17 08:00 09/22/17 08:00 09/22/17 08:00 Temperature -Last 24 Hours Temperature 98.7 F Temperature 99.0 F Temperature 98.2 F Temperature 98.4 F Temperature 98.2 F Temperature 98.2 F Temperature 98.3 F Temperature 98.4 F Temperature 98.3 F Temperature 98.4 F Temperature 98.4 F Temperature 98.3 F Temperature 98.4 F Temperature 98.4 F - Labs CBC & Chem 7: 09/22/17 07:47 09/22/17 05:55 Labs: Abnormal lab results 09/21/17 09/21/17 09/21/17 Range/Units 07:52 21:53 21:53 RBC (3.65-5.03) M/mm3 Hgb (11.8-15.2) gm/dl Hct (35.5-45.6) % RDW (13.2-15.2) % Plt Count (140-440) K/mm3 Lymphocytes # (Manual) (1.2-5.4) K/mm3 PT 19.8 H (12.2-14.9) Sec. INR 1.58 H (0.87-1.13) APTT (24.2-36.6) Sec. Sodium 134 L (137-145) mmol/L Potassium (3.6-5.0) mmol/L Chloride 97.2 L (98-107) mmol/L Carbon Dioxide (22-30) mmol/L BUN 6 L (9-20) mg/dL Creatinine 0.4 L (0.8-1.5) mg/dL Calcium 8.2 L (8.4-10.2) mg/dL ALT < 5 L (7-56) units/L Alkaline Phosphatase 414 H (35-129) units/L Total Protein 5.8 L (6.3-8.2) g/dL Albumin 2.8 L (3.9-5) g/dL Crossmatch See Detail 09/21/17 09/22/17 09/22/17 Range/Units 23:27 05:55 07:47 RBC 2.91 L (3.65-5.03) M/mm3 Hgb 8.7 L (11.8-15.2) gm/dl Hct 26.0 L D (35.5-45.6) % RDW 16.4 H (13.2-15.2) % Plt Count 84 L (140-440) K/mm3 Lymphocytes # (Manual) 1.0 L (1.2-5.4) K/mm3 PT (12.2-14.9) Sec. INR (0.87-1.13) APTT 56.5 H (24.2-36.6) Sec. Sodium (137-145) mmol/L Potassium 3.1 L (3.6-5.0) mmol/L Chloride (98-107) mmol/L Carbon Dioxide 21 L (22-30) mmol/L BUN 7 L (9-20) mg/dL Creatinine 0.5 L (0.8-1.5) mg/dL Calcium 7.7 L (8.4-10.2) mg/dL ALT (7-56) units/L Alkaline Phosphatase (35-129) units/L Total Protein (6.3-8.2) g/dL Albumin (3.9-5) g/dL Crossmatch 09/22/17 Range/Units 12:57 RBC (3.65-5.03) M/mm3 Hgb (11.8-15.2) gm/dl Hct (35.5-45.6) % RDW (13.2-15.2) % Plt Count (140-440) K/mm3 Lymphocytes # (Manual) (1.2-5.4) K/mm3 PT (12.2-14.9) Sec. INR (0.87-1.13) APTT 67.7 H* (24.2-36.6) Sec. Sodium (137-145) mmol/L Potassium (3.6-5.0) mmol/L Chloride (98-107) mmol/L Carbon Dioxide (22-30) mmol/L BUN (9-20) mg/dL Creatinine (0.8-1.5) mg/dL Calcium (8.4-10.2) mg/dL ALT (7-56) units/L Alkaline Phosphatase (35-129) units/L Total Protein (6.3-8.2) g/dL Albumin (3.9-5) g/dL Crossmatch
[2017-09-22] MEDS: HABITROL TD SCH (10:24)
[2017-09-22] MEDS: FOLVITE PO SCH (10:25)
[2017-09-22] MEDS: FLOMAX PO SCH (10:25)
[2017-09-22] MEDS: PEPCID PO SCH ×2 (10:25→21:01)
--- NOTE | 2017-09-22 10:50 | Hem/Onc Progress Note ---
Assessment and Plan - Patient Problems (1) Prostate CA Current Visit: Yes Status: Acute Plan to address problem: Monitor as outpatient (2) Thrombocytopenia Current Visit: Yes Status: Acute Plan to address problem: Stable, monitor Subjective Date of service: 09/22/17 Interval history: He has chronic extremity pain. No bleeding Objective - Constitutional Vitals: Last Vital Signs Temp 98.7 F 09/22/17 08:00 Pulse 85 09/22/17 08:00 Resp 18 09/22/17 08:00 BP 113/70 09/22/17 08:00 Pulse Ox 97 09/22/17 08:00 - EENT ENT: hearing intact Lymph node exam: negative cervical - Neck Neck: supple - Respiratory Respiratory effort: Positive: normal - Labs Lab Results: Laboratory Results - last 24 hr 09/11/17 09/21/17 09/21/17 10:13 07:52 13:01 WBC RBC Hgb Hct MCV MCH MCHC RDW Plt Count Add Manual Diff Total Counted Seg Neuts % (Manual) Band Neutrophils % Lymphocytes % (Manual) Reactive Lymphs % (Man) Monocytes % (Manual) Eosinophils % (Manual) Basophils % (Manual) Metamyelocytes % Myelocytes % Promyelocytes % Blast Cells % Nucleated RBC % Seg Neutrophils # Man Band Neutrophils # Lymphocytes # (Manual) Abs React Lymphs (Man) Monocytes # (Manual) Eosinophils # (Manual) Basophils # (Manual) Metamyelocytes # Myelocytes # Promyelocytes # Blast Cells # WBC Morphology Hypersegmented Neuts Hyposegmented Neuts Hypogranular Neuts Smudge Cells Toxic Granulation Toxic Vacuolation Dohle Bodies Pelger-Huet Anomaly Jose Rods Platelet Estimate Clumped Platelets Plt Clumps, EDTA Large Platelets Giant Platelets Platelet Satelliting Plt Morphology Comment RBC Morphology Dimorphic RBCs Polychromasia Hypochromasia Poikilocytosis Anisocytosis Microcytosis Macrocytosis Spherocytes Pappenheimer Bodies Sickle Cells Target Cells Tear Drop Cells Ovalocytes Helmet Cells Li-Deland Bodies [place] Rings Jenae Cells Bite Cells Crenated Cell Elliptocytes Acanthocytes (Spur) Rouleaux Hemoglobin C Crystals Schistocytes Malaria parasites Collins Bodies Hem Pathologist Commnt PT INR APTT Sodium Potassium Chloride Carbon Dioxide Anion Gap BUN Creatinine Estimated GFR BUN/Creatinine Ratio Glucose Calcium Total Bilirubin AST ALT Alkaline Phosphatase C-Reactive Protein 21.40 H Total Protein Albumin Albumin/Globulin Ratio Blood Type B POSITIVE Antibody Screen Negative Crossmatch See Detail See Detail 09/21/17 09/21/17 09/21/17 21:53 21:53 23:27 WBC RBC Hgb Hct MCV MCH MCHC RDW Plt Count Add Manual Diff Total Counted Seg Neuts % (Manual) Band Neutrophils % Lymphocytes % (Manual) Reactive Lymphs % (Man) Monocytes % (Manual) Eosinophils % (Manual) Basophils % (Manual) Metamyelocytes % Myelocytes % Promyelocytes % Blast Cells % Nucleated RBC % Seg Neutrophils # Man Band Neutrophils # Lymphocytes # (Manual) Abs React Lymphs (Man) Monocytes # (Manual) Eosinophils # (Manual) Basophils # (Manual) Metamyelocytes # Myelocytes # Promyelocytes # Blast Cells # WBC Morphology Hypersegmented Neuts Hyposegmented Neuts Hypogranular Neuts Smudge Cells Toxic Granulation Toxic Vacuolation Dohle Bodies Pelger-Huet Anomaly Jose Rods Platelet Estimate Clumped Platelets Plt Clumps, EDTA Large Platelets Giant Platelets Platelet Satelliting Plt Morphology Comment RBC Morphology Dimorphic RBCs Polychromasia Hypochromasia Poikilocytosis Anisocytosis Microcytosis Macrocytosis Spherocytes Pappenheimer Bodies Sickle Cells Target Cells Tear Drop Cells Ovalocytes Helmet Cells Li-Deland Bodies [place] Rings Isabella Cells Bite Cells Crenated Cell Elliptocytes Acanthocytes (Spur) Rouleaux Hemoglobin C Crystals Schistocytes Malaria parasites Collins Bodies Hem Pathologist Commnt PT 19.8 H INR 1.58 H APTT 56.5 H Sodium 134 L Potassium 3.6 Chloride 97.2 L Carbon Dioxide 22 Anion Gap 18 BUN 6 L Creatinine 0.4 L Estimated GFR > 60 BUN/Creatinine Ratio 15 Glucose 85 Calcium 8.2 L Total Bilirubin 0.50 AST 13 ALT < 5 L Alkaline Phosphatase 414 H C-Reactive Protein Total Protein 5.8 L Albumin 2.8 L Albumin/Globulin Ratio 0.9 Blood Type Antibody Screen Crossmatch 09/22/17 09/22/17 05:55 07:47 WBC 4.6 RBC 2.91 L Hgb 8.7 L Hct 26.0 L D MCV 89 MCH 30 MCHC 33 RDW 16.4 H Plt Count 84 L Add Manual Diff Complete Total Counted 100 Seg Neuts % (Manual) 62.0 Band Neutrophils % 9.0 Lymphocytes % (Manual) 21.0 Reactive Lymphs % (Man) 0 Monocytes % (Manual) 6.0 Eosinophils % (Manual) 2.0 Basophils % (Manual) 0 Metamyelocytes % 0 Myelocytes % 0 Promyelocytes % 0 Blast Cells % 0 Nucleated RBC % Not Reportable Seg Neutrophils # Man 2.9 Band Neutrophils # 0.4 Lymphocytes # (Manual) 1.0 L Abs React Lymphs (Man) 0.0 Monocytes # (Manual) 0.3 Eosinophils # (Manual) 0.1 Basophils # (Manual) 0.0 Metamyelocytes # 0.0 Myelocytes # 0.0 Promyelocytes # 0.0 Blast Cells # 0.0 WBC Morphology Not Reportable Hypersegmented Neuts Not Reportable Hyposegmented Neuts Not Reportable Hypogranular Neuts Not Reportable Smudge Cells Not Reportable Toxic Granulation Not Reportable Toxic Vacuolation Not Reportable Dohle Bodies Not Reportable Pelger-Huet Anomaly Not Reportable Jose Rods Not Reportable Platelet Estimate Consistent w auto Clumped Platelets Not Reportable Plt Clumps, EDTA Not Reportable Large Platelets Not Reportable Giant Platelets Not Reportable Platelet Satelliting Not Reportable Plt Morphology Comment Not Reportable RBC Morphology Not Reportable Dimorphic RBCs Not Reportable Polychromasia Rare Hypochromasia Not Reportable Poikilocytosis Not Reportable Anisocytosis 1+ Microcytosis Not Reportable Macrocytosis Not Reportable Spherocytes Not Reportable Pappenheimer Bodies Not Reportable Sickle Cells Not Reportable Target Cells Not Reportable Tear Drop Cells Rare Ovalocytes Not Reportable Helmet Cells Not Reportable Li-Deland Bodies Not Reportable [place] Rings Not Reportable Isabella Cells Not Reportable Bite Cells Not Reportable Crenated Cell Not Reportable Elliptocytes Not Reportable Acanthocytes (Spur) Not Reportable Rouleaux Not Reportable Hemoglobin C Crystals Not Reportable Schistocytes Not Reportable Malaria parasites Not Reportable Collins Bodies Not Reportable Hem Pathologist Commnt No PT INR APTT Sodium 140 Potassium 3.1 L Chloride 100.7 Carbon Dioxide 21 L Anion Gap 21 BUN 7 L Creatinine 0.5 L Estimated GFR > 60 BUN/Creatinine Ratio 14 Glucose 93 Calcium 7.7 L Total Bilirubin AST ALT Alkaline Phosphatase C-Reactive Protein Total Protein Albumin Albumin/Globulin Ratio Blood Type Antibody Screen Crossmatch
[2017-09-22] MEDS: DILAUDID IV PRN ×3 (14:36→23:37)
--- NOTE | 2017-09-22 14:59 | Consultation ---
History of Present Illness Consult date: 09/22/17 Requesting physician: GERBER GAN Consult reason: pre op evaluation History of present illness: The pt is a 66-year-old male with a past medical history significant for prostate CA, BPH, tobacco use (smokes 1PPD) and ETOH use (drinks 1/2 pint vodka per day). He is previously unknown to our practice. He presented with c/o right foot pain with blackened right great toe for 3-4 weeks prior to arrival. He also c/o an intermittent, nonexertional "blowing up" sensation inside of his chest. He is a rather poor historian and provides no additional details. 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 Pt was found to have complete occlusion of the right popliteal artery and underwent mechanical and suction thrombectomy and orbital atherectomy with EKOS lytic catheter placement on 09/20. EKOS catheter was removed on 09/21 and per vascular surgery, the patient will need to have additional arterial intervention of his anterior tibial artery in approximately 4 weeks and he will need to remain on anticoagulation for at least 6 months. Per pt, he may require amputation. Per vascular team, suspect pt's occlusion is related to embolic event and cardiology evaluation has been requested to evaluate for a possible cardiac origin and also for pre-operative cardiac evaluation and clearance. Past History Past Medical History: cancer (prostate cancer) Social history: smoking, alcohol abuse, other (marijuana and cocaine) Medications and Allergies Allergies Allergy/AdvReac Type Severity Reaction Status Date / Time No Known Allergies Allergy Unverified 09/11/17 08:29 Home Medications Medication Instructions Recorded Confirmed Last Taken Type Colace CAP 100 mg PO BID 09/14/17 09/14/17 Unknown History Enoxaparin Sodium 60 mg IM Q12H 09/14/17 09/14/17 09/10/17 History Flomax 0.4 mg PO DAILY 09/14/17 09/14/17 Unknown History Folic Acid [Folvite] 1 mg PO DAILY 09/14/17 09/14/17 Unknown History Gabapentin [Neurontin] 300 mg PO Q8H 09/14/17 09/14/17 09/10/17 History Miralax 3350 17 gm PO DAILY 09/14/17 09/14/17 Unknown History Oxycodone HCl 30 mg PO Q6H PRN 09/14/17 09/14/17 Unknown History Senna 8.6 mg PO QHS 09/14/17 09/14/17 Unknown History Thiamine [Vitamin B-1] 100 mg PO QDAY 09/14/17 09/14/17 Unknown History Active Meds: Active Medications Acetaminophen (Tylenol) 650 mg PO Q4H PRN PRN Reason: Pain MILD(1-3)/Fever >100.5/GARCIA Acetaminophen/Hydrocodone Bitart (Hudson 5/325) 2 each PO Q6H PRN PRN Reason: Pain, Moderate (4-6) Last Admin: 09/22/17 10:25 Dose: 2 each Bisacodyl (Dulcolax) 10 mg ND QDAY PRN PRN Reason: Constipation unrelieved by MOM Famotidine (Pepcid) 20 mg PO BID [facility] Last Admin: 09/22/17 10:25 Dose: 20 mg Folic Acid (Folvite) 1 mg PO QDAY [facility] Last Admin: 09/22/17 10:25 Dose: 1 mg Hydromorphone HCl (Dilaudid) 1 mg IV Q3H PRN PRN Reason: Pain , Severe (7-10) Last Admin: 09/22/17 14:36 Dose: 1 mg Hydrophilic Ointment (Vaseline Lip Therapy) 1 applic TP DIRECT PRN PRN Reason: Dry Lips Last Admin: 09/21/17 12:43 Dose: 1 applic Ampicillin Sodium/Sulbactam Sodium (Unasyn/Ns 3 Gm/100 Ml) 3 gm in 100 mls @ 100 mls/hr IV Q6HR PIERCE PRN Reason: Protocol Last Admin: 09/22/17 12:14 Dose: 100 mls/hr Sodium Chloride (Nacl 0.9% 1000 Ml) 1,000 mls @ 30 mls/hr SHEATH DIRECT PIERCE Last Admin: 09/21/17 16:44 Dose: 30 mls/hr Sodium Chloride (Nacl 0.9% 1000 Ml) 1,000 mls @ 35 mls/hr EKOSCLUMEN DIRECT PIERCE Last Admin: 09/20/17 14:00 Dose: 35 mls/hr Sodium Chloride (Nacl 0.9% 1000 Ml) 1,000 mls @ 30 mls/hr IV DIRECT PIERCE Last Admin: 09/20/17 16:15 Dose: 30 mls/hr Argatroban 250 mg/ Sodium (Chloride) 250 mls @ 4.34 mls/hr IV TITR PIERCE; 1.5 MCG /KG/MIN PRN Reason: Protocol Last Titration: 09/22/17 14:00 Dose: 1.5 mcg/kg/min, 4.34 mls/hr Magnesium Hydroxide (Milk Of Magnesia) 30 ml PO Q4H PRN PRN Reason: Constipation Nicotine (Habitrol) 21 mg TD QDAY [facility] Last Admin: 09/22/17 10:24 Dose: 21 mg Ondansetron HCl (Zofran) 4 mg IV Q8H PRN PRN Reason: N/V unrelieved by Reglan Oxycodone/Acetaminophen (Percocet 5/325) 1 tab PO Q6H PRN PRN Reason: Pain, Moderate (4-6) Last Admin: 09/21/17 10:02 Dose: 1 tab Tamsulosin HCl (Flomax) 0.4 mg PO QDAY [facility] Last Admin: 09/22/17 10:25 Dose: 0.4 mg Zolpidem Tartrate (Ambien) 5 mg PO QHS PRN PRN Reason: Insomnia Last Admin: 09/21/17 00:27 Dose: 5 mg Review of Systems Constitutional: no weight loss, no weight gain, no fever, no chills, no sweats Ears, nose, mouth and throat: no ear pain, no nose pain, no sinus pressure, no sinus pain Cardiovascular: chest pain ("blowing up" sensation), no orthopnea, no palpitations, no rapid/irregular heart beat, no edema, no syncope, no lightheadedness, no shortness of breath, no dyspnea on exertion, no paroxysmal nocturnal dyspnea, no high blood pressure, no leg edema, no decreased exercise tolerance Respiratory: no cough, no shortness of breath, no dyspnea on exertion, no congestion, no wheezing, no pain on inspiration Gastrointestinal: no abdominal pain, no nausea, no vomiting, no diarrhea, no constipation, no change in bowel habits Genitourinary Male: no dysuria, no hematuria, no flank pain, no discharge, no urinary frequency, no urinary hesitancy Musculoskeletal: no neck stiffness, no neck pain, no shooting arm pain, no arm numbness/tingling, no low back pain, no shooting leg pain, no leg numbness/ tingling, no redness of joints Integumentary: other (right foot pain, right great toe blackened ) Neurological: no head injury, no paralysis, no weakness, no parathesias, no numbness, no tingling, no seizures, no syncope Psychiatric: no anxiety Endocrine: no cold intolerance, no heat intolerance Hematologic/Lymphatic: no easy bruising, no easy bleeding Allergic/Immunologic: no urticaria, no wheezing Physical Examination Vital Signs Temp Pulse Resp BP Pulse Ox 98.4 F 74 16 110/58 100 09/11/17 08:17 09/11/17 08:17 09/11/17 08:17 09/11/17 08:17 09/11/17 08:17 General appearance: no acute distress HEENT: Positive: PERRL, Normocephaly, Mucus Membranes Moist Neck: Positive: neck supple, trachea midline Cardiac: Positive: Reg Rate and Rhythm, S1/S2 Lungs: Positive: clear to auscultation Neuro: Positive: Grossly Intact Abdomen: Positive: Soft. Negative: Tender Skin: Positive: Other (right great toe blackened ) Musculoskeletal: No Fluid Collection Extremities: Present: lower extr. pulses (LLE), Other (palpable PT). Absent: edema Results 09/22/17 07:47 09/22/17 05:55 Cardiac Enzymes 09/21/17 Range/Units 21:53 AST 13 (5-40) units/L Coagulation 09/21/17 09/21/17 09/22/17 Range/Units 21:53 23:27 12:57 PT 19.8 H (12.2-14.9) Sec. INR 1.58 H (0.87-1.13) APTT 56.5 H 67.7 H* (24.2-36.6) Sec. CBC 09/22/17 Range/Units 07:47 WBC 4.6 (4.5-11.0) K/mm3 RBC 2.91 L (3.65-5.03) M/mm3 Hgb 8.7 L (11.8-15.2) gm/dl Hct 26.0 L D (35.5-45.6) % Plt Count 84 L (140-440) K/mm3 Comprehensive Metabolic Panel 09/21/17 09/22/17 Range/Units 21:53 05:55 Sodium 134 L 140 (137-145) mmol/L Potassium 3.6 3.1 L (3.6-5.0) mmol/L Chloride 97.2 L 100.7 (98-107) mmol/L Carbon Dioxide 22 21 L (22-30) mmol/L BUN 6 L 7 L (9-20) mg/dL Creatinine 0.4 L 0.5 L (0.8-1.5) mg/dL Glucose 85 93 (75-100) mg/dL Calcium 8.2 L 7.7 L (8.4-10.2) mg/dL AST 13 (5-40) units/L ALT < 5 L (7-56) units/L Alkaline Phosphatase 414 H (35-129) units/L Total Protein 5.8 L (6.3-8.2) g/dL Albumin 2.8 L (3.9-5) g/dL - Imaging and Cardiology Echo: pending EKG: report reviewed, image reviewed EKG interpretations - Telemetry EKG Rhythm: Sinus Rhythm - EKG Sinus rhythms and dysrhythmias: sinus rhythm Supraventricular dysrhythmia: atrial premature complexe Chamber hypertrophy or enlargement: left ventricular hypertro Assessment and Plan Assessment: PAD with gangrene of the RLE - suspect related to embolic event per vascular Suspected osteomyelitis of the right great toe Sepsis most likely secondary to gangrene of the right toe Anemia 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 Obtain lipid panel in AM and consider addition of statin. Plan for lexiscan MPI stress test in AM. NPO after MN. Assessment and plan reviewed with pt at bedside. The patient has been seen in conjunction with Dr. Briscoe who agrees with the assessment and plan of care.
--- NOTE | 2017-09-22 15:06 | Progress Note ---
Assessment and Plan Pt s/p successful RLE revascularization. Suspect this is related to an embolic even. Pt will need to be worked up for a thrombo-embolic source. Recommend a Cardiology consult, to eval for a possible cardiac origin. He will need a CT angiogram of the Chest (abd/pelvis and runoff already completed). Recommend he remain on anticoagulation at least 6 months. Repeat angiography in 4 weeks. Pt followed by Hem/Onc, will defer to their service as to which agent. Discussed with ID, they will consult Dr Villafana to eval for wound debridement. 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 Objective - Constitutional Vitals: Vital Signs - 12hr 09/22/17 08:00 Temperature 98.7 F Pulse Rate 85 Respiratory 18 Rate Blood Pressure 113/70 O2 Sat by Pulse 97 Oximetry General appearance: Present: no acute distress - EENT Eyes: EOM intact ENT: hearing intact - Neck Neck: supple - Respiratory Respiratory effort: normal Extremities: no ischemia, abnormal (right foot hot, with palp PT. Audible at the DP and at the base of the great toe.) - Neurologic Neurologic: no focal deficits - Psychiatric Psychiatric: appropriate mood/affect, intact judgment & insight, cooperative - Additional findings Additional findings: - Labs CBC & Chem 7: 09/22/17 07:47 09/22/17 05:55 Labs: Abnormal lab results 09/21/17 09/21/17 09/21/17 Range/Units 07:52 21:53 21:53 RBC (3.65-5.03) M/mm3 Hgb (11.8-15.2) gm/dl Hct (35.5-45.6) % RDW (13.2-15.2) % Plt Count (140-440) K/mm3 Lymphocytes # (Manual) (1.2-5.4) K/mm3 PT 19.8 H (12.2-14.9) Sec. INR 1.58 H (0.87-1.13) APTT (24.2-36.6) Sec. Sodium 134 L (137-145) mmol/L Potassium (3.6-5.0) mmol/L Chloride 97.2 L (98-107) mmol/L Carbon Dioxide (22-30) mmol/L BUN 6 L (9-20) mg/dL Creatinine 0.4 L (0.8-1.5) mg/dL Calcium 8.2 L (8.4-10.2) mg/dL ALT < 5 L (7-56) units/L Alkaline Phosphatase 414 H (35-129) units/L Total Protein 5.8 L (6.3-8.2) g/dL Albumin 2.8 L (3.9-5) g/dL Crossmatch See Detail 09/21/17 09/22/17 09/22/17 Range/Units 23:27 05:55 07:47 RBC 2.91 L (3.65-5.03) M/mm3 Hgb 8.7 L (11.8-15.2) gm/dl Hct 26.0 L D (35.5-45.6) % RDW 16.4 H (13.2-15.2) % Plt Count 84 L (140-440) K/mm3 Lymphocytes # (Manual) 1.0 L (1.2-5.4) K/mm3 PT (12.2-14.9) Sec. INR (0.87-1.13) APTT 56.5 H (24.2-36.6) Sec. Sodium (137-145) mmol/L Potassium 3.1 L (3.6-5.0) mmol/L Chloride (98-107) mmol/L Carbon Dioxide 21 L (22-30) mmol/L BUN 7 L (9-20) mg/dL Creatinine 0.5 L (0.8-1.5) mg/dL Calcium 7.7 L (8.4-10.2) mg/dL ALT (7-56) units/L Alkaline Phosphatase (35-129) units/L Total Protein (6.3-8.2) g/dL Albumin (3.9-5) g/dL Crossmatch 09/22/17 Range/Units 12:57 RBC (3.65-5.03) M/mm3 Hgb (11.8-15.2) gm/dl Hct (35.5-45.6) % RDW (13.2-15.2) % Plt Count (140-440) K/mm3 Lymphocytes # (Manual) (1.2-5.4) K/mm3 PT (12.2-14.9) Sec. INR (0.87-1.13) APTT 67.7 H* (24.2-36.6) Sec. Sodium (137-145) mmol/L Potassium (3.6-5.0) mmol/L Chloride (98-107) mmol/L Carbon Dioxide (22-30) mmol/L BUN (9-20) mg/dL Creatinine (0.8-1.5) mg/dL Calcium (8.4-10.2) mg/dL ALT (7-56) units/L Alkaline Phosphatase (35-129) units/L Total Protein (6.3-8.2) g/dL Albumin (3.9-5) g/dL Crossmatch
--- NOTE | 2017-09-22 15:54 | Query- Nutrition ---
Rylan Ramos___Temo Date:__09/22/2017 [employer] [facility]/CDS:___Deanna Phone#:___[phone] Exercise your independent professional judgment when responding to query. Questions asked do not imply a particular answer is desired or expected. We greatly appreciate your clarification on this issue. Clinical Documentation States: 66 Year old male was admitted on 09/11/2017 for Rt foot pain and blackened Great toe for 1 week. Clinical Findings Show: BMI: 16.9 Albumin: 2.8 Please select the most appropriate option 3 [] Mild Malnutrition [] Mild - Moderate Malnutrition [] Moderate - Severe Malnutrition [x] Severe Malnutrition Serum Albumin 2.8 to 3.4 g/dl or Pre-albumin 5 to 17 mg/dl1,2 Inadequate nutritional intake1,2,3,4 NPO > 5 days Weight loss: 5% in 1 month or 7.5% in 3 months or 10% in 6 months1, 3,4 BMI 16 to 18.4 or Weight <90% of ideal body weight1,2,3,4 Serum Albumin < 2.8 g/ dl1,2 Lymphocytes < 1500/ L2 Inadequate nutritional intake3, high stress e.g. major trauma, sepsis,pancreatitis, house etc. Decubitus ulcers1,2, , skin breakdown2, easy hair pluckability2 Weight <80% standard for height2 Triceps skin fold <3 mm2 Mid-arm muscle circumference <15 cm2 Creatinine-height index <60% standard2 [ ] Cachexia [ ] Emaciated w/Malnutrition [ ] Other: [ ] Unable to determine [ ] Comment/Explanation: Present on Admission: [x ] Yes (Y) [ ] Clinically undeterminable (W) [ ] No (N) Please also document response in your Progress Notes and/or Discharge Summary and indicate if the condition was present on admission. MTDD
--- NOTE | 2017-09-22 19:18 | Progress Note ---
Assessment and Plan Patient alert, awake. Complaining generalized pains including chest pain. Denies cough or shortness of breath.Patient is on room air. O2 saturation 98%. - Patient Problems (1) Atherosclerosis of [place] arteries of the extremities with gangrene Current Visit: Yes Status: Acute Plan to address problem: Management as per vascular surgery. (2) Cellulitis of leg Current Visit: Yes Status: Acute Qualifiers: Laterality: right Qualified Code(s): L03.115 - Cellulitis of right lower limb Plan to address problem: Patient is on unasyn. (3) Prostate CA Current Visit: Yes Status: Acute Plan to address problem: Mangement as per primary care . Recommend to consult urology. (4) Thrombocytopenia Current Visit: Yes Status: Acute Plan to address problem: Patient is on I/V Heparin. Recommend to consult hematology. Continue monitor platelets. If platelets are continuously dropping, recommend to D/C Heparin and switch to argatroban (5) Tobacco use disorder Current Visit: Yes Status: Acute Plan to address problem: Counselled him to stop smoking. Subjective Date of service: 09/22/17 Principal diagnosis: right toe gangrene,prostate cnacer Interval history: Patient alert, awake. Complaining generalized pains including chest pain. Denies cough or shortness of breath.Patient is on room air. O2 saturation 98%. Objective Vital Signs - 12hr 09/22/17 09/22/17 08:00 16:44 Temperature 98.7 F 99.0 F Pulse Rate 85 Respiratory 18 16 Rate Blood Pressure 113/70 121/75 O2 Sat by Pulse 97 Oximetry Constitutional: no acute distress, alert, appears uncomfortable Eyes: non-icteric Neck: supple, no lymphadenopathy Ascultation: Bilateral: diminished breath sounds (Prolonged expiratory phase.) Cardiovascular: regular rate and rhythm Gastrointestinal: normoactive bowel sounds, soft, non-tender Integumentary: normal Extremities: no cyanosis, no edema, other (Gangrene extremities.) Neurologic: non-focal exam, pupils equal and round, CN II-XII normal Psychiatric: other (Irritable.) CBC and BMP: 09/22/17 07:47 09/22/17 05:55 ABG, PT/INR, D-dimer: PT/INR, D-dimer PT 19.8 Sec. (12.2-14.9) H 09/21/17 21:53 INR 1.58 (0.87-1.13) H 09/21/17 21:53 Abnormal lab findings: Abnormal Labs 09/11/17 09/11/17 09/11/17 09:29 09:29 10:13 WBC RBC 2.23 L Hgb 6.7 L Hct 21.3 L MCV 96 H MCHC RDW 20.2 H Plt Count 83 L [place] % (Auto) Lymph # Seg Neuts % (Manual) Lymphocytes % (Manual) 44.0 H Nucleated RBC % 34.0 H Lymphocytes # (Manual) Percent Retic PT INR APTT Fibrinogen Heparin Anti-Xa Level Sodium Potassium Chloride Carbon Dioxide BUN Creatinine 0.7 L Glucose Calcium Iron TIBC Ferritin ALT Alkaline Phosphatase C-Reactive Protein Total Protein Albumin Prostate Specific Ag Vitamin B12 Crossmatch See Detail 09/11/17 09/12/17 09/12/17 23:47 08:32 08:32 WBC RBC 3.42 L Hgb 10.0 L D Hct 32.1 L D MCV MCHC 31 L RDW 18.7 H Plt Count 65 L [place] % (Auto) Lymph # Seg Neuts % (Manual) Lymphocytes % (Manual) Nucleated RBC % 4.0 H Lymphocytes # (Manual) Percent Retic PT INR APTT Fibrinogen Heparin Anti-Xa Level Sodium Potassium Chloride Carbon Dioxide BUN Creatinine 0.6 L Glucose Calcium Iron 48 L TIBC 233 L Ferritin ALT Alkaline Phosphatase 684 H C-Reactive Protein Total Protein Albumin Prostate Specific Ag Vitamin B12 Crossmatch 09/12/17 09/13/17 09/13/17 18:07 06:18 09:29 WBC RBC Hgb 9.7 L Hct 30.0 L MCV MCHC RDW Plt Count 62 L [place] % (Auto) Lymph # Seg Neuts % (Manual) Lymphocytes % (Manual) Nucleated RBC % Lymphocytes # (Manual) Percent Retic PT INR APTT Fibrinogen Heparin Anti-Xa Level < 0.10 L Sodium Potassium Chloride Carbon Dioxide BUN Creatinine Glucose Calcium Iron TIBC Ferritin ALT Alkaline Phosphatase C-Reactive Protein 15.70 H Total Protein Albumin Prostate Specific Ag Vitamin B12 Crossmatch 09/13/17 09/13/17 09/13/17 09:29 11:41 23:25 WBC RBC 3.40 L Hgb 10.1 L Hct 31.6 L MCV MCHC RDW 18.5 H Plt Count 55 L [place] % (Auto) Lymph # Seg Neuts % (Manual) Lymphocytes % (Manual) Nucleated RBC % Lymphocytes # (Manual) Percent Retic PT INR APTT 81.5 H* Fibrinogen Heparin Anti-Xa Level 0.10 L Sodium 133 L Potassium Chloride 97.0 L Carbon Dioxide BUN Creatinine 0.6 L Glucose 103 H Calcium Iron TIBC Ferritin ALT Alkaline Phosphatase C-Reactive Protein Total Protein Albumin Prostate Specific Ag Vitamin B12 Crossmatch 09/14/17 09/14/17 09/14/17 05:24 05:24 10:46 WBC RBC 3.20 L Hgb 9.8 L Hct 29.2 L MCV MCHC RDW 17.6 H Plt Count 61 L [place] % (Auto) Lymph # Seg Neuts % (Manual) 80.0 H Lymphocytes % (Manual) Nucleated RBC % 1.0 H Lymphocytes # (Manual) 0.6 L Percent Retic PT INR APTT 58.5 H 56.0 H Fibrinogen Heparin Anti-Xa Level Sodium Potassium Chloride Carbon Dioxide BUN Creatinine Glucose Calcium Iron TIBC Ferritin ALT Alkaline Phosphatase C-Reactive Protein Total Protein Albumin Prostate Specific Ag Vitamin B12 Crossmatch 09/14/17 09/14/17 09/14/17 10:46 10:46 10:46 WBC RBC Hgb Hct MCV MCHC RDW Plt Count [place] % (Auto) Lymph # Seg Neuts % (Manual) Lymphocytes % (Manual) Nucleated RBC % Lymphocytes # (Manual) Percent Retic 3.68 H PT INR APTT Fibrinogen Heparin Anti-Xa Level Sodium Potassium Chloride Carbon Dioxide BUN Creatinine Glucose Calcium Iron TIBC Ferritin 1023.0 H ALT Alkaline Phosphatase C-Reactive Protein Total Protein Albumin Prostate Specific Ag 1721.00 H Vitamin B12 Crossmatch 09/14/17 09/14/17 09/15/17 10:46 23:04 02:53 WBC RBC 2.97 L Hgb 8.9 L Hct 27.3 L MCV MCHC RDW 17.6 H Plt Count 50 L [place] % (Auto) Lymph # Seg Neuts % (Manual) 71.0 H Lymphocytes % (Manual) 12.0 L Nucleated RBC % 2.0 H Lymphocytes # (Manual) 0.6 L Percent Retic PT INR APTT 89.4 H* Fibrinogen Heparin Anti-Xa Level Sodium Potassium Chloride Carbon Dioxide BUN Creatinine Glucose Calcium Iron TIBC Ferritin ALT Alkaline Phosphatase C-Reactive Protein Total Protein Albumin Prostate Specific Ag Vitamin B12 206.4 L Crossmatch 09/15/17 09/15/17 09/15/17 02:53 05:22 11:33 WBC RBC Hgb Hct MCV MCHC RDW Plt Count [place] % (Auto) Lymph # Seg Neuts % (Manual) Lymphocytes % (Manual) Nucleated RBC % Lymphocytes # (Manual) Percent Retic PT INR APTT 87.0 H* 80.0 H* Fibrinogen Heparin Anti-Xa Level Sodium 132 L Potassium Chloride 95.2 L Carbon Dioxide 20 L BUN Creatinine 0.6 L Glucose 102 H Calcium Iron TIBC Ferritin ALT Alkaline Phosphatase C-Reactive Protein Total Protein Albumin Prostate Specific Ag Vitamin B12 Crossmatch 09/15/17 09/16/17 09/16/17 23:15 07:11 07:12 WBC 4.0 L RBC 2.97 L Hgb 8.9 L Hct 27.1 L MCV MCHC RDW 17.4 H Plt Count 53 L [place] % (Auto) Lymph # Seg Neuts % (Manual) Lymphocytes % (Manual) Nucleated RBC % Lymphocytes # (Manual) 1.0 L Percent Retic PT INR APTT 101.0 H* 48.7 H Fibrinogen Heparin Anti-Xa Level Sodium Potassium Chloride Carbon Dioxide BUN Creatinine Glucose Calcium Iron TIBC Ferritin ALT Alkaline Phosphatase C-Reactive Protein Total Protein Albumin Prostate Specific Ag Vitamin B12 Crossmatch 09/16/17 09/17/17 09/17/17 13:07 04:23 17:23 WBC RBC Hgb Hct MCV MCHC RDW Plt Count [place] % (Auto) Lymph # Seg Neuts % (Manual) Lymphocytes % (Manual) Nucleated RBC % Lymphocytes # (Manual) Percent Retic PT INR APTT 61.7 H* 60.3 H* 57.9 H Fibrinogen Heparin Anti-Xa Level Sodium Potassium Chloride Carbon Dioxide BUN Creatinine Glucose Calcium Iron TIBC Ferritin ALT Alkaline Phosphatase C-Reactive Protein Total Protein Albumin Prostate Specific Ag Vitamin B12 Crossmatch 09/18/17 09/18/17 09/18/17 05:31 05:31 05:31 WBC 4.2 L RBC 2.66 L Hgb 7.9 L Hct 23.9 L MCV MCHC RDW 17.3 H Plt Count 75 L [place] % (Auto) 7.7 H Lymph # 0.9 L Seg Neuts % (Manual) Lymphocytes % (Manual) Nucleated RBC % Lymphocytes # (Manual) Percent Retic PT INR APTT 61.5 H* Fibrinogen Heparin Anti-Xa Level Sodium 132 L Potassium 3.1 L Chloride 94.4 L Carbon Dioxide BUN 8 L Creatinine 0.5 L Glucose 127 H Calcium Iron TIBC Ferritin ALT Alkaline Phosphatase C-Reactive Protein Total Protein Albumin Prostate Specific Ag Vitamin B12 Crossmatch 09/18/17 09/19/17 09/19/17 17:35 06:30 17:43 WBC RBC Hgb Hct MCV MCHC RDW Plt Count [place] % (Auto) Lymph # Seg Neuts % (Manual) Lymphocytes % (Manual) Nucleated RBC % Lymphocytes # (Manual) Percent Retic PT INR APTT 60.1 H* 67.8 H* 60.9 H* Fibrinogen Heparin Anti-Xa Level Sodium Potassium Chloride Carbon Dioxide BUN Creatinine Glucose Calcium Iron TIBC Ferritin ALT Alkaline Phosphatase C-Reactive Protein Total Protein Albumin Prostate Specific Ag Vitamin B12 Crossmatch 09/20/17 09/20/17 09/20/17 05:23 05:23 05:23 WBC RBC Hgb 7.7 L Hct 23.4 L MCV MCHC RDW Plt Count 98 L [place] % (Auto) Lymph # Seg Neuts % (Manual) Lymphocytes % (Manual) Nucleated RBC % Lymphocytes # (Manual) Percent Retic PT INR APTT 63.2 H* Fibrinogen Heparin Anti-Xa Level Sodium 134 L Potassium 3.4 L Chloride 97.3 L Carbon Dioxide BUN Creatinine 0.5 L Glucose 107 H Calcium Iron TIBC Ferritin ALT < 5 L Alkaline Phosphatase 542 H C-Reactive Protein Total Protein 5.7 L Albumin 3.4 L Prostate Specific Ag Vitamin B12 Crossmatch 09/20/17 09/20/17 09/20/17 13:40 13:40 13:40 WBC RBC 2.43 L Hgb 7.2 L Hct 22.2 L MCV MCHC RDW 17.3 H Plt Count 93 L [place] % (Auto) Lymph # Seg Neuts % (Manual) Lymphocytes % (Manual) Nucleated RBC % 2.0 H Lymphocytes # (Manual) Percent Retic PT 17.7 H INR 1.38 H APTT 130.6 H* Fibrinogen 969 H Heparin Anti-Xa Level Sodium 134 L Potassium Chloride Carbon Dioxide BUN 8 L Creatinine 0.5 L Glucose Calcium Iron TIBC Ferritin ALT Alkaline Phosphatase C-Reactive Protein Total Protein Albumin Prostate Specific Ag Vitamin B12 Crossmatch 09/20/17 09/20/17 09/21/17 18:53 18:53 00:13 WBC RBC 2.33 L 2.30 L Hgb 6.9 L 6.9 L Hct 20.9 L 21.0 L MCV MCHC RDW 17.0 H 17.5 H Plt Count 92 L 89 L [place] % (Auto) Lymph # Seg Neuts % (Manual) 76.0 H Lymphocytes % (Manual) Nucleated RBC % Lymphocytes # (Manual) 0.9 L Percent Retic PT INR APTT 37.1 H Fibrinogen 907 H Heparin Anti-Xa Level < 0.10 L Sodium Potassium Chloride Carbon Dioxide BUN Creatinine Glucose Calcium Iron TIBC Ferritin ALT Alkaline Phosphatase C-Reactive Protein Total Protein Albumin Prostate Specific Ag Vitamin B12 Crossmatch 09/21/17 09/21/17 09/21/17 00:13 03:59 06:49 WBC RBC 2.19 L Hgb 6.4 L Hct 19.7 L* MCV MCHC RDW 17.1 H Plt Count 89 L [place] % (Auto) Lymph # Seg Neuts % (Manual) Lymphocytes % (Manual) Nucleated RBC % Lymphocytes # (Manual) Percent Retic PT INR APTT Fibrinogen 899 H Heparin Anti-Xa Level 0.10 L Sodium 136 L Potassium Chloride Carbon Dioxide BUN 7 L Creatinine 0.4 L Glucose 102 H Calcium 7.7 L Iron TIBC Ferritin ALT < 5 L Alkaline Phosphatase 473 H C-Reactive Protein Total Protein 5.2 L Albumin 2.8 L Prostate Specific Ag Vitamin B12 Crossmatch 09/21/17 09/21/17 09/21/17 06:49 07:52 13:01 WBC RBC Hgb Hct MCV MCHC RDW Plt Count [place] % (Auto) Lymph # Seg Neuts % (Manual) Lymphocytes % (Manual) Nucleated RBC % Lymphocytes # (Manual) Percent Retic PT INR APTT Fibrinogen 824 H Heparin Anti-Xa Level < 0.10 L Sodium Potassium Chloride Carbon Dioxide BUN Creatinine Glucose Calcium Iron TIBC Ferritin ALT Alkaline Phosphatase C-Reactive Protein 21.40 H Total Protein Albumin Prostate Specific Ag Vitamin B12 Crossmatch See Detail 09/21/17 09/21/17 09/21/17 21:53 21:53 23:27 WBC RBC Hgb Hct MCV MCHC RDW Plt Count [place] % (Auto) Lymph # Seg Neuts % (Manual) Lymphocytes % (Manual) Nucleated RBC % Lymphocytes # (Manual) Percent Retic PT 19.8 H INR 1.58 H APTT 56.5 H Fibrinogen Heparin Anti-Xa Level Sodium 134 L Potassium Chloride 97.2 L Carbon Dioxide BUN 6 L Creatinine 0.4 L Glucose Calcium 8.2 L Iron TIBC Ferritin ALT < 5 L Alkaline Phosphatase 414 H C-Reactive Protein Total Protein 5.8 L Albumin 2.8 L Prostate Specific Ag Vitamin B12 Crossmatch 09/22/17 09/22/17 09/22/17 05:55 07:47 12:57 WBC RBC 2.91 L Hgb 8.7 L Hct 26.0 L D MCV MCHC RDW 16.4 H Plt Count 84 L [place] % (Auto) Lymph # Seg Neuts % (Manual) Lymphocytes % (Manual) Nucleated RBC % Lymphocytes # (Manual) 1.0 L Percent Retic PT INR APTT 67.7 H* Fibrinogen Heparin Anti-Xa Level Sodium Potassium 3.1 L Chloride Carbon Dioxide 21 L BUN 7 L Creatinine 0.5 L Glucose Calcium 7.7 L Iron TIBC Ferritin ALT Alkaline Phosphatase C-Reactive Protein Total Protein Albumin Prostate Specific Ag Vitamin B12 Crossmatch
[2017-09-22] MEDS ORDERED: HEPARIN/ 0.45% NACL-25,000 UNIT/500 ML 25,000 UNIT/500 ML BAG IV SCH (23:00)
[2017-09-22] MEDS ORDERED: HEPARIN 25,000 UNIT in D5W 497.5 ML IV SCH (23:00)
[2017-09-23] MEDS: HEPARIN/ 0.45% NACL-25,000 UNIT/500 ML 25,000 UNIT/500 ML BAG IV SCH (00:02)
[2017-09-23 00:04] LABS: Hematocrit 22.5 % (35.5-45.6); Hemoglobin 7.6 gm/dl (11.8-15.2)
[2017-09-23 00:09] LABS: INR 1.56 (0.87-1.13)
[2017-09-23] MEDS: DILAUDID IV PRN ×4 (02:27→23:20)
[2017-09-23] MEDS: NORCO 5/325 PO PRN (04:48)
[2017-09-23] MEDS: UNASYN/NS 3 GM/100 ML 3 GM/100 ML BAG IV SCH ×4 (05:53→23:20)
[2017-09-23 06:31] LABS: Hematocrit 22.3 % (35.5-45.6); Hemoglobin 7.5 gm/dl (11.8-15.2); Mean Corpuscular HGB Conc 34 % (32-34); Mean Corpuscular Hemoglobin 30 pg (28-32); Mean Corpuscular Volume 89 fl (84-94); Red Cell Distribution Width 15.9 % (13.2-15.2)
[2017-09-23 06:46] LABS: BUN/Creatinine Ratio 13; Blood Urea Nitrogen 5 mg/dL (9-20); Calcium 8.4 mg/dL (8.4-10.2); Chol/HDL Ratio 3.52 %; HDL Cholesterol 38 mg/dL (40-59); Hemolysis Index 10; LDL Cholesterol,Direct 67 mg/dL (50-130)
[2017-09-23 06:48] LABS: Platelet Count 82 K/mm3 (140-440)
[2017-09-23] MEDS ORDERED: VITAMIN B-12 SUB-Q ONE (08:00)
[2017-09-23] MEDS: PERCOCET 5/325 PO PRN ×3 (08:37→17:10)
[2017-09-23] MEDS: FLOMAX PO SCH (09:00)
[2017-09-23] MEDS: FOLVITE PO SCH (09:00)
[2017-09-23] MEDS: PEPCID PO SCH ×2 (09:00→21:35)
[2017-09-23] MEDS: HABITROL TD SCH (09:00)
--- NOTE | 2017-09-23 09:12 | Hem/Onc Progress Note ---
Assessment and Plan - Patient Problems (1) Prostate CA Current Visit: Yes Status: Acute Plan to address problem: Patient has active metastatic prostate cancer. He has an elevated alkaline phosphatase. This could was him to have thrombocytopenia and anemia. PSA extremely high consistent with metastatic disease. He will follow-up with his oncologist at [place] for that upon discharge (2) Anemia Current Visit: Yes Status: Acute Qualifiers: Anemia type: unspecified type Qualified Code(s): D64.9 - Anemia, unspecified Plan to address problem: B12 low. We will continue B12 and give him another dose today. Anemia could be related to prostate cancer too. It seems multifactorial. Need to transfuse as needed. May need a bone marrow biopsy if anemia persists although with metastatic prostate cancer and chronic disease anemia is likely (3) Thrombocytopenia Current Visit: Yes Status: Acute Plan to address problem: May need to transfuse if platelets go below 20,000 or if he starts having bleeding. Stable. 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 Once surgical interventions are complete, will switch him to eliquis Subjective Date of service: 09/23/17 Interval history: Patient underwent revascularization. Complains of pain in the right foot. Objective - Constitutional Vitals: Last Vital Signs Temp 98.3 F 09/23/17 07:30 Pulse 88 09/23/17 07:30 Resp 20 09/23/17 07:30 BP 126/80 09/23/17 07:30 Pulse Ox 97 09/23/17 07:30 Performance status: 4-completely disabled - Neck Neck: supple - Respiratory Respiratory effort: Positive: normal Respiratory: bilateral: diminished - Gastrointestinal General gastrointestinal: Present: soft - Labs Lab Results: Laboratory Results - last 24 hr 09/22/17 09/22/17 09/22/17 07:47 12:57 23:25 WBC RBC Hgb 7.6 L Hct 22.5 L MCV MCH MCHC RDW Plt Count 83 L Add Manual Diff Complete Total Counted 100 Seg Neuts % (Manual) 62.0 Band Neutrophils % 9.0 Lymphocytes % (Manual) 21.0 Reactive Lymphs % (Man) 0 Monocytes % (Manual) 6.0 Eosinophils % (Manual) 2.0 Basophils % (Manual) 0 Metamyelocytes % 0 Myelocytes % 0 Promyelocytes % 0 Blast Cells % 0 Nucleated RBC % Not Reportable Seg Neutrophils # Man 2.9 Band Neutrophils # 0.4 Lymphocytes # (Manual) 1.0 L Abs React Lymphs (Man) 0.0 Monocytes # (Manual) 0.3 Eosinophils # (Manual) 0.1 Basophils # (Manual) 0.0 Metamyelocytes # 0.0 Myelocytes # 0.0 Promyelocytes # 0.0 Blast Cells # 0.0 WBC Morphology Not Reportable Hypersegmented Neuts Not Reportable Hyposegmented Neuts Not Reportable Hypogranular Neuts Not Reportable Smudge Cells Not Reportable Toxic Granulation Not Reportable Toxic Vacuolation Not Reportable Dohle Bodies Not Reportable Pelger-Huet Anomaly Not Reportable Jose Rods Not Reportable Platelet Estimate Consistent w auto Clumped Platelets Not Reportable Plt Clumps, EDTA Not Reportable Large Platelets Not Reportable Giant Platelets Not Reportable Platelet Satelliting Not Reportable Plt Morphology Comment Not Reportable RBC Morphology Not Reportable Dimorphic RBCs Not Reportable Polychromasia Rare Hypochromasia Not Reportable Poikilocytosis Not Reportable Anisocytosis 1+ Microcytosis Not Reportable Macrocytosis Not Reportable Spherocytes Not Reportable Pappenheimer Bodies Not Reportable Sickle Cells Not Reportable Target Cells Not Reportable Tear Drop Cells Rare Ovalocytes Not Reportable Helmet Cells Not Reportable Li-Palmyra Bodies Not Reportable [place] Rings Not Reportable [place] Cells Not Reportable Bite Cells Not Reportable Crenated Cell Not Reportable Elliptocytes Not Reportable Acanthocytes (Spur) Not Reportable Rouleaux Not Reportable Hemoglobin C Crystals Not Reportable Schistocytes Not Reportable Malaria parasites Not Reportable Collins Bodies Not Reportable Hem Pathologist Commnt No PT INR APTT 67.7 H* Heparin Anti-Xa Level Sodium Potassium Chloride Carbon Dioxide Anion Gap BUN Creatinine Estimated GFR BUN/Creatinine Ratio Glucose Calcium Triglycerides Cholesterol LDL Cholesterol Direct HDL Cholesterol Cholesterol/HDL Ratio 09/22/17 09/23/17 09/23/17 23:25 05:59 05:59 WBC 4.9 RBC 2.50 L Hgb 7.5 L Hct 22.3 L MCV 89 MCH 30 MCHC 34 RDW 15.9 H Plt Count 82 L Add Manual Diff Total Counted Seg Neuts % (Manual) Band Neutrophils % Lymphocytes % (Manual) Reactive Lymphs % (Man) Monocytes % (Manual) Eosinophils % (Manual) Basophils % (Manual) Metamyelocytes % Myelocytes % Promyelocytes % Blast Cells % Nucleated RBC % Seg Neutrophils # Man Band Neutrophils # Lymphocytes # (Manual) Abs React Lymphs (Man) Monocytes # (Manual) Eosinophils # (Manual) Basophils # (Manual) Metamyelocytes # Myelocytes # Promyelocytes # Blast Cells # WBC Morphology Hypersegmented Neuts Hyposegmented Neuts Hypogranular Neuts Smudge Cells Toxic Granulation Toxic Vacuolation Dohle Bodies Pelger-Huet Anomaly Jose Rods Platelet Estimate Clumped Platelets Plt Clumps, EDTA Large Platelets Giant Platelets Platelet Satelliting Plt Morphology Comment RBC Morphology Dimorphic RBCs Polychromasia Hypochromasia Poikilocytosis Anisocytosis Microcytosis Macrocytosis Spherocytes Pappenheimer Bodies Sickle Cells Target Cells Tear Drop Cells Ovalocytes Helmet Cells Li-[place] Bodies [place] Rings Jenae Cells Bite Cells Crenated Cell Elliptocytes Acanthocytes (Spur) Rouleaux Hemoglobin C Crystals Schistocytes Malaria parasites Collins Bodies Hem Pathologist Commnt PT 19.6 H INR 1.56 H APTT Heparin Anti-Xa Level Sodium 137 Potassium 3.5 L Chloride 98.9 Carbon Dioxide 25 Anion Gap 17 BUN 5 L Creatinine 0.4 L Estimated GFR > 60 BUN/Creatinine Ratio 13 Glucose 103 H Calcium 8.4 Triglycerides 146 Cholesterol 134 LDL Cholesterol Direct 67 HDL Cholesterol 38 L Cholesterol/HDL Ratio 3.52 09/23/17 05:59 WBC RBC Hgb Hct MCV MCH MCHC RDW Plt Count Add Manual Diff Total Counted Seg Neuts % (Manual) Band Neutrophils % Lymphocytes % (Manual) Reactive Lymphs % (Man) Monocytes % (Manual) Eosinophils % (Manual) Basophils % (Manual) Metamyelocytes % Myelocytes % Promyelocytes % Blast Cells % Nucleated RBC % Seg Neutrophils # Man Band Neutrophils # Lymphocytes # (Manual) Abs React Lymphs (Man) Monocytes # (Manual) Eosinophils # (Manual) Basophils # (Manual) Metamyelocytes # Myelocytes # Promyelocytes # Blast Cells # WBC Morphology Hypersegmented Neuts Hyposegmented Neuts Hypogranular Neuts Smudge Cells Toxic Granulation Toxic Vacuolation Dohle Bodies Pelger-Huet Anomaly Jose Rods Platelet Estimate Clumped Platelets Plt Clumps, EDTA Large Platelets Giant Platelets Platelet Satelliting Plt Morphology Comment RBC Morphology Dimorphic RBCs Polychromasia Hypochromasia Poikilocytosis Anisocytosis Microcytosis Macrocytosis Spherocytes Pappenheimer Bodies Sickle Cells Target Cells Tear Drop Cells Ovalocytes Helmet Cells Li-[place] Bodies [place] Rings Jenae Cells Bite Cells Crenated Cell Elliptocytes Acanthocytes (Spur) Rouleaux Hemoglobin C Crystals Schistocytes Malaria parasites Collins Bodies Hem Pathologist Commnt PT INR APTT Heparin Anti-Xa Level < 0.10 L Sodium Potassium Chloride Carbon Dioxide Anion Gap BUN Creatinine Estimated GFR BUN/Creatinine Ratio Glucose Calcium Triglycerides Cholesterol LDL Cholesterol Direct HDL Cholesterol Cholesterol/HDL Ratio
--- NOTE | 2017-09-23 10:51 | Progress Note ---
<ASHOK JOYCE - Last Filed: 09/23/17 14:12> Assessment and Plan Assessment: 1) Sepsis: Better. Etiology most likely gangrene of right toe? prostate cancer with metastasis? -CRP = 15.70 -blood cultures 09/11 ngtd -CTA showed bilateral common iliac arteries are dilated and measure 133 mm in diameter -Duplex doppler LE showed OCCLUDED RT.POP ARTERY AND RT.DPA WITH THROMBUS NOTED.MULTIPHASIC WAVEFORMS THROUGHOUT VESSELS INTERROGATED EXCEPT FOR MONOPHASIC WAVEFORMS OBTAINED IN THE RT.POLLUTION CONTROL TECHNICIAN AND RT.BRISA.BLE ARTERIAL DUPLEX 2) Right great toe ulcer/gangrene. Possible osteomyelitis -right great toe culture negative -BLE VEIN MAPPING PRELIMINARY REPORT showed LT.GSV APPEARS THROMBOSED FROM TAKE-OFF UP TO THE MEDIAL MALLEOLUS AND BOTH LSV'S APPEAR THROMBOSED TOO -s/p Pharmacologic thrombectomy of the right popliteal artery, Suction thrombectomy of the right popliteal artery, Orbital atherectomy of the popliteal artery with a [employer] orbital atherectomy device and Placement of an Ekos catheter and the popliteal and right posterior tibial arteries on 09/20 3) Prostate CA with metastasis 4) BPH 5) Thrombocytopenia and anemia, stable Plan: -stop unasyn day 12 -ceftriaxone 2 2gm iv daily and flagyl 500 mg po daily for 6 weeks until 10/23 -Pt. at risk of amputation -f/u wtih Dr. Villafana if debrigement is needed -Pt refuse surgical debrigement as offered by Dr. Villafana We will sign off Thank you Dr. Saavedra for your consult, will follow up SARAH Figueroa for Dr. Hannah Ventura MD Infectious Diseases Specialist [facility] M [phone] O [phone] Subjective Date of service: 09/23/17 Principal diagnosis: right toe gangrene,prostate cnacer Interval history: I feel better, no fever Microbiology: Blood cultures: 09/11 ngtd Urine cultures: none Respiratory cultures: Current Antimicrobials: unasyn 09/12 Previous Antimicrobials: ceftriaxone vacomycin 09/11 Objective - Exam Narrative Exam: General appearance: Alert in NAD, conversant Eyes: anicteric sclerae, moist conjunctivae; no lid-lag; PERRLA HENT: Atraumatic; oropharynx clear with moist mucous membranes and no mucosal ulcerations/no oral thrush; Neck: Trachea midline; supple, no thyromegaly or lymphadenopathy Lungs: breath sounds diminished bilaterally CV: RRR, no murmurs Abdomen: Soft, non-tender; +BS x 4 Extremities: right great toe gangrene, right 2nd toe gangrene Skin: pasha groin surg wound no bleeding or hematoma Psych: Appropriate affect, calm and cooperative Neuro: alert and oriented x 3. Moving all extermities Lines: No CVL / PICC - Constitutional Vitals: Vital Signs Temp Pulse Resp BP Pulse Ox 98.3 F 88 20 126/80 97 09/23/17 07:30 09/23/17 07:30 09/23/17 07:30 09/23/17 07:30 09/23/17 07:30 Temperature -Last 24 Hours Temperature 98.3 F Temperature 98.7 F Temperature 99.0 F - Labs CBC & Chem 7: 09/23/17 05:59 09/23/17 05:59 Labs: Abnormal lab results 09/22/17 09/22/17 09/22/17 Range/Units 12:57 23:25 23:25 RBC (3.65-5.03) M/mm3 Hgb 7.6 L (11.8-15.2) gm/dl Hct 22.5 L (35.5-45.6) % RDW (13.2-15.2) % Plt Count 83 L (140-440) K/mm3 PT 19.6 H (12.2-14.9) Sec. INR 1.56 H (0.87-1.13) APTT 67.7 H* (24.2-36.6) Sec. Heparin Anti-Xa Level (0.3-0.7) U.I./ml Potassium (3.6-5.0) mmol/L BUN (9-20) mg/dL Creatinine (0.8-1.5) mg/dL Glucose (75-100) mg/dL HDL Cholesterol (40-59) mg/dL 09/23/17 09/23/17 09/23/17 Range/Units 05:59 05:59 05:59 RBC 2.50 L (3.65-5.03) M/mm3 Hgb 7.5 L (11.8-15.2) gm/dl Hct 22.3 L (35.5-45.6) % RDW 15.9 H (13.2-15.2) % Plt Count 82 L (140-440) K/mm3 PT (12.2-14.9) Sec. INR (0.87-1.13) APTT (24.2-36.6) Sec. Heparin Anti-Xa Level < 0.10 L (0.3-0.7) U.I./ml Potassium 3.5 L (3.6-5.0) mmol/L BUN 5 L (9-20) mg/dL Creatinine 0.4 L (0.8-1.5) mg/dL Glucose 103 H (75-100) mg/dL HDL Cholesterol 38 L (40-59) mg/dL <HANNAH JACKSON - Last Filed: 09/23/17 16:02> Assessment and Plan I have personally interviewed and examined patient. I personally discussed and directed assessment and management with BUSINESS AFFAIRS MANAGER Nballu. Will do 2gm iv daily and flagyl 500 mg po daily for 6 weeks until 10/23. I am concerned about abx failure and inability of healing. Patient refused OR debridement by Dr Villafana. Hannah Meeks MD Objective - Constitutional Vitals: Vital Signs Temp Pulse Resp BP Pulse Ox 98.3 F 97 H 20 143/82 97 09/23/17 07:30 09/23/17 11:24 09/23/17 07:30 09/23/17 11:24 09/23/17 07:30 Temperature -Last 24 Hours Temperature 98.3 F Temperature 98.7 F Temperature 99.0 F - Labs CBC & Chem 7: 09/23/17 05:59 09/23/17 05:59 Labs: Abnormal lab results 09/22/17 09/22/17 09/23/17 Range/Units 23:25 23:25 05:59 RBC (3.65-5.03) M/mm3 Hgb 7.6 L (11.8-15.2) gm/dl Hct 22.5 L (35.5-45.6) % RDW (13.2-15.2) % Plt Count 83 L (140-440) K/mm3 PT 19.6 H (12.2-14.9) Sec. INR 1.56 H (0.87-1.13) Heparin Anti-Xa Level (0.3-0.7) U.I./ml Potassium 3.5 L (3.6-5.0) mmol/L BUN 5 L (9-20) mg/dL Creatinine 0.4 L (0.8-1.5) mg/dL Glucose 103 H (75-100) mg/dL HDL Cholesterol 38 L (40-59) mg/dL 09/23/17 09/23/17 Range/Units 05:59 05:59 RBC 2.50 L (3.65-5.03) M/mm3 Hgb 7.5 L (11.8-15.2) gm/dl Hct 22.3 L (35.5-45.6) % RDW 15.9 H (13.2-15.2) % Plt Count 82 L (140-440) K/mm3 PT (12.2-14.9) Sec. INR (0.87-1.13) Heparin Anti-Xa Level < 0.10 L (0.3-0.7) U.I./ml Potassium (3.6-5.0) mmol/L BUN (9-20) mg/dL Creatinine (0.8-1.5) mg/dL Glucose (75-100) mg/dL HDL Cholesterol (40-59) mg/dL
--- NOTE | 2017-09-23 10:53 | XRay Report ---
PA and lateral chest: Tobacco use for evaluation of disease. Known metastatic prostate cancer. There are diffuse sclerotic bone lesions. The lungs are clear with no nodules. The mediastinum and cardiac contours are normal in size. No prior chest exam for comparison. Impressions: Findings consistent with metastatic prostate cancer. No pulmonary findings.
[2017-09-23] MEDS ORDERED: LEXISCAN IV ONE ×2 (10:55→10:57)
--- NOTE | 2017-09-23 13:19 | Progress Note ---
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 H/o prostate CA Tobacco use / ETOH use cessation encouraged Nuclear Stress: no ischemia, EF 66% ECHO: EF 55% Will sign off for now Subjective Date of service: 09/23/17 Principal diagnosis: right toe gangrene,prostate cnacer Interval history: Pt c/o toe pain today Objective Vital Signs Temp Pulse Resp Resp BP Pulse Ox 09/23/17 11:24 97 H 143/82 09/23/17 11:23 100 H 142/75 09/23/17 11:22 103 H 145/83 09/23/17 11:21 103 H 142/75 09/23/17 11:20 98 H 128/74 09/23/17 11:06 84 137/83 09/23/17 07:30 98.3 F 88 20 126/80 97 09/23/17 06:17 20 09/23/17 05:48 20 09/23/17 05:47 20 09/23/17 04:48 20 09/23/17 02:57 20 09/23/17 02:30 20 09/23/17 02:27 20 09/23/17 00:07 20 09/22/17 23:37 20 09/22/17 22:00 20 09/22/17 21:22 20 09/22/17 20:52 20 09/22/17 20:26 98.7 F 97 H 16 105/68 98 09/22/17 16:44 99.0 F 16 121/75 - Physical Examination HEENT: Positive: PERRL, Normocephaly, Mucus Membranes Moist Neck: Positive: neck supple, trachea midline Cardiac: Positive: Reg Rate and Rhythm Lungs: Positive: Normal Exam, clear to auscultation, Normal Breath Sounds Neuro: Positive: Grossly Intact Abdomen: Positive: Soft. Negative: Tender Skin: Positive: Other (right great toe blackened ) Musculoskeletal: No Fluid Collection Extremities: Present: lower extr. pulses (LLE), Other (palpable PT). Absent: edema - Labs and Meds Coagulation 09/22/17 09/22/17 Range/Units 12:57 23:25 PT 19.6 H (12.2-14.9) Sec. INR 1.56 H (0.87-1.13) APTT 67.7 H* (24.2-36.6) Sec. Lipids 09/23/17 Range/Units 05:59 Triglycerides 146 (2-149) mg/dL Cholesterol 134 (50-199) mg/dL HDL Cholesterol 38 L (40-59) mg/dL Cholesterol/HDL Ratio 3.52 % CBC 09/22/17 09/23/17 Range/Units 23:25 05:59 WBC 4.9 (4.5-11.0) K/mm3 RBC 2.50 L (3.65-5.03) M/mm3 Hgb 7.6 L 7.5 L (11.8-15.2) gm/dl Hct 22.5 L 22.3 L (35.5-45.6) % Plt Count 83 L 82 L (140-440) K/mm3 Comprehensive Metabolic Panel 09/23/17 Range/Units 05:59 Sodium 137 (137-145) mmol/L Potassium 3.5 L (3.6-5.0) mmol/L Chloride 98.9 (98-107) mmol/L Carbon Dioxide 25 (22-30) mmol/L BUN 5 L (9-20) mg/dL Creatinine 0.4 L (0.8-1.5) mg/dL Glucose 103 H (75-100) mg/dL Calcium 8.4 (8.4-10.2) mg/dL - Imaging and Cardiology EKG: report reviewed, image reviewed Nuclear stress test: report reviewed (MPI 09/23/17: no ischemia, EF 66%) Echo: report reviewed (ECHO 09/23/17: EF 55%) - EKG Sinus rhythms and dysrhythmias: sinus rhythm Chamber hypertrophy or enlargement: left ventricular hypertro
--- NOTE | 2017-09-23 15:40 | Progress Note ---
Assessment and Plan Assessment and plan: 66-year-old -[place]ian male with pmh of Prostate Cancer LBP and BPH presents to the emergency department with complaint of swelling to the right foot for the past week. The patient is noted to have a blackened and necrotic appearing right great toe. Dry eschar on Rt great Toe.No drainage. He says that it is been like this for the past couple weeks. He says he has been talking about seeing a physician regarding these symptoms but has not yet done so. He has a past medical history of prostate cancer and some chronic back pains. He has not taken anything for his symptoms prior presentation. Osteomyelitis of toe of right foot Continue IV abx for now-Unasyn w/u to r/o PAD Duplex doppler LE showed OCCLUDED RT.POP ARTERY AND RT.DPA WITH THROMBUS NOTED. MULTIPHASIC WAVEFORMS THROUGHOUT VESSELS INTERROGATED EXCEPT FOR MONOPHASIC WAVEFORMS OBTAINED IN THE RT.AWAKE OVERNIGHT MONITOR AND RT.BRISA.BLE ARTERIAL DUPLEX Patient refused surgical offer for ampuation 6 weeks of antibiotics as recommended by ID. HIT: Suspected- Negative. Will switch to heparin. stop AGATROBAN drip. 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 con Thrombocytopenia- Monitor for any bleeding and transfuse if plt below 20,000 per Hematology recommendation Anemia-Monitor. likely secondary to to prostate cancer. s/p Transfusion 2 units of packed red blood cells on 09/11. Will transfuse 2 PRBC today BPH (benign prostatic hyperplasia) Continue Tamsulosin. Chronic pain due to neoplasm * continue his home medications. * Opioid makes patient delirious SEVERE PAD (peripheral artery disease) S/P Thrombectomy. Occluded R POP artery vascular following pt for thrombectomy today. Fenestrate catheter removed today Vascular and ID following. Per vascular Cardiology eval noted. EF 55% IMPRESSION: 1) Removal of thrombolytic catheter. 2) Right lower extremity angiogram demonstrating reduction of thrombus burden within the popliteal artery , posterior tibial artery and tibioperoneal trunk and peroneal artery. There is persistent occlusion of the anterior tibial artery at its origin. 3) Aspiration thrombectomy of the popliteal artery, tibioperoneal trunk, ulcer tibial artery and hernial artery. 4) Angioplasty of the peroneal artery and posterior tibial artery 5) The patient will need to have additional arterial intervention of his anterior tibial artery in approximately 4 weeks. He will need to remain on anticoagulation for at least 6 months Nicotine dependence Pt counseled on cessation Nicoderm patch ordered DVT/GI prophy Pending placement for discharge. History Interval history: Patient seen and examined in no acute distress. complains of leg pain persist. also chronic back pain. no shortness of breath Hospitalist Physical - Physical exam Narrative exam: - EENT Eyes: Present: PERRL, EOM intact ENT: hearing intact, clear oral mucosa - Neck Neck: Present: supple, normal ROM - Respiratory Respiratory effort: normal Respiratory: bilateral: diminished - Cardiovascular Rhythm: regular Heart Sounds: Present: S1 & S2 - Extremities Extremity abnormal: other (right great toe gangrene, right 2nd toe gangrene), diminished pulses to right lower ext - Abdominal General gastrointestinal: soft, non-tender, non-distended, normal bowel sounds - Integumentary Integumentary: Present: clear, warm, edema right - Psychiatric Psychiatric: appropriate mood/affect, cooperative - Neurologic Neurologic: CNII-XII intact, moves all extremities, although limited in lower ext - Constitutional Vitals: Temp Pulse Resp BP Pulse Ox 98.3 F 97 H 20 143/82 97 09/23/17 07:30 09/23/17 11:24 09/23/17 07:30 09/23/17 11:24 09/23/17 07:30 General appearance: Present: no acute distress, well-nourished Results - Labs CBC & Chem 7: 09/23/17 05:59 09/23/17 05:59 Labs: Laboratory Last Values WBC 4.9 K/mm3 (4.5-11.0) 09/23/17 05:59 RBC 2.50 M/mm3 (3.65-5.03) L 09/23/17 05:59 Hgb 7.5 gm/dl (11.8-15.2) L 09/23/17 05:59 Hct 22.3 % (35.5-45.6) L 09/23/17 05:59 MCV 89 fl (84-94) 09/23/17 05:59 MCH 30 pg (28-32) 09/23/17 05:59 MCHC 34 % (32-34) 09/23/17 05:59 RDW 15.9 % (13.2-15.2) H 09/23/17 05:59 Plt Count 82 K/mm3 (140-440) L 09/23/17 05:59 Lymph % (Auto) 25.9 % (13.4-35.0) 09/20/17 18:53 [place] % (Auto) 7.1 % (0.0-7.3) 09/20/17 18:53 Eos % (Auto) 1.9 % (0.0-4.3) 09/20/17 18:53 Baso % (Auto) 0.7 % (0.0-1.8) 09/20/17 18:53 Lymph # 1.2 K/mm3 (1.2-5.4) 09/20/17 18:53 [place] # 0.3 K/mm3 (0.0-0.8) 09/20/17 18:53 Eos # 0.1 K/mm3 (0.0-0.4) 09/20/17 18:53 Baso # 0.0 K/mm3 (0.0-0.1) 09/20/17 18:53 Add Manual Diff Complete 09/22/17 07:47 Total Counted 100 09/22/17 07:47 Seg Neutrophils % 64.4 % (40.0-70.0) 09/20/17 18:53 Seg Neuts % (Manual) 62.0 % (40.0-70.0) 09/22/17 07:47 Band Neutrophils % 9.0 % 09/22/17 07:47 Lymphocytes % (Manual) 21.0 % (13.4-35.0) 09/22/17 07:47 Reactive Lymphs % (Man) 0 % 09/22/17 07:47 Monocytes % (Manual) 6.0 % (0.0-7.3) 09/22/17 07:47 Eosinophils % (Manual) 2.0 % (0.0-4.3) 09/22/17 07:47 Basophils % (Manual) 0 % (0.0-1.8) 09/22/17 07:47 Metamyelocytes % 0 % 09/22/17 07:47 Myelocytes % 0 % 09/22/17 07:47 Promyelocytes % 0 % 09/22/17 07:47 Blast Cells % 0 % 09/22/17 07:47 Nucleated RBC % Not Reportable 09/22/17 07:47 Seg Neutrophils # 2.9 K/mm3 (1.8-7.7) 09/20/17 18:53 Seg Neutrophils # Man 2.9 K/mm3 (1.8-7.7) 09/22/17 07:47 Band Neutrophils # 0.4 K/mm3 09/22/17 07:47 Lymphocytes # (Manual) 1.0 K/mm3 (1.2-5.4) L 09/22/17 07:47 Abs React Lymphs (Man) 0.0 K/mm3 09/22/17 07:47 Monocytes # (Manual) 0.3 K/mm3 (0.0-0.8) 09/22/17 07:47 Eosinophils # (Manual) 0.1 K/mm3 (0.0-0.4) 09/22/17 07:47 Basophils # (Manual) 0.0 K/mm3 (0.0-0.1) 09/22/17 07:47 Metamyelocytes # 0.0 K/mm3 09/22/17 07:47 Myelocytes # 0.0 K/mm3 09/22/17 07:47 Promyelocytes # 0.0 K/mm3 09/22/17 07:47 Blast Cells # 0.0 K/mm3 09/22/17 07:47 Pathologist Review Not Reportable 09/11/17 09:29 WBC Morphology Not Reportable 09/22/17 07:47 Hypersegmented Neuts Not Reportable 09/22/17 07:47 Hyposegmented Neuts Not Reportable 09/22/17 07:47 Hypogranular Neuts Not Reportable 09/22/17 07:47 Smudge Cells Not Reportable 09/22/17 07:47 Toxic Granulation Not Reportable 09/22/17 07:47 Toxic Vacuolation Not Reportable 09/22/17 07:47 Dohle Bodies Not Reportable 09/22/17 07:47 Pelger-Huet Anomaly Not Reportable 09/22/17 07:47 Jose Rods Not Reportable 09/22/17 07:47 Platelet Estimate Consistent w auto 09/22/17 07:47 Clumped Platelets Not Reportable 09/22/17 07:47 Plt Clumps, EDTA Not Reportable 09/22/17 07:47 Large Platelets Not Reportable 09/22/17 07:47 Giant Platelets Not Reportable 09/22/17 07:47 Platelet Satelliting Not Reportable 09/22/17 07:47 Plt Morphology Comment Not Reportable 09/22/17 07:47 RBC Morphology Not Reportable 09/22/17 07:47 Dimorphic RBCs Not Reportable 09/22/17 07:47 Polychromasia Rare 09/22/17 07:47 Hypochromasia Not Reportable 09/22/17 07:47 Poikilocytosis Not Reportable 09/22/17 07:47 Anisocytosis 1+ 09/22/17 07:47 Microcytosis Not Reportable 09/22/17 07:47 Macrocytosis Not Reportable 09/22/17 07:47 Spherocytes Not Reportable 09/22/17 07:47 Pappenheimer Bodies Not Reportable 09/22/17 07:47 Sickle Cells Not Reportable 09/22/17 07:47 Target Cells Not Reportable 09/22/17 07:47 Tear Drop Cells Rare 09/22/17 07:47 Ovalocytes Not Reportable 09/22/17 07:47 Helmet Cells Not Reportable 09/22/17 07:47 [place] Bodies Not Reportable 09/22/17 07:47 [place] Rings Not Reportable 09/22/17 07:47 Sunflower Cells Not Reportable 09/22/17 07:47 Bite Cells Not Reportable 09/22/17 07:47 Crenated Cell Not Reportable 09/22/17 07:47 Elliptocytes Not Reportable 09/22/17 07:47 Acanthocytes (Spur) Not Reportable 09/22/17 07:47 Rouleaux Not Reportable 09/22/17 07:47 Hemoglobin C Crystals Not Reportable 09/22/17 07:47 Schistocytes Not Reportable 09/22/17 07:47 Malaria parasites Not Reportable 09/22/17 07:47 Percent Retic 3.68 % (0.78-2.58) H 09/14/17 10:46 Collins Bodies Not Reportable 09/22/17 07:47 Hem Pathologist Commnt No 09/22/17 07:47 PT 19.6 Sec. (12.2-14.9) H 09/22/17 23:25 INR 1.56 (0.87-1.13) H 09/22/17 23:25 APTT 67.7 Sec. (24.2-36.6) H* 02/08/18 12:57 Fibrinogen 824 mg/dl (211-480) H 09/21/17 06:49 Heparin Anti-Xa Level < 0.10 U.I./ml (0.3-0.7) L 09/23/17 05:59 Heparin Anti-Xa, Unfract Negative (Negative) 09/14/17 08:46 Sodium 137 mmol/L (137-145) 09/23/17 05:59 Potassium 3.5 mmol/L (3.6-5.0) L 09/23/17 05:59 Chloride 98.9 mmol/L (98-107) 09/23/17 05:59 Carbon Dioxide 25 mmol/L (22-30) 09/23/17 05:59 Anion Gap 17 mmol/L 09/23/17 05:59 BUN 5 mg/dL (9-20) L 09/23/17 05:59 Creatinine 0.4 mg/dL (0.8-1.5) L 09/23/17 05:59 Estimated GFR > 60 ml/min 09/23/17 05:59 BUN/Creatinine Ratio 13 % 09/23/17 05:59 Glucose 103 mg/dL (75-100) H 09/23/17 05:59 POC Glucose 102 (70-105) 09/14/17 06:43 Hemoglobin A1c 5.4 % (4-6) 09/12/17 08:32 Lactic Acid 1.50 mmol/L (0.7-2.0) 09/11/17 09:29 Calcium 8.4 mg/dL (8.4-10.2) 09/23/17 05:59 Iron 48 ug/dL (49-181) L 09/11/17 23:47 TIBC 233 mcg/dL (250-450) L 09/11/17 23:47 % Saturation 20.60 % 09/11/17 23:47 Transferrin 194 mg/dl (180-329) 09/11/17 23:47 Ferritin 1023.0 ng/mL (13.0-400.0) H 09/14/17 10:46 Total Bilirubin 0.50 mg/dL (0.1-1.2) 09/21/17 21:53 AST 13 units/L (5-40) 09/21/17 21:53 ALT < 5 units/L (7-56) L 09/21/17 21:53 Alkaline Phosphatase 414 units/L (35-129) H 09/21/17 21:53 Total Creatine Kinase 136 units/L (55-170) 09/11/17 09:29 Troponin T < 0.010 ng/mL (0.00-0.029) 09/15/17 23:15 C-Reactive Protein 21.40 mg/dL (0.00-1.30) H 09/21/17 13:01 Total Protein 5.8 g/dL (6.3-8.2) L 09/21/17 21:53 Albumin 2.8 g/dL (3.9-5) L 09/21/17 21:53 Albumin/Globulin Ratio 0.9 % 09/21/17 21:53 Triglycerides 146 mg/dL (2-149) 09/23/17 05:59 Cholesterol 134 mg/dL (50-199) 09/23/17 05:59 LDL Cholesterol Direct 67 mg/dL (50-130) 09/23/17 05:59 HDL Cholesterol 38 mg/dL (40-59) L 09/23/17 05:59 Cholesterol/HDL Ratio 3.52 % 09/23/17 05:59 Prostate Specific Ag 1721.00 ng/mL (0.00-4.00) H 09/14/17 10:46 Serotonin Release Assay See scanned report 09/14/17 08:46 Vitamin B12 206.4 pg/mL (211-911) L 09/14/17 10:46 Folate 19.92 ng/mL (7.3-26.0) 09/14/17 10:46 Vancomycin Trough 12.8 ug/mL (5.0-20.0) 09/16/17 09:25 Heparin-induced Plt Ab Negative (Negative) 09/14/17 08:46 UF Heparin High Dose 0 % Release 09/14/17 08:46 ELENA UFH Low Dose 0.1 0 % Release 09/14/17 08:46 ELENA UFH Low Dose 0.5 0 % Release 09/14/17 08:46 Hep Bs Antigen Non-reactive (Negative) 09/14/17 10:46 Hepatitis C Antibody Non-reactive (NonReactive) 09/14/17 10:46 Blood Type B POSITIVE 02/07/18 07:52 Antibody Screen Negative 09/21/17 07:52 Crossmatch See Detail 09/21/17 07:52
--- NOTE | 2017-09-23 16:31 | XRay Report ---
FINAL REPORT EXAM: XR CHEST 1V AP HISTORY: L arm PICC placement TECHNIQUE: Frontal chest radiograph. PRIORS: None. FINDINGS: Left upper extremity PICC is in place with the tip lying at the upper cavoatrial junction. the cardiomediastinal silhouette is normal. No focal consolidation. No pleural effusion. No pneumothorax. Diffuse sclerotic appearance of the bones is noted. Old left-sided rib fractures are seen. IMPRESSION: 1. Left upper extremity PICC lying at the upper cavoatrial junction. 2. Diffuse sclerotic appearance of the bones may be related to diffuse osseous metastases or other etiologies such as chronic renal disease or myelodysplasia.
--- NOTE | 2017-09-23 19:35 | Progress Note ---
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 (2) Cellulitis of leg Current Visit: Yes Status: Acute Qualifiers: Laterality: right Qualified Code(s): L03.115 - Cellulitis of right lower limb Plan to address problem: Patient is on unasyn. (3) Prostate CA Current Visit: Yes Status: Acute Plan to address problem: Mangement as per primary care . Recommend to consult urology. (4) Thrombocytopenia Current Visit: Yes Status: Acute Plan to address problem: Heparin Discontinued. Patient is on Apixaban, (5) Tobacco use disorder Current Visit: Yes Status: Acute Plan to address problem: Counselled him to stop smoking. Subjective Date of service: 09/23/17 Principal diagnosis: right toe gangrene,prostate cnacer Interval history: Patient sleeping at this time. On room air,O2 saturation 97%. Objective Vital Signs - 12hr 09/23/17 09/23/17 09/23/17 11:06 11:20 11:21 Temperature Pulse Rate 84 98 H 103 H Respiratory Rate Blood Pressure 137/83 128/74 142/75 O2 Sat by Pulse Oximetry 09/23/17 09/23/17 09/23/17 11:22 11:23 11:24 Temperature Pulse Rate 103 H 100 H 97 H Respiratory Rate Blood Pressure 145/83 142/75 143/82 O2 Sat by Pulse Oximetry 09/23/17 16:19 Temperature 97.6 F Pulse Rate 99 H Respiratory 19 Rate Blood Pressure 138/85 O2 Sat by Pulse 99 Oximetry Constitutional: no acute distress, alert, appears uncomfortable Eyes: non-icteric Neck: supple, no lymphadenopathy Ascultation: Bilateral: diminished breath sounds (Prolonged expiratory phase.) Cardiovascular: regular rate and rhythm Gastrointestinal: normoactive bowel sounds, soft, non-tender Integumentary: normal Extremities: no cyanosis, no edema, other (Gangrene extremities.) Neurologic: non-focal exam, pupils equal and round, CN II-XII normal Psychiatric: other (Irritable.) CBC and BMP: 09/24/17 05:22 09/24/17 05:22 ABG, PT/INR, D-dimer: PT/INR, D-dimer PT 19.6 Sec. (12.2-14.9) H 09/22/17 23:25 INR 1.56 (0.87-1.13) H 09/22/17 23:25 Abnormal lab findings: Abnormal Labs 09/11/17 09/11/17 09/11/17 09:29 09:29 10:13 WBC RBC 2.23 L Hgb 6.7 L Hct 21.3 L MCV 96 H MCHC RDW 20.2 H Plt Count 83 L [place] % (Auto) Lymph # Seg Neuts % (Manual) Lymphocytes % (Manual) 44.0 H Nucleated RBC % 34.0 H Lymphocytes # (Manual) Percent Retic PT INR APTT Fibrinogen Heparin Anti-Xa Level Sodium Potassium Chloride Carbon Dioxide BUN Creatinine 0.7 L Glucose Calcium Iron TIBC Ferritin ALT Alkaline Phosphatase C-Reactive Protein Total Protein Albumin HDL Cholesterol Prostate Specific Ag Vitamin B12 Crossmatch See Detail 09/11/17 09/12/17 09/12/17 23:47 08:32 08:32 WBC RBC 3.42 L Hgb 10.0 L D Hct 32.1 L D MCV MCHC 31 L RDW 18.7 H Plt Count 65 L [place] % (Auto) Lymph # Seg Neuts % (Manual) Lymphocytes % (Manual) Nucleated RBC % 4.0 H Lymphocytes # (Manual) Percent Retic PT INR APTT Fibrinogen Heparin Anti-Xa Level Sodium Potassium Chloride Carbon Dioxide BUN Creatinine 0.6 L Glucose Calcium Iron 48 L TIBC 233 L Ferritin ALT Alkaline Phosphatase 684 H C-Reactive Protein Total Protein Albumin HDL Cholesterol Prostate Specific Ag Vitamin B12 Crossmatch 09/12/17 09/13/17 09/13/17 18:07 06:18 09:29 WBC RBC Hgb 9.7 L Hct 30.0 L MCV MCHC RDW Plt Count 62 L [place] % (Auto) Lymph # Seg Neuts % (Manual) Lymphocytes % (Manual) Nucleated RBC % Lymphocytes # (Manual) Percent Retic PT INR APTT Fibrinogen Heparin Anti-Xa Level < 0.10 L Sodium Potassium Chloride Carbon Dioxide BUN Creatinine Glucose Calcium Iron TIBC Ferritin ALT Alkaline Phosphatase C-Reactive Protein 15.70 H Total Protein Albumin HDL Cholesterol Prostate Specific Ag Vitamin B12 Crossmatch 09/13/17 09/13/17 09/13/17 09:29 11:41 23:25 WBC RBC 3.40 L Hgb 10.1 L Hct 31.6 L MCV MCHC RDW 18.5 H Plt Count 55 L [place] % (Auto) Lymph # Seg Neuts % (Manual) Lymphocytes % (Manual) Nucleated RBC % Lymphocytes # (Manual) Percent Retic PT INR APTT 81.5 H* Fibrinogen Heparin Anti-Xa Level 0.10 L Sodium 133 L Potassium Chloride 97.0 L Carbon Dioxide BUN Creatinine 0.6 L Glucose 103 H Calcium Iron TIBC Ferritin ALT Alkaline Phosphatase C-Reactive Protein Total Protein Albumin HDL Cholesterol Prostate Specific Ag Vitamin B12 Crossmatch 09/14/17 09/14/17 09/14/17 05:24 05:24 10:46 WBC RBC 3.20 L Hgb 9.8 L Hct 29.2 L MCV MCHC RDW 17.6 H Plt Count 61 L [place] % (Auto) Lymph # Seg Neuts % (Manual) 80.0 H Lymphocytes % (Manual) Nucleated RBC % 1.0 H Lymphocytes # (Manual) 0.6 L Percent Retic PT INR APTT 58.5 H 56.0 H Fibrinogen Heparin Anti-Xa Level Sodium Potassium Chloride Carbon Dioxide BUN Creatinine Glucose Calcium Iron TIBC Ferritin ALT Alkaline Phosphatase C-Reactive Protein Total Protein Albumin HDL Cholesterol Prostate Specific Ag Vitamin B12 Crossmatch 09/14/17 09/14/17 09/14/17 10:46 10:46 10:46 WBC RBC Hgb Hct MCV MCHC RDW Plt Count [place] % (Auto) Lymph # Seg Neuts % (Manual) Lymphocytes % (Manual) Nucleated RBC % Lymphocytes # (Manual) Percent Retic 3.68 H PT INR APTT Fibrinogen Heparin Anti-Xa Level Sodium Potassium Chloride Carbon Dioxide BUN Creatinine Glucose Calcium Iron TIBC Ferritin 1023.0 H ALT Alkaline Phosphatase C-Reactive Protein Total Protein Albumin HDL Cholesterol Prostate Specific Ag 1721.00 H Vitamin B12 Crossmatch 09/14/17 09/14/17 09/15/17 10:46 23:04 02:53 WBC RBC 2.97 L Hgb 8.9 L Hct 27.3 L MCV MCHC RDW 17.6 H Plt Count 50 L [place] % (Auto) Lymph # Seg Neuts % (Manual) 71.0 H Lymphocytes % (Manual) 12.0 L Nucleated RBC % 2.0 H Lymphocytes # (Manual) 0.6 L Percent Retic PT INR APTT 89.4 H* Fibrinogen Heparin Anti-Xa Level Sodium Potassium Chloride Carbon Dioxide BUN Creatinine Glucose Calcium Iron TIBC Ferritin ALT Alkaline Phosphatase C-Reactive Protein Total Protein Albumin HDL Cholesterol Prostate Specific Ag Vitamin B12 206.4 L Crossmatch 09/15/17 09/15/17 09/15/17 02:53 05:22 11:33 WBC RBC Hgb Hct MCV MCHC RDW Plt Count [place] % (Auto) Lymph # Seg Neuts % (Manual) Lymphocytes % (Manual) Nucleated RBC % Lymphocytes # (Manual) Percent Retic PT INR APTT 87.0 H* 80.0 H* Fibrinogen Heparin Anti-Xa Level Sodium 132 L Potassium Chloride 95.2 L Carbon Dioxide 20 L BUN Creatinine 0.6 L Glucose 102 H Calcium Iron TIBC Ferritin ALT Alkaline Phosphatase C-Reactive Protein Total Protein Albumin HDL Cholesterol Prostate Specific Ag Vitamin B12 Crossmatch 09/15/17 09/16/17 09/16/17 23:15 07:11 07:12 WBC 4.0 L RBC 2.97 L Hgb 8.9 L Hct 27.1 L MCV MCHC RDW 17.4 H Plt Count 53 L [place] % (Auto) Lymph # Seg Neuts % (Manual) Lymphocytes % (Manual) Nucleated RBC % Lymphocytes # (Manual) 1.0 L Percent Retic PT INR APTT 101.0 H* 48.7 H Fibrinogen Heparin Anti-Xa Level Sodium Potassium Chloride Carbon Dioxide BUN Creatinine Glucose Calcium Iron TIBC Ferritin ALT Alkaline Phosphatase C-Reactive Protein Total Protein Albumin HDL Cholesterol Prostate Specific Ag Vitamin B12 Crossmatch 09/16/17 09/17/17 09/17/17 13:07 04:23 17:23 WBC RBC Hgb Hct MCV MCHC RDW Plt Count [place] % (Auto) Lymph # Seg Neuts % (Manual) Lymphocytes % (Manual) Nucleated RBC % Lymphocytes # (Manual) Percent Retic PT INR APTT 61.7 H* 60.3 H* 57.9 H Fibrinogen Heparin Anti-Xa Level Sodium Potassium Chloride Carbon Dioxide BUN Creatinine Glucose Calcium Iron TIBC Ferritin ALT Alkaline Phosphatase C-Reactive Protein Total Protein Albumin HDL Cholesterol Prostate Specific Ag Vitamin B12 Crossmatch 09/18/17 09/18/17 09/18/17 05:31 05:31 05:31 WBC 4.2 L RBC 2.66 L Hgb 7.9 L Hct 23.9 L MCV MCHC RDW 17.3 H Plt Count 75 L [place] % (Auto) 7.7 H Lymph # 0.9 L Seg Neuts % (Manual) Lymphocytes % (Manual) Nucleated RBC % Lymphocytes # (Manual) Percent Retic PT INR APTT 61.5 H* Fibrinogen Heparin Anti-Xa Level Sodium 132 L Potassium 3.1 L Chloride 94.4 L Carbon Dioxide BUN 8 L Creatinine 0.5 L Glucose 127 H Calcium Iron TIBC Ferritin ALT Alkaline Phosphatase C-Reactive Protein Total Protein Albumin HDL Cholesterol Prostate Specific Ag Vitamin B12 Crossmatch 09/18/17 09/19/17 09/19/17 17:35 06:30 17:43 WBC RBC Hgb Hct MCV MCHC RDW Plt Count [place] % (Auto) Lymph # Seg Neuts % (Manual) Lymphocytes % (Manual) Nucleated RBC % Lymphocytes # (Manual) Percent Retic PT INR APTT 60.1 H* 67.8 H* 60.9 H* Fibrinogen Heparin Anti-Xa Level Sodium Potassium Chloride Carbon Dioxide BUN Creatinine Glucose Calcium Iron TIBC Ferritin ALT Alkaline Phosphatase C-Reactive Protein Total Protein Albumin HDL Cholesterol Prostate Specific Ag Vitamin B12 Crossmatch 09/20/17 09/20/17 09/20/17 05:23 05:23 05:23 WBC RBC Hgb 7.7 L Hct 23.4 L MCV MCHC RDW Plt Count 98 L [place] % (Auto) Lymph # Seg Neuts % (Manual) Lymphocytes % (Manual) Nucleated RBC % Lymphocytes # (Manual) Percent Retic PT INR APTT 63.2 H* Fibrinogen Heparin Anti-Xa Level Sodium 134 L Potassium 3.4 L Chloride 97.3 L Carbon Dioxide BUN Creatinine 0.5 L Glucose 107 H Calcium Iron TIBC Ferritin ALT < 5 L Alkaline Phosphatase 542 H C-Reactive Protein Total Protein 5.7 L Albumin 3.4 L HDL Cholesterol Prostate Specific Ag Vitamin B12 Crossmatch 09/20/17 09/20/17 09/20/17 13:40 13:40 13:40 WBC RBC 2.43 L Hgb 7.2 L Hct 22.2 L MCV MCHC RDW 17.3 H Plt Count 93 L [place] % (Auto) Lymph # Seg Neuts % (Manual) Lymphocytes % (Manual) Nucleated RBC % 2.0 H Lymphocytes # (Manual) Percent Retic PT 17.7 H INR 1.38 H APTT 130.6 H* Fibrinogen 969 H Heparin Anti-Xa Level Sodium 134 L Potassium Chloride Carbon Dioxide BUN 8 L Creatinine 0.5 L Glucose Calcium Iron TIBC Ferritin ALT Alkaline Phosphatase C-Reactive Protein Total Protein Albumin HDL Cholesterol Prostate Specific Ag Vitamin B12 Crossmatch 09/20/17 09/20/17 09/21/17 18:53 18:53 00:13 WBC RBC 2.33 L 2.30 L Hgb 6.9 L 6.9 L Hct 20.9 L 21.0 L MCV MCHC RDW 17.0 H 17.5 H Plt Count 92 L 89 L [place] % (Auto) Lymph # Seg Neuts % (Manual) 76.0 H Lymphocytes % (Manual) Nucleated RBC % Lymphocytes # (Manual) 0.9 L Percent Retic PT INR APTT 37.1 H Fibrinogen 907 H Heparin Anti-Xa Level < 0.10 L Sodium Potassium Chloride Carbon Dioxide BUN Creatinine Glucose Calcium Iron TIBC Ferritin ALT Alkaline Phosphatase C-Reactive Protein Total Protein Albumin HDL Cholesterol Prostate Specific Ag Vitamin B12 Crossmatch 09/21/17 09/21/17 09/21/17 00:13 03:59 06:49 WBC RBC 2.19 L Hgb 6.4 L Hct 19.7 L* MCV MCHC RDW 17.1 H Plt Count 89 L [place] % (Auto) Lymph # Seg Neuts % (Manual) Lymphocytes % (Manual) Nucleated RBC % Lymphocytes # (Manual) Percent Retic PT INR APTT Fibrinogen 899 H Heparin Anti-Xa Level 0.10 L Sodium 136 L Potassium Chloride Carbon Dioxide BUN 7 L Creatinine 0.4 L Glucose 102 H Calcium 7.7 L Iron TIBC Ferritin ALT < 5 L Alkaline Phosphatase 473 H C-Reactive Protein Total Protein 5.2 L Albumin 2.8 L HDL Cholesterol Prostate Specific Ag Vitamin B12 Crossmatch 09/21/17 09/21/17 09/21/17 06:49 07:52 13:01 WBC RBC Hgb Hct MCV MCHC RDW Plt Count [place] % (Auto) Lymph # Seg Neuts % (Manual) Lymphocytes % (Manual) Nucleated RBC % Lymphocytes # (Manual) Percent Retic PT INR APTT Fibrinogen 824 H Heparin Anti-Xa Level < 0.10 L Sodium Potassium Chloride Carbon Dioxide BUN Creatinine Glucose Calcium Iron TIBC Ferritin ALT Alkaline Phosphatase C-Reactive Protein 21.40 H Total Protein Albumin HDL Cholesterol Prostate Specific Ag Vitamin B12 Crossmatch See Detail 09/21/17 09/21/17 09/21/17 21:53 21:53 23:27 WBC RBC Hgb Hct MCV MCHC RDW Plt Count [place] % (Auto) Lymph # Seg Neuts % (Manual) Lymphocytes % (Manual) Nucleated RBC % Lymphocytes # (Manual) Percent Retic PT 19.8 H INR 1.58 H APTT 56.5 H Fibrinogen Heparin Anti-Xa Level Sodium 134 L Potassium Chloride 97.2 L Carbon Dioxide BUN 6 L Creatinine 0.4 L Glucose Calcium 8.2 L Iron TIBC Ferritin ALT < 5 L Alkaline Phosphatase 414 H C-Reactive Protein Total Protein 5.8 L Albumin 2.8 L HDL Cholesterol Prostate Specific Ag Vitamin B12 Crossmatch 09/22/17 09/22/17 09/22/17 05:55 07:47 12:57 WBC RBC 2.91 L Hgb 8.7 L Hct 26.0 L D MCV MCHC RDW 16.4 H Plt Count 84 L [place] % (Auto) Lymph # Seg Neuts % (Manual) Lymphocytes % (Manual) Nucleated RBC % Lymphocytes # (Manual) 1.0 L Percent Retic PT INR APTT 67.7 H* Fibrinogen Heparin Anti-Xa Level Sodium Potassium 3.1 L Chloride Carbon Dioxide 21 L BUN 7 L Creatinine 0.5 L Glucose Calcium 7.7 L Iron TIBC Ferritin ALT Alkaline Phosphatase C-Reactive Protein Total Protein Albumin HDL Cholesterol Prostate Specific Ag Vitamin B12 Crossmatch 09/22/17 09/22/17 09/23/17 23:25 23:25 05:59 WBC RBC Hgb 7.6 L Hct 22.5 L MCV MCHC RDW Plt Count 83 L [place] % (Auto) Lymph # Seg Neuts % (Manual) Lymphocytes % (Manual) Nucleated RBC % Lymphocytes # (Manual) Percent Retic PT 19.6 H INR 1.56 H APTT Fibrinogen Heparin Anti-Xa Level Sodium Potassium 3.5 L Chloride Carbon Dioxide BUN 5 L Creatinine 0.4 L Glucose 103 H Calcium Iron TIBC Ferritin ALT Alkaline Phosphatase C-Reactive Protein Total Protein Albumin HDL Cholesterol 38 L Prostate Specific Ag Vitamin B12 Crossmatch 09/23/17 09/23/17 09/23/17 05:59 05:59 18:03 WBC RBC 2.50 L Hgb 7.5 L Hct 22.3 L MCV MCHC RDW 15.9 H Plt Count 82 L [place] % (Auto) Lymph # Seg Neuts % (Manual) Lymphocytes % (Manual) Nucleated RBC % Lymphocytes # (Manual) Percent Retic PT INR APTT Fibrinogen Heparin Anti-Xa Level < 0.10 L 0.11 L Sodium Potassium Chloride Carbon Dioxide BUN Creatinine Glucose Calcium Iron TIBC Ferritin ALT Alkaline Phosphatase C-Reactive Protein Total Protein Albumin HDL Cholesterol Prostate Specific Ag Vitamin B12 Crossmatch
[2017-09-24] MEDS: DILAUDID IV PRN ×6 (01:54→21:34)
[2017-09-24] MEDS: PERCOCET 5/325 PO PRN (04:06)
[2017-09-24 06:05] LABS: Hematocrit 22.4 % (35.5-45.6); Hemoglobin 7.4 gm/dl (11.8-15.2); Mean Corpuscular HGB Conc 33 % (32-34); Mean Corpuscular Hemoglobin 29 pg (28-32); Mean Corpuscular Volume 88 fl (84-94); Red Blood Count 2.55 M/mm3 (3.65-5.03); Red Cell Distribution Width 16.3 % (13.2-15.2)
[2017-09-24 06:12] LABS: Platelet Count 85 K/mm3 (140-440)
[2017-09-24 06:31] LABS: BUN/Creatinine Ratio 10; Blood Urea Nitrogen 4 mg/dL (9-20); Calcium 8.2 mg/dL (8.4-10.2); Hemolysis Index 0
[2017-09-24] MEDS: UNASYN/NS 3 GM/100 ML 3 GM/100 ML BAG IV SCH ×4 (06:46→23:33)
[2017-09-24] MEDS: HEPARIN/ 0.45% NACL-25,000 UNIT/500 ML 25,000 UNIT/500 ML BAG IV SCH (07:13)
[2017-09-24] MEDS ORDERED: NACL ONE (07:56)
--- NOTE | 2017-09-24 09:50 | Cat Scan Report ---
FINAL REPORT PROCEDURE: CT ANGIO CHEST TECHNIQUE: Computerized tomographic angiography of the chest was performed after the IV injection of iodinated nonionic contrast including image processing. The image data was postprocessed using 2-dimensional multiplanar reformatted (MPR) and 3-dimensional (MIP and/or volume rendered) techniques. HISTORY: distal embolic event COMPARISON: Chest x-ray 09/23/2017 and CTA 09/12/2017 FINDINGS: Heart and pericardium: Normal. Thoracic aorta: Atherosclerosis with ascending thoracic ectasias . Heavily calcified atherosclerosis of the upper abdominal aorta with posterior aortic endoluminal atherosclerosis and possible focal inherent thrombus or undulating mural thrombus, favoring the latter as stable from prior study. Pulmonary vasculature: There is a linear fibrinous band in the descending right lower pulmonary artery may reflect small thrombus for related to distal end of PICC line catheter or chronic firmness PE from a remote event.. No endoluminal pulmonary artery meniscus or evidence of acute typical round PE seen at this time Lymph nodes: Mild mediastinal hilar adenopathy 1.5-2 centimeter range left paratracheal right infrahilar suprahilar. Lungs/pleura: Patchy atelectasis in the lower lung zones. Diffuse pulmonary emphysema. Mild bilateral pleural thickening scattered pleural parenchymal scarring. Musculoskeletal structures: Diffuse widespread prominent sclerotic metastatic disease throughout the skeletal structure including all vertebral bodies sternum throughout the ribcage clavicles scapula shoulders lower cervical spine. Consider prostate malignancy spread. A subtle pathologic fracture is not excludable. Defer to MRI Upper abdominal structures: Heterogeneous liver with infiltrative pathology not excludable including but not limited to malignancy. Mildly heterogeneous kidneys. Possible trace intrahepatic duct dilatation with periportal tracking. Prominent distal common bile duct 8 millimeters. Pancreatic atrophy. Bilateral adrenal hyperplasia left greater than right. Abnormal bowel pattern upper abdomen nonspecific. Pre portal adenopathy 1 x 2 centimeter axial 118. Moderate celiac axis stenosis Left-sided PICC line catheter tip in the cavoatrial junction in position. IMPRESSION: Small nonocclusive endoluminal fibrinous linear band descending branch right pulmonary artery consistent with minimal PE likely related to distal and PICC line catheter source. No large or central PE or meniscus sign or obstructive PE. Pulmonary emphysema with pleural parenchymal thickening. Diffuse severe widespread metastatic disease throughout the bones. Consider prostate malignancy Details above. Followup advised as warranted. Findings called 9:38 a.m. September 242017 DANTE Brumfield
[2017-09-24] MEDS: HABITROL TD SCH (09:52)
[2017-09-24] MEDS: FLOMAX PO SCH (09:53)
[2017-09-24] MEDS: FOLVITE PO SCH (09:53)
[2017-09-24] MEDS: PEPCID PO SCH ×2 (09:54→21:34)
[2017-09-24] MEDS ORDERED: K-DUR PO NR (10:00)
--- NOTE | 2017-09-24 13:30 | Hem/Onc Progress Note ---
Assessment and Plan Hemoglobin and platelets stable. continue supportive care f/u with [facility] upon d/c for his prostate cancer. We will start him on eliquis stop the heparin. Patient has chronic anemia. I feel this is related to prostate cancer but it seems he's not had a GI workup for some time. Since he's going to be on anticoagulation, consider GI eval while he is here. - Patient Problems (1) Prostate CA Current Visit: Yes Status: Acute (2) Anemia Current Visit: Yes Status: Acute Qualifiers: Anemia type: unspecified type Qualified Code(s): D64.9 - Anemia, unspecified (3) Thrombocytopenia Current Visit: Yes Status: Acute (4) Atherosclerosis of [place] arteries of the extremities with gangrene Current Visit: Yes Status: Acute Subjective Date of service: 09/24/17 Interval history: Patient underwent revascularization. Complains of pain in the right foot. Objective - Constitutional Vitals: Last Vital Signs Temp 98.7 F 09/24/17 07:55 Pulse 106 H 09/24/17 10:00 Resp 18 09/24/17 10:27 BP 148/86 09/24/17 07:55 Pulse Ox 97 09/24/17 07:55 Pain Intensity (0-10): denies any pain General appearance: no acute distress - Neck Neck: supple - Respiratory Respiratory effort: Positive: normal Respiratory: bilateral: diminished - Cardiovascular Rhythm: regular Extremities: abnormal - Gastrointestinal General gastrointestinal: Present: soft - Labs Lab Results: Laboratory Results - last 24 hr 09/23/17 09/24/17 09/24/17 18:03 05:22 05:22 WBC 4.7 RBC 2.55 L Hgb 7.4 L Hct 22.4 L MCV 88 MCH 29 MCHC 33 RDW 16.3 H Plt Count 85 L Heparin Anti-Xa Level 0.11 L Sodium 136 L Potassium 3.3 L Chloride 97.4 L Carbon Dioxide 24 Anion Gap 18 BUN 4 L Creatinine 0.4 L Estimated GFR > 60 BUN/Creatinine Ratio 10 Glucose 110 H Calcium 8.2 L 09/24/17 05:22 WBC RBC Hgb Hct MCV MCH MCHC RDW Plt Count Heparin Anti-Xa Level 0.14 L Sodium Potassium Chloride Carbon Dioxide Anion Gap BUN Creatinine Estimated GFR BUN/Creatinine Ratio Glucose Calcium
--- NOTE | 2017-09-24 13:49 | Progress Note ---
Assessment and Plan Patient alert, awake . On room air,O2 saturation 97%. No complaint of chest pain or shortness of breath. Patient has angio CT of chest reported small fibrinous material right pulmonary artery at catheter tip. Patient already on APIXABAN. Metastatic disease in bones likely from prostatic CA. 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 (2) Cellulitis of leg Current Visit: Yes Status: Acute Qualifiers: Laterality: right Qualified Code(s): L03.115 - Cellulitis of right lower limb Plan to address problem: Patient is on unasyn. (3) Prostate CA Current Visit: Yes Status: Acute Plan to address problem: Mangement as per primary care . Recommend to consult urology. (4) Thrombocytopenia Current Visit: Yes Status: Acute Plan to address problem: Heparin Discontinued. Patient is on Apixaban, (5) Tobacco use disorder Current Visit: Yes Status: Acute Plan to address problem: Counselled him to stop smoking. Subjective Date of service: 09/24/17 Principal diagnosis: right toe gangrene,prostate cnacer Interval history: Patient alert, awake . On room air,O2 saturation 97%. No complaint of chest pain or shortness of breath. Patient has angio CT of chest reported small fibrinous material right pulmonary artery at catheter tip. Patient already on APIXABAN. Metastatic disease in bones likely from prostatic CA. Objective Vital Signs - 12hr 09/24/17 09/24/17 09/24/17 01:54 02:24 04:06 Temperature Pulse Rate Pulse Rate [ Apical] Pulse Rate [ Left Dorsalis Pedis] Pulse Rate [ Right Dorsalis Pedis] Respiratory 20 20 20 Rate Blood Pressure O2 Sat by Pulse Oximetry 09/24/17 09/24/17 09/24/17 07:18 07:55 10:00 Temperature 98.7 F Pulse Rate 95 H Pulse Rate [ 106 H Apical] Pulse Rate [ 104 H Left Dorsalis Pedis] Pulse Rate [ 92 H Right Dorsalis Pedis] Respiratory 20 16 18 Rate Blood Pressure 148/86 O2 Sat by Pulse 97 Oximetry 09/24/17 10:27 Temperature Pulse Rate Pulse Rate [ Apical] Pulse Rate [ Left Dorsalis Pedis] Pulse Rate [ Right Dorsalis Pedis] Respiratory 18 Rate Blood Pressure O2 Sat by Pulse Oximetry Constitutional: no acute distress, alert, appears uncomfortable Eyes: non-icteric ENT: oropharynx moist Neck: supple, no lymphadenopathy Ascultation: Bilateral: diminished breath sounds (Prolonged expiratory phase.) Cardiovascular: regular rate and rhythm Gastrointestinal: normoactive bowel sounds, soft, non-tender Integumentary: normal Extremities: no cyanosis, no edema, other (Gangrene extremities.) Neurologic: non-focal exam, pupils equal and round, CN II-XII normal Psychiatric: other (Irritable.) CBC and BMP: 09/24/17 05:22 09/24/17 05:22 ABG, PT/INR, D-dimer: PT/INR, D-dimer PT 19.6 Sec. (12.2-14.9) H 09/22/17 23:25 INR 1.56 (0.87-1.13) H 09/22/17 23:25 Abnormal lab findings: Abnormal Labs 09/11/17 09/11/17 09/11/17 09:29 09:29 10:13 WBC RBC 2.23 L Hgb 6.7 L Hct 21.3 L MCV 96 H MCHC RDW 20.2 H Plt Count 83 L [place] % (Auto) Lymph # Seg Neuts % (Manual) Lymphocytes % (Manual) 44.0 H Nucleated RBC % 34.0 H Lymphocytes # (Manual) Percent Retic PT INR APTT Fibrinogen Heparin Anti-Xa Level Sodium Potassium Chloride Carbon Dioxide BUN Creatinine 0.7 L Glucose Calcium Iron TIBC Ferritin ALT Alkaline Phosphatase C-Reactive Protein Total Protein Albumin HDL Cholesterol Prostate Specific Ag Vitamin B12 Crossmatch See Detail 09/11/17 09/12/17 09/12/17 23:47 08:32 08:32 WBC RBC 3.42 L Hgb 10.0 L D Hct 32.1 L D MCV MCHC 31 L RDW 18.7 H Plt Count 65 L [place] % (Auto) Lymph # Seg Neuts % (Manual) Lymphocytes % (Manual) Nucleated RBC % 4.0 H Lymphocytes # (Manual) Percent Retic PT INR APTT Fibrinogen Heparin Anti-Xa Level Sodium Potassium Chloride Carbon Dioxide BUN Creatinine 0.6 L Glucose Calcium Iron 48 L TIBC 233 L Ferritin ALT Alkaline Phosphatase 684 H C-Reactive Protein Total Protein Albumin HDL Cholesterol Prostate Specific Ag Vitamin B12 Crossmatch 09/12/17 09/13/17 09/13/17 18:07 06:18 09:29 WBC RBC Hgb 9.7 L Hct 30.0 L MCV MCHC RDW Plt Count 62 L [place] % (Auto) Lymph # Seg Neuts % (Manual) Lymphocytes % (Manual) Nucleated RBC % Lymphocytes # (Manual) Percent Retic PT INR APTT Fibrinogen Heparin Anti-Xa Level < 0.10 L Sodium Potassium Chloride Carbon Dioxide BUN Creatinine Glucose Calcium Iron TIBC Ferritin ALT Alkaline Phosphatase C-Reactive Protein 15.70 H Total Protein Albumin HDL Cholesterol Prostate Specific Ag Vitamin B12 Crossmatch 09/13/17 09/13/17 09/13/17 09:29 11:41 23:25 WBC RBC 3.40 L Hgb 10.1 L Hct 31.6 L MCV MCHC RDW 18.5 H Plt Count 55 L [place] % (Auto) Lymph # Seg Neuts % (Manual) Lymphocytes % (Manual) Nucleated RBC % Lymphocytes # (Manual) Percent Retic PT INR APTT 81.5 H* Fibrinogen Heparin Anti-Xa Level 0.10 L Sodium 133 L Potassium Chloride 97.0 L Carbon Dioxide BUN Creatinine 0.6 L Glucose 103 H Calcium Iron TIBC Ferritin ALT Alkaline Phosphatase C-Reactive Protein Total Protein Albumin HDL Cholesterol Prostate Specific Ag Vitamin B12 Crossmatch 09/14/17 09/14/17 09/14/17 05:24 05:24 10:46 WBC RBC 3.20 L Hgb 9.8 L Hct 29.2 L MCV MCHC RDW 17.6 H Plt Count 61 L [place] % (Auto) Lymph # Seg Neuts % (Manual) 80.0 H Lymphocytes % (Manual) Nucleated RBC % 1.0 H Lymphocytes # (Manual) 0.6 L Percent Retic PT INR APTT 58.5 H 56.0 H Fibrinogen Heparin Anti-Xa Level Sodium Potassium Chloride Carbon Dioxide BUN Creatinine Glucose Calcium Iron TIBC Ferritin ALT Alkaline Phosphatase C-Reactive Protein Total Protein Albumin HDL Cholesterol Prostate Specific Ag Vitamin B12 Crossmatch 09/14/17 09/14/17 09/14/17 10:46 10:46 10:46 WBC RBC Hgb Hct MCV MCHC RDW Plt Count [place] % (Auto) Lymph # Seg Neuts % (Manual) Lymphocytes % (Manual) Nucleated RBC % Lymphocytes # (Manual) Percent Retic 3.68 H PT INR APTT Fibrinogen Heparin Anti-Xa Level Sodium Potassium Chloride Carbon Dioxide BUN Creatinine Glucose Calcium Iron TIBC Ferritin 1023.0 H ALT Alkaline Phosphatase C-Reactive Protein Total Protein Albumin HDL Cholesterol Prostate Specific Ag 1721.00 H Vitamin B12 Crossmatch 09/14/17 09/14/17 09/15/17 10:46 23:04 02:53 WBC RBC 2.97 L Hgb 8.9 L Hct 27.3 L MCV MCHC RDW 17.6 H Plt Count 50 L [place] % (Auto) Lymph # Seg Neuts % (Manual) 71.0 H Lymphocytes % (Manual) 12.0 L Nucleated RBC % 2.0 H Lymphocytes # (Manual) 0.6 L Percent Retic PT INR APTT 89.4 H* Fibrinogen Heparin Anti-Xa Level Sodium Potassium Chloride Carbon Dioxide BUN Creatinine Glucose Calcium Iron TIBC Ferritin ALT Alkaline Phosphatase C-Reactive Protein Total Protein Albumin HDL Cholesterol Prostate Specific Ag Vitamin B12 206.4 L Crossmatch 09/15/17 09/15/17 09/15/17 02:53 05:22 11:33 WBC RBC Hgb Hct MCV MCHC RDW Plt Count [place] % (Auto) Lymph # Seg Neuts % (Manual) Lymphocytes % (Manual) Nucleated RBC % Lymphocytes # (Manual) Percent Retic PT INR APTT 87.0 H* 80.0 H* Fibrinogen Heparin Anti-Xa Level Sodium 132 L Potassium Chloride 95.2 L Carbon Dioxide 20 L BUN Creatinine 0.6 L Glucose 102 H Calcium Iron TIBC Ferritin ALT Alkaline Phosphatase C-Reactive Protein Total Protein Albumin HDL Cholesterol Prostate Specific Ag Vitamin B12 Crossmatch 09/15/17 09/16/17 09/16/17 23:15 07:11 07:12 WBC 4.0 L RBC 2.97 L Hgb 8.9 L Hct 27.1 L MCV MCHC RDW 17.4 H Plt Count 53 L [place] % (Auto) Lymph # Seg Neuts % (Manual) Lymphocytes % (Manual) Nucleated RBC % Lymphocytes # (Manual) 1.0 L Percent Retic PT INR APTT 101.0 H* 48.7 H Fibrinogen Heparin Anti-Xa Level Sodium Potassium Chloride Carbon Dioxide BUN Creatinine Glucose Calcium Iron TIBC Ferritin ALT Alkaline Phosphatase C-Reactive Protein Total Protein Albumin HDL Cholesterol Prostate Specific Ag Vitamin B12 Crossmatch 09/16/17 09/17/17 09/17/17 13:07 04:23 17:23 WBC RBC Hgb Hct MCV MCHC RDW Plt Count [place] % (Auto) Lymph # Seg Neuts % (Manual) Lymphocytes % (Manual) Nucleated RBC % Lymphocytes # (Manual) Percent Retic PT INR APTT 61.7 H* 60.3 H* 57.9 H Fibrinogen Heparin Anti-Xa Level Sodium Potassium Chloride Carbon Dioxide BUN Creatinine Glucose Calcium Iron TIBC Ferritin ALT Alkaline Phosphatase C-Reactive Protein Total Protein Albumin HDL Cholesterol Prostate Specific Ag Vitamin B12 Crossmatch 09/18/17 09/18/17 09/18/17 05:31 05:31 05:31 WBC 4.2 L RBC 2.66 L Hgb 7.9 L Hct 23.9 L MCV MCHC RDW 17.3 H Plt Count 75 L [place] % (Auto) 7.7 H Lymph # 0.9 L Seg Neuts % (Manual) Lymphocytes % (Manual) Nucleated RBC % Lymphocytes # (Manual) Percent Retic PT INR APTT 61.5 H* Fibrinogen Heparin Anti-Xa Level Sodium 132 L Potassium 3.1 L Chloride 94.4 L Carbon Dioxide BUN 8 L Creatinine 0.5 L Glucose 127 H Calcium Iron TIBC Ferritin ALT Alkaline Phosphatase C-Reactive Protein Total Protein Albumin HDL Cholesterol Prostate Specific Ag Vitamin B12 Crossmatch 09/18/17 09/19/17 09/19/17 17:35 06:30 17:43 WBC RBC Hgb Hct MCV MCHC RDW Plt Count [place] % (Auto) Lymph # Seg Neuts % (Manual) Lymphocytes % (Manual) Nucleated RBC % Lymphocytes # (Manual) Percent Retic PT INR APTT 60.1 H* 67.8 H* 60.9 H* Fibrinogen Heparin Anti-Xa Level Sodium Potassium Chloride Carbon Dioxide BUN Creatinine Glucose Calcium Iron TIBC Ferritin ALT Alkaline Phosphatase C-Reactive Protein Total Protein Albumin HDL Cholesterol Prostate Specific Ag Vitamin B12 Crossmatch 09/20/17 09/20/17 09/20/17 05:23 05:23 05:23 WBC RBC Hgb 7.7 L Hct 23.4 L MCV MCHC RDW Plt Count 98 L [place] % (Auto) Lymph # Seg Neuts % (Manual) Lymphocytes % (Manual) Nucleated RBC % Lymphocytes # (Manual) Percent Retic PT INR APTT 63.2 H* Fibrinogen Heparin Anti-Xa Level Sodium 134 L Potassium 3.4 L Chloride 97.3 L Carbon Dioxide BUN Creatinine 0.5 L Glucose 107 H Calcium Iron TIBC Ferritin ALT < 5 L Alkaline Phosphatase 542 H C-Reactive Protein Total Protein 5.7 L Albumin 3.4 L HDL Cholesterol Prostate Specific Ag Vitamin B12 Crossmatch 09/20/17 09/20/17 09/20/17 13:40 13:40 13:40 WBC RBC 2.43 L Hgb 7.2 L Hct 22.2 L MCV MCHC RDW 17.3 H Plt Count 93 L [place] % (Auto) Lymph # Seg Neuts % (Manual) Lymphocytes % (Manual) Nucleated RBC % 2.0 H Lymphocytes # (Manual) Percent Retic PT 17.7 H INR 1.38 H APTT 130.6 H* Fibrinogen 969 H Heparin Anti-Xa Level Sodium 134 L Potassium Chloride Carbon Dioxide BUN 8 L Creatinine 0.5 L Glucose Calcium Iron TIBC Ferritin ALT Alkaline Phosphatase C-Reactive Protein Total Protein Albumin HDL Cholesterol Prostate Specific Ag Vitamin B12 Crossmatch 09/20/17 09/20/17 09/21/17 18:53 18:53 00:13 WBC RBC 2.33 L 2.30 L Hgb 6.9 L 6.9 L Hct 20.9 L 21.0 L MCV MCHC RDW 17.0 H 17.5 H Plt Count 92 L 89 L [place] % (Auto) Lymph # Seg Neuts % (Manual) 76.0 H Lymphocytes % (Manual) Nucleated RBC % Lymphocytes # (Manual) 0.9 L Percent Retic PT INR APTT 37.1 H Fibrinogen 907 H Heparin Anti-Xa Level < 0.10 L Sodium Potassium Chloride Carbon Dioxide BUN Creatinine Glucose Calcium Iron TIBC Ferritin ALT Alkaline Phosphatase C-Reactive Protein Total Protein Albumin HDL Cholesterol Prostate Specific Ag Vitamin B12 Crossmatch 09/21/17 09/21/17 09/21/17 00:13 03:59 06:49 WBC RBC 2.19 L Hgb 6.4 L Hct 19.7 L* MCV MCHC RDW 17.1 H Plt Count 89 L [place] % (Auto) Lymph # Seg Neuts % (Manual) Lymphocytes % (Manual) Nucleated RBC % Lymphocytes # (Manual) Percent Retic PT INR APTT Fibrinogen 899 H Heparin Anti-Xa Level 0.10 L Sodium 136 L Potassium Chloride Carbon Dioxide BUN 7 L Creatinine 0.4 L Glucose 102 H Calcium 7.7 L Iron TIBC Ferritin ALT < 5 L Alkaline Phosphatase 473 H C-Reactive Protein Total Protein 5.2 L Albumin 2.8 L HDL Cholesterol Prostate Specific Ag Vitamin B12 Crossmatch 09/21/17 09/21/17 09/21/17 06:49 07:52 13:01 WBC RBC Hgb Hct MCV MCHC RDW Plt Count [place] % (Auto) Lymph # Seg Neuts % (Manual) Lymphocytes % (Manual) Nucleated RBC % Lymphocytes # (Manual) Percent Retic PT INR APTT Fibrinogen 824 H Heparin Anti-Xa Level < 0.10 L Sodium Potassium Chloride Carbon Dioxide BUN Creatinine Glucose Calcium Iron TIBC Ferritin ALT Alkaline Phosphatase C-Reactive Protein 21.40 H Total Protein Albumin HDL Cholesterol Prostate Specific Ag Vitamin B12 Crossmatch See Detail 09/21/17 09/21/17 09/21/17 21:53 21:53 23:27 WBC RBC Hgb Hct MCV MCHC RDW Plt Count [place] % (Auto) Lymph # Seg Neuts % (Manual) Lymphocytes % (Manual) Nucleated RBC % Lymphocytes # (Manual) Percent Retic PT 19.8 H INR 1.58 H APTT 56.5 H Fibrinogen Heparin Anti-Xa Level Sodium 134 L Potassium Chloride 97.2 L Carbon Dioxide BUN 6 L Creatinine 0.4 L Glucose Calcium 8.2 L Iron TIBC Ferritin ALT < 5 L Alkaline Phosphatase 414 H C-Reactive Protein Total Protein 5.8 L Albumin 2.8 L HDL Cholesterol Prostate Specific Ag Vitamin B12 Crossmatch 09/22/17 09/22/17 09/22/17 05:55 07:47 12:57 WBC RBC 2.91 L Hgb 8.7 L Hct 26.0 L D MCV MCHC RDW 16.4 H Plt Count 84 L [place] % (Auto) Lymph # Seg Neuts % (Manual) Lymphocytes % (Manual) Nucleated RBC % Lymphocytes # (Manual) 1.0 L Percent Retic PT INR APTT 67.7 H* Fibrinogen Heparin Anti-Xa Level Sodium Potassium 3.1 L Chloride Carbon Dioxide 21 L BUN 7 L Creatinine 0.5 L Glucose Calcium 7.7 L Iron TIBC Ferritin ALT Alkaline Phosphatase C-Reactive Protein Total Protein Albumin HDL Cholesterol Prostate Specific Ag Vitamin B12 Crossmatch 09/22/17 09/22/17 09/23/17 23:25 23:25 05:59 WBC RBC Hgb 7.6 L Hct 22.5 L MCV MCHC RDW Plt Count 83 L [place] % (Auto) Lymph # Seg Neuts % (Manual) Lymphocytes % (Manual) Nucleated RBC % Lymphocytes # (Manual) Percent Retic PT 19.6 H INR 1.56 H APTT Fibrinogen Heparin Anti-Xa Level Sodium Potassium 3.5 L Chloride Carbon Dioxide BUN 5 L Creatinine 0.4 L Glucose 103 H Calcium Iron TIBC Ferritin ALT Alkaline Phosphatase C-Reactive Protein Total Protein Albumin HDL Cholesterol 38 L Prostate Specific Ag Vitamin B12 Crossmatch 09/23/17 09/23/17 09/23/17 05:59 05:59 18:03 WBC RBC 2.50 L Hgb 7.5 L Hct 22.3 L MCV MCHC RDW 15.9 H Plt Count 82 L [place] % (Auto) Lymph # Seg Neuts % (Manual) Lymphocytes % (Manual) Nucleated RBC % Lymphocytes # (Manual) Percent Retic PT INR APTT Fibrinogen Heparin Anti-Xa Level < 0.10 L 0.11 L Sodium Potassium Chloride Carbon Dioxide BUN Creatinine Glucose Calcium Iron TIBC Ferritin ALT Alkaline Phosphatase C-Reactive Protein Total Protein Albumin HDL Cholesterol Prostate Specific Ag Vitamin B12 Crossmatch 09/24/17 09/24/17 09/24/17 05:22 05:22 05:22 WBC RBC 2.55 L Hgb 7.4 L Hct 22.4 L MCV MCHC RDW 16.3 H Plt Count 85 L [place] % (Auto) Lymph # Seg Neuts % (Manual) Lymphocytes % (Manual) Nucleated RBC % Lymphocytes # (Manual) Percent Retic PT INR APTT Fibrinogen Heparin Anti-Xa Level 0.14 L Sodium 136 L Potassium 3.3 L Chloride 97.4 L Carbon Dioxide BUN 4 L Creatinine 0.4 L Glucose 110 H Calcium 8.2 L Iron TIBC Ferritin ALT Alkaline Phosphatase C-Reactive Protein Total Protein Albumin HDL Cholesterol Prostate Specific Ag Vitamin B12 Crossmatch CT scan - chest: report reviewed ([facility] ct of chest small fibrinous material in right pulmonary artery.Pleuro parenchymal scarring. Diffuse kunal mestatic lesions.), image reviewed
--- NOTE | 2017-09-24 15:46 | Progress Note ---
Assessment and Plan Status post successful right lower extremity revascularization with right posterior tibial pulse. Being worked up for possible thromboembolic source. CT scan demonstrates atheromatous changes in the mid thoracoabdominal aorta, but no definite source. There is changes from metastatic prostate cancer to bones. Cardiology found no source of cardiac etiology for thromboembolic phenomenon. Given underlying prostatic malignancy, this could be secondary to prostatic malignancy/hypercoagulable condition. Hematology/oncology seeing the patient. May need to have lifelong anticoagulation if this is secondary to malignancy. Can consider repeat angiography in 4 weeks if patient is symptomatic or ultrasound suggests residual stenosis. Patient understands he will need debridement and possible amputation of the right first digit given the underlying gangrene. Defer to wound care and Dr. Villafana and infectious disease service. Patient can follow up in our clinic. Subjective Date of service: 09/24/17 Principal diagnosis: right toe gangrene,prostate cnacer Interval history: Palpable right posterior tibial artery. No pain in right foot. Gangrene of right first digit. Discussed how gangrene means that the toe is partially . Explained the importance of anticoagulation. Explained the importance of Betadine application to the right first digit. Explained importance of possible amputation due to gangrene. Objective - Constitutional Vitals: Vital Signs - 12hr 09/24/17 09/24/17 09/24/17 04:06 07:18 07:55 Temperature 98.7 F Pulse Rate 95 H Pulse Rate [ Apical] Pulse Rate [ Left Dorsalis Pedis] Pulse Rate [ Right Dorsalis Pedis] Respiratory 20 20 16 Rate Blood Pressure 148/86 O2 Sat by Pulse 97 Oximetry 09/24/17 09/24/17 09/24/17 10:00 10:27 14:00 Temperature Pulse Rate Pulse Rate [ 106 H Apical] Pulse Rate [ 104 H Left Dorsalis Pedis] Pulse Rate [ 92 H Right Dorsalis Pedis] Respiratory 18 18 16 Rate Blood Pressure O2 Sat by Pulse Oximetry 09/24/17 15:06 Temperature 99.3 F Pulse Rate 97 H Pulse Rate [ Apical] Pulse Rate [ Left Dorsalis Pedis] Pulse Rate [ Right Dorsalis Pedis] Respiratory 18 Rate Blood Pressure 137/84 O2 Sat by Pulse 97 Oximetry General appearance: Present: no acute distress - EENT Eyes: EOM intact ENT: hearing intact - Respiratory Respiratory effort: normal Extremities: pulses intact (right posterior tibial palpable) Extremity abnormal: black (right first digit) - Psychiatric Psychiatric: appropriate mood/affect, cooperative - Labs CBC & Chem 7: 09/24/17 05:22 09/24/17 05:22 Labs: Abnormal lab results 09/23/17 09/24/17 09/24/17 Range/Units 18:03 05:22 05:22 RBC 2.55 L (3.65-5.03) M/mm3 Hgb 7.4 L (11.8-15.2) gm/dl Hct 22.4 L (35.5-45.6) % RDW 16.3 H (13.2-15.2) % Plt Count 85 L (140-440) K/mm3 Heparin Anti-Xa Level 0.11 L (0.3-0.7) U.I./ml Sodium 136 L (137-145) mmol/L Potassium 3.3 L (3.6-5.0) mmol/L Chloride 97.4 L (98-107) mmol/L BUN 4 L (9-20) mg/dL Creatinine 0.4 L (0.8-1.5) mg/dL Glucose 110 H (75-100) mg/dL Calcium 8.2 L (8.4-10.2) mg/dL 09/24/17 Range/Units 05:22 RBC (3.65-5.03) M/mm3 Hgb (11.8-15.2) gm/dl Hct (35.5-45.6) % RDW (13.2-15.2) % Plt Count (140-440) K/mm3 Heparin Anti-Xa Level 0.14 L (0.3-0.7) U.I./ml Sodium (137-145) mmol/L Potassium (3.6-5.0) mmol/L Chloride (98-107) mmol/L BUN (9-20) mg/dL Creatinine (0.8-1.5) mg/dL Glucose (75-100) mg/dL Calcium (8.4-10.2) mg/dL
--- NOTE | 2017-09-24 17:46 | Progress Note ---
Assessment and Plan Assessment and plan: 66-year-old -[place] male with pmh of Prostate Cancer LBP and BPH presents to the emergency department with complaint of swelling to the right foot for the past week. The patient is noted to have a blackened and necrotic appearing right great toe. Dry eschar on Rt great Toe.No drainage. He says that it is been like this for the past couple weeks. He says he has been talking about seeing a physician regarding these symptoms but has not yet done so. He has a past medical history of prostate cancer and some chronic back pains. He has not taken anything for his symptoms prior presentation. 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 MULTIPHASIC WAVEFORMS THROUGHOUT VESSELS INTERROGATED EXCEPT FOR MONOPHASIC WAVEFORMS OBTAINED IN THE RT[employer] AND RT.BRISA.BLE ARTERIAL DUPLEX * Ampuation of toe refused by patient * 6 weeks of antibiotics per ID, PICC LINE IN PLACE * Will switch to Eliquis today as discussed with Hemeonc * Continue tamsulosin * Continue pain control * Tobacco cessation counselling provided in detial * Patient to follow with oncologist at [place] on discharge. * May need to have lifelong anticoagulation if this is secondary to malignancy. * Can consider repeat angiography in 4 weeks if patient is symptomatic or ultrasound suggests residual stenosis. * Per Patient understands he will need debridement and possible amputation of the right first digit given the underlying gangrene. Defer to wound care and Dr. Villafana and infectious disease service. * DVT/GI prophy History Interval history: Patient seen and examined in no acute distress. still with some leg pain and back pain. no claus bleeding. explained all diagnosis and plan of care. awaiting placement Hospitalist Physical - Physical exam Narrative exam: - EENT Eyes: Present: PERRL, EOM intact ENT: hearing intact, clear oral mucosa - Neck Neck: Present: supple, normal ROM - Respiratory Respiratory effort: normal Respiratory: bilateral: diminished - Cardiovascular Rhythm: regular Heart Sounds: Present: S1 & S2 - Extremities Extremity abnormal: other (right great toe gangrene, right 2nd toe gangrene), diminished pulses to right lower ext - Abdominal General gastrointestinal: soft, non-tender, non-distended, normal bowel sounds - Integumentary Integumentary: Present: clear, warm, edema right - Psychiatric Psychiatric: appropriate mood/affect, cooperative - Neurologic Neurologic: CNII-XII intact, moves all extremities, although limited in lower ext - Constitutional Vitals: Temp Pulse Resp BP Pulse Ox 99.3 F 97 H 18 137/84 97 09/24/17 15:06 09/24/17 15:06 09/24/17 15:06 09/24/17 15:06 09/24/17 15:06 General appearance: Present: no acute distress Results - Labs CBC & Chem 7: 09/24/17 05:22 09/24/17 05:22 Labs: Laboratory Last Values WBC 4.7 K/mm3 (4.5-11.0) 09/24/17 05:22 RBC 2.55 M/mm3 (3.65-5.03) L 09/24/17 05:22 Hgb 7.4 gm/dl (11.8-15.2) L 09/24/17 05:22 Hct 22.4 % (35.5-45.6) L 09/24/17 05:22 MCV 88 fl (84-94) 09/24/17 05:22 MCH 29 pg (28-32) 09/24/17 05:22 MCHC 33 % (32-34) 09/24/17 05:22 RDW 16.3 % (13.2-15.2) H 09/24/17 05:22 Plt Count 85 K/mm3 (140-440) L 09/24/17 05:22 Lymph % (Auto) 25.9 % (13.4-35.0) 09/20/17 18:53 Nobles % (Auto) 7.1 % (0.0-7.3) 09/20/17 18:53 Eos % (Auto) 1.9 % (0.0-4.3) 09/20/17 18:53 Baso % (Auto) 0.7 % (0.0-1.8) 09/20/17 18:53 Lymph # 1.2 K/mm3 (1.2-5.4) 09/20/17 18:53 Nobles # 0.3 K/mm3 (0.0-0.8) 09/20/17 18:53 Eos # 0.1 K/mm3 (0.0-0.4) 18 18:53 Baso # 0.0 K/mm3 (0.0-0.1) 09/20/17 18:53 Add Manual Diff Complete 09/22/17 07:47 Total Counted 100 09/22/17 07:47 Seg Neutrophils % 64.4 % (40.0-70.0) 02 18:53 Seg Neuts % (Manual) 62.0 % (40.0-70.0) 09/22/17 07:47 Band Neutrophils % 9.0 % 09/22/17 07:47 Lymphocytes % (Manual) 21.0 % (13.4-35.0) 09/22/17 07:47 Reactive Lymphs % (Man) 0 % 09/22/17 07:47 Monocytes % (Manual) 6.0 % (0.0-7.3) 09/22/17 07:47 Eosinophils % (Manual) 2.0 % (0.0-4.3) 09/22/17 07:47 Basophils % (Manual) 0 % (0.0-1.8) 09/22/17 07:47 Metamyelocytes % 0 % 09/22/17 07:47 Myelocytes % 0 % 09/22/17 07:47 Promyelocytes % 0 % 09/22/17 07:47 Blast Cells % 0 % 09/22/17 07:47 Nucleated RBC % Not Reportable 09/22/17 07:47 Seg Neutrophils # 2.9 K/mm3 (1.8-7.7) 09/20/17 18:53 Seg Neutrophils # Man 2.9 K/mm3 (1.8-7.7) 09/22/17 07:47 Band Neutrophils # 0.4 K/mm3 09/22/17 07:47 Lymphocytes # (Manual) 1.0 K/mm3 (1.2-5.4) L 09/22/17 07:47 Abs React Lymphs (Man) 0.0 K/mm3 09/22/17 07:47 Monocytes # (Manual) 0.3 K/mm3 (0.0-0.8) 09/22/17 07:47 Eosinophils # (Manual) 0.1 K/mm3 (0.0-0.4) 09/22/17 07:47 Basophils # (Manual) 0.0 K/mm3 (0.0-0.1) 09/22/17 07:47 Metamyelocytes # 0.0 K/mm3 09/22/17 07:47 Myelocytes # 0.0 K/mm3 09/22/17 07:47 Promyelocytes # 0.0 K/mm3 09/22/17 07:47 Blast Cells # 0.0 K/mm3 09/22/17 07:47 Pathologist Review Not Reportable 09/11/17 09:29 WBC Morphology Not Reportable 09/22/17 07:47 Hypersegmented Neuts Not Reportable 09/22/17 07:47 Hyposegmented Neuts Not Reportable 09/22/17 07:47 Hypogranular Neuts Not Reportable 09/22/17 07:47 Smudge Cells Not Reportable 09/22/17 07:47 Toxic Granulation Not Reportable 09/22/17 07:47 Toxic Vacuolation Not Reportable 09/22/17 07:47 Dohle Bodies Not Reportable 09/22/17 07:47 Pelger-Huet Anomaly Not Reportable 09/22/17 07:47 Jose Rods Not Reportable 09/22/17 07:47 Platelet Estimate Consistent w auto 09/22/17 07:47 Clumped Platelets Not Reportable 09/22/17 07:47 Plt Clumps, EDTA Not Reportable 09/22/17 07:47 Large Platelets Not Reportable 09/22/17 07:47 Giant Platelets Not Reportable 09/22/17 07:47 Platelet Satelliting Not Reportable 09/22/17 07:47 Plt Morphology Comment Not Reportable 09/22/17 07:47 RBC Morphology Not Reportable 09/22/17 07:47 Dimorphic RBCs Not Reportable 09/22/17 07:47 Polychromasia Rare 09/22/17 07:47 Hypochromasia Not Reportable 09/22/17 07:47 Poikilocytosis Not Reportable 09/22/17 07:47 Anisocytosis 1+ 09/22/17 07:47 Microcytosis Not Reportable 09/22/17 07:47 Macrocytosis Not Reportable 09/22/17 07:47 Spherocytes Not Reportable 09/22/17 07:47 Pappenheimer Bodies Not Reportable 09/22/17 07:47 Sickle Cells Not Reportable 09/22/17 07:47 Target Cells Not Reportable 09/22/17 07:47 Tear Drop Cells Rare 09/22/17 07:47 Ovalocytes Not Reportable 09/22/17 07:47 Helmet Cells Not Reportable 09/22/17 07:47 Li-Pooler Bodies Not Reportable 09/22/17 07:47 [place] Rings Not Reportable 09/22/17 07:47 Jenae Cells Not Reportable 09/22/17 07:47 Bite Cells Not Reportable 09/22/17 07:47 Crenated Cell Not Reportable 09/22/17 07:47 Elliptocytes Not Reportable 09/22/17 07:47 Acanthocytes (Spur) Not Reportable 09/22/17 07:47 Rouleaux Not Reportable 09/22/17 07:47 Hemoglobin C Crystals Not Reportable 09/22/17 07:47 Schistocytes Not Reportable 09/22/17 07:47 Malaria parasites Not Reportable 09/22/17 07:47 Percent Retic 3.68 % (0.78-2.58) H 09/14/17 10:46 Collins Bodies Not Reportable 09/22/17 07:47 Hem Pathologist Commnt No 09/22/17 07:47 PT 19.6 Sec. (12.2-14.9) H 09/22/17 23:25 INR 1.56 (0.87-1.13) H 09/22/17 23:25 APTT 67.7 Sec. (24.2-36.6) H* 09/22/17 12:57 Fibrinogen 824 mg/dl (211-480) H 09/21/17 06:49 Heparin Anti-Xa Level 0.14 U.I./ml (0.3-0.7) L 09/24/17 05:22 Heparin Anti-Xa, Unfract Negative (Negative) 09/14/17 08:46 Sodium 136 mmol/L (137-145) L 09/24/17 05:22 Potassium 3.3 mmol/L (3.6-5.0) L 09/24/17 05:22 Chloride 97.4 mmol/L (98-107) L 09/24/17 05:22 Carbon Dioxide 24 mmol/L (22-30) 09/24/17 05:22 Anion Gap 18 mmol/L 09/24/17 05:22 BUN 4 mg/dL (9-20) L 09/24/17 05:22 Creatinine 0.4 mg/dL (0.8-1.5) L 09/24/17 05:22 Estimated GFR > 60 ml/min 09/24/17 05:22 BUN/Creatinine Ratio 10 % 09/24/17 05:22 Glucose 110 mg/dL (75-100) H 09/24/17 05:22 POC Glucose 102 (70-105) 09/14/17 06:43 Hemoglobin A1c 5.4 % (4-6) 09/12/17 08:32 Lactic Acid 1.50 mmol/L (0.7-2.0) 09/11/17 09:29 Calcium 8.2 mg/dL (8.4-10.2) L 09/24/17 05:22 Iron 48 ug/dL (49-181) L 09/11/17 23:47 TIBC 233 mcg/dL (250-450) L 09/11/17 23:47 % Saturation 20.60 % 09/11/17 23:47 Transferrin 194 mg/dl (180-329) 09/11/17 23:47 Ferritin 1023.0 ng/mL (13.0-400.0) H 09/14/17 10:46 Total Bilirubin 0.50 mg/dL (0.1-1.2) 09/21/17 21:53 AST 13 units/L (5-40) 09/21/17 21:53 ALT < 5 units/L (7-56) L 09/21/17 21:53 Alkaline Phosphatase 414 units/L (35-129) H 09/21/17 21:53 Total Creatine Kinase 136 units/L (55-170) 09/11/17 09:29 Troponin T < 0.010 ng/mL (0.00-0.029) 09/15/17 23:15 C-Reactive Protein 21.40 mg/dL (0.00-1.30) H 09/21/17 13:01 Total Protein 5.8 g/dL (6.3-8.2) L 09/21/17 21:53 Albumin 2.8 g/dL (3.9-5) L 09/21/17 21:53 Albumin/Globulin Ratio 0.9 % 09/21/17 21:53 Triglycerides 146 mg/dL (2-149) 09/23/17 05:59 Cholesterol 134 mg/dL (50-199) 09/23/17 05:59 LDL Cholesterol Direct 67 mg/dL (50-130) 09/23/17 05:59 HDL Cholesterol 38 mg/dL (40-59) L 09/23/17 05:59 Cholesterol/HDL Ratio 3.52 % 09/23/17 05:59 Prostate Specific Ag 1721.00 ng/mL (0.00-4.00) H 09/14/17 10:46 Serotonin Release Assay See scanned report 09/14/17 08:46 Vitamin B12 206.4 pg/mL (211-911) L 09/14/17 10:46 Folate 19.92 ng/mL (7.3-26.0) 09/14/17 10:46 Vancomycin Trough 12.8 ug/mL (5.0-20.0) 09/16/17 09:25 Heparin-induced Plt Ab Negative (Negative) 09/14/17 08:46 UF Heparin High Dose 0 % Release 09/14/17 08:46 ELENA UFH Low Dose 0.1 0 % Release 09/14/17 08:46 ELENA UFH Low Dose 0.5 0 % Release 09/14/17 08:46 Hep Bs Antigen Non-reactive (Negative) 09/14/17 10:46 Hepatitis C Antibody Non-reactive (NonReactive) 09/14/17 10:46 Blood Type B POSITIVE 09/21/17 07:52 Antibody Screen Negative 09/21/17 07:52 Crossmatch See Detail 09/21/17 07:52
[2017-09-24] MEDS: ELIQUIS PO SCH (21:34)
[2017-09-25] MEDS: DILAUDID IV PRN ×4 (01:06→21:26)
[2017-09-25] MEDS: UNASYN/NS 3 GM/100 ML 3 GM/100 ML BAG IV SCH ×3 (06:39→23:58)
[2017-09-25] MEDS: FLOMAX PO SCH (09:44)
[2017-09-25] MEDS: FOLVITE PO SCH (09:44)
[2017-09-25] MEDS: PERCOCET 5/325 PO PRN (09:44)
[2017-09-25] MEDS: ELIQUIS PO SCH ×2 (09:45→22:26)
[2017-09-25] MEDS: PEPCID PO SCH (09:45)
[2017-09-25] MEDS: HABITROL TD SCH (09:46)
--- NOTE | 2017-09-25 12:00 | Gastroenterology Consultation ---
History of Present Illness - Reason for Consult Consult date: 09/25/17 Anemia Requesting physician: YVES VANCE - History of Present Illness We are consulted for anemia, in a patient admitted several days ago for gangrene /osteomyelitis of the lower extremity. He has not had surgery for this but has had Vascular treatment of acute?chronic clots in the leg with thrombectomy. He is now on anticoagulation for months (?life, given mets prostate cancer). He has had no rectal bleeding, and can not tell me when (if ever) he had upper or lower endoscopy at [facility] (his usual health facility). He has no hx of GI bleeding, and there is no family hx of GI bleeding. His platelets are also low , and his WBC if not elevated, suggesting a degree of bone marrow involvement per [facility] notes. Past History Past Medical History: cancer (prostate cancer (metastatic per report)), other ( Gangrene of toes, PAD) Past Surgical History: No surgical history ((of the abdomen, per patient)) Social history: smoking, alcohol abuse, other (marijuana and cocaine) Family history: no significant family history Medications and Allergies Allergies Allergy/AdvReac Type Severity Reaction Status Date / Time No Known Allergies Allergy Unverified 09/11/17 08:29 Home Medications Medication Instructions Recorded Confirmed Last Taken Type Colace CAP 100 mg PO BID 09/14/17 09/14/17 Unknown History Enoxaparin Sodium 60 mg IM Q12H 09/14/17 09/14/17 09/10/17 History Flomax 0.4 mg PO DAILY 09/14/17 09/14/17 Unknown History Folic Acid [Folvite] 1 mg PO DAILY 09/14/17 09/14/17 Unknown History Gabapentin [Neurontin] 300 mg PO Q8H 09/14/17 09/14/17 09/10/17 History Miralax 3350 17 gm PO DAILY 09/14/17 09/14/17 Unknown History Oxycodone HCl 30 mg PO Q6H PRN 09/14/17 09/14/17 Unknown History Senna 8.6 mg PO QHS 09/14/17 09/14/17 Unknown History Thiamine [Vitamin B-1] 100 mg PO QDAY 09/14/17 09/14/17 Unknown History Active Meds: Active Medications Acetaminophen (Tylenol) 650 mg PO Q4H PRN PRN Reason: Pain MILD(1-3)/Fever >100.5/GARCIA Acetaminophen/Hydrocodone Bitart ([place] 5/325) 2 each PO Q6H PRN PRN Reason: Pain, Moderate (4-6) Last Admin: 09/23/17 04:48 Dose: 2 each Apixaban (Eliquis) 10 mg PO Q12HR [facility] PRN Reason: Protocol Last Admin: 09/25/17 09:45 Dose: 10 mg Bisacodyl (Dulcolax) 10 mg NV QDAY PRN PRN Reason: Constipation unrelieved by MOM Famotidine (Pepcid) 20 mg PO BID [facility] Last Admin: 09/25/17 09:45 Dose: 20 mg Folic Acid (Folvite) 1 mg PO QDAY [facility] Last Admin: 09/25/17 09:44 Dose: 1 mg Hydromorphone HCl (Dilaudid) 1 mg IV Q3H PRN PRN Reason: Pain , Severe (7-10) Last Admin: 09/25/17 06:40 Dose: 1 mg Hydrophilic Ointment (Vaseline Lip Therapy) 1 applic TP DIRECT PRN PRN Reason: Dry Lips Last Admin: 09/21/17 12:43 Dose: 1 applic Ampicillin Sodium/Sulbactam Sodium (Unasyn/Ns 3 Gm/100 Ml) 3 gm in 100 mls @ 100 mls/hr IV Q6HR [facility] PRN Reason: Protocol Last Admin: 09/25/17 06:39 Dose: 100 mls/hr Magnesium Hydroxide (Milk Of Magnesia) 30 ml PO Q4H PRN PRN Reason: Constipation Last Admin: 09/24/17 14:05 Dose: 30 ml Nicotine (Habitrol) 21 mg TD QDAY [facility] Last Admin: 09/25/17 09:46 Dose: 21 mg Ondansetron HCl (Zofran) 4 mg IV Q8H PRN PRN Reason: N/V unrelieved by Reglan Oxycodone/Acetaminophen (Percocet 5/325) 1 tab PO Q6H PRN PRN Reason: Pain, Moderate (4-6) Last Admin: 09/25/17 09:44 Dose: 1 tab Tamsulosin HCl (Flomax) 0.4 mg PO QDAY [facility] Last Admin: 02/11/18 09:44 Dose: 0.4 mg Zolpidem Tartrate (Ambien) 5 mg PO QHS PRN PRN Reason: Insomnia Last Admin: 09/21/17 00:27 Dose: 5 mg Reviewed and Reconciled Review of Systems - Review of Systems All systems: negative (as per the HPI) Exam - Constitutional Vital Signs: Temp Pulse Resp BP Pulse Ox 98.7 F 98 H 18 138/94 98 09/25/17 08:33 09/25/17 08:33 09/25/17 08:33 09/25/17 08:33 09/25/17 08:33 General appearance: no acute distress - EENT Eyes: PERRL, EOM intact ENT: hearing intact, clear oral mucosa, poor dentition, no thrush - Neck Neck: supple, normal ROM - Respiratory Respiratory effort: normal Respiratory: bilateral: CTA - Cardiovascular Rhythm: regular Heart Sounds: Present: S1 & S2 Extremities: no ischemia, No edema - Gastrointestinal General gastrointestinal: Present: soft, non-tender, non-distended - Integumentary Integumentary: Present: clear, warm, dry - Neurologic Neurological: alert and oriented x3 - Labs CBC & Chem 7: 09/24/17 05:22 09/24/17 05:22 Assessment and Plan - Patient Problems (1) Chronic anemia Current Visit: Yes Status: Acute Plan to address problem: - No records of prior endoscopy, but hct and platelet count low/stable with no gross bleeding despite eliquis. - Will need EGD/Colon at some point, but platelets appear to be improving ( currently in 80s) and would like to have them >100K if possible prior to endoscopy. - Will continue MVI daily therapy. - Observe for signs of GI bleeding.
--- NOTE | 2017-09-25 14:30 | Progress Note ---
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 MULTIPHASIC WAVEFORMS THROUGHOUT VESSELS INTERROGATED EXCEPT FOR MONOPHASIC WAVEFORMS OBTAINED IN THE RT.HABITAT CONSERVATION PLANNER AND RT.BRISA.BLE ARTERIAL DUPLEX * Ampuation of toe refused by patient * 6 weeks of antibiotics per ID, PICC LINE IN PLACE * Will switch to Eliquis today as discussed with Hemeonc * Continue tamsulosin * Continue pain control * Tobacco cessation counselling provided in detial * Patient to follow with oncologist at [place] on discharge. * May need to have lifelong anticoagulation if this is secondary to malignancy. * Can consider repeat angiography in 4 weeks if patient is symptomatic or ultrasound suggests residual stenosis. * Per Patient understands he will need debridement and possible amputation of the right first digit given the underlying gangrene. Defer to wound care and Dr. Villafana and infectious disease service. 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 MULTIPHASIC WAVEFORMS THROUGHOUT VESSELS INTERROGATED EXCEPT FOR MONOPHASIC WAVEFORMS OBTAINED IN THE RT.HABITAT CONSERVATION PLANNER AND RT.BRISA.BLE ARTERIAL DUPLEX * Ampuation of toe refused by patient * 6 weeks of antibiotics per ID, PICC LINE IN PLACE * Will switch to Eliquis today as discussed with Hemeonc * Continue tamsulosin * Continue pain control * Tobacco cessation counselling provided in detial * Patient to follow with oncologist at [place] on discharge. * May need to have lifelong anticoagulation if this is secondary to malignancy. * Can consider repeat angiography in 4 weeks if patient is symptomatic or ultrasound suggests residual stenosis. * Per Patient understands he will need debridement and possible amputation of the right first digit given the underlying gangrene. Defer to wound care and Dr. Villafana and infectious disease service. * DVT/GI prophy History Interval history: Patient seen and examined in no acute distress. still with some leg pain and back pain. no claus bleeding. explained all diagnosis and plan of care. awaiting placement Hospitalist Physical - Physical exam Narrative exam: - EENT Eyes: Present: PERRL, EOM intact ENT: hearing intact, clear oral mucosa - Neck Neck: Present: supple, normal ROM - Respiratory Respiratory effort: normal Respiratory: bilateral: diminished - Cardiovascular Rhythm: regular Heart Sounds: Present: S1 & S2 - Extremities Extremity abnormal: other (right great toe gangrene, right 2nd toe gangrene), diminished pulses to right lower ext - Abdominal General gastrointestinal: soft, non-tender, non-distended, normal bowel sounds - Integumentary Integumentary: Present: clear, warm, edema right - Psychiatric Psychiatric: appropriate mood/affect, cooperative - Neurologic Neurologic: CNII-XII intact, moves all extremities, although limited in lower ext Hospitalist Physical - Constitutional Vitals: Temp Pulse Resp BP Pulse Ox 98.7 F 98 H 18 138/94 98 09/25/17 08:33 09/25/17 08:33 09/25/17 08:33 09/25/17 08:33 09/25/17 08:33 General appearance: Present: no acute distress Results - Labs CBC & Chem 7: 09/24/17 05:22 09/24/17 05:22 Labs: Laboratory Last Values WBC 4.7 K/mm3 (4.5-11.0) 09/24/17 05:22 RBC 2.55 M/mm3 (3.65-5.03) L 09/24/17 05:22 Hgb 7.4 gm/dl (11.8-15.2) L 09/24/17 05:22 Hct 22.4 % (35.5-45.6) L 09/24/17 05:22 MCV 88 fl (84-94) 09/24/17 05:22 MCH 29 pg (28-32) 09/24/17 05:22 MCHC 33 % (32-34) 09/24/17 05:22 RDW 16.3 % (13.2-15.2) H 09/24/17 05:22 Plt Count 85 K/mm3 (140-440) L 09/24/17 05:22 Lymph % (Auto) 25.9 % (13.4-35.0) 09/20/17 18:53 [place] % (Auto) 7.1 % (0.0-7.3) 09/20/17 18:53 Eos % (Auto) 1.9 % (0.0-4.3) 09/20/17 18:53 Baso % (Auto) 0.7 % (0.0-1.8) 09/20/17 18:53 Lymph # 1.2 K/mm3 (1.2-5.4) 09/20/17 18:53 [place] # 0.3 K/mm3 (0.0-0.8) 09/20/17 18:53 Eos # 0.1 K/mm3 (0.0-0.4) 09/20/17 18:53 Baso # 0.0 K/mm3 (0.0-0.1) 09/20/17 18:53 Add Manual Diff Complete 09/22/17 07:47 Total Counted 100 09/22/17 07:47 Seg Neutrophils % 64.4 % (40.0-70.0) 09/20/17 18:53 Seg Neuts % (Manual) 62.0 % (40.0-70.0) 09/22/17 07:47 Band Neutrophils % 9.0 % 09/22/17 07:47 Lymphocytes % (Manual) 21.0 % (13.4-35.0) 09/22/17 07:47 Reactive Lymphs % (Man) 0 % 09/22/17 07:47 Monocytes % (Manual) 6.0 % (0.0-7.3) 09/22/17 07:47 Eosinophils % (Manual) 2.0 % (0.0-4.3) 09/22/17 07:47 Basophils % (Manual) 0 % (0.0-1.8) 09/22/17 07:47 Metamyelocytes % 0 % 09/22/17 07:47 Myelocytes % 0 % 09/22/17 07:47 Promyelocytes % 0 % 09/22/17 07:47 Blast Cells % 0 % 09/22/17 07:47 Nucleated RBC % Not Reportable 09/22/17 07:47 Seg Neutrophils # 2.9 K/mm3 (1.8-7.7) 09/20/17 18:53 Seg Neutrophils # Man 2.9 K/mm3 (1.8-7.7) 09/22/17 07:47 Band Neutrophils # 0.4 K/mm3 09/22/17 07:47 Lymphocytes # (Manual) 1.0 K/mm3 (1.2-5.4) L 09/22/17 07:47 Abs React Lymphs (Man) 0.0 K/mm3 09/22/17 07:47 Monocytes # (Manual) 0.3 K/mm3 (0.0-0.8) 09/22/17 07:47 Eosinophils # (Manual) 0.1 K/mm3 (0.0-0.4) 09/22/17 07:47 Basophils # (Manual) 0.0 K/mm3 (0.0-0.1) 09/22/17 07:47 Metamyelocytes # 0.0 K/mm3 09/22/17 07:47 Myelocytes # 0.0 K/mm3 09/22/17 07:47 Promyelocytes # 0.0 K/mm3 09/22/17 07:47 Blast Cells # 0.0 K/mm3 09/22/17 07:47 Pathologist Review Not Reportable 09/11/17 09:29 WBC Morphology Not Reportable 09/22/17 07:47 Hypersegmented Neuts Not Reportable 09/22/17 07:47 Hyposegmented Neuts Not Reportable 09/22/17 07:47 Hypogranular Neuts Not Reportable 09/22/17 07:47 Smudge Cells Not Reportable 09/22/17 07:47 Toxic Granulation Not Reportable 09/22/17 07:47 Toxic Vacuolation Not Reportable 09/22/17 07:47 Dohle Bodies Not Reportable 09/22/17 07:47 Pelger-Huet Anomaly Not Reportable 09/22/17 07:47 Jose Rods Not Reportable 09/22/17 07:47 Platelet Estimate Consistent w auto 09/22/17 07:47 Clumped Platelets Not Reportable 09/22/17 07:47 Plt Clumps, EDTA Not Reportable 09/22/17 07:47 Large Platelets Not Reportable 09/22/17 07:47 Giant Platelets Not Reportable 09/22/17 07:47 Platelet Satelliting Not Reportable 09/22/17 07:47 Plt Morphology Comment Not Reportable 09/22/17 07:47 RBC Morphology Not Reportable 09/22/17 07:47 Dimorphic RBCs Not Reportable 09/22/17 07:47 Polychromasia Rare 09/22/17 07:47 Hypochromasia Not Reportable 09/22/17 07:47 Poikilocytosis Not Reportable 09/22/17 07:47 Anisocytosis 1+ 09/22/17 07:47 Microcytosis Not Reportable 09/22/17 07:47 Macrocytosis Not Reportable 09/22/17 07:47 Spherocytes Not Reportable 09/22/17 07:47 Pappenheimer Bodies Not Reportable 09/22/17 07:47 Sickle Cells Not Reportable 09/22/17 07:47 Target Cells Not Reportable 09/22/17 07:47 Tear Drop Cells Rare 09/22/17 07:47 Ovalocytes Not Reportable 09/22/17 07:47 Helmet Cells Not Reportable 09/22/17 07:47 Li-Ponce Bodies Not Reportable 09/22/17 07:47 Meno Rings Not Reportable 09/22/17 07:47 Jenae Cells Not Reportable 09/22/17 07:47 Bite Cells Not Reportable 09/22/17 07:47 Crenated Cell Not Reportable 09/22/17 07:47 Elliptocytes Not Reportable 09/22/17 07:47 Acanthocytes (Spur) Not Reportable 09/22/17 07:47 Rouleaux Not Reportable 09/22/17 07:47 Hemoglobin C Crystals Not Reportable 09/22/17 07:47 Schistocytes Not Reportable 09/22/17 07:47 Malaria parasites Not Reportable 09/22/17 07:47 Percent Retic 3.68 % (0.78-2.58) H 09/14/17 10:46 Collins Bodies Not Reportable 09/22/17 07:47 Hem Pathologist Commnt No 09/22/17 07:47 PT 19.6 Sec. (12.2-14.9) H 09/22/17 23:25 INR 1.56 (0.87-1.13) H 09/22/17 23:25 APTT 67.7 Sec. (24.2-36.6) H* 09/22/17 12:57 Fibrinogen 824 mg/dl (211-480) H 09/21/17 06:49 Heparin Anti-Xa Level 0.14 U.I./ml (0.3-0.7) L 09/24/17 05:22 Heparin Anti-Xa, Unfract Negative (Negative) 09/14/17 08:46 Sodium 136 mmol/L (137-145) L 09/24/17 05:22 Potassium 3.3 mmol/L (3.6-5.0) L 09/24/17 05:22 Chloride 97.4 mmol/L (98-107) L 09/24/17 05:22 Carbon Dioxide 24 mmol/L (22-30) 09/24/17 05:22 Anion Gap 18 mmol/L 09/24/17 05:22 BUN 4 mg/dL (9-20) L 09/24/17 05:22 Creatinine 0.4 mg/dL (0.8-1.5) L 09/24/17 05:22 Estimated GFR > 60 ml/min 09/24/17 05:22 BUN/Creatinine Ratio 10 % 09/24/17 05:22 Glucose 110 mg/dL (75-100) H 09/24/17 05:22 POC Glucose 102 (70-105) 09/14/17 06:43 Hemoglobin A1c 5.4 % (4-6) 09/12/17 08:32 Lactic Acid 1.50 mmol/L (0.7-2.0) 09/11/17 09:29 Calcium 8.2 mg/dL (8.4-10.2) L 09/24/17 05:22 Iron 48 ug/dL (49-181) L 09/11/17 23:47 TIBC 233 mcg/dL (250-450) L 09/11/17 23:47 % Saturation 20.60 % 09/11/17 23:47 Transferrin 194 mg/dl (180-329) 09/11/17 23:47 Ferritin 1023.0 ng/mL (13.0-400.0) H 09/14/17 10:46 Total Bilirubin 0.50 mg/dL (0.1-1.2) 09/21/17 21:53 AST 13 units/L (5-40) 09/21/17 21:53 ALT < 5 units/L (7-56) L 09/21/17 21:53 Alkaline Phosphatase 414 units/L (35-129) H 09/21/17 21:53 Total Creatine Kinase 136 units/L (55-170) 09/11/17 09:29 Troponin T < 0.010 ng/mL (0.00-0.029) 09/15/17 23:15 C-Reactive Protein 21.40 mg/dL (0.00-1.30) H 09/21/17 13:01 Total Protein 5.8 g/dL (6.3-8.2) L 09/21/17 21:53 Albumin 2.8 g/dL (3.9-5) L 09/21/17 21:53 Albumin/Globulin Ratio 0.9 % 09/21/17 21:53 Triglycerides 146 mg/dL (2-149) 09/23/17 05:59 Cholesterol 134 mg/dL (50-199) 09/23/17 05:59 LDL Cholesterol Direct 67 mg/dL (50-130) 09/23/17 05:59 HDL Cholesterol 38 mg/dL (40-59) L 09/23/17 05:59 Cholesterol/HDL Ratio 3.52 % 09/23/17 05:59 Prostate Specific Ag 1721.00 ng/mL (0.00-4.00) H 09/14/17 10:46 Serotonin Release Assay See scanned report 09/14/17 08:46 Vitamin B12 206.4 pg/mL (211-911) L 09/14/17 10:46 Folate 19.92 ng/mL (7.3-26.0) 09/14/17 10:46 Vancomycin Trough 12.8 ug/mL (5.0-20.0) 09/16/17 09:25 Heparin-induced Plt Ab Negative (Negative) 09/14/17 08:46 UF Heparin High Dose 0 % Release 09/14/17 08:46 ELENA UFH Low Dose 0.1 0 % Release 09/14/17 08:46 ELENA UFH Low Dose 0.5 0 % Release 09/14/17 08:46 Hep Bs Antigen Non-reactive (Negative) 09/14/17 10:46 Hepatitis C Antibody Non-reactive (NonReactive) 09/14/17 10:46 Blood Type B POSITIVE 09/21/17 07:52 Antibody Screen Negative 09/21/17 07:52 Crossmatch See Detail 09/21/17 07:52
[2017-09-25] MEDS: PROTONIX PO SCH (15:22)
[2017-09-25] MEDS: THERAGRAN-M Tab PO SCH (15:23)
[2017-09-25] MEDS: NORCO 5/325 PO PRN (16:42)
--- NOTE | 2017-09-25 23:36 | Progress Note ---
Assessment and Plan Patient alert, awake . On room air,O2 saturation 96%. No complaint of chest pain or shortness of breath. Patient has angio CT of chest reported small fibrinous material right pulmonary artery at catheter tip. Patient already on APIXABAN. Metastatic disease in bones likely from prostatic CA. - Patient Problems (1) Atherosclerosis of [place] arteries of the extremities with gangrene Current Visit: Yes Status: Acute Plan to address problem: Management as per vascular surgery. (2) Cellulitis of leg Current Visit: Yes Status: Acute Qualifiers: Laterality: right Qualified Code(s): L03.115 - Cellulitis of right lower limb Plan to address problem: Patient is on unasyn. (3) Prostate CA Current Visit: Yes Status: Acute Plan to address problem: Mangement as per primary care . Recommend to consult urology. (4) Thrombocytopenia Current Visit: Yes Status: Acute Plan to address problem: Heparin Discontinued. Patient is on Apixaban, (5) Tobacco use disorder Current Visit: Yes Status: Acute Plan to address problem: Counselled him to stop smoking. Subjective Date of service: 09/25/17 Principal diagnosis: right toe gangrene,prostate cnacer Interval history: Patient alert, awake . On room air,O2 saturation 96%. No complaint of chest pain or shortness of breath. Patient has angio CT of chest reported small fibrinous material right pulmonary artery at catheter tip. Patient already on APIXABAN. Metastatic disease in bones likely from prostatic CA. Objective Vital Signs - 12hr 09/25/17 09/25/17 15:14 22:56 Temperature 99.0 F 98.5 F Pulse Rate 89 88 Respiratory 16 16 Rate Blood Pressure 107/78 107/71 O2 Sat by Pulse 100 96 Oximetry Constitutional: no acute distress, alert, appears uncomfortable Eyes: non-icteric ENT: oropharynx moist Neck: supple, no lymphadenopathy Ascultation: Bilateral: diminished breath sounds (Prolonged expiratory phase.) Cardiovascular: regular rate and rhythm Gastrointestinal: normoactive bowel sounds, soft, non-tender Integumentary: normal Extremities: no cyanosis, no edema, other (Gangrene extremities.) Neurologic: non-focal exam, pupils equal and round, CN II-XII normal Psychiatric: other (Irritable.) CBC and BMP: 09/24/17 05:22 09/24/17 05:22 ABG, PT/INR, D-dimer: PT/INR, D-dimer PT 19.6 Sec. (12.2-14.9) H 09/22/17 23:25 INR 1.56 (0.87-1.13) H 09/22/17 23:25 Abnormal lab findings: Abnormal Labs 09/11/17 09/11/17 09/11/17 09:29 09:29 10:13 WBC RBC 2.23 L Hgb 6.7 L Hct 21.3 L MCV 96 H MCHC RDW 20.2 H Plt Count 83 L [place] % (Auto) Lymph # Seg Neuts % (Manual) Lymphocytes % (Manual) 44.0 H Nucleated RBC % 34.0 H Lymphocytes # (Manual) Percent Retic PT INR APTT Fibrinogen Heparin Anti-Xa Level Sodium Potassium Chloride Carbon Dioxide BUN Creatinine 0.7 L Glucose Calcium Iron TIBC Ferritin ALT Alkaline Phosphatase C-Reactive Protein Total Protein Albumin HDL Cholesterol Prostate Specific Ag Vitamin B12 Crossmatch See Detail 09/11/17 09/12/17 09/12/17 23:47 08:32 08:32 WBC RBC 3.42 L Hgb 10.0 L D Hct 32.1 L D MCV MCHC 31 L RDW 18.7 H Plt Count 65 L [place] % (Auto) Lymph # Seg Neuts % (Manual) Lymphocytes % (Manual) Nucleated RBC % 4.0 H Lymphocytes # (Manual) Percent Retic PT INR APTT Fibrinogen Heparin Anti-Xa Level Sodium Potassium Chloride Carbon Dioxide BUN Creatinine 0.6 L Glucose Calcium Iron 48 L TIBC 233 L Ferritin ALT Alkaline Phosphatase 684 H C-Reactive Protein Total Protein Albumin HDL Cholesterol Prostate Specific Ag Vitamin B12 Crossmatch 09/12/17 09/13/17 09/13/17 18:07 06:18 09:29 WBC RBC Hgb 9.7 L Hct 30.0 L MCV MCHC RDW Plt Count 62 L [place] % (Auto) Lymph # Seg Neuts % (Manual) Lymphocytes % (Manual) Nucleated RBC % Lymphocytes # (Manual) Percent Retic PT INR APTT Fibrinogen Heparin Anti-Xa Level < 0.10 L Sodium Potassium Chloride Carbon Dioxide BUN Creatinine Glucose Calcium Iron TIBC Ferritin ALT Alkaline Phosphatase C-Reactive Protein 15.70 H Total Protein Albumin HDL Cholesterol Prostate Specific Ag Vitamin B12 Crossmatch 09/13/17 09/13/17 09/13/17 09:29 11:41 23:25 WBC RBC 3.40 L Hgb 10.1 L Hct 31.6 L MCV MCHC RDW 18.5 H Plt Count 55 L [place] % (Auto) Lymph # Seg Neuts % (Manual) Lymphocytes % (Manual) Nucleated RBC % Lymphocytes # (Manual) Percent Retic PT INR APTT 81.5 H* Fibrinogen Heparin Anti-Xa Level 0.10 L Sodium 133 L Potassium Chloride 97.0 L Carbon Dioxide BUN Creatinine 0.6 L Glucose 103 H Calcium Iron TIBC Ferritin ALT Alkaline Phosphatase C-Reactive Protein Total Protein Albumin HDL Cholesterol Prostate Specific Ag Vitamin B12 Crossmatch 09/14/17 09/14/17 09/14/17 05:24 05:24 10:46 WBC RBC 3.20 L Hgb 9.8 L Hct 29.2 L MCV MCHC RDW 17.6 H Plt Count 61 L [place] % (Auto) Lymph # Seg Neuts % (Manual) 80.0 H Lymphocytes % (Manual) Nucleated RBC % 1.0 H Lymphocytes # (Manual) 0.6 L Percent Retic PT INR APTT 58.5 H 56.0 H Fibrinogen Heparin Anti-Xa Level Sodium Potassium Chloride Carbon Dioxide BUN Creatinine Glucose Calcium Iron TIBC Ferritin ALT Alkaline Phosphatase C-Reactive Protein Total Protein Albumin HDL Cholesterol Prostate Specific Ag Vitamin B12 Crossmatch 09/14/17 09/14/17 09/14/17 10:46 10:46 10:46 WBC RBC Hgb Hct MCV MCHC RDW Plt Count [place] % (Auto) Lymph # Seg Neuts % (Manual) Lymphocytes % (Manual) Nucleated RBC % Lymphocytes # (Manual) Percent Retic 3.68 H PT INR APTT Fibrinogen Heparin Anti-Xa Level Sodium Potassium Chloride Carbon Dioxide BUN Creatinine Glucose Calcium Iron TIBC Ferritin 1023.0 H ALT Alkaline Phosphatase C-Reactive Protein Total Protein Albumin HDL Cholesterol Prostate Specific Ag 1721.00 H Vitamin B12 Crossmatch 09/14/17 09/14/17 09/15/17 10:46 23:04 02:53 WBC RBC 2.97 L Hgb 8.9 L Hct 27.3 L MCV MCHC RDW 17.6 H Plt Count 50 L [place] % (Auto) Lymph # Seg Neuts % (Manual) 71.0 H Lymphocytes % (Manual) 12.0 L Nucleated RBC % 2.0 H Lymphocytes # (Manual) 0.6 L Percent Retic PT INR APTT 89.4 H* Fibrinogen Heparin Anti-Xa Level Sodium Potassium Chloride Carbon Dioxide BUN Creatinine Glucose Calcium Iron TIBC Ferritin ALT Alkaline Phosphatase C-Reactive Protein Total Protein Albumin HDL Cholesterol Prostate Specific Ag Vitamin B12 206.4 L Crossmatch 09/15/17 09/15/17 09/15/17 02:53 05:22 11:33 WBC RBC Hgb Hct MCV MCHC RDW Plt Count [place] % (Auto) Lymph # Seg Neuts % (Manual) Lymphocytes % (Manual) Nucleated RBC % Lymphocytes # (Manual) Percent Retic PT INR APTT 87.0 H* 80.0 H* Fibrinogen Heparin Anti-Xa Level Sodium 132 L Potassium Chloride 95.2 L Carbon Dioxide 20 L BUN Creatinine 0.6 L Glucose 102 H Calcium Iron TIBC Ferritin ALT Alkaline Phosphatase C-Reactive Protein Total Protein Albumin HDL Cholesterol Prostate Specific Ag Vitamin B12 Crossmatch 09/15/17 09/16/17 09/16/17 23:15 07:11 07:12 WBC 4.0 L RBC 2.97 L Hgb 8.9 L Hct 27.1 L MCV MCHC RDW 17.4 H Plt Count 53 L [place] % (Auto) Lymph # Seg Neuts % (Manual) Lymphocytes % (Manual) Nucleated RBC % Lymphocytes # (Manual) 1.0 L Percent Retic PT INR APTT 101.0 H* 48.7 H Fibrinogen Heparin Anti-Xa Level Sodium Potassium Chloride Carbon Dioxide BUN Creatinine Glucose Calcium Iron TIBC Ferritin ALT Alkaline Phosphatase C-Reactive Protein Total Protein Albumin HDL Cholesterol Prostate Specific Ag Vitamin B12 Crossmatch 09/16/17 09/17/17 09/17/17 13:07 04:23 17:23 WBC RBC Hgb Hct MCV MCHC RDW Plt Count [place] % (Auto) Lymph # Seg Neuts % (Manual) Lymphocytes % (Manual) Nucleated RBC % Lymphocytes # (Manual) Percent Retic PT INR APTT 61.7 H* 60.3 H* 57.9 H Fibrinogen Heparin Anti-Xa Level Sodium Potassium Chloride Carbon Dioxide BUN Creatinine Glucose Calcium Iron TIBC Ferritin ALT Alkaline Phosphatase C-Reactive Protein Total Protein Albumin HDL Cholesterol Prostate Specific Ag Vitamin B12 Crossmatch 09/18/17 09/18/17 09/18/17 05:31 05:31 05:31 WBC 4.2 L RBC 2.66 L Hgb 7.9 L Hct 23.9 L MCV MCHC RDW 17.3 H Plt Count 75 L [place] % (Auto) 7.7 H Lymph # 0.9 L Seg Neuts % (Manual) Lymphocytes % (Manual) Nucleated RBC % Lymphocytes # (Manual) Percent Retic PT INR APTT 61.5 H* Fibrinogen Heparin Anti-Xa Level Sodium 132 L Potassium 3.1 L Chloride 94.4 L Carbon Dioxide BUN 8 L Creatinine 0.5 L Glucose 127 H Calcium Iron TIBC Ferritin ALT Alkaline Phosphatase C-Reactive Protein Total Protein Albumin HDL Cholesterol Prostate Specific Ag Vitamin B12 Crossmatch 09/18/17 09/19/17 09/19/17 17:35 06:30 17:43 WBC RBC Hgb Hct MCV MCHC RDW Plt Count [place] % (Auto) Lymph # Seg Neuts % (Manual) Lymphocytes % (Manual) Nucleated RBC % Lymphocytes # (Manual) Percent Retic PT INR APTT 60.1 H* 67.8 H* 60.9 H* Fibrinogen Heparin Anti-Xa Level Sodium Potassium Chloride Carbon Dioxide BUN Creatinine Glucose Calcium Iron TIBC Ferritin ALT Alkaline Phosphatase C-Reactive Protein Total Protein Albumin HDL Cholesterol Prostate Specific Ag Vitamin B12 Crossmatch 09/20/17 09/20/17 09/20/17 05:23 05:23 05:23 WBC RBC Hgb 7.7 L Hct 23.4 L MCV MCHC RDW Plt Count 98 L [place] % (Auto) Lymph # Seg Neuts % (Manual) Lymphocytes % (Manual) Nucleated RBC % Lymphocytes # (Manual) Percent Retic PT INR APTT 63.2 H* Fibrinogen Heparin Anti-Xa Level Sodium 134 L Potassium 3.4 L Chloride 97.3 L Carbon Dioxide BUN Creatinine 0.5 L Glucose 107 H Calcium Iron TIBC Ferritin ALT < 5 L Alkaline Phosphatase 542 H C-Reactive Protein Total Protein 5.7 L Albumin 3.4 L HDL Cholesterol Prostate Specific Ag Vitamin B12 Crossmatch 09/20/17 09/20/17 09/20/17 13:40 13:40 13:40 WBC RBC 2.43 L Hgb 7.2 L Hct 22.2 L MCV MCHC RDW 17.3 H Plt Count 93 L [place] % (Auto) Lymph # Seg Neuts % (Manual) Lymphocytes % (Manual) Nucleated RBC % 2.0 H Lymphocytes # (Manual) Percent Retic PT 17.7 H INR 1.38 H APTT 130.6 H* Fibrinogen 969 H Heparin Anti-Xa Level Sodium 134 L Potassium Chloride Carbon Dioxide BUN 8 L Creatinine 0.5 L Glucose Calcium Iron TIBC Ferritin ALT Alkaline Phosphatase C-Reactive Protein Total Protein Albumin HDL Cholesterol Prostate Specific Ag Vitamin B12 Crossmatch 09/20/17 09/20/17 09/21/17 18:53 18:53 00:13 WBC RBC 2.33 L 2.30 L Hgb 6.9 L 6.9 L Hct 20.9 L 21.0 L MCV MCHC RDW 17.0 H 17.5 H Plt Count 92 L 89 L [place] % (Auto) Lymph # Seg Neuts % (Manual) 76.0 H Lymphocytes % (Manual) Nucleated RBC % Lymphocytes # (Manual) 0.9 L Percent Retic PT INR APTT 37.1 H Fibrinogen 907 H Heparin Anti-Xa Level < 0.10 L Sodium Potassium Chloride Carbon Dioxide BUN Creatinine Glucose Calcium Iron TIBC Ferritin ALT Alkaline Phosphatase C-Reactive Protein Total Protein Albumin HDL Cholesterol Prostate Specific Ag Vitamin B12 Crossmatch 09/21/17 09/21/17 09/21/17 00:13 03:59 06:49 WBC RBC 2.19 L Hgb 6.4 L Hct 19.7 L* MCV MCHC RDW 17.1 H Plt Count 89 L [place] % (Auto) Lymph # Seg Neuts % (Manual) Lymphocytes % (Manual) Nucleated RBC % Lymphocytes # (Manual) Percent Retic PT INR APTT Fibrinogen 899 H Heparin Anti-Xa Level 0.10 L Sodium 136 L Potassium Chloride Carbon Dioxide BUN 7 L Creatinine 0.4 L Glucose 102 H Calcium 7.7 L Iron TIBC Ferritin ALT < 5 L Alkaline Phosphatase 473 H C-Reactive Protein Total Protein 5.2 L Albumin 2.8 L HDL Cholesterol Prostate Specific Ag Vitamin B12 Crossmatch 09/21/17 09/21/17 09/21/17 06:49 07:52 13:01 WBC RBC Hgb Hct MCV MCHC RDW Plt Count [place] % (Auto) Lymph # Seg Neuts % (Manual) Lymphocytes % (Manual) Nucleated RBC % Lymphocytes # (Manual) Percent Retic PT INR APTT Fibrinogen 824 H Heparin Anti-Xa Level < 0.10 L Sodium Potassium Chloride Carbon Dioxide BUN Creatinine Glucose Calcium Iron TIBC Ferritin ALT Alkaline Phosphatase C-Reactive Protein 21.40 H Total Protein Albumin HDL Cholesterol Prostate Specific Ag Vitamin B12 Crossmatch See Detail 09/21/17 09/21/17 09/21/17 21:53 21:53 23:27 WBC RBC Hgb Hct MCV MCHC RDW Plt Count [place] % (Auto) Lymph # Seg Neuts % (Manual) Lymphocytes % (Manual) Nucleated RBC % Lymphocytes # (Manual) Percent Retic PT 19.8 H INR 1.58 H APTT 56.5 H Fibrinogen Heparin Anti-Xa Level Sodium 134 L Potassium Chloride 97.2 L Carbon Dioxide BUN 6 L Creatinine 0.4 L Glucose Calcium 8.2 L Iron TIBC Ferritin ALT < 5 L Alkaline Phosphatase 414 H C-Reactive Protein Total Protein 5.8 L Albumin 2.8 L HDL Cholesterol Prostate Specific Ag Vitamin B12 Crossmatch 09/22/17 09/22/17 09/22/17 05:55 07:47 12:57 WBC RBC 2.91 L Hgb 8.7 L Hct 26.0 L D MCV MCHC RDW 16.4 H Plt Count 84 L [place] % (Auto) Lymph # Seg Neuts % (Manual) Lymphocytes % (Manual) Nucleated RBC % Lymphocytes # (Manual) 1.0 L Percent Retic PT INR APTT 67.7 H* Fibrinogen Heparin Anti-Xa Level Sodium Potassium 3.1 L Chloride Carbon Dioxide 21 L BUN 7 L Creatinine 0.5 L Glucose Calcium 7.7 L Iron TIBC Ferritin ALT Alkaline Phosphatase C-Reactive Protein Total Protein Albumin HDL Cholesterol Prostate Specific Ag Vitamin B12 Crossmatch 09/22/17 09/22/17 09/23/17 23:25 23:25 05:59 WBC RBC Hgb 7.6 L Hct 22.5 L MCV MCHC RDW Plt Count 83 L [place] % (Auto) Lymph # Seg Neuts % (Manual) Lymphocytes % (Manual) Nucleated RBC % Lymphocytes # (Manual) Percent Retic PT 19.6 H INR 1.56 H APTT Fibrinogen Heparin Anti-Xa Level Sodium Potassium 3.5 L Chloride Carbon Dioxide BUN 5 L Creatinine 0.4 L Glucose 103 H Calcium Iron TIBC Ferritin ALT Alkaline Phosphatase C-Reactive Protein Total Protein Albumin HDL Cholesterol 38 L Prostate Specific Ag Vitamin B12 Crossmatch 09/23/17 09/23/17 09/23/17 05:59 05:59 18:03 WBC RBC 2.50 L Hgb 7.5 L Hct 22.3 L MCV MCHC RDW 15.9 H Plt Count 82 L [place] % (Auto) Lymph # Seg Neuts % (Manual) Lymphocytes % (Manual) Nucleated RBC % Lymphocytes # (Manual) Percent Retic PT INR APTT Fibrinogen Heparin Anti-Xa Level < 0.10 L 0.11 L Sodium Potassium Chloride Carbon Dioxide BUN Creatinine Glucose Calcium Iron TIBC Ferritin ALT Alkaline Phosphatase C-Reactive Protein Total Protein Albumin HDL Cholesterol Prostate Specific Ag Vitamin B12 Crossmatch 09/24/17 09/24/17 09/24/17 05:22 05:22 05:22 WBC RBC 2.55 L Hgb 7.4 L Hct 22.4 L MCV MCHC RDW 16.3 H Plt Count 85 L [place] % (Auto) Lymph # Seg Neuts % (Manual) Lymphocytes % (Manual) Nucleated RBC % Lymphocytes # (Manual) Percent Retic PT INR APTT Fibrinogen Heparin Anti-Xa Level 0.14 L Sodium 136 L Potassium 3.3 L Chloride 97.4 L Carbon Dioxide BUN 4 L Creatinine 0.4 L Glucose 110 H Calcium 8.2 L Iron TIBC Ferritin ALT Alkaline Phosphatase C-Reactive Protein Total Protein Albumin HDL Cholesterol Prostate Specific Ag Vitamin B12 Crossmatch
[2017-09-26] MEDS: UNASYN/NS 3 GM/100 ML 3 GM/100 ML BAG IV SCH ×4 (00:38→20:01)
[2017-09-26] MEDS: DILAUDID IV PRN ×5 (01:05→21:23)
[2017-09-26] MEDS: NORCO 5/325 PO PRN ×3 (02:13→19:45)
[2017-09-26 07:09] LABS: Hematocrit 21.5 % (35.5-45.6); Hemoglobin 7.1 gm/dl (11.8-15.2)
[2017-09-26] MEDS: PERCOCET 5/325 PO PRN (08:15)
[2017-09-26] MEDS ORDERED: NACL 0.9% 500 ML 500 ML IV ONE (09:39)
[2017-09-26] MEDS ORDERED: VITAMIN B-12 SUB-Q ONE (09:47)
--- NOTE | 2017-09-26 09:47 | Hem/Onc Progress Note ---
Assessment and Plan - Patient Problems (1) Prostate CA Current Visit: Yes Status: Acute Plan to address problem: Patient has active metastatic prostate cancer. He has an elevated alkaline phosphatase. This could was him to have thrombocytopenia and anemia. PSA extremely high consistent with metastatic disease. He will follow-up with his oncologist at [facility] for that upon discharge (2) Anemia Current Visit: Yes Status: Acute Qualifiers: Anemia type: unspecified type Qualified Code(s): D64.9 - Anemia, unspecified Plan to address problem: B12 low. We will continue B12 and give him another dose today. Anemia could be related to prostate cancer too. It seems multifactorial. Need to transfuse as needed. May need a bone marrow biopsy if anemia persists although with metastatic prostate cancer and chronic disease anemia is likely. Hemoglobin trending down. Continue to monitor. Appreciate GI evaluation (3) Thrombocytopenia Current Visit: Yes Status: Acute (4) Atherosclerosis of [place] arteries of the extremities with gangrene Current Visit: Yes Status: Acute Subjective Date of service: 09/26/17 Interval history: Patient underwent revascularization. Complains of pain in the right foot. on eliquis. Denies any active bleeding Objective - Constitutional Vitals: Last Vital Signs Temp 98.3 F 09/26/17 07:40 Pulse 92 H 09/26/17 07:40 Resp 20 09/26/17 07:40 BP 101/65 09/26/17 07:40 Pulse Ox 99 09/26/17 07:40 General appearance: no acute distress Performance status: 2- selfcare, ambulatory - Neck Neck: supple - Respiratory Respiratory effort: Positive: normal - Cardiovascular Rhythm: regular Extremities: abnormal - Gastrointestinal General gastrointestinal: Present: soft - Labs Lab Results: Laboratory Results - last 24 hr 09/26/17 06:34 Hgb 7.1 L Hct 21.5 L Plt Count 89 L
[2017-09-26] MEDS: ELIQUIS PO SCH ×2 (11:08→22:09)
[2017-09-26] MEDS: HABITROL TD SCH (11:08)
[2017-09-26] MEDS: PROTONIX PO SCH (11:09)
[2017-09-26] MEDS: FOLVITE PO SCH (11:09)
[2017-09-26] MEDS: FLOMAX PO SCH (11:09)
[2017-09-26] MEDS: THERAGRAN-M Tab PO SCH (11:09)
--- NOTE | 2017-09-26 12:16 | Gastroenterology Progress Note ---
Assessment and Plan 1.anemia -HGB 7.1-stable -continue to monitor H/H and transfuse as needed -no active signs of bleeding -recommend EGD/colonoscopy when platelets improve (>100K if possible) -continue MVI -further recommendations to follow Subjective Date of service: 09/26/17 Principal diagnosis: anemia Interval history: Patient resting in bed w/o acute distress. No active signs of bleeding overnight or this am per pt. BM x 1 today with brown stool. Objective - Constitutional Vitals: Temp Pulse Resp BP Pulse Ox 98.3 F 92 H 20 101/65 99 09/26/17 07:40 09/26/17 07:40 09/26/17 07:40 09/26/17 07:40 09/26/17 07:40 General appearance: no acute distress - Respiratory Respiratory: bilateral: CTA (anterior) - Cardiovascular Rhythm: regular Heart Sounds: Present: S1 & S2 - Gastrointestinal General gastrointestinal: Present: soft, non-tender, non-distended, normal bowel sounds - Neurologic Neurological: alert and oriented x3 - Labs CBC & Chem 7: 09/26/17 06:34 09/24/17 05:22 Labs: Laboratory Results - last 24 hr 09/26/17 09/26/17 06:34 11:00 Hgb 7.1 L Hct 21.5 L Plt Count 89 L Blood Type B POSITIVE Antibody Screen Negative Crossmatch See Detail
--- NOTE | 2017-09-26 12:22 | Discharge Summary ---
Providers - Providers Date of Admission: 09/11/17 11:27 Attending physician: GERBER GAN MD 09/11/17 18:13 Consult to Physician [CONS] Routine Consulting Provider: AUDRA BROWN Reason For Exam: Rt Toe gangrene Place consult to:: dr. brown Notified:: answering service Phone number called:: Was contact made?: Yes If yes, spoke with:: omid Weeks called:: 18:44 09/11/17 18:22 Consult to Physician [CONS] Routine Consulting Provider: HANNAH JACKSON Reason For Exam: Rt grt toe Gangrene Place consult to:: dr. redding Notified:: Phone number called:: [phone] Was contact made?: Yes If yes, spoke with:: dr. redding Time called:: 09:10 09/12/17 09:00 Consult to Wound/ET Nurse [CONS] Routine Reason For Exam: wound eval 09/13/17 14:05 Consult to Physician [CONS] Routine Consulting Provider: GRACIE KULKARNI Reason For Exam: THROMBOCYTOPENIA Place consult to:: DR. KULKARNI Notified:: OFFICE Phone number called:: [phone] Was contact made?: Yes If yes, spoke with:: DR. 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 Please fax results to [phone] and call [phone] for critical lab results. Hannah Redding Date: 09/23/17 09/23/17 14:17 Consult to PICC Line RN [CONS] Stat Reason For Exam: IV antibiotics Type Line:: PICC 09/24/17 17:38 Consult to Physician [CONS] Routine Consulting Provider: PRETTY ÁLVAREZ Reason For Exam: anemia-possible GI bleed Place consult to:: dr. álvarez Notified:: answering service Phone number called:: Was contact made?: Yes If yes, spoke with:: palmira Time called:: 18:59 Primary care physician: [employer]CH[employer]IC Hospitalization Reason for admission: osteomylitis, pvd Condition: Stable Hospital course: 66-year-old -[place] male with pmh of Prostate Cancer LBP and BPH presents to the emergency department with complaint of swelling to the right foot for the past week. The patient is noted to have a blackened and necrotic appearing right great toe. Dry eschar on Rt great Toe.No drainage. He says that it is been like this for the past couple weeks. He says he has been talking about seeing a physician regarding these symptoms but has not yet done so. He has a past medical history of prostate cancer and some chronic back pains. He has not taken anything for his symptoms prior presentation. Patient had ultrasound done and imaging studies of the lower extremity which showed OCCLUDED RT.POP ARTERY AND RT.DPA WITH THROMBUS NOTED. MULTIPHASIC WAVEFORMS THROUGHOUT VESSELS INTERROGATED EXCEPT FOR MONOPHASIC WAVEFORMS OBTAINED IN THE RT.MARKETING SPECIALIST AND RT.BRISA.BLE ARTERIAL DUPLEX. He was seen by vascular who presented to have trouble lysis with a equal system placed. He did develop noted anemia and cytopenia requiring transfusion. Imaging studies are concerning for significant metastatic prostate cancer. Patient was also consulted to GI with a planned outpatient follow-up for panendoscopy. At this point is pending placement. Has has been started on empiric antibiotic coverage by ID with plan for 6 weeks treatment. The patient was offered amputation of right foot toe but he refused. On revisit and discussing patients goals of care he reports that he wants to be comfortable, this was echooed by his sister and they have opted for hospice. 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 Metastatic Prostate Ca Pulmonary embolism Pancytopenia with thrombocytopnia-HIT negative Nicotin dependance chronic pain syndrome BPH Disposition: DC-[id number]OS[facility] ([facility]) Time spent for discharge: 35 mins Core Measure Documentation - Palliative Care Palliative Care/ Comfort Measures: Hospice Care - Core Measures Any of the following diagnoses?: DVT/PE - VTE Discharge Requirements Deep Vein Thrombosis/Pulmonary Embolism Present on Admission: Yes Has pt received <5 days of overlap therapy or INR<2.0: Yes Anticoagulant overlap therapy prescribed at discharge: Yes Exam - Physical Exam Narrative exam: - EENT Eyes: Present: PERRL, EOM intact ENT: hearing intact, clear oral mucosa - Neck Neck: Present: supple, normal ROM - Respiratory Respiratory effort: normal Respiratory: bilateral: diminished - Cardiovascular Rhythm: regular Heart Sounds: Present: S1 & S2 - Extremities Extremity abnormal: other (right great toe gangrene, right 2nd toe gangrene), diminished pulses to right lower ext - Abdominal General gastrointestinal: soft, non-tender, non-distended, normal bowel sounds - Integumentary Integumentary: Present: clear, warm, edema right - Psychiatric Psychiatric: appropriate mood/affect, cooperative - Neurologic Neurologic: CNII-XII intact, moves all extremities, although limited in lower ext - Constitutional Vitals: Temp Pulse Resp BP Pulse Ox 98.3 F 92 H 20 101/65 99 09/26/17 07:40 09/26/17 07:40 09/26/17 07:40 09/26/17 07:40 09/26/17 07:40 Plan Activity: advance as tolerated, fall precautions Diet: regular Special Instructions: record daily BP diary Follow up with: PRIMARY CARE, [Primary Care Provider] - 3-5 Days Prescriptions: Apixaban [Eliquis] 5 mg PO Q12HR #60 tablet cefTRIAXone/NS 2 GM/100 ML [Rocephin/Ns 2 gm/100 ml] 2 gm IV Q24HR #28 piggyback metroNIDAZOLE [Flagyl] 500 mg PO Q8HR #84 tablet oxyCODONE /ACETAMINOPHEN [Percocet 5/325 mg] 1 tab PO Q6H PRN #14 tablet PRN Reason: Pain, Moderate (4-6) Pantoprazole [Protonix TAB] 40 mg PO QDAY #30 tablet
--- NOTE | 2017-09-26 14:12 | Progress Note ---
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 Metastatic Prostate Ca Pulmonary embolism Pancytopenia with thrombocytopnia-HIT negative Nicotin dependance chronic pain syndrome BPH - s/p thrombolysis / EkoS of occluded Right popliteal artery and right DPA - refused amputation - complete 6 weeks of IV AB's as per ID recs - s/p PICC line placement - prn analgesia - tobacco cessation strongly counselled - continue anticoagulation - f/up with heme/onc for anticoagulation and prostate CA management - continue GI & VTE prophylaxis ...d/c planning ongoing Subjective Date of service: 09/26/17 Principal diagnosis: Sepsis Syndrome; VTE (Pulmonary Embolus) on Anticoagulation ; Severe PVD Interval history: Patient is seen today for: Sepsis Syndrome; VTE (Pulmonary Embolus) on Anticoagulation; Severe PVD Seen and examined at bedside; 24hour events reviewed; nursing and respiratory care staff consulted; no adverse overnight events reported to me; resting peacefully in bed; denies any uncontrolled pain; No N/V/F/C Objective Vital Signs - 12hr 09/26/17 07:40 Temperature 98.3 F Pulse Rate 92 H Respiratory 20 Rate Blood Pressure 101/65 O2 Sat by Pulse 99 Oximetry Constitutional: no acute distress, alert, appears uncomfortable Eyes: non-icteric ENT: oropharynx moist Neck: supple, no lymphadenopathy Ascultation: Bilateral: diminished breath sounds (Prolonged expiratory phase.) Cardiovascular: regular rate and rhythm Gastrointestinal: normoactive bowel sounds, soft, non-tender Integumentary: normal Extremities: no cyanosis, no edema, other (Gangrene extremities.) Neurologic: non-focal exam, pupils equal and round, CN II-XII normal Psychiatric: mood appropriate, affect normal CBC and BMP: 09/27/17 Unknown 09/24/17 05:22 ABG, PT/INR, D-dimer: PT/INR, D-dimer PT 19.6 Sec. (12.2-14.9) H 09/22/17 23:25 INR 1.56 (0.87-1.13) H 09/22/17 23:25 Abnormal lab findings: Abnormal Labs 09/11/17 09/11/17 09/11/17 09:29 09:29 10:13 WBC RBC 2.23 L Hgb 6.7 L Hct 21.3 L MCV 96 H MCHC RDW 20.2 H Plt Count 83 L [place] % (Auto) Lymph # Seg Neuts % (Manual) Lymphocytes % (Manual) 44.0 H Nucleated RBC % 34.0 H Lymphocytes # (Manual) Percent Retic PT INR APTT Fibrinogen Heparin Anti-Xa Level Sodium Potassium Chloride Carbon Dioxide BUN Creatinine 0.7 L Glucose Calcium Iron TIBC Ferritin ALT Alkaline Phosphatase C-Reactive Protein Total Protein Albumin HDL Cholesterol Prostate Specific Ag Vitamin B12 Crossmatch See Detail 09/11/17 09/12/17 09/12/17 23:47 08:32 08:32 WBC RBC 3.42 L Hgb 10.0 L D Hct 32.1 L D MCV MCHC 31 L RDW 18.7 H Plt Count 65 L [place] % (Auto) Lymph # Seg Neuts % (Manual) Lymphocytes % (Manual) Nucleated RBC % 4.0 H Lymphocytes # (Manual) Percent Retic PT INR APTT Fibrinogen Heparin Anti-Xa Level Sodium Potassium Chloride Carbon Dioxide BUN Creatinine 0.6 L Glucose Calcium Iron 48 L TIBC 233 L Ferritin ALT Alkaline Phosphatase 684 H C-Reactive Protein Total Protein Albumin HDL Cholesterol Prostate Specific Ag Vitamin B12 Crossmatch 09/12/17 09/13/17 09/13/17 18:07 06:18 09:29 WBC RBC Hgb 9.7 L Hct 30.0 L MCV MCHC RDW Plt Count 62 L [place] % (Auto) Lymph # Seg Neuts % (Manual) Lymphocytes % (Manual) Nucleated RBC % Lymphocytes # (Manual) Percent Retic PT INR APTT Fibrinogen Heparin Anti-Xa Level < 0.10 L Sodium Potassium Chloride Carbon Dioxide BUN Creatinine Glucose Calcium Iron TIBC Ferritin ALT Alkaline Phosphatase C-Reactive Protein 15.70 H Total Protein Albumin HDL Cholesterol Prostate Specific Ag Vitamin B12 Crossmatch 09/13/17 09/13/17 09/13/17 09:29 11:41 23:25 WBC RBC 3.40 L Hgb 10.1 L Hct 31.6 L MCV MCHC RDW 18.5 H Plt Count 55 L [place] % (Auto) Lymph # Seg Neuts % (Manual) Lymphocytes % (Manual) Nucleated RBC % Lymphocytes # (Manual) Percent Retic PT INR APTT 81.5 H* Fibrinogen Heparin Anti-Xa Level 0.10 L Sodium 133 L Potassium Chloride 97.0 L Carbon Dioxide BUN Creatinine 0.6 L Glucose 103 H Calcium Iron TIBC Ferritin ALT Alkaline Phosphatase C-Reactive Protein Total Protein Albumin HDL Cholesterol Prostate Specific Ag Vitamin B12 Crossmatch 09/14/17 09/14/17 09/14/17 05:24 05:24 10:46 WBC RBC 3.20 L Hgb 9.8 L Hct 29.2 L MCV MCHC RDW 17.6 H Plt Count 61 L [place] % (Auto) Lymph # Seg Neuts % (Manual) 80.0 H Lymphocytes % (Manual) Nucleated RBC % 1.0 H Lymphocytes # (Manual) 0.6 L Percent Retic PT INR APTT 58.5 H 56.0 H Fibrinogen Heparin Anti-Xa Level Sodium Potassium Chloride Carbon Dioxide BUN Creatinine Glucose Calcium Iron TIBC Ferritin ALT Alkaline Phosphatase C-Reactive Protein Total Protein Albumin HDL Cholesterol Prostate Specific Ag Vitamin B12 Crossmatch 09/14/17 09/14/17 09/14/17 10:46 10:46 10:46 WBC RBC Hgb Hct MCV MCHC RDW Plt Count [place] % (Auto) Lymph # Seg Neuts % (Manual) Lymphocytes % (Manual) Nucleated RBC % Lymphocytes # (Manual) Percent Retic 3.68 H PT INR APTT Fibrinogen Heparin Anti-Xa Level Sodium Potassium Chloride Carbon Dioxide BUN Creatinine Glucose Calcium Iron TIBC Ferritin 1023.0 H ALT Alkaline Phosphatase C-Reactive Protein Total Protein Albumin HDL Cholesterol Prostate Specific Ag 1721.00 H Vitamin B12 Crossmatch 09/14/17 09/14/17 09/15/17 10:46 23:04 02:53 WBC RBC 2.97 L Hgb 8.9 L Hct 27.3 L MCV MCHC RDW 17.6 H Plt Count 50 L [place] % (Auto) Lymph # Seg Neuts % (Manual) 71.0 H Lymphocytes % (Manual) 12.0 L Nucleated RBC % 2.0 H Lymphocytes # (Manual) 0.6 L Percent Retic PT INR APTT 89.4 H* Fibrinogen Heparin Anti-Xa Level Sodium Potassium Chloride Carbon Dioxide BUN Creatinine Glucose Calcium Iron TIBC Ferritin ALT Alkaline Phosphatase C-Reactive Protein Total Protein Albumin HDL Cholesterol Prostate Specific Ag Vitamin B12 206.4 L Crossmatch 09/15/17 09/15/17 09/15/17 02:53 05:22 11:33 WBC RBC Hgb Hct MCV MCHC RDW Plt Count [place] % (Auto) Lymph # Seg Neuts % (Manual) Lymphocytes % (Manual) Nucleated RBC % Lymphocytes # (Manual) Percent Retic PT INR APTT 87.0 H* 80.0 H* Fibrinogen Heparin Anti-Xa Level Sodium 132 L Potassium Chloride 95.2 L Carbon Dioxide 20 L BUN Creatinine 0.6 L Glucose 102 H Calcium Iron TIBC Ferritin ALT Alkaline Phosphatase C-Reactive Protein Total Protein Albumin HDL Cholesterol Prostate Specific Ag Vitamin B12 Crossmatch 09/15/17 09/16/17 09/16/17 23:15 07:11 07:12 WBC 4.0 L RBC 2.97 L Hgb 8.9 L Hct 27.1 L MCV MCHC RDW 17.4 H Plt Count 53 L [place] % (Auto) Lymph # Seg Neuts % (Manual) Lymphocytes % (Manual) Nucleated RBC % Lymphocytes # (Manual) 1.0 L Percent Retic PT INR APTT 101.0 H* 48.7 H Fibrinogen Heparin Anti-Xa Level Sodium Potassium Chloride Carbon Dioxide BUN Creatinine Glucose Calcium Iron TIBC Ferritin ALT Alkaline Phosphatase C-Reactive Protein Total Protein Albumin HDL Cholesterol Prostate Specific Ag Vitamin B12 Crossmatch 09/16/17 09/17/17 09/17/17 13:07 04:23 17:23 WBC RBC Hgb Hct MCV MCHC RDW Plt Count [place] % (Auto) Lymph # Seg Neuts % (Manual) Lymphocytes % (Manual) Nucleated RBC % Lymphocytes # (Manual) Percent Retic PT INR APTT 61.7 H* 60.3 H* 57.9 H Fibrinogen Heparin Anti-Xa Level Sodium Potassium Chloride Carbon Dioxide BUN Creatinine Glucose Calcium Iron TIBC Ferritin ALT Alkaline Phosphatase C-Reactive Protein Total Protein Albumin HDL Cholesterol Prostate Specific Ag Vitamin B12 Crossmatch 09/18/17 09/18/17 09/18/17 05:31 05:31 05:31 WBC 4.2 L RBC 2.66 L Hgb 7.9 L Hct 23.9 L MCV MCHC RDW 17.3 H Plt Count 75 L [place] % (Auto) 7.7 H Lymph # 0.9 L Seg Neuts % (Manual) Lymphocytes % (Manual) Nucleated RBC % Lymphocytes # (Manual) Percent Retic PT INR APTT 61.5 H* Fibrinogen Heparin Anti-Xa Level Sodium 132 L Potassium 3.1 L Chloride 94.4 L Carbon Dioxide BUN 8 L Creatinine 0.5 L Glucose 127 H Calcium Iron TIBC Ferritin ALT Alkaline Phosphatase C-Reactive Protein Total Protein Albumin HDL Cholesterol Prostate Specific Ag Vitamin B12 Crossmatch 09/18/17 09/19/17 09/19/17 17:35 06:30 17:43 WBC RBC Hgb Hct MCV MCHC RDW Plt Count [place] % (Auto) Lymph # Seg Neuts % (Manual) Lymphocytes % (Manual) Nucleated RBC % Lymphocytes # (Manual) Percent Retic PT INR APTT 60.1 H* 67.8 H* 60.9 H* Fibrinogen Heparin Anti-Xa Level Sodium Potassium Chloride Carbon Dioxide BUN Creatinine Glucose Calcium Iron TIBC Ferritin ALT Alkaline Phosphatase C-Reactive Protein Total Protein Albumin HDL Cholesterol Prostate Specific Ag Vitamin B12 Crossmatch 09/20/17 09/20/17 09/20/17 05:23 05:23 05:23 WBC RBC Hgb 7.7 L Hct 23.4 L MCV MCHC RDW Plt Count 98 L [place] % (Auto) Lymph # Seg Neuts % (Manual) Lymphocytes % (Manual) Nucleated RBC % Lymphocytes # (Manual) Percent Retic PT INR APTT 63.2 H* Fibrinogen Heparin Anti-Xa Level Sodium 134 L Potassium 3.4 L Chloride 97.3 L Carbon Dioxide BUN Creatinine 0.5 L Glucose 107 H Calcium Iron TIBC Ferritin ALT < 5 L Alkaline Phosphatase 542 H C-Reactive Protein Total Protein 5.7 L Albumin 3.4 L HDL Cholesterol Prostate Specific Ag Vitamin B12 Crossmatch 09/20/17 09/20/17 09/20/17 13:40 13:40 13:40 WBC RBC 2.43 L Hgb 7.2 L Hct 22.2 L MCV MCHC RDW 17.3 H Plt Count 93 L [place] % (Auto) Lymph # Seg Neuts % (Manual) Lymphocytes % (Manual) Nucleated RBC % 2.0 H Lymphocytes # (Manual) Percent Retic PT 17.7 H INR 1.38 H APTT 130.6 H* Fibrinogen 969 H Heparin Anti-Xa Level Sodium 134 L Potassium Chloride Carbon Dioxide BUN 8 L Creatinine 0.5 L Glucose Calcium Iron TIBC Ferritin ALT Alkaline Phosphatase C-Reactive Protein Total Protein Albumin HDL Cholesterol Prostate Specific Ag Vitamin B12 Crossmatch 09/20/17 09/20/17 09/21/17 18:53 18:53 00:13 WBC RBC 2.33 L 2.30 L Hgb 6.9 L 6.9 L Hct 20.9 L 21.0 L MCV MCHC RDW 17.0 H 17.5 H Plt Count 92 L 89 L [place] % (Auto) Lymph # Seg Neuts % (Manual) 76.0 H Lymphocytes % (Manual) Nucleated RBC % Lymphocytes # (Manual) 0.9 L Percent Retic PT INR APTT 37.1 H Fibrinogen 907 H Heparin Anti-Xa Level < 0.10 L Sodium Potassium Chloride Carbon Dioxide BUN Creatinine Glucose Calcium Iron TIBC Ferritin ALT Alkaline Phosphatase C-Reactive Protein Total Protein Albumin HDL Cholesterol Prostate Specific Ag Vitamin B12 Crossmatch 09/21/17 09/21/17 09/21/17 00:13 03:59 06:49 WBC RBC 2.19 L Hgb 6.4 L Hct 19.7 L* MCV MCHC RDW 17.1 H Plt Count 89 L [place] % (Auto) Lymph # Seg Neuts % (Manual) Lymphocytes % (Manual) Nucleated RBC % Lymphocytes # (Manual) Percent Retic PT INR APTT Fibrinogen 899 H Heparin Anti-Xa Level 0.10 L Sodium 136 L Potassium Chloride Carbon Dioxide BUN 7 L Creatinine 0.4 L Glucose 102 H Calcium 7.7 L Iron TIBC Ferritin ALT < 5 L Alkaline Phosphatase 473 H C-Reactive Protein Total Protein 5.2 L Albumin 2.8 L HDL Cholesterol Prostate Specific Ag Vitamin B12 Crossmatch 09/21/17 09/21/17 09/21/17 06:49 07:52 13:01 WBC RBC Hgb Hct MCV MCHC RDW Plt Count [place] % (Auto) Lymph # Seg Neuts % (Manual) Lymphocytes % (Manual) Nucleated RBC % Lymphocytes # (Manual) Percent Retic PT INR APTT Fibrinogen 824 H Heparin Anti-Xa Level < 0.10 L Sodium Potassium Chloride Carbon Dioxide BUN Creatinine Glucose Calcium Iron TIBC Ferritin ALT Alkaline Phosphatase C-Reactive Protein 21.40 H Total Protein Albumin HDL Cholesterol Prostate Specific Ag Vitamin B12 Crossmatch See Detail 09/21/17 09/21/17 09/21/17 21:53 21:53 23:27 WBC RBC Hgb Hct MCV MCHC RDW Plt Count [place] % (Auto) Lymph # Seg Neuts % (Manual) Lymphocytes % (Manual) Nucleated RBC % Lymphocytes # (Manual) Percent Retic PT 19.8 H INR 1.58 H APTT 56.5 H Fibrinogen Heparin Anti-Xa Level Sodium 134 L Potassium Chloride 97.2 L Carbon Dioxide BUN 6 L Creatinine 0.4 L Glucose Calcium 8.2 L Iron TIBC Ferritin ALT < 5 L Alkaline Phosphatase 414 H C-Reactive Protein Total Protein 5.8 L Albumin 2.8 L HDL Cholesterol Prostate Specific Ag Vitamin B12 Crossmatch 09/22/17 09/22/17 09/22/17 05:55 07:47 12:57 WBC RBC 2.91 L Hgb 8.7 L Hct 26.0 L D MCV MCHC RDW 16.4 H Plt Count 84 L [place] % (Auto) Lymph # Seg Neuts % (Manual) Lymphocytes % (Manual) Nucleated RBC % Lymphocytes # (Manual) 1.0 L Percent Retic PT INR APTT 67.7 H* Fibrinogen Heparin Anti-Xa Level Sodium Potassium 3.1 L Chloride Carbon Dioxide 21 L BUN 7 L Creatinine 0.5 L Glucose Calcium 7.7 L Iron TIBC Ferritin ALT Alkaline Phosphatase C-Reactive Protein Total Protein Albumin HDL Cholesterol Prostate Specific Ag Vitamin B12 Crossmatch 09/22/17 09/22/17 09/23/17 23:25 23:25 05:59 WBC RBC Hgb 7.6 L Hct 22.5 L MCV MCHC RDW Plt Count 83 L [place] % (Auto) Lymph # Seg Neuts % (Manual) Lymphocytes % (Manual) Nucleated RBC % Lymphocytes # (Manual) Percent Retic PT 19.6 H INR 1.56 H APTT Fibrinogen Heparin Anti-Xa Level Sodium Potassium 3.5 L Chloride Carbon Dioxide BUN 5 L Creatinine 0.4 L Glucose 103 H Calcium Iron TIBC Ferritin ALT Alkaline Phosphatase C-Reactive Protein Total Protein Albumin HDL Cholesterol 38 L Prostate Specific Ag Vitamin B12 Crossmatch 09/23/17 09/23/17 09/23/17 05:59 05:59 18:03 WBC RBC 2.50 L Hgb 7.5 L Hct 22.3 L MCV MCHC RDW 15.9 H Plt Count 82 L [place] % (Auto) Lymph # Seg Neuts % (Manual) Lymphocytes % (Manual) Nucleated RBC % Lymphocytes # (Manual) Percent Retic PT INR APTT Fibrinogen Heparin Anti-Xa Level < 0.10 L 0.11 L Sodium Potassium Chloride Carbon Dioxide BUN Creatinine Glucose Calcium Iron TIBC Ferritin ALT Alkaline Phosphatase C-Reactive Protein Total Protein Albumin HDL Cholesterol Prostate Specific Ag Vitamin B12 Crossmatch 09/24/17 09/24/17 09/24/17 05:22 05:22 05:22 WBC RBC 2.55 L Hgb 7.4 L Hct 22.4 L MCV MCHC RDW 16.3 H Plt Count 85 L [place] % (Auto) Lymph # Seg Neuts % (Manual) Lymphocytes % (Manual) Nucleated RBC % Lymphocytes # (Manual) Percent Retic PT INR APTT Fibrinogen Heparin Anti-Xa Level 0.14 L Sodium 136 L Potassium 3.3 L Chloride 97.4 L Carbon Dioxide BUN 4 L Creatinine 0.4 L Glucose 110 H Calcium 8.2 L Iron TIBC Ferritin ALT Alkaline Phosphatase C-Reactive Protein Total Protein Albumin HDL Cholesterol Prostate Specific Ag Vitamin B12 Crossmatch 09/26/17 09/26/17 06:34 11:00 WBC RBC Hgb 7.1 L Hct 21.5 L MCV MCHC RDW Plt Count 89 L [place] % (Auto) Lymph # Seg Neuts % (Manual) Lymphocytes % (Manual) Nucleated RBC % Lymphocytes # (Manual) Percent Retic PT INR APTT Fibrinogen Heparin Anti-Xa Level Sodium Potassium Chloride Carbon Dioxide BUN Creatinine Glucose Calcium Iron TIBC Ferritin ALT Alkaline Phosphatase C-Reactive Protein Total Protein Albumin HDL Cholesterol Prostate Specific Ag Vitamin B12 Crossmatch See Detail
--- NOTE | 2017-09-26 18:05 | Progress Note ---
Assessment and Plan Assessment and plan: 66-year-old -[place] male with pmh of Prostate Cancer LBP and BPH presents to the emergency department with complaint of swelling to the right foot for the past week. The patient is noted to have a blackened and necrotic appearing right great toe. Dry eschar on Rt great Toe.No drainage. He says that it is been like this for the past couple weeks. He says he has been talking about seeing a physician regarding these symptoms but has not yet done so. He has a past medical history of prostate cancer and some chronic back pains. He has not taken anything for his symptoms prior presentation. Patient had ultrasound done and imaging studies of the lower extremity which showed OCCLUDED RT.POP ARTERY AND RT.DPA WITH THROMBUS NOTED. 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 He was seen by vascular who presented to have trouble lysis with a equal system placed. He did develop noted anemia and cytopenia requiring transfusion. Imaging studies are concerning for significant metastatic prostate cancer. Patient was also consulted to GI with a planned outpatient follow-up for panendoscopy. At this point is pending placement. Has has been started on empiric antibiotic coverage by ID with plan for 6 weeks treatment. The patient was offered amputation of right foot toe but he refused. He is to have a repeat angiography in 4 weeks with vascular. 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 * May need to have lifelong anticoagulation if this is secondary to malignancy. * Can consider repeat angiography in 4 weeks if patient is symptomatic or ultrasound suggests residual stenosis. * DVT/GI prophy History Interval history: Patient seen and examined in no acute distress. Improving leg pain and back pain. no claus bleeding. explained all diagnosis and plan of care. awaiting placement Hospitalist Physical - Physical exam Narrative exam: VITAL SIGNS: Reviewed. GENERAL: The patient appeared chronically ill appearing. Vital signs as documented. HEAD: No signs of head trauma. EYES: Pupils are equal. Extraocular motions intact. EARS: Hearing grossly intact. MOUTH: Oropharynx is normal. NECK: No adenopathy, no JVD. CHEST: Chest with clear breath sounds bilaterally. No wheezes, rales, or rhonchi. CARDIAC: Regular rate and rhythm. S1 and S2, without murmurs, gallops, or rubs. VASCULAR: No Edema. Peripheral pulses normal and equal in all extremities. ABDOMEN: Soft, without detectable tenderness. No sign of distention. No rebound or guarding, and no masses palpated. Bowel Sounds normal. MUSCULOSKELETAL: Good range of motion of all major joints. Right lower extremity great toe with gangrene and second great toe gangrene also diminished pulses noted above mildly palpable. NEUROLOGIC EXAM: Alert and oriented x 3. No focal sensory or strength deficits. Speech normal. Follows commands. PSYCHIATRIC: Mood normal. SKIN: Total gangrene as noted - Constitutional Vitals: Temp Pulse Resp BP Pulse Ox 97.8 F 94 H 18 104/74 99 09/26/17 17:49 09/26/17 17:49 09/26/17 17:49 09/26/17 17:49 09/26/17 07:40 General appearance: Present: no acute distress Results - Labs CBC & Chem 7: 09/26/17 06:34 09/24/17 05:22 Labs: Laboratory Last Values WBC 4.7 K/mm3 (4.5-11.0) 09/24/17 05:22 RBC 2.55 M/mm3 (3.65-5.03) L 09/24/17 05:22 Hgb 7.1 gm/dl (11.8-15.2) L 09/26/17 06:34 Hct 21.5 % (35.5-45.6) L 09/26/17 06:34 MCV 88 fl (84-94) 09/24/17 05:22 MCH 29 pg (28-32) 09/24/17 05:22 MCHC 33 % (32-34) 09/24/17 05:22 RDW 16.3 % (13.2-15.2) H 09/24/17 05:22 Plt Count 89 K/mm3 (140-440) L 09/26/17 06:34 Lymph % (Auto) 25.9 % (13.4-35.0) 09/20/17 18:53 [place] % (Auto) 7.1 % (0.0-7.3) 09/20/17 18:53 Eos % (Auto) 1.9 % (0.0-4.3) 09/20/17 18:53 Baso % (Auto) 0.7 % (0.0-1.8) 09/20/17 18:53 Lymph # 1.2 K/mm3 (1.2-5.4) 09/20/17 18:53 [place] # 0.3 K/mm3 (0.0-0.8) 09/20/17 18:53 Eos # 0.1 K/mm3 (0.0-0.4) 09/20/17 18:53 Baso # 0.0 K/mm3 (0.0-0.1) 09/20/17 18:53 Add Manual Diff Complete 09/22/17 07:47 Total Counted 100 09/22/17 07:47 Seg Neutrophils % 64.4 % (40.0-70.0) 09/20/17 18:53 Seg Neuts % (Manual) 62.0 % (40.0-70.0) 09/22/17 07:47 Band Neutrophils % 9.0 % 09/22/17 07:47 Lymphocytes % (Manual) 21.0 % (13.4-35.0) 09/22/17 07:47 Reactive Lymphs % (Man) 0 % 09/22/17 07:47 Monocytes % (Manual) 6.0 % (0.0-7.3) 09/22/17 07:47 Eosinophils % (Manual) 2.0 % (0.0-4.3) 09/22/17 07:47 Basophils % (Manual) 0 % (0.0-1.8) 09/22/17 07:47 Metamyelocytes % 0 % 09/22/17 07:47 Myelocytes % 0 % 09/22/17 07:47 Promyelocytes % 0 % 09/22/17 07:47 Blast Cells % 0 % 09/22/17 07:47 Nucleated RBC % Not Reportable 09/22/17 07:47 Seg Neutrophils # 2.9 K/mm3 (1.8-7.7) 09/20/17 18:53 Seg Neutrophils # Man 2.9 K/mm3 (1.8-7.7) 09/22/17 07:47 Band Neutrophils # 0.4 K/mm3 09/22/17 07:47 Lymphocytes # (Manual) 1.0 K/mm3 (1.2-5.4) L 09/22/17 07:47 Abs React Lymphs (Man) 0.0 K/mm3 09/22/17 07:47 Monocytes # (Manual) 0.3 K/mm3 (0.0-0.8) 09/22/17 07:47 Eosinophils # (Manual) 0.1 K/mm3 (0.0-0.4) 09/22/17 07:47 Basophils # (Manual) 0.0 K/mm3 (0.0-0.1) 09/22/17 07:47 Metamyelocytes # 0.0 K/mm3 09/22/17 07:47 Myelocytes # 0.0 K/mm3 09/22/17 07:47 Promyelocytes # 0.0 K/mm3 09/22/17 07:47 Blast Cells # 0.0 K/mm3 09/22/17 07:47 Pathologist Review Not Reportable 09/11/17 09:29 WBC Morphology Not Reportable 09/22/17 07:47 Hypersegmented Neuts Not Reportable 09/22/17 07:47 Hyposegmented Neuts Not Reportable 09/22/17 07:47 Hypogranular Neuts Not Reportable 09/22/17 07:47 Smudge Cells Not Reportable 09/22/17 07:47 Toxic Granulation Not Reportable 09/22/17 07:47 Toxic Vacuolation Not Reportable 09/22/17 07:47 Dohle Bodies Not Reportable 09/22/17 07:47 Pelger-Huet Anomaly Not Reportable 09/22/17 07:47 Jose Rods Not Reportable 09/22/17 07:47 Platelet Estimate Consistent w auto 09/22/17 07:47 Clumped Platelets Not Reportable 09/22/17 07:47 Plt Clumps, EDTA Not Reportable 09/22/17 07:47 Large Platelets Not Reportable 09/22/17 07:47 Giant Platelets Not Reportable 09/22/17 07:47 Platelet Satelliting Not Reportable 09/22/17 07:47 Plt Morphology Comment Not Reportable 09/22/17 07:47 RBC Morphology Not Reportable 09/22/17 07:47 Dimorphic RBCs Not Reportable 09/22/17 07:47 Polychromasia Rare 09/22/17 07:47 Hypochromasia Not Reportable 09/22/17 07:47 Poikilocytosis Not Reportable 09/22/17 07:47 Anisocytosis 1+ 09/22/17 07:47 Microcytosis Not Reportable 09/22/17 07:47 Macrocytosis Not Reportable 09/22/17 07:47 Spherocytes Not Reportable 09/22/17 07:47 Pappenheimer Bodies Not Reportable 09/22/17 07:47 Sickle Cells Not Reportable 09/22/17 07:47 Target Cells Not Reportable 09/22/17 07:47 Tear Drop Cells Rare 09/22/17 07:47 Ovalocytes Not Reportable 09/22/17 07:47 Helmet Cells Not Reportable 09/22/17 07:47 [place] Bodies Not Reportable 09/22/17 07:47 [place] Rings Not Reportable 09/22/17 07:47 [place] Cells Not Reportable 09/22/17 07:47 Bite Cells Not Reportable 09/22/17 07:47 Crenated Cell Not Reportable 09/22/17 07:47 Elliptocytes Not Reportable 09/22/17 07:47 Acanthocytes (Spur) Not Reportable 09/22/17 07:47 Rouleaux Not Reportable 09/22/17 07:47 Hemoglobin C Crystals Not Reportable 09/22/17 07:47 Schistocytes Not Reportable 09/22/17 07:47 Malaria parasites Not Reportable 09/22/17 07:47 Percent Retic 3.68 % (0.78-2.58) H 09/14/17 10:46 [place] Bodies Not Reportable 09/22/17 07:47 Hem Pathologist Commnt No 09/22/17 07:47 PT 19.6 Sec. (12.2-14.9) H 09/22/17 23:25 INR 1.56 (0.87-1.13) H 09/22/17 23:25 APTT 67.7 Sec. (24.2-36.6) H* 09/22/17 12:57 Fibrinogen 824 mg/dl (211-480) H 09/21/17 06:49 Heparin Anti-Xa Level 0.14 U.I./ml (0.3-0.7) L 09/24/17 05:22 Heparin Anti-Xa, Unfract Negative (Negative) 09/14/17 08:46 Sodium 136 mmol/L (137-145) L 09/24/17 05:22 Potassium 3.3 mmol/L (3.6-5.0) L 09/24/17 05:22 Chloride 97.4 mmol/L (98-107) L 09/24/17 05:22 Carbon Dioxide 24 mmol/L (22-30) 09/24/17 05:22 Anion Gap 18 mmol/L 09/24/17 05:22 BUN 4 mg/dL (9-20) L 09/24/17 05:22 Creatinine 0.4 mg/dL (0.8-1.5) L 09/24/17 05:22 Estimated GFR > 60 ml/min 09/24/17 05:22 BUN/Creatinine Ratio 10 % 09/24/17 05:22 Glucose 110 mg/dL (75-100) H 09/24/17 05:22 POC Glucose 102 (70-105) 09/14/17 06:43 Hemoglobin A1c 5.4 % (4-6) 09/12/17 08:32 Lactic Acid 1.50 mmol/L (0.7-2.0) 09/11/17 09:29 Calcium 8.2 mg/dL (8.4-10.2) L 09/24/17 05:22 Iron 48 ug/dL (49-181) L 09/11/17 23:47 TIBC 233 mcg/dL (250-450) L 09/11/17 23:47 % Saturation 20.60 % 09/11/17 23:47 Transferrin 194 mg/dl (180-329) 09/11/17 23:47 Ferritin 1023.0 ng/mL (13.0-400.0) H 09/14/17 10:46 Total Bilirubin 0.50 mg/dL (0.1-1.2) 09/21/17 21:53 AST 13 units/L (5-40) 09/21/17 21:53 ALT < 5 units/L (7-56) L 09/21/17 21:53 Alkaline Phosphatase 414 units/L (35-129) H 09/21/17 21:53 Total Creatine Kinase 136 units/L (55-170) 09/11/17 09:29 Troponin T < 0.010 ng/mL (0.00-0.029) 09/15/17 23:15 C-Reactive Protein 21.40 mg/dL (0.00-1.30) H 09/21/17 13:01 Total Protein 5.8 g/dL (6.3-8.2) L 09/21/17 21:53 Albumin 2.8 g/dL (3.9-5) L 09/21/17 21:53 Albumin/Globulin Ratio 0.9 % 09/21/17 21:53 Triglycerides 146 mg/dL (2-149) 09/23/17 05:59 Cholesterol 134 mg/dL (50-199) 09/23/17 05:59 LDL Cholesterol Direct 67 mg/dL (50-130) 09/23/17 05:59 HDL Cholesterol 38 mg/dL (40-59) L 09/23/17 05:59 Cholesterol/HDL Ratio 3.52 % 09/23/17 05:59 Prostate Specific Ag 1721.00 ng/mL (0.00-4.00) H 09/14/17 10:46 Serotonin Release Assay See scanned report 09/14/17 08:46 Vitamin B12 206.4 pg/mL (211-911) L 09/14/17 10:46 Folate 19.92 ng/mL (7.3-26.0) 09/14/17 10:46 Vancomycin Trough 12.8 ug/mL (5.0-20.0) 09/16/17 09:25 Heparin-induced Plt Ab Negative (Negative) 09/14/17 08:46 UF Heparin High Dose 0 % Release 09/14/17 08:46 ELENA UFH Low Dose 0.1 0 % Release 09/14/17 08:46 ELENA UFH Low Dose 0.5 0 % Release 09/14/17 08:46 Hep Bs Antigen Non-reactive (Negative) 09/14/17 10:46 Hepatitis C Antibody Non-reactive (NonReactive) 09/14/17 10:46 Blood Type B POSITIVE 09/26/17 11:00 Antibody Screen Negative 09/26/17 11:00 Crossmatch See Detail 09/26/17 11:00
[2017-09-26] MEDS: AMBIEN PO PRN (21:23)
--- NOTE | 2017-09-26 22:51 | XRay Report ---
FINAL REPORT PROCEDURE: XR BONE SURVEY METASTATIC TECHNIQUE: Radiographs of the axial and appendicular skeleton, including lateral skull, lateral cervical spine, AP ribs, AP thoracic spine, AP and lateral lumbar spine, AP pelvis, PA and lateral chest, and AP views of the long bones. HISTORY: Metastatic prostate CA COMPARISON: No prior studies are available for comparison. FINDINGS: There is diffuse mottled sclerosis of the imaged osseous structures, particularly spine, ribs, bony pelvis and proximal femurs. No acute fracture is identified. There are diffuse degenerative disc changes of the cervical spine. Left PICC line tip is in the superior vena cava. IMPRESSION: Findings are compatible with widespread sclerotic metastases. Consider evaluation with nuclear medicine bone scan.
[2017-09-27] MEDS: DILAUDID IV PRN ×2 (00:22→04:04)
[2017-09-27] MEDS: UNASYN/NS 3 GM/100 ML 3 GM/100 ML BAG IV SCH ×3 (00:26→13:45)
[2017-09-27] MEDS ORDERED: DILAUDID IV PRN ×3 (07:00→11:00)
[2017-09-27 07:36] LABS: Hematocrit 25.8 % (35.5-45.6); Hemoglobin 8.7 gm/dl (11.8-15.2); Mean Corpuscular HGB Conc 34 % (32-34); Mean Corpuscular Hemoglobin 30 pg (28-32); Mean Corpuscular Volume 88 fl (84-94); Red Blood Count 2.93 M/mm3 (3.65-5.03); Red Cell Distribution Width 15.6 % (13.2-15.2)
[2017-09-27 07:49] LABS: Platelet Count 94 K/mm3 (140-440)
--- NOTE | 2017-09-27 09:38 | Hem/Onc Progress Note ---
Assessment and Plan Hemoglobin improved and platelets slowly trending up continue supportive care f/u with aide[facility] onc upon d/c for his prostate cancer. Patient has chronic anemia. I feel this is related to prostate cancer but it seems he's not had a GI workup for some time. GI following. - Patient Problems (1) Prostate CA Current Visit: Yes Status: Acute (2) Anemia Current Visit: Yes Status: Acute Qualifiers: Anemia type: unspecified type Qualified Code(s): D64.9 - Anemia, unspecified (3) Thrombocytopenia Current Visit: Yes Status: Acute (4) Atherosclerosis of [place] arteries of the extremities with gangrene Current Visit: Yes Status: Acute Subjective Date of service: 09/27/17 Interval history: Patient received packed RBCs yesterday. Sleepy but comfortable Objective - Constitutional Vitals: Last Vital Signs Temp 98.1 F 09/27/17 07:32 Pulse 89 09/27/17 07:32 Resp 14 09/27/17 07:32 BP 127/82 09/27/17 07:32 Pulse Ox 97 09/27/17 07:32 Performance status: 3-limited selfcare - Neck Neck: supple - Respiratory Respiratory effort: Positive: normal Respiratory: bilateral: diminished - Cardiovascular Rhythm: regular - Gastrointestinal General gastrointestinal: Present: soft - Labs Lab Results: Laboratory Results - last 24 hr 09/26/17 09/27/17 11:00 Unknown WBC 4.9 RBC 2.93 L Hgb 8.7 L Hct 25.8 L MCV 88 MCH 30 MCHC 34 RDW 15.6 H Plt Count 94 L Blood Type B POSITIVE Antibody Screen Negative Crossmatch See Detail
[2017-09-27] MEDS: HABITROL TD SCH (09:52)
[2017-09-27] MEDS: NORCO 5/325 PO PRN (09:52)
[2017-09-27] MEDS: FOLVITE PO SCH (09:53)
[2017-09-27] MEDS: FLOMAX PO SCH (09:53)
[2017-09-27] MEDS: PROTONIX PO SCH (09:53)
[2017-09-27] MEDS: ELIQUIS PO SCH (09:53)
[2017-09-27] MEDS: THERAGRAN-M Tab PO SCH (09:53)
[2017-09-27 14:10] VITALS: BP 131/85
[2017-09-27] MEDS: PERCOCET 5/325 PO PRN (15:16)
== END 2017-09-27 15:46 | disposition hospice, inpatient (51) | DRG 270 ==
LOC: ED 07:57 → 3A 11:27 → CC1 09-20 16:14 → 3A 09-21 23:00
PROVIDERS: ADMIT Internal Medicine; ATTEND Internal Medicine
PROC: 30233N1 Transfusion of Nonautologous Red Blood Cells into Peripheral Vein, Percutaneous Approach (ICD-10-PCS; principal; 2017-09-11)
PROC: 3E0234Z Introduction of Serum, Toxoid and Vaccine into Muscle, Percutaneous Approach (ICD-10-PCS; 2017-09-12)
PROC: B41D1ZZ Fluoroscopy of Aorta and Bilateral Lower Extremity Arteries using Low Osmolar Contrast (ICD-10-PCS; 2017-09-12)
PROC: B41F1ZZ Fluoroscopy of Right Lower Extremity Arteries using Low Osmolar Contrast (ICD-10-PCS; 2017-09-12)
PROC: 04CM3ZZ Extirpation of Matter from Right Popliteal Artery, Percutaneous Approach (ICD-10-PCS; 2017-09-20)
PROC: B41F1ZZ Fluoroscopy of Right Lower Extremity Arteries using Low Osmolar Contrast (ICD-10-PCS; 2017-09-20)
PROC: 04HM33Z Insertion of Infusion Device into Right Popliteal Artery, Percutaneous Approach (ICD-10-PCS; 2017-09-20)
PROC: 04HR33Z Insertion of Infusion Device into Right Posterior Tibial Artery, Percutaneous Approach (ICD-10-PCS; 2017-09-20)
PROC: 04CM3ZZ Extirpation of Matter from Right Popliteal Artery, Percutaneous Approach (ICD-10-PCS; 2017-09-21)
PROC: 04CT3ZZ Extirpation of Matter from Right Peroneal Artery, Percutaneous Approach (ICD-10-PCS; 2017-09-21)
PROC: 04CR3ZZ Extirpation of Matter from Right Posterior Tibial Artery, Percutaneous Approach (ICD-10-PCS; 2017-09-21)
PROC: 04CP3ZZ Extirpation of Matter from Right Anterior Tibial Artery, Percutaneous Approach (ICD-10-PCS; 2017-09-21)
PROC: 047T3ZZ Dilation of Right Peroneal Artery, Percutaneous Approach (ICD-10-PCS; 2017-09-21)
PROC: 047R3ZZ Dilation of Right Posterior Tibial Artery, Percutaneous Approach (ICD-10-PCS; 2017-09-21)
PROC: 04PYX3Z Removal of Infusion Device from Lower Artery, External Approach (ICD-10-PCS; 2017-09-21)
PROC: 02HV33Z Insertion of Infusion Device into Superior Vena Cava, Percutaneous Approach (ICD-10-PCS; 2017-09-23)
DX: I70.261 Atherosclerosis of native arteries of extremities with gangrene, right leg (principal); A41.9 Sepsis, unspecified organism; D60.9 Acquired pure red cell aplasia, unspecified; I26.99 Other pulmonary embolism without acute cor pulmonale; E43 Unspecified severe protein-calorie malnutrition; M86.171 Other acute osteomyelitis, right ankle and foot; L03.115 Cellulitis of right lower limb; D61.818 Other pancytopenia; D64.0 Hereditary sideroblastic anemia; D69.6 Thrombocytopenia, unspecified; D75.82 Heparin induced thrombocytopenia (HIT); C61 Malignant neoplasm of prostate; G89.3 Neoplasm related pain (acute) (chronic); N40.0 Benign prostatic hyperplasia without lower urinary tract symptoms; M54.9 Dorsalgia, unspecified; D63.0 Anemia in neoplastic disease; Z53.29 Procedure and treatment not carried out because of patient's decision for other reasons; L97.519 Non-pressure chronic ulcer of other part of right foot with unspecified severity; F17.200 Nicotine dependence, unspecified, uncomplicated; F12.90 Cannabis use, unspecified, uncomplicated; F14.90 Cocaine use, unspecified, uncomplicated; Z72.89 Other problems related to lifestyle; Z82.49 Family history of ischemic heart disease and other diseases of the circulatory system; Z23 Encounter for immunization; Z71.6 Tobacco abuse counseling; Z79.899 Other long term (current) drug therapy; Z68.20 Body mass index [BMI] 20.0-20.9, adult
CPT/HCPCS: 36200; 36415; 37184; 37211; 37214; 37225; 37228; 51701; 71045; 71046; 71275; 75625; 75635; 75710; 77074; 78452; 80048; 80053; 80061; 80202; 82140; 82270; 82550; 82607; 82728; 82747; 82962; 83036; 83550; 84153; 84484; 85007; 85014; 85018; 85025; 85027; 85045; 85049; 85384; 85520; 85610; 85730; 86022; 86140; 86706; 86803; 86850; 86900; 86901; 86920; 87040; 87116; 90686; 90732; 93005; 93010; 93017; 93306; 93925; 99406; A9502; C1724; C1725; C1751; C1757; C1760; C1769; C1884; C1887; C1894; J0295; J0690; J0883; J1170; J1200; J1644; J2250; J2270; J2785; J2997; J3010; J3370; J3420; J7030; J7040; J7042; J7050; J7060; P9016; Q9967